=== PATIENT | female | born 1960 | race African-American/Black ===

== ENCOUNTER 2025-03-02 12:18 | Emergency (ER) | payer OTHER, SELFPAY ==
--- NOTE | ~2025-03-02 | US_ITS ---
BILATERAL LOWER EXTREMITY VENOUS ULTRASOUND Ordering provider: Azam Gentile MD History: . leg swelling, hx BR CA . Comparison: None. FINDINGS: RIGHT LOWER EXTREMITY VEINS: --COMMON FEMORAL: Patent and free of thrombus. Normal compressibility, phasic flow and augmentation. --PROXIMAL SUPERFICIAL FEMORAL: Patent and free of thrombus. Normal compressibility, phasic flow and augmentation. --DISTAL SUPERFICIAL FEMORAL: Patent and free of thrombus. Normal compressibility, phasic flow and au gmentation. --POPLITEAL: Patent and free of thrombus. Normal compressibility, phasic flow and augmentation. --POSTERIOR TIBIAL: Patent and free of thrombus. Normal compressibility, phasic flow and augmentation . LEFT LOWER EXTREMITY VEINS: --COMMON FEMORAL: Patent and free of thrombus. Normal compressibility, phasic flow and augmentation. --PROXIMAL SUPERFICIAL FEMORAL: Patent and free of thrombus. Normal compressibility, phasic flow and augmentation. --DISTAL SUPERFICIAL FEMORAL: Patent and free of thrombus. Normal compressibility, phasic flow and au gmentation. --POPLITEAL: Patent and free of thrombus. Normal compressibility, phasic flow and augmentation. --POSTERIOR TIBIAL: Patent and free of thrombus. Normal compressibility, phasic flow and augmentation . IMPRESSION: Negative bilateral lower extremity venous US. No deep vein thrombosis. Reviewed, dictated and finalized at location A.
[2025-03-02 12:25] VITALS: BP 156/68; PULSE 70; RESP 16; TEMP 36.3; O2SAT 99
--- OUTSIDE RECORDS SUMMARY | 2025-03-02 13:25 | XMS_ITS | CONTINUITY OF CARE DOCUMENT ---
Author Name nona castellano Address Unknown Organization [facility] Address [address] [address] [place] [address] Phone [phone] Care Team Providers Care Felt Carbonizer Name Role Phone Hong Olson MD Unavailable Hong Olson MD Unavailable INSURANCE PROVIDERS Payer name Policy type / Coverage type [place] [employer] [place] MEDICAID (2) Medicaid [id number]
--- NOTE | 2025-03-02 14:31 | ED_ITS ---
HPI - Extremity Problem General Chief complaint: Extremity Problem,Nontraumatic Stated complaint: Bilat lower leg pain Time Seen by Provider: 03/02/25 14:11 History of Present Illness HPI Narrative: 64-year-old female with a past medical history including breast cancer with last session of therapy in October. She states she has been having some bilateral lower extremity pain and swelling left worse than right. She went to [facility] and had blood work done that showed an elevated D-dimer but they did not have ultrasound capabilities. No other concerns per patient at that time and she was sent home with a prescription for Eliquis instructions to obtain an ultrasound. She came to this emergency department that she was not sure what to do. Patient denies any symptoms other than left leg swelling slightly worse than right leg swelling. No other symptoms at this time. She does have a prescription with her for Eliquis 5 mg b.i.d. but she did not feel this yet. States she has no history of DVT or PE. Denies any shortness a breath, chest pain, nausea, vomiting, abdominal pain. No paresthesias that are worse than her normal neuropathy. Denies any falls or injuries. Related Data Allergies Allergy/AdvReac Type Severity Reaction Status Date / Time morphine Allergy Dyspnea / Verified 03/02/25 12:37 SOB naproxen Allergy retaining Verified 03/02/25 12:37 water Review of Systems Review of Systems: As reviewed above in HPI Exam Narrative: GENERAL: [Well-appearing, well-nourished, and in no acute distress.] HEAD: [Normocephalic, atraumatic.] EYES: [PERRLA and EOMI.] ENT: Nares clear, no rhinorrhea or epistaxis. Mucous membranes moist. NECK: Supple. CHEST: [Clear to auscultation. No respiratory distress.] HEART: [Regular rate and rhythm]. No murmur heard. [Normal peripheral pulses.] ABDOMEN: [Soft, nondistended], [nontender], [No rigidity or guarding] EXTREMITIES: Normal range of motion. Some mild nonpitting edema left worse than right at the knees down. No overlying skin discoloration or concerns for cellulitis. SKIN: Warm, dry, no rash. NEURO: [No focal deficits]. Alert and oriented [x3.] PSYCH: [Normal mood and affect.] Course Vital Signs Vital signs: Vital Signs Temperature 36.3 C L 03/02/25 12:25 Pulse Rate 70 03/02/25 12:25 Respiratory Rate 16 03/02/25 12:25 Blood Pressure 156/68 H 03/02/25 12:25 Pulse Oximetry 99 03/02/25 12:25 Oxygen Delivery Room Air 03/02/25 12:25 Temperature 36.3 C L 03/02/25 12:25 Pulse Rate 70 03/02/25 12:25 Respiratory Rate 16 03/02/25 12:25 Blood Pressure 156/68 H 03/02/25 12:25 Pulse Oximetry 99 03/02/25 12:25 Oxygen Delivery Room Air 03/02/25 12:25 MDM - Extremity (Nontraumatic) MDM Narrative Medical decision making narrative: 64-year-old female with a past medical history including breast cancer with last treatment and October. Patient presents to the emergency depart with bilateral leg swelling left worse than right and concern for DVT. She had blood work done at [facility] Emergency Department earlier today that showed elevated D- dimer but no other concerns according to the patient. She is given a presc ription for Eliquis 5 mg b.i.d. and instructed to proceed to get an ultrasound outpatient but she was not able to get this done I was not sure what to do so she came to the emergency department here. She has some unilateral left worse than right swelling in the legs but not significant. No overlying skin changes or signs of cellulitis. She has normal vital signs with any fever significant blood pressure concerns. No tachycardia, hypoxia. Denies any chest pain shortness a breath she was otherwise in her normal state of health. Will proceed with bilateral lower extremity Doppler ultrasound to rule out deep venous thrombosis and make a decision on if she needs to continue taking the Eliquis or not. Patient will follow-up with her primary care provider after ultrasound results. DVT ultrasound was negative. Patient was instructed not to fill the Eliquis prescription and follow-up with regular doctor regarding her leg swelling. Patient is safe for discharge home at this time. Discharge Plan Discharge Clinical Impression: Leg swelling Patient Disposition: Home Condition: Stable Instructions: Antibiotic Form Additional Instructions: Your DVT study was negative and there are no blood clots in your legs. Do not fill the Eliquis prescription that you were provided by the previous hospital. Follow-up with your primary care provider regarding your leg swelling. Return with any emergent concerns such as worsening swelling, developing persistent pain, discoloration in the feet or any other concerns. Patient Language: Romansh Follow-up/Referrals: PHYSICIAN NOT ON STAFF,NONSTAFF [Non-Staff] - Time of Disposition: 15:31
[2025-03-02 15:52] VITALS: BP 181/70; PULSE 62; RESP 16; TEMP 36.4; O2SAT 99
--- OUTSIDE RECORDS SUMMARY | 2025-03-02 16:02 | XMS_ITS | Encounter Summary ---
Author Organization [facility] Healthcare Address [address] [place] [address] Care Team Providers Care Senior Business Broker Name Role Phone Pratima Hinds NP Primary Care Provider [phone] Herbie Chow DO Unavailable [phone] Bry Mead MD Unavailable [phone] Bernarda Luong MD Unavailable [phone] Encounter Details Date Type Department Care Team (Late st Contact Info) Description 03/02/2025 Telephone [facility] at [address] [place] [address] Saloni Rivera, FRANCISCA Social History Tobacco Use Types Packs/Day Years Used Date Smoking Tobacco: Every Day Cigarettes Smokeless Tobacco: Current Comments:Heaviest 1 pack per day. Now on average one pack x 3 days. Started age 12. [facility] Utilities Answer Date Recorded In the past 12 months has [employer], gas, oil, or water [employer] threatened to shut off services in your home? No 12/19/2024 Social Connection and Isolat ion Panel [NHANES] Answer Date Recorded In a typical week, how many times do you talk on the phone with family, friends, or neighbors? More than three times a week 12/19/2024 How often do you get togethe r with friends or relatives? Twice a week 12/19/2024 How often do you attend [facility] or mormon services? 1 to 4 times per year 12/19/2024 Do you belong to any clubs o r organizations such as buddhist groups, unions, fraternal or athletic groups, or school groups? No 12/19/2024 How often do you attend meet ings of the clubs or organizations you belong to? Never 12/19/2024 Are you , , di vorced, , never , or living with a partner? 12/19/2024 AUDIT-C Answer Date Recorded Q1: How often do you have a drink containing alc ohol? Monthly or less 12/18/2024 Q2: How many drinks containi ng alcohol do you have on a typical day when you are drinking? 1 or 2 12/18/2024 Q3: How often do you have si x or more drinks on one occasion? Never 12/18/2024 Overall Financial Resource Strain (CARDIA) Answe r Date Recorded How hard is it for you to pa y for the very basics like food, housing, medical care, and heating? Somewhat hard 12/19/2024 Hunger Vital Sign Answer Date Recorded Within the past 12 months, y ou worried that your food would run out before you got the money to buy more. Sometimes true Within the past 12 months, t he food you bought just didn't last and you didn't have money to get more. Never true 08/2025 PRAPARE - Transportation Answer Date Re corded In the past 12 months, has l ack of transportation kept you from medical appointments or from getting medications? No 12/10 In the past 12 months, has l ack of transportation kept you from meetings, work, or from getting things needed for daily living? No 12/19/2024 Housing Stability Vital Sign Answer Reese e Recorded In the last 12 months, was t here a time when you were not able to pay the mortgage or rent on time? No 12/19/2024 In the past 12 months, how m any times have you moved where you were living? 1 12/19/2024 At any time in the past 12 m [facility], were you homeless or living in a long-term (including now)? No 12/19/2024 Personal Safety Answer Date Recorded Have you ever been in or are you currently in a harmful physical or emotional relationship or is someone making you feel afraid or unsafe? 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 Janie RN notified of this, she is going to call patient. documented in this encounter Plan of Treatment Not on file documented as of this encounter Visit Diagnoses Not on filedocumented in this encounter Additional Health Concerns Infection Onset Date Last Indicated Resolved Time COVID: Recovered Comment:Added based on recent COVID infection. 12/31/2024 01/03/2025 documented as of this encounter Care Teams Senior Business Broker Relationship Specialty Start Date End Date Pratima Hinds NP [address] [facility] [address] [place] [address] PCP - General Nurse Practitioner 02/04/24 [place] [address] [place] [address] MEDICAL ONCOLOGY, [facility] [address] [place] [address] Medical Oncologist/Hematologis t Hematology and Oncology 02/04/24 Bry Mead MD [address] [place] [address] [address] [place], [place] [id number] Radiation Oncologist Radiation Oncology 01/04/25 Bernarda Luong MD [address] [facility] [address] [place] [address] Referring Physician Internal Medicine 01/04/25 documented as of this encounter
--- OUTSIDE RECORDS SUMMARY | 2025-03-02 16:02 | XMS_ITS | Clinical Summary ---
Author Organization [facility] Address [address] [place] [id number] Care Team Providers Care Philosophy Lecturer Name Role Phone Guzman Pratima CASTELLANOS Primary Care Provider [phone] Rinku Chow DO Unavailable [phone] Bry Mead MD Unavailable [phone] Bernarda Luong MD Unavailable [phone] Allergies Active Allergy Reactions Criticality Noted Date Comments Adhesive Tape-Silicones Blisters High Bupropion Rash,Unknown,Other (See comments) Medium 07/01/2018 Magnesium Sulfate Agitation Low 08/08/2024 Morphine Shortness of breath High 06/30/2024 Feels like elephant sitting on chest and cannot get air, hard to breathe Naproxen Swelling Medium Fluid retention after taking long term care social worker Medications albuterol HFA (PROVENTIL HFA,VENTOLIN HFA,PROAIR HFA) 90 mcg/actuation inhaler INHALE TWO PUFFS BY MOUTH EVERY FOUR HOURS 4 Active atorvastatin (LIPITOR) 40 mg tablet Take 1 tablet (40 mg total) by mouth nightly 3 Active budesonide-formot Irene (SYMBICORT) 160-4.5 mcg/actuation inhaler Inhale 2 puffs 2 (two) times a day Active busPIRone (BUSPAR) 15 mg tablet Take 1 tablet (15 mg total) by mouth 2 (two) times a day 4 Active cholecalciferol (VITAMIN D-3) 5,000 unit capsule Take 1 capsule (5,000 Units total) by mouth daily Active citalopram (CeleXA) 40 mg tablet Take 1 tablet (40 mg total) by mouth daily Takes 10am daily 7 Active cyanocobalamin (Vitamin B-12) 1,000 mcg/mL injection Inject 1 mL (1,000 mcg total) under the skin every 30 (thirty) days Active Farxiga 10 mg tablet Take 1 tablet (10 mg total) by mouth daily 4 Active lisinopriL (PRINIVIL,ZESTRIL ) 20 mg tablet Take 1 tablet (20 mg total) by mouth daily Active nitroglycerin (NITROSTAT) 0.[address] under the tongue as needed for chest pain Active omeprazole (PriLOSEC) 40 mg capsule Take 1 capsule (40 mg total) by mouth nightly 4 Active [place]aut Thyroid 30 mg tablet Take 1 tablet (30 mg total) by mouth daily 4 Active clatxefalfwi-Br-l magi-minerals tablet Take 1 tablet by mouth daily Active gabapentin (NEURONTIN) 600 mg tabletIndications :Intractable neuropathic pain of lower extremity Take 1 tablet (600 mg total) by mouth 4 (four) times a day 120 tablet 5 11/26/19 26 Active spironolactone (ALDACTONE) 100 mg tablet Take 1 tablet (100 mg total) by mouth daily Active torsemide (DEMADEX) 100 mg tablet Take 0.5 tablets (50 mg total) by mouth daily Active lactulose solution 10 gram/15mL Take 15 mL (10 g total) by mouth daily Active ondansetron (ZOFRAN) 4 mg tablet Take 1 tablet (4 mg total) by mouth every 8 (eight) hours as needed for nausea or vomiting Active sucralfate (CARAFATE) suspension 1 gram/10 mL Take 10 mL (1 g total) by mouth 4 (four) times a day (with meals and nightly) 1200 mL 5 Active clopidogreL (PLAVIX) 75 mg tablet Take 1 tablet (75 mg total) by mouth daily 30 tablet 11 5 12/13/19 26 Active ferrous sulfate 325 mg (65 mg of elemental iron) tabletIndications :Iron Deficiency Anemia Take 1 tablet (325 mg total) by mouth daily with breakfast 30 tablet 11 5 12/14/19 26 Active metoclopramide (REGLAN) 10 mg tabletIndications :Cancer Chemotherapy-Hazel rosa Nausea and Vomiting,Diabetic Gastroparesis Take 1 tablet (10 mg total) by mouth 4 (four) times a day 120 tablet 2 5 Active oxyCODONE-acetami nophen (PERCOCET) 10-325 mg per tabletIndications :Pain Take 1 tablet by mouth every 4 (four) hours as needed Active metoprolol XL (TOPROL-XL) 50 mg extended release tablet Take 0.5 tablets (25 mg total) by mouth daily 5 12/21/19 26 Active guaiFENesin (ROBITUSSIN) syrup 100 mg/5 mL Take 10 mL (200 mg total) by mouth every 4 (four) hours as needed for cough or congestion 120 mL Active Active Problems Problem Noted Date Diagnosed Date COVID-19 virus infection 12/17/2024 Other dysphagia 12/07/2024 Weight loss 12/07/2024 Rectal bleeding 12/07/2024 Acute congestive heart failu re, unspecified heart failure type 12/05/2024 Intractable neuropathic pain of lower extremity 11/24/2024 Rheumatoid arthritis of mult iple sites with negative rheumatoid factor 11/24/2024 Chronic congestive heart denisse lure, unspecified heart failure type 11/24/2024 Diabetes mellitus without complication Neutropenic fever 09/02/2024 Dehydration 09/01/2024 Chemotherapy-induced neutropenia 09/01/2024 Encounter for adjustment and management of unspecified implanted device 08/08/2024 Persons encountering health services in other specified circumstances 08/08/2024 DDD (degenerative disc disease), lumbar 06/28/20 Hyperlipidemia 06/28/2024 Iron deficiency 06/28/2024 Malignant neoplasm of overla pping sites of right breast in female, estrogen receptor positive 01/29/2024 Cancer Staging:Clinical stage from 02/10/2024:Stage IA(cT1b, cN0, cM0, G2, ER+, MI+, HER2-) - Signed by Luz Batista MD on 02/10/2024 Essential hypertension 04/18/2022 Cobalamin deficiency 04/18/2022 Anemia 01/23/2020 Anxiety 01/23/2020 Chronic obstructive pulmonary disease 01/23/2020 Depressive disorder 01/23/2020 Vitamin D deficiency 01/23/2020 History of VT (myocardial infarction) 10/06/2016 Obesity with body mass index 30 or greater 11/17 Atherosclerosis of coronary artery 06/01/2013 Migraine 05/31/2013 Chest pain 04/20/2013 Encounters Date Type Department Care Team Description 03/02/2025 Telephone [facility] Physicians [facility] Oncology [address] [place] [address] [address] [place] [address] Kennedi Power, RN 03/02/2025 Telephone [facility] at [address] [place] [address] Saloni Rivera, FRANCISCA 03/01/2025 Telephone [facility] Medical Office Building 2 Radiation Oncology [address] [place] [phone] Bry Mead MD 02/20/2025 Telephone [facility] Medical Office Building 2 Radiation Oncology [address] [place] [address] Bry Mead MD 02/17/2025 1:15 PM CDT Treatment [facility] Medical Office Building 2 Radiation Oncology [address] [place] [address] 02/17/2025 Completion of Therapy [facility] Office Building 2 Radiation Oncology [address] [place] [address] Bry Mead MD 02/17/2025 OTV [facility] Office Building 2 Radiation Oncology [address] [place] [address] Bry Mead MD 02/17/2025 Orders Only RAD ONC TREATMENTS Miscellaneous, Not In File 02/16/2025 1:15 PM CDT Treatment [facility] Office Building 2 Radiation Oncology [address] [place] [address] 02/16/2025 Social Work [facility] Physicians [facility] Oncology [address] [place] [address] Vanessa Huston LCSW 02/16/2025 Documentation [facility] Cancer [place] [facility] [address] [place] [address] Julia Valdez, A 02/16/2025 Orders Only RAD ONC TREATMENTS Miscellaneous, Not In File 02/07/2025 9:00 AM CDT Treatment [facility] Medical Office Building 2 Radiation Oncology [address] [place] [address] 02/07/2025 Orders Only RAD ONC TREATMENTS Miscellaneous, Not In File 02/03/2025 1:15 PM CDT Treatment [facility] Office Building 2 Radiation Oncology [address] [place] [address] 02/03/2025 OTV [facility] Office Building 2 Radiation Oncology [address] [place] [address] Bry Mead MD 02/03/2025 Orders Only RAD ONC TREATMENTS Miscellaneous, Not In File 02/02/2025 1:15 PM CDT Treatment [facility] Office Building 2 Radiation Oncology [address] [place] [address] 02/02/2025 Orders Only RAD ONC TREATMENTS Miscellaneous, Not In File 02/01/2025 3:22 PM CDT - 02/01/2025 4:24 PM CDT Emergency [facility] Emergency Department [address] [place] [address] Pain in posterior right lower extremity (Primary Dx) Discharge Disposition: Discharge to home or self care 02/01/2025 1:45 PM CDT Treatment [facility] Office Building 2 Radiation Oncology [address] [place] [address] 02/01/2025 Orders Only RAD ONC TREATMENTS Miscellaneous, Not In File 01/30/2025 1:15 PM CDT Treatment [facility] Building 2 Radiation Oncology [address] [place] [address] 01/30/2025 Orders Only RAD ONC TREATMENTS Miscellaneous, Not In File 01/27/2025 1:15 PM CDT Treatment [facility] Office Building 2 Radiation Oncology [address] [place] [address] 01/27/2025 OTV [facility] Office Building 2 Radiation Oncology [address] [place] [address] Luz Batista MD Malignant neoplasm of overlapping sites of right breast in female, estrogen receptor positive (HCC) (Primary Dx) 01/27/2025 Orders Only RAD ONC TREATMENTS Miscellaneous, Not In File 01/25/2025 1:15 PM CDT Treatment [facility] Office Building 2 Radiation Oncology [address] [place] [address] 01/25/2025 Documentation [facility] Center at [address] [address] Julia Valdez, Kaylan 01/25/2025 Orders Only RAD ONC TREATMENTS Miscellaneous, Not In File 01/18/2025 Telephone [facility] Oncology [address] [place] [phone] Latonya Harman RN 01/16/2025 1:30 PM CDT Treatment [facility] Office Building 2 Radiation Oncology [address] [place] [address] Bry Mead MD 01/16/2025 1:15 PM CDT Treatment [facility] Office Building 2 Radiation Oncology [address] [place] [address] Bry Mead MD 01/16/2025 Orders Only RAD ONC TREATMENTS Miscellaneous, Not In File 01/06/2025 9:00 PM [employer] BUSINESS ANALYST Treatment [facility] Medical Office Building 2 Radiation Oncology [address] [place] [address] 01/04/2025 2:00 PM [employer] BUSINESS ANALYST Treatment [facility] Office Building 2 Radiation Oncology [address] [place] [address] Bry Mead MD 01/04/2025 1:30 PM [employer] BUSINESS ANALYST Consult [facility] Office Building 2 Radiation Oncology [address] [place] [address] Bry Mead MD Malignant neoplasm of overlapping sites of right breast in female, estrogen receptor positive (HCC); Malignant neoplasm of upper-outer quadrant of left breast in female, estrogen receptor positive (HCC) 01/04/2025 1:15 PM [employer] BUSINESS ANALYST Clinical Support [facility] at [address] [address] Malignant neoplasm of overlapping sites of right breast in female, estrogen receptor positive (HCC); Malignant neoplasm of upper-outer quadrant of left breast in female, estrogen receptor positive (HCC); Normocytic hypochromic anemia; Fatigue, unspecified type 12/30/2024 Home Care Visit [address] [address] [address] [place] [address] Minerva Gonzales, RN CASE COMMUNICATION 12/30/2024 Home Care Visit [address] [address] [address] [place] [address] Minerva Gonzales, RN SN NON ADMIT 12/29/2024 Home Care Visit [address] [place] [address] Chula Cerna, RN TELEPHONE ENCOUNTER 12/28/2024 Home Care Visit [address] [place] [address] Chula Cerna, RN TELEPHONE ENCOUNTER 12/28/2024 Home Care Visit [address] [place] [address] Julia Mcnally TELEPHONE ENCOUNTER 12/27/2024 Home Care Visit [address] [place] [address] Chula Cerna, RN TELEPHONE ENCOUNTER 12/26/2024 Home Care Visit [address] [place] [address] Chula Cerna, RN TELEPHONE ENCOUNTER 12/24/2024 Home Care Visit [address] [place] [address] Sepideh Butler, FRANCISCA TELEPHONE ENCOUNTER 12/22/2024 Telephone [facility] Care Services [address] [place] [address] [address] [place] [address] Hannah Ventura, FRANCISCA 12/17/2024 4:39 PM [employer] BUSINESS ANALYST - 12/21/2024 11:46 AM [employer] BUSINESS ANALYST Hospital Encounter [facility] 5 Med Surg [address] [place] [address] Sandra Lawrence MD Sada, MD Mumtaz Yao Anjanya Devendra, MD Gaspe Mudiyanselage, Aries Levi MD COVID-19 virus infection (Primary Dx); Fever, unspecified fever cause; Malignant neoplasm of overlapping sites of right breast in female, estrogen receptor positive (HCC); Essential hypertension; Diabetes mellitus without complication (HCC); Neutropenic fever; Chemotherapy-induced neutropenia Discharge Disposition: Discharge to home, home health skilled care 12/15/2024 Telephone [facility] Medical Office Building 2 Radiation Oncology [address] [place] [address] Gill Horvath MA 12/14/2024 2:15 PM [employer] BUSINESS ANALYST Office Visit [facility] Physicians [facility] Oncology [address] [place] [address] [address] [place] [phone] Rinku Chow DO Malignant neoplasm of upper-outer quadrant of left breast in female, estrogen receptor positive (HCC) (Primary Dx); Malignant neoplasm of overlapping sites of right breast in female, estrogen receptor positive (HCC); Normocytic hypochromic anemia; Fatigue, unspecified type 12/14/2024 1:45 PM [employer] BUSINESS ANALYST Clinical Support [address] [id number] Malignant neoplasm of overlapping sites of right breast in female, estrogen receptor positive (HCC) 12/14/2024 Social Work [facility] Oncology [address] [place] [address] [address] [place] [address] Vanessa Huston LCSW 12/14/2024 Telephone [facility] Oncology [address] [place] [address] [address] [place] [address] Marie Gomez, VALE 12/12/2024 3:42 PM [employer] BUSINESS ANALYST Anesthesia Event [facility] GI Endo [address] [place] [address] Luis Eduardo Mead MD 12/12/2024 2:30 PM [employer] BUSINESS ANALYST - 12/12/2024 3:00 PM [employer] BUSINESS ANALYST Surgery [facility] GI Endo [address] [place] [address] Vincent Hamilton MD COLONOSCOPY 12/05/2024 11:29 AM [employer] BUSINESS ANALYST - 12/12/2024 7:45 PM [employer] BUSINESS ANALYST Hospital Encounter [facility] 5 Med Surg [address] [place] [id number] Virgil Vanegas DO Mourad, Ibrahim, MD Mahasneh, Omar Ali Mohammed, MD Acute congestive heart failure, unspecified heart failure type (HCC) (Primary Dx); Other dysphagia [R13.19]; Weight loss [R63.4]; Iron deficiency anemia, unspecified iron deficiency anemia type [D50.9]; Rectal bleeding [K62.5]; Other dysphagia; Weight loss; Anemia, unspecified type Discharge Disposition: Discharge to home or self care 12/02/2024 Telephone [facility] Patient Access [address] [place] [address] Sherman Wang from Last 3 Months Immunizations Immunization Administration Dates Next Due Influenza, Trivalent, Preservative Free, Intramu scular 09/05/2024 Surgical History Surgery Date Site/Laterality Comments HYSTERECTOMY COLONOSCOPY SECTION 11/09/2002 - 11/08/2003 CARDIAC SURGERY 11/09/2012 - 11/08/2013 double bypass (Titanium in sternum) VAGINAL DELIVERY x8 BREAST SURGERY 07/06/2024 Right Needle loc lumpectomy w biopsy right axillary lymph nodes UPPER GASTROINTESTINAL ENDOSCOPY Medical History Medical History Date Comments CHF (congestive heart failure) (HCC) Hypertension Anemia with transfusion s during heart surgery Anxiety Cancer (HCC) Hypercholesteremia Stroke (HCC) age 30s Thyroid disease Breast cancer (HCC) Diabetes mellitus (HCC) Atherosclerosis of coronary artery 06/01/2013 Malignant neoplasm of overla pping sites of right breast in female, estrogen receptor positive (HCC) 01/29/2024 Chronic obstructive pulmonar y disease (HCC) 01/23/2020 DDD (degenerative disc disease), lumbar 06/28/20 Depressive disorder 01/23/2020 History of VT (myocardial infarction) 10/06/2016 Essential hypertension 04/18/2022 Hyperlipidemia 06/28/2024 Iron deficiency 06/28/2024 Migraine 05/31/2013 Cobalamin deficiency 04/18/2022 Vitamin D deficiency 01/23/2020 PONV (postoperative nausea and vomiting) nausea only Sleep apnea no cpap Irritable bowel syndrome IBS-C VT (myocardial infarction) (HCC) Hx CABG- double bypass Family History Medical History Relation Name Comments Brain Aneurysm Brother Heart attack Father Kidney failure Father Stroke Father No Known Problems Maternal Grandfather No Known Problems Maternal Grandmother Leukemia Mother No Known Problems Paternal Grandfather No Known Problems Paternal Grandmother Hodgkin's lymphoma Sister Relation Name Status Comments Brother Father Maternal Grandfather Maternal Grandmother Mother Paternal Grandfather Paternal Grandmother Sister Social History Tobacco Use Types Packs/Day Years Used Date Smoking Tobacco: Every Day Cigarettes Smokeless Tobacco: Current Tobacco Cessation:Ready to Q uit: Not Asked; Counseling Given: Not Answered Comments:Heaviest 1 pack per day. Now on average one pack x 3 days. Started age 12. [facility] Utilities Answer Date Recorded In the past 12 months has e Poached Jobs, gas, oil, or water [employer] threatened to shut off services in your [...] week 12/19/2024 How often do you attend chur ch or gnosticism services? 1 to 4 times per year 12/19/2024 Do you belong to any clubs o r organizations such as gnosticist groups, unions, fraternal or athletic groups, or [...] any time in the past 12 m onths, were you homeless or living in a senior living (including now)? No 12/19/2024 Personal Safety Answer Date Recorded Have you ever been in or are you currently in a harmful physical or emotional relationship or is someone making you feel afraid or unsafe? Denies 02/01/2025 Comments No Sex and Gender Information Value Date Recorded Sex Assigned at Not on file Legal Sex Female 2:57 AM [employer] BUSINESS ANALYST Gender Identity Not on file Sexual Orientation Not on file Occupation Industry Job Start Date Job End Date Disabled Not on file Not on file Not on file Obstetrics History Para Term AB IAB SAB Ectopic Multiple Livin g Live Births 9 Date Outcome GA Total Labor Labor/2nd/3rd Weight Sex Type Anes PTL Nelly A1 A5 Name Clin Last Filed Vital Signs Vital Sign Reading Time Taken Comments Blood Pressure 159/104 02/17/2025 1:57 PM CDT Pulse 72 02/17/2025 1:57 PM CDT Temperature 37.2 C (99 F) 02/01/2025 2:56 PM CDT Respiratory Rate 16 02/01/2025 2:56 PM CDT Oxygen Saturation 100% 02/17/2025 1:57 PM CDT Inhaled Oxygen Concentration - - Weight 91.6 kg (201 lb 15.1 oz) 02/01/2025 2:56 PM CDT Height 170.2 cm (5' 7 ) 02/01/2025 2:56 PM CDT Body Mass Index 31.63 02/01/2025 2:56 PM CDT Plan of Treatment Health Maintenance Due Date Last Done Comments Albumin Creatinine Ratio, Urine 1961 Depression Screening 1961 Dilated Eye Exam 1961 Foot Exam 1961 Hepatitis B Screening 1979 Regular Well Visit/Exam 18-64 1979 Zoster Vaccine (1 of 2) 1980 DTaP/Tdap/Td Vaccine (1 - Tdap) 01/27/2003 3 Breast Cancer Screening-Mammogram 02/24/2015 014 Covid-19 Vaccine (3 - Pfizer risk series) 08/19/2021 07/22/2021, 06/30/2021 Hemoglobin A1C 06/06/2025 12/07/2024 Lipid Panel 12/06/2025 12/06/2024, 07/2019, 04/29/2013 eGFR 02/01/2026 02/01/2025, 12/10, 12/20/2024, Additional history exists Colon Cancer Screening-Colonoscopy 12/12/20342024 Hepatitis C Screening Completed 05/03/2013 Pneumococcal vaccine <65 Completed 023, 11/11/2017, 08/29/2015, Additional history exists Influenza Vaccine Completed 09/05/2024, , 11/11/2017, Additional history exists Medical Devices Implanted Type Area Energy Specialist Device Identifier Shelf Expiration Date Model / Serial / Lot Mining Machinery [employer] [place] 20ga 5cm Reposition J Curve Wire [employer] Claudio Stabilizer [id number] - [id number] Implanted:Qty: 1 on 07/06/2024 by Sudarshan Yap MD at [facility] Right: Breast [employer] [id number] 03/17/2029 [id number] / / [id number] [employer] [place] 20ga 5cm Reposition J Curve Wire [employer] Claudio Stabilizer [id number] - [id number] Implanted:Qty: 1 on 07/06/2024 by Sudarshan Yap MD at [facility] Right: Breast [employer] [id number] 03/17/2029 [id number] / / [id number] [place] Chloe Powerport Mri Airguard 8fr 1 Lumen Attachable Catheter Latex Free [id number] - [id number] Implanted:Qty: 1 on 08/23/2024 by Ismael Bowen MD at [facility] Left: Chest [employer] [place] [id number] 02/06/2026 [id number] / / [id number] Procedures Procedure Name Priority Date/Time Associated Diagnosis Comments RAD ONC ARIA SESSION SUMMARY 09/2025 1:46 PM CDT RAD ONC ARIA SESSION SUMMARY 08/2025 1:40 PM CDT RAD ONC ARIA SESSION SUMMARY 11/2024 9:34 AM CDT RAD ONC ARIA SESSION SUMMARY 1:30 PM CDT RAD ONC ARIA SESSION SUMMARY 1:53 PM CDT US VEIN DUPLEX LOWER EXTREMI TY RIGHT LIMITED ED 02/01/2025 3:42 PM CDT EGFR STAT 02/01/2025 3:10 PM CDT DIFFERENTIAL AUTO STAT 02/01/2025 3:10 PM CDT COMPREHENSIVE METABOLIC PANEL STAT 3:10 PM CDT CBC WITH AUTO DIFFERENTIAL STAT 02/01 3:10 PM CDT D-DIMER, QUANTITATIVE STAT 02/01/2025 3:10 PM CDT RAD ONC ARIA SESSION SUMMARY 2:07 PM CDT RAD ONC ARIA SESSION SUMMARY 2:10 PM CDT RAD ONC ARIA SESSION SUMMARY 1:35 PM CDT RAD ONC ARIA SESSION SUMMARY 1:29 PM CDT RAD ONC ARIA SESSION SUMMARY 08/2025 1:40 PM CDT DIFFERENTIAL AUTO Routine 01/04/2025 1:26 PM [employer] BUSINESS ANALYST Malignant neoplasm of overlapping sites of right breast in female, estrogen receptor positive (HCC) Malignant neoplasm of upper-outer quadrant of left breast in female, estrogen receptor positive (HCC) Normocytic hypochromic anemia FERRITIN Routine 01/04/2025 1:26 PM [employer] BUSINESS ANALYST Malignant neoplasm of overlapping sites of right breast in female, estrogen receptor positive (HCC) Malignant neoplasm of upper-outer quadrant of left breast in female, estrogen receptor positive (HCC) Normocytic hypochromic anemia RETICULOCYTES Routine 01/04/2025 1:26 PM [employer] BUSINESS ANALYST Malignant neoplasm of overlapping sites of right breast in female, estrogen receptor positive (HCC) Malignant neoplasm of upper-outer quadrant of left breast in female, estrogen receptor positive (HCC) Normocytic hypochromic anemia TSH Routine 01/04/2025 1:26 PM [employer] BUSINESS ANALYST Malignant neoplasm of overlapping sites of right breast in female, estrogen receptor positive (HCC) Malignant neoplasm of upper-outer quadrant of left breast in female, estrogen receptor positive (HCC) Normocytic hypochromic anemia Fatigue, unspecified type CBC WITH AUTO DIFFERENTIAL Routine 01/04 1:26 PM [employer] BUSINESS ANALYST Malignant neoplasm of overlapping sites of right breast in female, estrogen receptor positive (HCC) Malignant neoplasm of upper-outer quadrant of left breast in female, estrogen receptor positive (HCC) Normocytic hypochromic anemia EGFR Routine 12/21/2024 5:45 AM [employer] BUSINESS ANALYST DIFFERENTIAL AUTO Routine 12/21/2024 5:45 AM [employer] BUSINESS ANALYST BASIC METABOLIC PANEL Routine 12/21/2024 5:45 AM [employer] BUSINESS ANALYST CBC WITH AUTO DIFFERENTIAL Routine 12/21 5:45 [address] [employer] [address] CHEST PE W CONTRAST ED Urgent/IP Urgent 12/20/2024 8:21 AM [employer] BUSINESS ANALYST EGFR Routine 12/20/2024 6:51 AM [employer] BUSINESS ANALYST DIFFERENTIAL AUTO Routine 12/20/2024 6:51 AM [employer] BUSINESS ANALYST BASIC METABOLIC PANEL Routine 12/20/2024 6:51 AM [employer] BUSINESS ANALYST CBC WITH AUTO DIFFERENTIAL Routine 12/20 6:51 AM [employer] BUSINESS ANALYST ECG 12-LEAD Routine 12/20/2024 12:21 AM [employer] BUSINESS ANALYST MAGNESIUM Routine 12/19/2024 7:49 AM [employer] BUSINESS ANALYST EGFR Routine 12/19/2024 7:49 AM [employer] BUSINESS ANALYST DIFFERENTIAL AUTO Routine 12/19/2024 7:49 AM [employer] BUSINESS ANALYST BASIC METABOLIC PANEL Routine 12/19/2024 7:49 AM [employer] BUSINESS ANALYST CBC WITH AUTO DIFFERENTIAL Routine 12/19 7:49 AM [employer] BUSINESS ANALYST D-DIMER, QUANTITATIVE Routine 12/19/2024 7:49 AM [employer] BUSINESS ANALY[employer] CRP (ACUTE PHASE) Routine 12/19/2024 7:49 AM [employer] BUSINESS ANALYST DIFFERENTIAL AUTO Add On 12/18/2024 6:36 AM [employer] ANALYST CBC WITH AUTO DIFFERENTIAL Add-On 12/18 6:36 AM [employer] ANALYST EGFR Routine 12/18/2024 5:50 AM [employer] ANALYST CBC WITHOUT DIFFERENTIAL Routine 025 5:50 AM [employer] BUSINESS ANALYST COMPREHENSIVE METABOLIC PANEL Routine 5:50 AM [employer] ANALYST URINALYSIS, MICROSCOPIC ONLY STAT 06/2025 5:51 PM [employer] ANALYST URINALYSIS AND REFLEX TO MICROSCOPIC AND CULTURE STAT 12/17/2024 5:51 PM [employer] ANALYST DIFFERENTIAL AUTO STAT 12/17/2024 5:44 PM [employer] ANALYST CBC WITH AUTO DIFFERENTIAL STAT 12/17 5:44 PM [employer] ANALYST INFLUENZA A/B, RSV, AND COVID-19 PCR STAT 12/17/2024 5:44 PM [employer] ANALYST ECG 12-LEAD Routine 12/17/2024 5:27 PM [employer]NALYST EGFR STAT 12/17/2024 5:19 PM [employer] ANALYST SEPSIS LACTATE WITH REFLEX Routine 12/17 5:19 PM [employer] ANALYST COMPREHENSIVE METABOLIC PANEL STAT 5:19 PM [employer] ANALYST XR CHEST 1 VIEW ED 12/17/2024 4:54 PM [employer]NALYST EGFR Routine 12/14/2024 2:18 PM [employer]NALYST Malignant neoplasm of overlapping sites of right breast in female, estrogen receptor positive (HCC) MANUAL DIFFERENTIAL Routine 12/14/2024 2:18 PM [employer]NALYST Malignant neoplasm of overlapping sites of right breast in female, estrogen receptor positive (HCC) DIFFERENTIAL AUTO Routine 12/14/2024 2:18 PM [employer] ANALYST Malignant neoplasm of overlapping sites of right breast in female, estrogen receptor positive (HCC) CBC WITH AUTO DIFFERENTIAL Routine 12/14 2:18 PM [employer]NALYST Malignant neoplasm of overlapping sites of right breast in female, estrogen receptor positive (HCC) COMPREHENSIVE METABOLIC PANEL Routine 2:18 PM [employer] ANALYST Malignant neoplasm of overlapping sites of right breast in female, estrogen receptor positive (HCC) EGD 12/12/2024 2:39 PM [employer] ANALYST COLONOSCOPY 12/12/2024 2:39 PM [employer] ANALYST ESOPHAGOGASTRODUODENOSCOPY 12/12 2:33 PM [employer] ANALYST Anemia, unspecified type COLONOSCOPY 12/12/2024 2:33 PM [employer] ANALYST Anemia, unspecified type DIFFERENTIAL AUTO Routine 12/12/2024 5:32 AM [employer] ANALYST CBC WITH AUTO DIFFERENTIAL Routine 12/12 5:32 AM [employer] ANALYST DIFFERENTIAL AUTO Routine 12/11/2024 7:21 AM [employer] ANALYST CBC WITH AUTO DIFFERENTIAL Routine 12/11 7:21 AM [employer] ANALYST DIFFERENTIAL AUTO Routine 12/10/2024 9:28 AM [employer] ANALYST CBC WITH AUTO DIFFERENTIAL Routine 12/10 9:28 AM [employer] ANALYST MANUAL DIFFERENTIAL Routine 12/09/2024 6:44 AM [employer] ANALYST EGFR Routine 12/09/2024 6:44 AM [employer] ANALYST DIFFERENTIAL AUTO Routine 12/09/2024 6:44 AM [employer] ANALYST CBC WITH AUTO DIFFERENTIAL Routine 12/09 6:44 AM [employer] ANALYST BASIC METABOLIC PANEL Routine 12/09/2024 6:44 AM [employer] ANALYST TRANSFUSE RED BLOOD CELLS Timed 2024 2:06 PM [employer]LYST PREPARE RBC Routine 12/08/2024 1:45 PM [employer] ANALYST CROSSMATCH Timed 12/08/2024 12:31 PM [employer] A[employer]LYST ANTIBODY SCREEN Timed 12/08/2024 12:31 PM [employer] ANALYST ABO/RH Timed 12/08/2024 12:31 PM [employer] ANALYST TYPE AND SCREEN Timed 12/08/2024 12:31 PM [employer]NALYST PREPARE RBC Timed 12/08/2024 7:35 AM [employer] ANALYST EGFR Routine 12/08/2024 5:07 AM [employer] ANALYST DIFFERENTIAL AUTO Routine 12/08/2024 5:07 AM [employer] ANALYST PROTIME-INR Routine 12/08/2024 5:07 AM [employer] ANALYST CBC WITH AUTO DIFFERENTIAL Routine 12/08 5:07 AM [employer] ANALYST BASIC METABOLIC PANEL Routine 12/08/2024 5:[address] [employer] [address] CHEST PE W CONTRAST IP Routine 12:14 PM [employer] ANALYST HEMOGLOBIN A1C Routine 12/07/2024 5:58 AM [employer] ANALYST EGFR Routine 12/07/2024 5:58 AM [employer]NALYST DIFFERENTIAL AUTO Routine 12/07/2024 5:58 AM [employer] ANALYST CBC WITH AUTO DIFFERENTIAL Routine 12/07 5:58 AM [employer] ANALYST BASIC METABOLIC PANEL Routine 12/07/2024 5:58 AM [employer] ANALYST VITAMIN B12 Routine 12/07/2024 5:57 AM [employer] ANALYST US VEIN DUPLEX LOWER EXTREMI TY BILATERAL COMPLETE IP Routine 12/06/2024 4:15 PM [employer] ANALYST LIPID PANEL Routine 12/06/2024 10:43 AM [employer] ANALYST IRON PROFILE W/ IBC Routine 12/06/2024 10:43 AM [employer] ANALYST EGFR Routine 12/06/2024 10:43 AM [employer] ANALYST DIFFERENTIAL AUTO Routine 12/06/2024 10:43 AM [employer] ANALYST CBC WITH AUTO DIFFERENTIAL Routine 12/06 10:43 AM [employer] ANALYST BASIC METABOLIC PANEL Routine 12/06/2024 10:43 AM [employer] ANALYST TRANSTHORACIC ECHO (TTE) COMPLETE W DOPPLER/CF WO CONTRAST Routine 12/06/2024 9:59 AM [employer] ANALYST D-DIMER, QUANTITATIVE STAT 12/05/2024 9:35 PM [employer] ANALYST TROPONIN T HIGH-SENSITIVITY 4-HR Timed 12/05/2024 9:35 PM [employer] ANALYST TROPONIN T HIGH-SENSITIVITY 6-HOUR Timed 12/05/2024 4:33 PM [employer] ANALYST TROPONIN T HIGH-SENSITIVITY 2-HOUR Timed 12/05/2024 12:21 PM [employer] ANALYST URINALYSIS AND REFLEX TO MICROSCOPIC AND CULTURE STAT 12/05/2024 11:43 AM [employer] ANALYST ECG 12-LEAD STAT 12/05/2024 11:40 AM [employer] ANALYST XR CHEST 1 VIEW ED 12/05/2024 10:40 AM [employer] ANALYST EGFR STAT 12/05/2024 10:16 AM [employer] ANALYST DIFFERENTIAL AUTO STAT 12/05/2024 10:16 AM [employer] ANALYST PRO B-TYPE NATRIURETIC PEPTIDE STAT 0 12/05/2024 10:16 AM [employer] ANALYST TROPONIN T HIGH-SENSITIVITY SERIES (BASELINE, 2HR, 4HR, 6HR) STAT 12/05/2024 10:16 AM [employer] ANALYST COMPREHENSIVE METABOLIC PANEL STAT 10:16 AM [employer] ANALYST CBC WITH AUTO DIFFERENTIAL STAT 12/05 10:16 AM [employer] ANALYST SERUM HEPATITIS C AB Routine 05/03/2013 4:35 AM CDT from Last 3 Months or Most Recently Relevant to Health Maintenance Results * RAD ONC ARIA SESSION SUMMARY (02/17/2025 1:46 PM CDT) Course Name C1_R_Breast _2024 ARIA Course Plan Date 01/04/2025 3:54 PM ARIA Elapsed Days 32 ARIA Treatment Start Date 01/16/2025 ARIA Treatment Site PRNE RT BREAST ARIA Dose Given To Date (cGy) 2,670 ARIA Session Dosage Given (cGy) 267 ARIA Plan ID RT BREAST ARIA Fractions Treated 10 ARIA Prescribed Dose Per Fraction (cGy) 267 ARIA Prescribed Total Dose (cGy) 4,005 ARIA 02/17/2025 1:46 PM CDT us Not In File Miscellaneous RADIATION ONCOLOGY ORD ERABLES Final Result DOM * RAD ONC ARIA SESSION SUMMARY (02/16/2025 1:40 PM CDT) Course Name C1_R_Breast _2024 ARIA Course Plan Date 01/04/2025 3:54 PM ARIA Elapsed Days 31 ARIA Treatment Start Date 01/16/2025 ARIA Treatment Site PRNE RT BREAST ARIA Dose Given To Date (cGy) 2,403 ARIA Session Dosage Given (cGy) 267 ARIA Plan ID RT BREAST ARIA Fractions Treated 9 ARIA Prescribed Dose Per Fraction (cGy) 267 ARIA Prescribed Total Dose (cGy) 4,005 ARIA 02/16/2025 1:40 PM CDT us Not In File Miscellaneous RADIATION ONCOLOGY ORD ERABLES Final Result Performing Organization Address City/[facility]/ZIP Co de Phone Number ARIA * RAD ONC ARIA SESSION SUMMARY (02/07/2025 9:34 AM CDT) Course Name C1_R_Breast ARIA Course Plan Date 01/04/2025 3:54 PM ARIA Elapsed Days 22 ARIA Treatment Start Date 01/16/2025 ARIA Treatment Site PRNE RT BREAST ARIA Dose Given To Date (cGy) 2,136 ARIA Session Dosage Given (cGy) 267 ARIA Plan ID RT BREAST ARIA Fractions Treated 8 ARIA Prescribed Dose Per Fraction (cGy) 267 ARIA Prescribed Total Dose (cGy) 4,005 ARIA 02/07/2025 9:34 AM CDT us Not In File Miscellaneous RADIATION ONCOLOGY ORD ERABLES Final Result ARIA * RAD ONC ARIA SESSION SUMMARY (02/03/2025 1:30 PM CDT) Course Name C1_R_Breast _2024 ARIA Course Plan Date 01/04/2025 3:54 PM ARIA Elapsed Days 18 ARIA Treatment Start Date 01/16/2025 ARIA Treatment Site PRNE RT BREAST ARIA Dose Given To Date (cGy) 1,869 ARIA Session Dosage Given (cGy) 267 ARIA Plan ID RT BREAST ARIA Fractions Treated 7 ARIA Prescribed Dose Per Fraction (cGy) 267 ARIA Prescribed Total Dose (cGy) 4,005 ARIA 02/03/2025 1:30 PM CDT us Not In File Miscellaneous RADIATION ONCOLOGY ORD ERABLES Final Result Performing Organization Address City/[facility] Co de Phone Number ARIA * RAD ONC ARIA SESSION SUMMARY (02/02/2025 1:53 PM CDT) Course Name C1_R_Breast _2024 ARIA Course Plan Date 01/04/2025 3:54 PM ARIA Elapsed Days 17 ARIA Treatment Start Date 01/16/2025 ARIA Treatment Site PRNE RT BREAST ARIA Dose Given To Date (cGy) 1,602 ARIA Session Dosage Given (cGy) 267 ARIA Plan ID RT BREAST ARIA Fractions Treated 6 ARIA Prescribed Dose Per Fraction (cGy) 267 ARIA Prescribed Total Dose (cGy) 4,005 ARIA 02/02/2025 1:53 PM CDT us Not In File Miscellaneous RADIATION ONCOLOGY ORD ERABLES Final Result ARIA * US VEIN DUPLEX LOWER EXTREMITY RIGHT LIMITED, UNILATERAL (02/01/2025 3:42 PM CDT) Anatomical Region Laterality Modality Vascular Right Ultrasound 02/01/2025 3:19 PM CDT Narrative 02/02/2025 2:35 PM CDT Lower Extremity Venous Report Patient Name: DRU LANA, G : 1960 (64y 3m) Gender: F Study Date: 02/01/2025 03:19:16 PM Lawn Mower Operator: Amena Sullivan RDMS,RVT Order Provider: VIRGIL VANEGAS Quality: Adequate Ref Provider: VIRGIL VANEGAS PROCEDURES: Vascular Report: A non-invasive vascular imaging study of the right lower extremity veins was performed using B-mode ultrasound, color flow, and spectral Doppler. INDICATIONS: Pain and swelling in right leg. COMPARISONS: The previous exam was completed on 12/06/2024. The previous test was negative for DVT bilaterally. FINDINGS: Right: Negative for deep and superficial vein thrombosis in the right lower extremity. For comparison purposes, the left common femoral vein was interrogated. The common femoral vein Doppler flow was phasic, spontaneous and responded normally to distal augmentation. Provider Notification: ADRIANNE Marie via [employer]. CONCLUSIONS: 1. There is no evidence of deep vein thrombosis in the right lower extremity. ATTESTATION: I have reviewed and interpreted the pertinent images and measurements of this study. I attest to the conclusions in the final report that is provided above. Electronically Signed By: Janes Jimenez MD 02/02/2025 2:34:16 PM CDT Procedure Note Janes Jimenez MD - 02/02/2025 Lower Extremity Venous Report Patient Name: LANA BENJAMIN G : 1960 (64y 3m) Gender: F Study Date: 02/01/2025 03:19:16 PM Lawn Mower Operator: Amena Sullivan RDMS,RVT Order Provider: VIRGIL VANEGAS Quality: Adequate Ref Provider: VIRGIL VANEGAS PROCEDURES: Vascular Report: A non-invasive vascular imaging study of the right lowerextremity veins was performed using B-mode ultrasound, color flow, and spectral Doppler. INDICATIONS: Pain and swelling in right leg. COMPARISONS: The previous exam was completed on 12/06/2024. The previous test wasnegative for DVT bilaterally. FINDINGS: Right: Negative for deep and superficial vein thrombosis in the rightlower extremity. For comparison purposes, the left common femoral vein was interrogated.The common femoral vein Doppler flow was phasic, spontaneous and responded normallyto distal augmentation. Provider Notification: ADRIANNE Marie via [employer]. CONCLUSIONS: 1. There is no evidence of deep vein thrombosis in the right lowerextremity. ATTESTATION: I have reviewed and interpreted the pertinent images and measurements ofthis study. I attest to the conclusions in the final report that is provided above. Electronically Signed By: Janes Jimenez MD 02/02/2025 2:34:16 PM CDT us Virgil Vanegas DO IMG US PROCEDURES Final Res ult * eGFR (02/01/2025 3:10 PM CDT) eGFR >90 >=60 mL/min/1. 73 m2 Comment: Interpretive Data Reference Interval Normal >/= 90 mL/min/1.73m2 Mildly decreased* 60 - 89 mL/min/1.73m2 Mildly to moderately decreased 45 - 59 mL/min/1.73m2 Moderately to severely decreased 30 - 44 mL/min/1.73m2 Severely decreased 15 - 29 mL/min/1.73m2 Kidney Failure < 15 mL/min/1.73m2 *Relative to young adult level Estimated glomerular filtration rate is determined by the 2020 CKD-EPI equation recommended by the National Kid[employer] (A Unifying Approach to GFR Estimation: Recommendations of the NKF-ASK Task Force on Reassessing the Inclusion of Race in Diagnosing Kidney Disease, JASN 202). The CKD-EPI equation should not be used for patients with unstable renal function and has not been validated in children and those over 70. Current interpretive data was last reviewed 2021. Testing performed by: [address] [address] Blood 02/01/2025 3:10 PM CDT 02/01/2025 3:22 PM CDT Virgil Vanegas DO LAB BLOOD ORDERABLES Final Result [facility] [address] [facility] Department [place] [address] * Differential, auto (02/01/2025 3:10 PM CDT) Neutrophil abs 2.2 1.5 - 6.5 K/cumm Comment:Testing performed by : [address] [address] Imm gran abs 0.0 0.0 - 0.1 K/cumm ADAR[facility] Comment:Testing performed by : [address] [address] Lymphocyte abs 1.5 0.8 - 3.3 K/cumm ADARSH Comment:Testing performed by : [address] [address] Monocyte abs 0.3 0.2 - 0.8 K/cumm ADARSH Comment:Testing performed by : [address] [address] Eosinophil abs 0.2 0.0 - 0.5 K/cumm ADAR[facility] Comment:Testing performed by : [address] [address] Basophil abs 0.0 0.0 - 0.1 K/cumm [facility] Comment:Testing performed by : [address] [address] Neutrophil pct 50.7 % [facility] Comment: Interpretive Data Percent cell count reference ranges are not reported, since discordance with absolute values may lead to misinterpretation of CBC data. Current Interpretive Data was last revised on 2018. Testing performed by: [address] [address] Imm gran pct 0.2 % ADARSH Comment: Interpretive Data Percent cell count reference ranges are not reported, since discordance with absolute values may lead to misinterpretation of CBC data. Current Interpretive Data was last revised on 2018. Testing performed by: [address] [address] Lymphocyte pct 35.7 % ADAR[facility] Comment: Interpretive Data Percent cell count reference ranges are not reported, since discordance with absolute values may lead to misinterpretation of CBC data. Current Interpretive Data was last revised on 2018. Testing performed by: [address] [address] Monocyte pct 8.0 % ADAR[facility] Comment: Interpretive Data Percent cell count reference ranges are not reported, since discordance with absolute values may lead to misinterpretation of CBC data. Current Interpretive Data was last revised on 2018. Testing performed by: [address] [address] Eosinophil pct 4.7 % ADARSH Comment: Interpretive Data Percent cell count reference ranges are not reported, since discordance with absolute values may lead to misinterpretation of CBC data. Current Interpretive Data was last revised on 2018. Testing performed by: [address] [address] Basophil pct 0.7 % ADAR[facility] Comment: Interpretive Data Percent cell count reference ranges are not reported, since discordance with absolute values may lead to misinterpretation of CBC data. Current Interpretive Data was last revised on 2018. Testing performed by: [address] [address] Blood 02/01/2025 3:10 PM CDT 02/01/2025 3:22 PM CDT Virgil Vanegas DO LAB BLOOD ORDERABLES Final Result [facility] [address] [facility] Department [place] [address] * (ABNORMAL) CBC with auto differential (02/01/2025 3:10 PM CDT) WBC 4.3 3.8 - 9.9 K/cumm Comment:Testing performed by : [address] [address] Hgb 11.1(L) 11.9 - 15.5 g/dL ADARSH Comment:Testing performed by : [address] [address] Hct 35.0(L) 35.6 - 45.5 % ADARSH Comment:Testing performed by : [address] [address] Plt 169 150 - 400 K/cumm ADARSH Comment:Testing performed by : [address] [address] MPV 10.5 9.1 - 12.3 fL [facility]AR[facility] Comment:Testing performed by : [address] [address] RBC 3.74(L) 3.90 - 5.20 M/cumm ADARSH Comment:Testing performed by : [address] [address] MCV 93.6 81.3 - 96.4 fL ADARSH Comment:Testing performed by : [address] [address] MCH 29.7 27.1 - 33.3 pg ADAR[facility] Comment:Testing performed by : [address] [address] MCHC 31.7(L) 32.3 - 35.7 g/dL ADARSH Comment:Testing performed by : [facility], [address] [place] [address]., [address] RDW CV 18.1(H) 11.1 - 14.9 % ADARSH Comment:Testing performed by : [address] [address] RDW SD 62.0(H) 35.7 - 48.1 fL ADARSH Comment:Testing performed by : [address] [address] NRBC abs 0.00 0.00 - 0.01 K/cumm ADARSH Comment:Testing performed by : [address] [address] Blood 02/01/2025 3:10 PM CDT 02/01/2025 3:22 PM CDT Virgil Vanegas DO LAB BLOOD ORDERABLES Final Result [facility] Department [place] [address] * (ABNORMAL) D-dimer, quantitative (02/01/2025 3:10 PM CDT) D-Dimer 2,520(H) <=499 ng/mL FEU Comment: Interpretive data FDA approved the D-dimer, in conjunction with a low or moderate pretest probability score, to exclude venous thromboembolic events (VTE) (PE and DVT) in outpatients when the D-dimer result is < 500 ng/ml FEU. Evidence supports using an age-adjusted D-dimer cut-off for outpatients older than 50 (age x 10) to improve specificity without sacrificing sensitivity. Example: age 68, VTE cut-off 680 ng/ml FEU. References; Schoutpieter HT et al. Brit Med J. 2013;346:f2492. William et al. Annals Int Med. 2015;163:701-11. Current interpretive data was last revised on 2019. Testing performed by: [address] [address] Blood 02/01/2025 3:10 PM CDT 02/01/2025 3:22 PM CDT us Virgil Vanegas DO LAB BLOOD ORDERABLES Final Result [facility] [address] [facility] Department [place] [address] * (ABNORMAL) Comprehensive metabolic panel (02/01/2025 3:10 PM CDT) Sodium 139 135 - 145 mmol/L Comment:Testing performed by : [address] [address] Potassium, pl 4.1 3.3 - 4.9 mmol/L ADARSH Comment:Testing performed by : [address] [address] Chloride 104 97 - 110 mmol/L ADAR[facility] Comment:Testing performed by : [address] [address] CO2 26 22 - 32 mmol/L ADAR[facility] Comment:Testing performed by : [address] [address] Anion gap 9 2 - 15 mmol/L ADAR[facility] Comment:Testing performed by : [address] [address] BUN 11 6 - 25 mg/dL ADARSH Comment:Testing performed by : [address] [address] Creatinine 0.60 0.60 - 1.10 mg/dL ADARSH Comment:Testing performed by : [address] [address] Glucose 103 70 - 199 mg/dL ADAR[facility] Comment: Interpretive Data Fasting glucose >/= 126 mg/dl is diagnostic for diabetes. Fasting is defined as no caloric intake for at least 8 hours. Fasting glucose between 100 mg/dl to 125 mg/dl is diagnostic of prediabetes. In a patient with classic symptoms of hyperglycemia or hyperglycemic crisis, a random glucose >/= 200 mg/dl is diagnostic for diabetes. In the absence of unequivocal hyperglycemia, results should be confirmed by repeat testing. The classification and Diagnosis of Diabetes Diabetes Care 202; 46: S19-S40. Current interpretive data was last revised 2022. Testing performed by: [facility], [address] [place] [address]., [address] Calcium 9.3 8.5 - 10.3 mg/dL ADAR[facility] Comment:Testing performed by : [address] [address] Bilirubin, total 0.4 0.1 - 1.2 mg/dL ADAR[facility] Comment:Testing performed by : [address] [address] Protein, pl 7.2 6.5 - 8.5 g/dL ADAR[facility] Comment:Testing performed by : [address] [address] Albumin 4.1 3.5 - 5.0 g/dL AD[facility] Comment:Testing performed by : [address] [address] Alk phos 161(H) 40 - 130 Units/L AD[facility] Comment:Testing performed by : [address] [address] ALT 9 7 - 45 Units/L ADAR[facility] Comment:Testing performed by : [address] [address] AST 17 10 - 45 Units/L AD[facility] Comment:Testing performed by : [address] [address] Blood 02/01/2025 3:10 PM CDT 02/01/2025 3:22 PM CDT us Virgil Vanegas DO LAB BLOOD ORDERABLES Final Result [facility] [address] [facility] Department [place] [address] * RAD ONC ARIA SESSION SUMMARY (02/01/2025 2:07 PM CDT) Course Name C1_R_Breast _2024 ARIA Course Plan Date 01/04/2025 3:54 PM ARIA Elapsed Days 16 ARIA Treatment Start Date 01/16/2025 ARIA Treatment Site PRNE RT BREAST ARIA Dose Given To Date (cGy) 1,335 ARIA Session Dosage Given (cGy) 267 ARIA Plan ID RT BREAST ARIA Fractions Treated 5 ARIA Prescribed Dose Per Fraction (cGy) 267 ARIA Prescribed Total Dose (cGy) 4,005 ARIA 02/01/2025 2:07 PM CDT us Not In File Miscellaneous RADIATION ONCOLOGY ORD ERABLES Final Result ARIA * RAD ONC ARIA SESSION SUMMARY (01/30/2025 2:10 PM CDT) Course Name C1_R_Breast _2024 ARIA Course Plan Date 01/04/2025 3:54 PM ARIA Elapsed Days 14 ARIA Treatment Start Date 01/16/2025 ARIA Treatment Site PRNE RT BREAST ARIA Dose Given To Date (cGy) 1,068 ARIA Session Dosage Given (cGy) 267 ARIA Plan ID RT BREAST ARIA Fractions Treated 4 ARIA Prescribed Dose Per Fraction (cGy) 267 ARIA Prescribed Total Dose (cGy) 4,005 ARIA 01/30/2025 2:10 PM CDT us Not In File Miscellaneous RADIATION ONCOLOGY ORD ERABLES Final Result ARIA * RAD ONC ARIA SESSION SUMMARY (01/27/2025 1:35 PM CDT) Course Name C1_R_Breast _2024 ARIA Course Plan Date 01/04/2025 3:54 PM ARIA Elapsed Days 11 ARIA Treatment Start Date 01/16/2025 ARIA Treatment Site PRNE RT BREAST ARIA Dose Given To Date (cGy) 801 ARIA Session Dosage Given (cGy) 267 ARIA Plan ID RT BREAST ARIA Fractions Treated 3 ARIA Prescribed Dose Per Fraction (cGy) 267 ARIA Prescribed Total Dose (cGy) 4,005 ARIA 01/27/2025 1:35 PM CDT us Not In File Miscellaneous RADIATION ONCOLOGY ORD ERABLES Final Result DOM * RAD ONC ARIA SESSION SUMMARY (01/25/2025 1:29 PM CDT) Course Name C1_R_Breast _2024 ARIA Course Plan Date 01/04/2025 3:54 PM ARIA Elapsed Days 9 ARIA Treatment Start Date 01/16/2025 ARIA Treatment Site PRNE RT BREAST ARIA Dose Given To Date (cGy) 534 ARIA Session Dosage Given (cGy) 267 ARIA Plan ID RT BREAST ARIA Fractions Treated 2 ARIA Prescribed Dose Per Fraction (cGy) 267 ARIA Prescribed Total Dose (cGy) 4,005 ARIA 01/25/2025 1:29 PM CDT us Not In File Miscellaneous RADIATION ONCOLOGY ORD ERABLES Final Result Performing Organization Address City/[facility]/ZIP Co de Phone Number DOM * RAD ONC ARIA SESSION SUMMARY (01/16/2025 1:40 PM CDT) Course Name C1_R_Breast ARIA Course Plan Date 01/04/2025 3:54 PM ARIA Elapsed Days 0 ARIA Treatment Start Date 01/16/2025 ARIA Treatment Site PRNE RT BREAST ARIA Dose Given To Date (cGy) 267 ARIA Session Dosage Given (cGy) 267 ARIA Plan ID RT BREAST ARIA Fractions Treated 1 ARIA Prescribed Dose Per Fraction (cGy) 267 ARIA Prescribed Total Dose (cGy) 4,005 ARIA 01/16/2025 1:40 PM CDT us Not In File Miscellaneous RADIATION ONCOLOGY ORD ERABLES Final Result DOM * Differential, auto (01/04/2025 1:26 PM [employer] BUSINESS ANALYST) Neutrophil abs 2.4 1.5 - 6.5 K/cumm Comment:Testing performed by : [address], [place]., [address] Imm gran abs 0.0 0.0 - 0.1 K/cumm [facility] Comment:Testing performed by : [address], [place]., [address] Lymphocyte abs 2.0 0.8 - 3.3 K/cumm [facility] Comment:Testing performed by : [address] [address] Monocyte abs 0.5 0.2 - 0.8 K/cumm [facility] Comment:Testing performed by : [address], [place]., [address] Eosinophil abs 0.1 0.0 - 0.5 K/cumm [facility] Comment:Testing performed by : [address] [address] Basophil abs 0.0 0.0 - 0.1 K/cumm [facility] Comment:Testing performed by : [address] [address] Neutrophil pct 48.6 % [facility] Comment: Interpretive Data Percent cell count reference ranges are not reported, since discordance with absolute values may lead to misinterpretation of CBC data. Current Interpretive Data was last revised on 2018. Testing performed by: [address] [address] Imm gran pct 0.0 % [facility] Comment: Interpretive Data Percent cell count reference ranges are not reported, since discordance with absolute values may lead to misinterpretation of CBC data. Current Interpretive Data was last revised on 2018. Testing performed by: [address] [address] Lymphocyte pct 39.5 % CERNER Comment: Interpretive Data Percent cell count reference ranges are not reported, since discordance with absolute values may lead to misinterpretation of CBC data. Current Interpretive Data was last revised on 2018. Testing performed by: [address] [address] Monocyte pct 9.1 % CERNER Comment: Interpretive Data Percent cell count reference ranges are not reported, since discordance with absolute values may lead to misinterpretation of CBC data. Current Interpretive Data was last revised on 2018. Testing performed by: [address] [address] Eosinophil pct 2.4 % ADARSH Comment: Interpretive Data Percent cell count reference ranges are not reported, since discordance with absolute values may lead to misinterpretation of CBC data. Current Interpretive Data was last revised on 2018. Testing performed by: [address] [address] Basophil pct 0.4 % ADARSH Comment: Interpretive Data Percent cell count reference ranges are not reported, since discordance with absolute values may lead to misinterpretation of CBC data. Current Interpretive Data was last revised on 2018. Testing performed by: [address] [address] Blood 01/04/2025 1:26 PM [employer] BUSINESS ANALYST 01/04/2025 1:41 PM [employer] BUSINESS ANALYST Francisca Stokes TECHNICIAN SUPPORT ENGINEER LAB BLOOD ORDERABLES Final Result [facility] [address] [facility] Department of Laboratories [place], [place] [id number] * (ABNORMAL) CBC with auto differential (01/04/2025 1:26 PM [employer] BUSINESS ANALYST) Pathologist [facility] WBC 4.9 3.8 - 9.9 K/cumm Comment:Testing performed by : [address] [address] Hgb 9.9(L) 11.9 - 15.5 g/dL ADARSH Comment:Testing performed by : [address] [address] Hct 31.0(L) 35.6 - 45.5 % ADARSH Comment:Testing performed by : [address] [address] Plt 152 150 - 400 K/cumm ADARSH Comment:Testing performed by : [address] [address] MPV 10.0 9.1 - 12.3 fL ADARSH GARCIA Comment:Testing performed by : [address] [address] RBC 3.40(L) 3.90 - 5.20 M/cumm ADARSH GARCIA Comment:Testing performed by : [address] [address] MCV 91.2 81.3 - 96.4 fL ADARSH GARCIA Comment:Testing performed by : [address] [address] MCH 29.1 27.1 - 33.3 pg ADARSH GARCIA Comment:Testing performed by : [address] [address] MCHC 31.9(L) 32.3 - 35.7 g/dL ADARSH GARCIA Comment:Testing performed by : [address] [address] RDW CV 20.7(H) 11.1 - 14.9 % ADARSH Comment:Testing performed by : [address] [address] RDW SD 69.3(H) 35.7 - 48.1 fL ADARSH Comment:Testing performed by : [address] [address] NRBC abs 0.00 0.00 - 0.01 K/cumm ADARSH Comment:Testing performed by : [address] [address] Blood 01/04/2025 1:26 PM [employer] BUSINESS ANALYST 01/04/2025 1:41 PM [employer] BUSINESS ANALYST us Francisca Stokes TECHNICIAN SUPPORT ENGINEER LAB BLOOD ORDERABLES Final Result ADARSH [address] [facility] Department [place] [address] * Reticulocyte Count (01/04/2025 1:26 PM [employer] BUSINESS ANALYST) Retics, absolute 0.059 0.020 - 0.087 M/cumm Comment:Testing performed by : [address] [address] Retics 1.7 0.4 - 2.9 % ADARSH Comment:Testing performed by : [address] [address] Reticulocyte Hgb 33.4 30.5 - 38.0 pg ADARSH GARCIA Comment:Testing performed by : [facility], [address] [place] [address]., [address] Blood 01/04/2025 1:26 PM [employer] BUSINESS ANALYST 01/04/2025 1:41 PM [employer] BUSINESS ANALYST Francisca Stokes NP LAB BLOOD ORDERABLES Final Result Performing Organization Address City/[facility] Co de Phone Number [address] [email or web address] [address] * TSH (01/04/2025 1:26 PM [employer] BUSINESS ANALYST) Thyroid Stimulating Hormone 1.10 0.30 - 4.20 mcIUnit/mL Comment:Testing performed by : [address] [address] Blood 01/04/2025 1:26 PM [employer] BUSINESS ANALYST 01/04/2025 4:14 PM [employer] BUSINESS ANALYST Francisca Stokes NP LAB BLOOD ORDERABLES Final Result Performing Organization Address [facility] Co de Phone Number [address] [address] * (ABNORMAL) Ferritin (01/04/2025 1:26 PM [employer] BUSINESS ANALYST) Ferritin 348(H) 15 - 150 ng/mL Comment:Testing performed by : [address] [address] Blood 01/04/2025 1:26 PM [employer] BUSINESS ANALYST 01/04/2025 4:14 PM [employer] BUSINESS ANALYST Francisca Stokes NP LAB BLOOD ORDERABLES Final Result ADARSH [address] Department [place] [address] * eGFR (12/21/2024 5:45 AM [employer] BUSINESS ANALYST) Pathologist [facility] eGFR >90 >=60 mL/min/1. 73 m2 Comment: Interpretive Data Reference Interval Normal >/= 90 mL/min/1.73m2 Mildly decreased* 60 - 89 mL/min/1.73m2 Mildly to moderately decreased 45 - 59 mL/min/1.73m2 Moderately to severely decreased 30 - 44 mL/min/1.73m2 Severely decreased 15 - 29 mL/min/1.73m2 Kidney Failure < 15 mL/min/1.73m2 *Relative to young adult level Estimated glomerular filtration rate is determined by the 2020 CKD-EPI equation recommended by the National Kidney Foundation (A Unifying Approach to GFR Estimation: Recommendations of the NKF-ASK Task Force on Reassessing the Inclusion of Race in Diagnosing Kidney Disease, JASN 2020). The CKD-EPI equation should not be used for patients with unstable renal function and has not been validated in children and those over 70. Current interpretive data was last reviewed 2021. Testing performed by: [address] [address] Blood 12/21/2024 5:45 AM [employer] BUSINESS ANALYST 12/21/2024 5:48 AM [employer] BUSINESS ANALYST us Tom Pandya MD LAB BLOOD ORDERABLES F inal Result Performing Organization Address [facility] Co de Phone Number [address] Department [email or web address] [address] * Differential, auto (12/21/2024 5:45 AM [employer] BUSINESS ANALYST) Pathologist [facility] Neutrophil abs 1.6 1.5 - 6.5 K/cumm Comment:Testing performed by : [address] [address] Imm gran abs 0.0 0.0 - 0.1 K/cumm ADARSH Comment:Testing performed by : [address] [address] Lymphocyte abs 1.9 0.8 - 3.3 K/cumm [facility] Comment:Testing performed by : [address] [address] Monocyte abs 0.3 0.2 - 0.8 K/cumm [facility] Comment:Testing performed by : [address], [place]., [address] Eosinophil abs 0.0 0.0 - 0.5 K/cumm [facility] Comment:Testing performed by : [address], [place]., [address] Basophil abs 0.0 0.0 - 0.1 K/cumm [facility] Comment:Testing performed by : [address] [address] Neutrophil pct 42.7 % [facility] Comment: Interpretive Data Percent cell count reference ranges are not reported, since discordance with absolute values may lead to misinterpretation of CBC data. Current Interpretive Data was last revised on 2018. Testing performed by: [address] [address] Imm gran pct 0.0 % [facility] Comment: Interpretive Data Percent cell count reference ranges are not reported, since discordance with absolute values may lead to misinterpretation of CBC data. Current Interpretive Data was last revised on 2018. Testing performed by: [address] [address] Lymphocyte pct 49.7 % [facility] Comment: Interpretive Data Percent cell count reference ranges are not reported, since discordance with absolute values may lead to misinterpretation of CBC data. Current Interpretive Data was last revised on 2018. Testing performed by: [address] [address] Monocyte pct 7.3 % [facility] Comment: Interpretive Data Percent cell count reference ranges are not reported, since discordance with absolute values may lead to misinterpretation of CBC data. Current Interpretive Data was last revised on 2018. Testing performed by: [address] [address] Eosinophil pct 0.0 % [facility] Comment: Interpretive Data Percent cell count reference ranges are not reported, since discordance with absolute values may lead to misinterpretation of CBC data. Current Interpretive Data was last revised on 2018. Testing performed by: [address] [address] Basophil pct 0.3 % ADARSH GARCIA Comment: Interpretive Data Percent cell count reference ranges are not reported, since discordance with absolute values may lead to misinterpretation of CBC data. Current Interpretive Data was last revised on 2018. Testing performed by: [address] [address] Blood 12/21/2024 5:45 AM [employer] BUSINESS ANALYST 12/21/2024 5:48 AM [employer] BUSINESS ANALYST us Tom Pandya MD LAB BLOOD ORDERABLES F inal Result ADARSH [address] [facility] Department [place] [address] * (ABNORMAL) CBC with auto differential (12/21/2024 5:45 AM [employer] BUSINESS ANALYST) WBC 3.7(L) 3.8 - 9.9 K/cumm Comment:Testing performed by : [address] [address] Hgb 9.0(L) 11.9 - 15.5 g/dL ADARSH GARCIA Comment:Testing performed by : [address] [address] Hct 29.0(L) 35.6 - 45.5 % ADARSH GARCIA Comment:Testing performed by : [address] [address] Plt 159 150 - 400 K/cumm ADARSH GARCIA Comment:Testing performed by : [address] [address] MPV 11.8 9.1 - 12.3 fL ADARSH GARCIA Comment:Testing performed by : [address] [address] RBC 3.17(L) 3.90 - 5.20 M/cumm ADARSH GARCIA Comment:Testing performed by : [address] [address] MCV 91.5 81.3 - 96.4 fL ADARSH GARCIA Comment:Testing performed by : [address] [address] MCH 28.4 27.1 - 33.3 pg ADARSH GARCIA Comment:Testing performed by : [address] [address] MCHC 31.0(L) 32.3 - 35.7 g/dL ADARSH GARCIA Comment:Testing performed by : [address] [address] RDW CV 23.3(H) 11.1 - 14.9 % ADARSH GARCIA Comment:Testing performed by : [address] [address] RDW SD 77.9(H) 35.7 - 48.1 fL ADARSH GARCIA Comment:Testing performed by : [address] [address] NRBC abs 0.00 0.00 - 0.01 K/cumm ADARSH GARCIA Comment:Testing performed by : [address] [address] Blood 12/21/2024 5:45 AM [employer] BUSINESS ANALYST 12/21/2024 5:48 AM [employer] BUSINESS ANALYST us Tom Pandya MD LAB BLOOD ORDERABLES F inal Result ADARSH [address] [facility] Department of Laboratories [place], [place] [id number] * Basic metabolic panel (12/21/2024 5:45 AM [employer] BUSINESS ANALYST) Sodium 141 135 - 145 mmol/L Comment:Testing performed by : [address] [address] Potassium, pl 4.2 3.3 - 4.9 mmol/L ADARSH GARCIA Comment:Testing performed by : [address] [address] Chloride 105 97 - 110 mmol/L ADARSH GARCIA Comment:Testing performed by : [address] [address] CO2 29 22 - 32 mmol/L ADARSH Comment:Testing performed by : [address] [address] Anion gap 7 2 - 15 mmol/L ADARSH Comment:Testing performed by : [address] [address] BUN 14 6 - 25 mg/dL ADARSH Comment:Testing performed by : [address] [address] Creatinine 0.60 0.60 - 1.10 mg/dL ADARSH Comment:Testing performed by : [address] [address] Glucose 92 70 - 199 mg/dL ADARSH Comment: Interpretive Data Fasting glucose >/= 126 mg/dl is diagnostic for diabetes. Fasting is defined as no caloric intake for at least 8 hours. Fasting glucose between 100 mg/dl to 125 mg/dl is diagnostic of prediabetes. In a patient with classic symptoms of hyperglycemia or hyperglycemic crisis, a random glucose >/= 200 mg/dl is diagnostic for diabetes. In the absence of unequivocal hyperglycemia, results should be confirmed by repeat testing. The classification and Diagnosis of Diabetes Diabetes Care 202; 46: S19-S40. Current interpretive data was last revised 2022. Testing performed by: [address] [address] Calcium 8.9 8.5 - 10.3 mg/dL ADARSH Comment:Testing performed by : [address] [address] Blood 12/21/2024 5:45 AM [employer] BUSINESS ANALYST 12/21/2024 5:48 AM [employer] BUSINESS ANALYST us Tom Pandya MD LAB BLOOD ORDERABLES F inal Result ADARSH [address] [facility] Department of Laboratories [place], [place] [id number] * CT Chest PE (CTA) W Contrast (12/20/2024 8:21 AM [employer] BUSINESS ANALYST) Anatomical Region Laterality Modality Body N/A Computed Tomogra phy 12/20/2024 8:37 AM [employer] BUSINESS ANALYST Narrative 12/20/2024 8:55 AM [employer] BUSINESS ANALYST EXAM DESCRIPTION: CT CHEST PE (CTA) W CONTRAST REASON FOR STUDY: Pulmonary embolism (PE) suspected, low to intermediate prob, positive D-dimer Pulmonary embolism (PE) suspected, low to intermediate prob, positive D-dimer Covid + TECHNIQUE: CT angiogram of the chest performed with intravenous contrast using helical scanning technique with dynamic intravenous contrast injection. Reconstructed coronal and sagittal MPR images reviewed. All images stored on PACS. 3D MIP images rendered on scanning unit and reviewed at time of interpretation. Automated exposure control was used as a dose optimization technique for this examination. CONTRAST TYPE/DOSE: 100mL of IOVERSOL 350 MG IODINE/ML INTRAVENOUS SYRINGE injected via intravenous COMPARISON: CT chest 12/07/2024 FINDINGS: VASCULATURE: No identified pulmonary emboli. Thoracic aorta is normal in course and caliber without dissection. LUNGS: There are mild emphysematous changes to the lungs with an apical predominance. There are scattered areas of subsegmental atelectasis. The central airways patent. There is no definite finding of pneumonia. PLEURA: No effusion. No pneumothorax. MEDIASTINUM/ANAI: Small hiatal hernia. There is mild circumferential thickening of the distal esophagus. Calcified mediastinal granulomas are present. No enlarged mediastinal lymph nodes. HEART: Heart size is at the upper limits of normal but is unchanged. There are coronary artery calcifications. AXILLA: No adenopathy. CHEST WALL: No masses. No subcutaneous air. HARDWARE/LINES/TUBES: Left-sided Port-A-Cath tip terminates in the superior vena cava at the cavoatrial junction. Sternotomy plates are present. UPPER ABDOMEN: No significant abnormality. MUSCULOSKELETAL: No suspicious osseous lesions. There are old posterior left-sided rib fractures. OTHER: No significant abnormality. IMPRESSION: 1. No evidence of pulmonary embolism. 2. Mild emphysematous changes to the lungs. 3. Mild circumferential thickening of the distal esophagus. Recommend correlation for signs of esophagitis or changes of chronic reflux. THIS IS AN ELECTRONICALLY VERIFIED FINAL REPORT 12/20/2024 8:55 AM - Electronically signed by Lawrence Gandara M.D., AM: AM Report ID: [id number] Reading Location: [id number] Procedure Note Lawrence Gandara MD - 12/20/2024 EXAM DESCRIPTION: CT CHEST PE (CTA) W CONTRAST REASON FOR STUDY: Pulmonary embolism (PE) suspected, low to intermediate prob, positive D-dimer Pulmonary embolism (PE) suspected, low to intermediate prob, positiveD-dimer Covid + TECHNIQUE: CT angiogram of the chest performed with intravenous contrastusing helical scanning technique with dynamic intravenous contrast injection. Reconstructed coronal and sagittal MPR images reviewed. All images storedon PACS. 3D MIP images rendered on scanning unit and reviewed at time of interpretation. Automated exposure control was used as a doseoptimization technique for this examination. CONTRAST TYPE/DOSE: 100mL of IOVERSOL 350 MG IODINE/ML INTRAVENOUSSYRINGE injected via intravenous COMPARISON: CT chest 12/07/2024 FINDINGS: VASCULATURE: No identified pulmonary emboli. Thoracic aortais normal in course and caliber without dissection. LUNGS: There are mild emphysematous changes to the lungs with an apical predominance. There are scattered areas of subsegmental atelectasis. The central airways patent. There is no definite finding of pneumonia. PLEURA: No effusion. No pneumothorax. MEDIASTINUM/ANAI: Small hiatal hernia. There is mild circumferential thickening of the distal esophagus. Calcified mediastinal granulomas are present. No enlarged mediastinal lymph nodes. HEART: Heart size is at the upper limits of normal but is unchanged.There are coronary artery calcifications. AXILLA: No adenopathy. CHEST WALL: No masses. No subcutaneous air. HARDWARE/LINES/TUBES: Left-sided Port-A-Cath tip terminates in thesuperior vena cava at the cavoatrial junction. Sternotomy plates are present. UPPER ABDOMEN: No significant abnormality. MUSCULOSKELETAL: No suspicious osseous lesions. There are old posterior left-sided rib fractures. OTHER: No significant abnormality. IMPRESSION: 1. No evidence of pulmonary embolism. 2. Mild emphysematous changes to the lungs. 3. Mild circumferential thickening of the distal esophagus. Recommend correlation for signs of esophagitis or changes of chronic reflux. THIS IS AN ELECTRONICALLY VERIFIED FINAL REPORT 12/20/2024 8:55 AM - Electronically signed by Lawrence Gandara M.D. AM: AM Report ID: [id number] Reading Location: [id number] us Aries Ahmadi MD IMG CT MI OCEDURES Final Result * eGFR (12/20/2024 6:51 AM [employer] BUSINESS ANALYST) eGFR >90 >=60 mL/min/1. 73 m2 Comment: Interpretive Data Reference Interval Normal >/= 90 mL/min/1.73m2 Mildly decreased* 60 - 89 mL/min/1.73m2 Mildly to moderately decreased 45 - 59 mL/min/1.73m2 Moderately to severely decreased 30 - 44 mL/min/1.73m2 Severely decreased 15 - 29 mL/min/1.73m2 Kidney Failure < 15 mL/min/1.73m2 *Relative to young adult level Estimated glomerular filtration rate is determined by the 2020 CKD-EPI equation recommended by the National Kidney Foundation (A Unifying Approach to GFR Estimation: Recommendations of the NKF-ASK Task Force on Reassessing the Inclusion of Race in Diagnosing Kidney Disease, JASN 2020). The CKD-EPI equation should not be used for patients with unstable renal function and has not been validated in children and those over 70. Current interpretive data was last reviewed 2021. Testing performed by: [facility], [address] [place] [address]., [address] Blood 12/20/2024 6:51 AM [employer] BUSINESS ANALYST 12/20/2024 6:55 AM [employer] BUSINESS ANALYST us Tom Pandya MD LAB BLOOD ORDERABLES F inal Result [facility] [address] [facility] Department [place] [address] * (ABNORMAL) Differential, auto (12/20/2024 6:51 AM [employer] BUSINESS ANALYST) Neutrophil abs 1.0(L) 1.5 - 6.5 K/cumm Comment:Testing performed by : [facility], [address] [place] [address], [place]., [address] Imm gran abs 0.0 0.0 - 0.1 K/cumm [facility] Comment:Testing performed by : [facility], [address] [place] [address], [place]., [address] Lymphocyte abs 1.9 0.8 - 3.3 K/cumm [facility] Comment:Testing performed by : [address], [place]., [address] Monocyte abs 0.2 0.2 - 0.8 K/cumm [facility] Comment:Testing performed by : [address], [place]., [address] Eosinophil abs 0.0 0.0 - 0.5 K/cumm [facility] Comment:Testing performed by : [address], [place]., [address] Basophil abs 0.0 0.0 - 0.1 K/cumm [facility] Comment:Testing performed by : [address] [address] Neutrophil pct 31.4 % [facility] Comment: Interpretive Data Percent cell count reference ranges are not reported, since discordance with absolute values may lead to misinterpretation of CBC data. Current Interpretive Data was last revised on 2018. Testing performed by: [address] [address] Imm gran pct 0.3 % [facility] Comment: Interpretive Data Percent cell count reference ranges are not reported, since discordance with absolute values may lead to misinterpretation of CBC data. Current Interpretive Data was last revised on 2018. Testing performed by: [address] [address] Lymphocyte pct 60.3 % CERNER Comment: Interpretive Data Percent cell count reference ranges are not reported, since discordance with absolute values may lead to misinterpretation of CBC data. Current Interpretive Data was last revised on 2018. Testing performed by: [address] [address] Monocyte pct 7.4 % CERNER Comment: Interpretive Data Percent cell count reference ranges are not reported, since discordance with absolute values may lead to misinterpretation of CBC data. Current Interpretive Data was last revised on 2018. Testing performed by: [address] [address] Eosinophil pct 0.3 % ADARSH Comment: Interpretive Data Percent cell count reference ranges are not reported, since discordance with absolute values may lead to misinterpretation of CBC data. Current Interpretive Data was last revised on 2018. Testing performed by: [address] [address] Basophil pct 0.3 % ADARSH Comment: Interpretive Data Percent cell count reference ranges are not reported, since discordance with absolute values may lead to misinterpretation of CBC data. Current Interpretive Data was last revised on 2018. Testing performed by: [address] [address] Blood 12/20/2024 6:51 AM [employer] BUSINESS ANALYST 12/20/2024 6:55 AM [employer] BUSINESS ANALYST us Tom Pandya MD LAB BLOOD ORDERABLES F inal Result [facility] [address] [facility] Department [place] [address] * (ABNORMAL) CBC with auto differential (12/20/2024 6:51 AM [employer] F[employer] BUSINESS ANALYST) Pathologist [facility] WBC 3.1(L) 3.8 - 9.9 K/cumm Comment:Testing performed by : [address] [address] Hgb 8.8(L) 11.9 - 15.5 g/dL ADARSH Comment:Testing performed by : [address] [address] Hct 28.8(L) 35.6 - 45.5 % ADARSH Comment:Testing performed by : [address] [address] Plt 135(L) 150 - 400 K/cumm ADARSH Comment:Testing performed by : [address] [address] MPV 10.4 9.1 - 12.3 fL ADARSH Comment:Testing performed by : [address] [address] RBC 3.11(L) 3.90 - 5.20 M/cumm ADARSH GARCIA Comment:Testing performed by : [address] [address] MCV 92.6 81.3 - 96.4 fL [facility]ARSH Comment:Testing performed by : [address] [address] MCH 28.3 27.1 - 33.3 pg ADARSH Comment:Testing performed by : [address] [address] MCHC 30.6(L) 32.3 - 35.7 g/dL ADARSH Comment:Testing performed by : [address] [address] RDW CV 23.8(H) 11.1 - 14.9 % ADARSH Comment:Testing performed by : [address], [address] RDW SD 78.8(H) 35.7 - 48.1 fL ADARSH Comment:Testing performed by : [address] [address] NRBC abs 0.00 0.00 - 0.01 K/cumm [facility] Comment:Testing performed by : [address], [address] Blood 12/20/2024 6:51 AM [employer] BUSINESS ANALYST 12/20/2024 6:55 AM [employer] BUSINESS ANALYST us Tom Pandya MD LAB BLOOD ORDERABLES F inal Result [facility] [address] [facility] Department of Laboratories [place], [place] [id number] * (ABNORMAL) Basic metabolic panel (12/20/2024 6:51 AM [employer] BUSINESS ANALYST) [facility] Sodium 139 135 - 145 mmol/L Comment:Testing performed by : [address] [address] Potassium, pl 3.7 3.3 - 4.9 mmol/L ADARSH Comment:Testing performed by : [address] [address] Chloride 103 97 - 110 mmol/L ADARSH Comment:Testing performed by : [address], [place]., [address] CO2 28 22 - 32 mmol/L [facility] Comment:Testing performed by : [address], [place]., [address] Anion gap 8 2 - 15 mmol/L ADARSH Comment:Testing performed by : [address] [address] BUN 13 6 - 25 mg/dL [facility]SH Comment:Testing performed by : [address], [place]., [address] Creatinine 0.50(L) 0.60 - 1.10 mg/dL ADARSH Comment:Testing performed by : [address], [place]., [address] Glucose 129 70 - 199 mg/dL [facility] Comment: Interpretive Data Fasting glucose >/= 126 mg/dl is diagnostic for diabetes. Fasting is defined as no caloric intake for at least 8 hours. Fasting glucose between 100 mg/dl to 125 mg/dl is diagnostic of prediabetes. In a patient with classic symptoms of hyperglycemia or hyperglycemic crisis, a random glucose >/= 200 mg/dl is diagnostic for diabetes. In the absence of unequivocal hyperglycemia, results should be confirmed by repeat testing. The classification and Diagnosis of Diabetes Diabetes Care 202; 46: S19-S40. Current interpretive data was last revised 2022. Testing performed by: [address] [address] Calcium 8.6 8.5 - 10.3 mg/dL ADARSH Comment:Testing performed by : [address] [address] Blood 12/20/2024 6:51 AM [employer] BUSINESS ANALYST 12/20/2024 6:55 AM [employer] BUSINESS ANALYST us Tom Pandya MD LAB BLOOD ORDERABLES F inal Result AD[facility] Department [place] [address] * ECG 12 lead (12/20/2024 12:21 AM [employer] BUSINESS ANALYST) Ventricular Rate EKG/Min 50 BPM [facility] Atrial Rate 50 BPM [facility] MI-Interval (MSEC) 188 ms [facility] QRS-Interval (MSEC) 76 ms [facility] QT-Interval (MSEC) 478 ms [facility] QTc 435 ms [facility] P [place] 50 degrees [facility] R [place] 49 degrees [facility] T [place] 45 degrees [facility] Diagnosis Sinus bradycardia Septal infarct , age undetermined Abnormal ECG Compared to previous tracing of 17-DEC-2024 17:27 No significant change was found Confirmed by RINKU ROMERO M.D. ([id number]) on 12/20/2024 8:35:38 PM [facility] 12/20/2024 12:2 1 AM [employer] BUSINESS ANALYST 12/20/2024 8:35 PM [employer] BUSINESS ANALYST us Tom Pandya MD ECG ORDERABLES Final Result Performing Organization Address [facility] Co de Phone Number [facility] * eGFR (12/19/2024 7:49 AM [employer] BUSINESS ANALYST) eGFR >90 >=60 mL/min/1. 73 m2 Comment: Interpretive Data Reference Interval Normal >/= 90 mL/min/1.73m2 Mildly decreased* 60 - 89 mL/min/1.73m2 Mildly to moderately decreased 45 - 59 mL/min/1.73m2 Moderately to severely decreased 30 - 44 mL/min/1.73m2 Severely decreased 15 - 29 mL/min/1.73m2 Kidney Failure < 15 mL/min/1.73m2 *Relative to young adult level Estimated glomerular filtration rate is determined by the 2020 CKD-EPI equation recommended by the National Kidney Foundation (A Unifying Approach to GFR Estimation: Recommendations of the NKF-ASK Task Force on Reassessing the Inclusion of Race in Diagnosing Kidney Disease, [place] 2020). The CKD-EPI equation should not be used for patients with unstable renal function and has not been validated in children and those over 70. Current interpretive data was last reviewed 2021. Testing performed by: [facility], [address] [place] [address]., [address] Blood 12/19/2024 7:49 AM [employer] BUSINESS ANALYST 12/19/2024 8:09 AM [employer] BUSINESS ANALYST us Tom Pandya MD LAB BLOOD ORDERABLES F inal Result [facility] [address] [facility] Department [place] [address] * (ABNORMAL) Differential, auto (12/19/2024 7:49 AM [employer] BUSINESS ANALYST) Neutrophil abs 1.0(L) 1.5 - 6.5 K/cumm Comment:Testing performed by : [address] [address] Imm gran abs 0.0 0.0 - 0.1 K/cumm ADARSH Comment:Testing performed by : [address] [address] Lymphocyte abs 1.2 0.8 - 3.3 K/cumm ADARSH Comment:Testing performed by : [address] [address] Monocyte abs 0.4 0.2 - 0.8 K/cumm ADARSH Comment:Testing performed by : [address] [address] Eosinophil abs 0.0 0.0 - 0.5 K/cumm ADARSH Comment:Testing performed by : [address] [address] Basophil abs 0.0 0.0 - 0.1 K/cumm ADARSH Comment:Testing performed by : [address] [address] Neutrophil pct 37.5 % ADARSH Comment: Interpretive Data Percent cell count reference ranges are not reported, since discordance with absolute values may lead to misinterpretation of CBC data. Current Interpretive Data was last revised on 2018. Testing performed by: [address] [address] Imm gran pct 0.0 % [facility] Comment: Interpretive Data Percent cell count reference ranges are not reported, since discordance with absolute values may lead to misinterpretation of CBC data. Current Interpretive Data was last revised on 2018. Testing performed by: [address] [address] Lymphocyte pct 46.6 % [facility] Comment: Interpretive Data Percent cell count reference ranges are not reported, since discordance with absolute values may lead to misinterpretation of CBC data. Current Interpretive Data was last revised on 2018. Testing performed by: [address] [address] Monocyte pct 15.5 % [facility] Comment: Interpretive Data Percent cell count reference ranges are not reported, since discordance with absolute values may lead to misinterpretation of CBC data. Current Interpretive Data was last revised on 2018. Testing performed by: [address] [address] Eosinophil pct 0.0 % [facility] Comment: Interpretive Data Percent cell count reference ranges are not reported, since discordance with absolute values may lead to misinterpretation of CBC data. Current Interpretive Data was last revised on 2018. Testing performed by: [address] [address] Basophil pct 0.4 % [facility] Comment: Interpretive Data Percent cell count reference ranges are not reported, since discordance with absolute values may lead to misinterpretation of CBC data. Current Interpretive Data was last revised on 2018. Testing performed by: [address] [address] Blood 12/19/2024 7:49 AM [employer] BUSINESS ANALYST 12/19/2024 8:08 AM [employer] BUSINESS ANALYST us Tom Pandya MD LAB BLOOD ORDERABLES F inal Result ADARSH [address] Department [place] [address] * (ABNORMAL) CBC with auto differential (12/19/2024 7:49 AM [employer] BUSINESS ANALYST) [facility] WBC 2.6(L) 3.8 - 9.9 K/cumm Comment:Testing performed by : [address] [address] Hgb 9.0(L) 11.9 - 15.5 g/dL ADARSH Comment:Testing performed by : [address] [address] Hct 29.0(L) 35.6 - 45.5 % ADARSH Comment:Testing performed by : [address] [address] Plt 152 150 - 400 K/cumm ADARSH Comment:Testing performed by : [address] [address] MPV 10.9 9.1 - 12.3 fL ADARHS Comment:Testing performed by : [address] [address] RBC 3.18(L) 3.90 - 5.20 M/cumm ADARSH Comment:Testing performed by : [address] [address] MCV 91.2 81.3 - 96.4 fL ADARSH Comment:Testing performed by : [address] [address] MCH 28.3 27.1 - 33.3 pg ADARSH Comment:Testing performed by : [address] [address] MCHC 31.0(L) 32.3 - 35.7 g/dL ADARSH Comment:Testing performed by : [address], [address] RDW CV 23.4(H) 11.1 - 14.9 % ADARSH Comment:Testing performed by : [address], [address] RDW SD 77.7(H) 35.7 - 48.1 fL ADARSH Comment:Testing performed by : [facility], [address] [place] [address]., [address] NRBC abs 0.00 0.00 - 0.01 K/cumm ADARSH GARCIA Comment:Testing performed by : [facility], [address] [place] [address]., [address] Blood 12/19/2024 7:49 AM [employer] BUSINESS ANALYST 12/19/2024 8:08 AM [employer] BUSINESS ANALYST Tom Pandya MD LAB BLOOD ORDERABLES F inal Result Performing Organization Address [facility] Co de Phone Number ADARSH [address] [facility] [place] [address] * (ABNORMAL) D-dimer, quantitative (12/19/2024 7:49 AM [employer] BUSINESS ANALYST) D-Dimer 1,990(H) <=499 ng/mL FEU Comment: Interpretive data FDA approved the D-dimer, in conjunction with a low or moderate pretest probability score, to exclude venous thromboembolic events (VTE) (PE and DVT) in outpatients when the D-dimer result is < 500 ng/ml FEU. Evidence supports using an age-adjusted D-dimer cut-off for outpatients older than 50 (age x 10) to improve specificity without sacrificing sensitivity. Example: age 68, VTE cut-off 680 ng/ml FEU. References; Schouten HT et al. Brit Med J. 2013;346:f2492. William et al. Annals Int Med. 2015;163:701-11. Current interpretive data was last revised on 2019. Testing performed by: [address] [address] Blood 12/19/2024 7:49 AM [employer] BUSINESS ANALYST 12/19/2024 8:09 AM [employer] BUSINESS ANALYST Tom Pandya MD LAB BLOOD ORDERABLES F inal Result Performing Organization Address City/[facility]/ZIP Co de Phone Number ADARSH [address] [facility] [place] [address] * CRP (acute phase) (12/19/2024 7:49 AM [employer] BUSINESS ANALYST) [facility] CRP 4.9 <=10.0 mg/L Comment:Testing performed by : [address] [address] Blood 12/19/2024 7:49 AM [employer] BUSINESS ANALYST 12/19/2024 8:09 AM [employer] ANALYST us Tom Pandya MD LAB BLOOD ORDERABLES F inal Result Performing Organization Address [facility] de Phone Number [address] [place] [address] * Magnesium (12/19/2024 7:49 AM [employer] BUSINESS ANALYST) [facility] Magnesium 2.1 1.4 - 2.5 mg/dL Comment:Testing performed by : [address] [address] Blood 12/19/2024 7:49 AM [employer] BUSINESS ANALYST 12/19/2024 8:09 AM [employer] BUSINESS ANALYST us Tom Pandya MD LAB BLOOD ORDERABLES F inal Result Performing Organization Address [facility] de Phone Number [address] [place] [address] * Basic metabolic panel (12/19/2024 7:49 AM [employer] BUSINESS ANALYST) [facility] Sodium 141 135 - 145 mmol/L Comment:Testing performed by : [address] [address] Potassium, pl 3.9 3.3 - 4.9 mmol/L ADARSH GARCIA Comment:Testing performed by : [address] [address] Chloride 105 97 - 110 mmol/L ADARSH Comment:Testing performed by : [address] [address] CO2 29 22 - 32 mmol/L ADARSH GARCIA Comment:Testing performed by : [address] [place]., [address] Anion gap 7 2 - 15 mmol/L ADARSH Comment:Testing performed by : [address] [address] BUN 13 6 - 25 mg/dL ADARSH Comment:Testing performed by : [address] [address] Creatinine 0.60 0.60 - 1.10 mg/dL ADARSH Comment:Testing performed by : [address] [address] Glucose 104 70 - 199 mg/dL ADARSH Comment: Interpretive Data Fasting glucose >/= 126 mg/dl is diagnostic for diabetes. Fasting is defined as no caloric intake for at least 8 hours. Fasting glucose between 100 mg/dl to 125 mg/dl is diagnostic of prediabetes. In a patient with classic symptoms of hyperglycemia or hyperglycemic crisis, a random glucose >/= 200 mg/dl is diagnostic for diabetes. In the absence of unequivocal hyperglycemia, results should be confirmed by repeat testing. The classification and Diagnosis of Diabetes Diabetes Care 202; 46: S19-S40. Current interpretive data was last revised 2022. Testing performed by: [address] [address] Calcium 8.8 8.5 - 10.3 mg/dL ADARSH Comment:Testing performed by : [address] [address] Blood 12/19/2024 7:49 AM [employer] BUSINESS ANALYST 12/19/2024 8:09 AM [employer] BUSINESS ANALYST us Tom Pandya MD LAB BLOOD ORDERABLES F inal Result [facility] [address] [facility] Department [place] [address] * (ABNORMAL) Differential, auto (12/18/2024 6:36 AM [employer] BUSINESS ANALYST) Neutrophil abs 1.4(L) 1.5 - 6.5 K/cumm Comment:Testing performed by : [address] [address] Imm gran abs 0.0 0.0 - 0.1 K/cumm [facility] Comment:Testing performed by : [address] [address] Lymphocyte abs 0.6(L) 0.8 - 3.3 K/cumm CERNER Comment:Testing performed by : [address] [address] Monocyte abs 0.4 0.2 - 0.8 K/cumm [facility] Comment:Testing performed by : [address] [address] Eosinophil abs 0.0 0.0 - 0.5 K/cumm [facility] Comment:Testing performed by : [address] [address] Basophil abs 0.0 0.0 - 0.1 K/cumm [facility] Comment:Testing performed by : [address] [address] Neutrophil pct 56.4 % [facility] Comment: Interpretive Data Percent cell count reference ranges are not reported, since discordance with absolute values may lead to misinterpretation of CBC data. Current Interpretive Data was last revised on 2018. Testing performed by: [address] [address] Imm gran pct 0.0 % [facility] Comment: Interpretive Data Percent cell count reference ranges are not reported, since discordance with absolute values may lead to misinterpretation of CBC data. Current Interpretive Data was last revised on 2018. Testing performed by: [address] [address] Lymphocyte pct 24.1 % [facility] Comment: Interpretive Data Percent cell count reference ranges are not reported, since discordance with absolute values may lead to misinterpretation of CBC data. Current Interpretive Data was last revised on 2018. Testing performed by: [address] [address] Monocyte pct 18.3 % [facility] Comment: Interpretive Data Percent cell count reference ranges are not reported, since discordance with absolute values may lead to misinterpretation of CBC data. Current Interpretive Data was last revised on 2018. Testing performed by: [address] [address] Eosinophil pct 0.8 % ADARSH Comment: Interpretive Data Percent cell count reference ranges are not reported, since discordance with absolute values may lead to misinterpretation of CBC data. Current Interpretive Data was last revised on 2018. Testing performed by: [address] [address] Basophil pct 0.4 % ADARSH Comment: Interpretive Data Percent cell count reference ranges are not reported, since discordance with absolute values may lead to misinterpretation of CBC data. Current Interpretive Data was last revised on 2018. Testing performed by: [address] [address] Blood 12/18/2024 6:36 AM [employer] BUSINESS ANALYST 12/18/2024 6:36 AM [employer] BUSINESS ANALYST us Sandra Lawrence MD LAB BLOOD ORDERABLES F inal Result [facility] Department of Laboratories [place], [place] [id number] * (ABNORMAL) CBC with auto differential (12/18/2024 6:36 AM [employer] BUSINESS ANALYST) WBC 2.4(L) 3.8 - 9.9 K/cumm Comment:Testing performed by : [address] [address] Hgb 9.0(L) 11.9 - 15.5 g/dL ADARSH GARCIA Comment:Testing performed by : [address] [address] Hct 28.5(L) 35.6 - 45.5 % ADARSH GARCIA Comment:Testing performed by : [address] [address] Plt 161 150 - 400 K/cumm ADARSH GARCIA Comment:Testing performed by : [address] [address] MPV 10.9 9.1 - 12.3 fL ADARSH GARCIA Comment:Testing performed by : [address] [address] RBC 3.14(L) 3.90 - 5.20 M/cumm ADARSH Comment:Testing performed by : [address] [address] MCV 90.8 81.3 - 96.4 fL ADARSH Comment:Testing performed by : [address] [address] MCH 28.7 27.1 - 33.3 pg ADARSH Comment:Testing performed by : [address] [address] MCHC 31.6(L) 32.3 - 35.7 g/dL ADARSH Comment:Testing performed by : [address] [address] RDW CV 24.0(H) 11.1 - 14.9 % ADARSH Comment:Testing performed by : [address] [address] RDW SD 80.5(H) 35.7 - 48.1 fL ADARSH Comment:Testing performed by : [address] [address] NRBC abs 0.00 0.00 - 0.01 K/cumm ADARSH Comment:Testing performed by : [address] [address] Blood 12/18/2024 6:36 AM [employer] BUSINESS ANALYST 12/18/2024 6:36 AM [employer] BUSINESS ANALYST Narrative ADARSH - 12/18/2024 7:25 AM [employer] BUSINESS ANALYST Just need differential. us Sandra Lawrence MD LAB BLOOD ORDERABLES F inal Result ADARSH [address] [facility] Department [place] [address] * eGFR (12/18/2024 5:50 AM [employer] BUSINESS ANALYST) eGFR 83 >=60 mL/min/1. 73 m2 Comment: Interpretive Data Reference Interval Normal >/= 90 mL/min/1.73m2 Mildly decreased* 60 - 89 mL/min/1.73m2 Mildly to moderately decreased 45 - 59 mL/min/1.73m2 Moderately to severely decreased 30 - 44 mL/min/1.73m2 Severely decreased 15 - 29 mL/min/1.73m2 Kidney Failure < 15 mL/min/1.73m2 *Relative to young adult level Estimated glomerular filtration rate is determined by the 2020 CKD-EPI equation recommended by the National Kidney Foundation (A Unifying Approach to GFR Estimation: Recommendations of the NKF-ASK Task Force on Reassessing the Inclusion of Race in Diagnosing Kidney Disease, JASN 2020). The CKD-EPI equation should not be used for patients with unstable renal function and has not been validated in children and those over 70. Current interpretive data was last reviewed 2021. Testing performed by: [address] [address] Blood 12/18/2024 5:50 AM [employer] BUSINESS ANALYST 12/18/2024 5:52 AM [employer] BUSINESS ANALYST Sanjiv Cruz MD LAB BLOOD ORDER UMBERTO Final Result ADARSH [address] [facility] Department [place] [address] * (ABNORMAL) CBC without differential (12/18/2024 5:50 AM [employer] BUSINESS ANALYST) WBC 2.5(L) 3.8 - 9.9 K/cumm Comment:Testing performed by : [address] [address] Hgb 9.0(L) 11.9 - 15.5 g/dL ADARSH GARCIA Comment:Testing performed by : [address] [address] Hct 28.3(L) 35.6 - 45.5 % ADARSH GARCIA Comment:Testing performed by : [address] [address] Plt 155 150 - 400 K/cumm ADARSH GARCIA Comment:Testing performed by : [address] [address] MPV 10.3 9.1 - 12.3 fL ADARSH Comment:Testing performed by : [address] [address] RBC 3.14(L) 3.90 - 5.20 M/cumm ADARSH GARCIA Comment:Testing performed by : [address] [address] MCV 90.1 81.3 - 96.4 fL ADARSH Comment:Testing performed by : [address] [address] MCH 28.7 27.1 - 33.3 pg ADARSH Comment:Testing performed by : [address] [address] MCHC 31.8(L) 32.3 - 35.7 g/dL ADARSH Comment:Testing performed by : [address] [address] RDW CV 23.9(H) 11.1 - 14.9 % ADARSH Comment:Testing performed by : [address], [address] RDW SD 78.6(H) 35.7 - 48.1 fL ADARSH Comment:Testing performed by : [address] [address] NRBC abs 0.00 0.00 - 0.01 K/cumm ADARSH Comment:Testing performed by : [address], [address] Blood 12/18/2024 5:50 AM [employer] BUSINESS ANALYST 12/18/2024 5:52 AM [employer] BUSINESS ANALYST us Sanjiv Cruz MD LAB BLOOD ORDER UMBERTO Final Result ADARSH [address] [facility] Department of Laboratories [place], [place] [id number] * (ABNORMAL) Comprehensive metabolic panel (12/18/2024 5:50 AM [employer] BUSINESS ANALYST) Sodium 140 135 - 145 mmol/L Comment:Testing performed by : [address], [place]., [address] Potassium, pl 3.5 3.3 - 4.9 mmol/L ADARSH Comment:Testing performed by : [address], [place]., [address] Chloride 100 97 - 110 mmol/L ADARSH Comment:Testing performed by : [address], [place]., [address] CO2 30 22 - 32 mmol/L ADARSH Comment:Testing performed by : [address], [place]., [address] Anion gap 10 2 - 15 mmol/L ADARSH Comment:Testing performed by : [address], [place]., [address] BUN 12 6 - 25 mg/dL ADARSH Comment:Testing performed by : [address], [place]., [address] Creatinine 0.80 0.60 - 1.10 mg/dL ADARSH Comment:Testing performed by : [address] [address] Glucose 142 70 - 199 mg/dL [facility] Comment: Interpretive Data Fasting glucose >/= 126 mg/dl is diagnostic for diabetes. Fasting is defined as no caloric intake for at least 8 hours. Fasting glucose between 100 mg/dl to 125 mg/dl is diagnostic of prediabetes. In a patient with classic symptoms of hyperglycemia or hyperglycemic crisis, a random glucose >/= 200 mg/dl is diagnostic for diabetes. In the absence of unequivocal hyperglycemia, results should be confirmed by repeat testing. The classification and Diagnosis of Diabetes Diabetes Care 202; 46: S19-S40. Current interpretive data was last revised 2022. Testing performed by: [address] [address] Calcium 8.4(L) 8.5 - 10.3 mg/dL ADARSH Comment:Testing performed by : [address], [place]., [address] Bilirubin, total 0.2 0.1 - 1.2 mg/dL ADARSH Comment:Testing performed by : [address] [address] Protein, pl 6.4(L) 6.5 - 8.5 g/dL ADARSH Comment:Testing performed by : [address] [address] Albumin 3.4(L) 3.5 - 5.0 g/dL ADARSH Comment:Testing performed by : [address] [address] Alk phos 116 40 - 130 Units/L ADARSH Comment:Testing performed by : [address] [address] ALT 12 7 - 45 Units/L ADARSH Comment:Testing performed by : [address] [address] AST 18 10 - 45 Units/L ADARSH Comment:Testing performed by : [address] [address] Blood 12/18/2024 5:50 AM [employer] BUSINESS ANALYST 12/18/2024 5:52 AM [employer] BUSINESS ANALYST Sanjiv Cruz MD LAB BLOOD ORDER UMBERTO Final Result [facility] [address] [facility] Department [place] [address] * (ABNORMAL) Urinalysis reflex to microscopic and culture Urine (12/17/2024 5:51 PM [employer] BUSINESS ANALYST) Color, ur Yellow Yellow Comment:Testing performed by : [address] [address] Clarity, ur Clear Clear ADARSH Comment:Testing performed by : [address] [address] Specific gravity, ur 1.016 1.003 - 1.030 ADARSH Comment:Testing performed by : [address] [address] pH, urine 7.5 ADARSH Comment: Interpretive Data U rine pH is affected by diet, medications, systemic acid-base disturbances, and renal tubular function. pH may affect urinary stone formation. For example, urine pH below 6.0 may help reduce the tendency for calcium phosphate stones and pH greater than 6.0 may reduce the tendency for uric acid stone formation. Source: [facility] Current Interpretive Data was last revised on 2017 Testing performed by: [facility], [address] [place] [address]., [address] Protein, ur ql Trace(A) Negative ADARSH Comment:Testing performed by : [address] [address] Glucose, ur ql Negative Negative ADARSH Comment:Testing performed by : [address], [place]., [address] Ketones, ur Negative Negative ADARSH Comment:Testing performed by : [address] [address] Bilirubin, ur Negative Negative ADARSH Comment:Testing performed by : [address], [place]., [address] Blood, ur Trace(A) Negative ADARSH Comment:Testing performed by : [address], [place]., [address] Urobilinogen, ur 4.0(A) <2.0 mg/dL ADARSH Comment:Testing performed by : [address] [address] Nitrite, ur Negative Negative ADARSH Comment:Testing performed by : [address] [address] Leukocyte esterase, ur Negative Negative ADARSH Comment:Testing performed by : [address] [address] UA reflex comment Reflex to microscopic UA will be performed. ADARSH Comment:Testing performed by : [address] [address] Urine 12/17/2024 5:51 PM [employer] ANALYST 12/17/2024 6:03 PM [employer] BUSINESS ANALYST Narrative ADARSH - 12/17/2024 6:07 PM [employer] ANALYST If patient unable to urinate, straight cath us Sandra Lawrence MD LAB MICROBIOLOGY - GEN ERAL ORDERABLES Final Result ADARSH [address] Department [place] [address] * (ABNORMAL) Urinalysis, microscopic only (12/17/2024 5:51 PM [employer] BUSINESS ANALYST) Pathologist [facility] WBC, ur 6-10(A) 0 - 5 /HPF Comment:Testing performed by : [facility], [address] [place] [address], [place]., [address] RBC, ur 6-10(A) 0 - 2 /HPF ADARSH Comment:Testing performed by : [address], [place]., [address] Epithelial cells, squamous, ur >50(A) 0 - 5 /HPF ADARSH Comment:Testing performed by : [address] [address] Bacteria, ur Trace(A) ADARSH Comment:Testing performed by : [address], [place]., [address] Yeast, ur 1+(A) ADARSH Comment:Testing performed by : [address], [place]., [address] Culture Reflex Comment Reflex conditions for urine culture (WBC >10) not met. ADARSH Comment:Testing performed by : [address] [address] Urine 12/17/2024 5:51 PM [employer] ANALYST 12/17/2024 6:03 PM [employer] ANALYST Virgil Vanegas DO LAB URINE ORDERABLES Final Result ADARSH [address] [facility] Department [place] [address] * (ABNORMAL) Influenza A/B, RSV, and COVID-19 PCR Nasopharyngeal (12/17/2024 5:44 PM [employer] ANALYST) Pathologist [facility] COVID-19 RNA Positive(A) Negative Comment:Testing performed by : [address], [place]., [address] Influenza A RNA Negative Negative ADARSH Comment:Testing performed by : [address] [address] Influenza B RNA Negative Negative ADARSH Comment:Testing performed by : [address] [address] RSV RNA Negative Negative ADARSH Comment: Interpretive data: Testing performed by [facility]. This test is performed using the netomat Xpert Xpress CoV-2/Flu/RSV plus assay. This is a multiplex, real-time reverse transcriptase PCR assay intended for the qualitative detection of nucleic acid from SARS-CoV-2, influenza A, influenza B, and respiratory syncytial virus. This assay has been cleared by the [place] Food and Drug administration. The performance characteristics have been verified by the [facility]. Results must be considered in the clinical context, and a negative result does not rule out infection. Interpretive Data last revised 2023 Testing performed by: [address] [address] Nasopharyngeal 12/17/2024 5: 44 PM [employer] BUSINESS ANALYST 12/17/2024 6:03 PM [employer] BUSINESS ANALYST Narrative ADARSH - 12/17/2024 6:47 PM [employer] BUSINESS ANALYST Is the Patient experiencing symptoms consistent with COVID?->Yes us Sandra Lawrence MD LAB MICROBIOLOGY - GEN ERAL ORDERABLES Final Result [facility] [address] [facility] Department [place] [address] * (ABNORMAL) Differential, auto (12/17/2024 5:44 PM [employer] BUSINESS ANALYST) Pathologist [facility] Neutrophil abs 4.0 1.5 - 6.5 K/cumm Comment:Testing performed by : [address] [address] Imm gran abs 0.0 0.0 - 0.1 K/cumm ADARSH Comment:Testing performed by : [address] [address] Lymphocyte abs 0.4(L) 0.8 - 3.3 K/cumm ADARSH Comment:Testing performed by : [address] [address] Monocyte abs 0.5 0.2 - 0.8 K/cumm [facility] Comment:Testing performed by : [address] [address] Eosinophil abs 0.1 0.0 - 0.5 K/cumm ADARSH Comment:Testing performed by : [address], [place]., [address] Basophil abs 0.0 0.0 - 0.1 K/cumm [facility] Comment:Testing performed by : [address] [address] Neutrophil pct 78.4 % [facility] Comment: Interpretive Data Percent cell count reference ranges are not reported, since discordance with absolute values may lead to misinterpretation of CBC data. Current Interpretive Data was last revised on 2018. Testing performed by: [address] [address] Imm gran pct 0.2 % [facility] Comment: Interpretive Data Percent cell count reference ranges are not reported, since discordance with absolute values may lead to misinterpretation of CBC data. Current Interpretive Data was last revised on 2018. Testing performed by: [address] [address] Lymphocyte pct 8.1 % [facility] Comment: Interpretive Data Percent cell count reference ranges are not reported, since discordance with absolute values may lead to misinterpretation of CBC data. Current Interpretive Data was last revised on 2018. Testing performed by: [address] [address] Monocyte pct 10.7 % [facility] Comment: Interpretive Data Percent cell count reference ranges are not reported, since discordance with absolute values may lead to misinterpretation of CBC data. Current Interpretive Data was last revised on 2018. Testing performed by: [address] [address] Eosinophil pct 2.2 % [facility] Comment: Interpretive Data Percent cell count reference ranges are not reported, since discordance with absolute values may lead to misinterpretation of CBC data. Current Interpretive Data was last revised on 2018. Testing performed by: [address] [address] Basophil pct 0.4 % ADARSH Comment: Interpretive Data Percent cell count reference ranges are not reported, since discordance with absolute values may lead to misinterpretation of CBC data. Current Interpretive Data was last revised on 2018. Testing performed by: [address] [address] Blood 12/17/2024 5:44 PM [employer] BUSINESS ANALYST 12/17/2024 5:56 PM [employer] BUSINESS ANALYST us Sandra Lawrence MD LAB BLOOD ORDERABLES F inal Result [facility] [address] [facility] Department [place] [address] * (ABNORMAL) CBC with auto differential (12/17/2024 5:44 PM [employer] BUSINESS ANALYST) WBC 5.1 3.8 - 9.9 K/cumm Comment:Testing performed by : [address] [address] Hgb 9.4(L) 11.9 - 15.5 g/dL ADARSH Comment:Testing performed by : [address] [address] Hct 29.2(L) 35.6 - 45.5 % ADARSH Comment:Testing performed by : [address] [address] Plt 156 150 - 400 K/cumm ADARSH Comment:Testing performed by : [address] [address] MPV 10.3 9.1 - 12.3 fL ADARSH Comment:Testing performed by : [address] [address] RBC 3.33(L) 3.90 - 5.20 M/cumm ADARSH Comment:Testing performed by : [address] [address] MCV 87.7 81.3 - 96.4 fL ADARSH Comment:Testing performed by : [address] [address] MCH 28.2 27.1 - 33.3 pg ADARSH GARCIA Comment:Testing performed by : [address] [address] MCHC 32.2(L) 32.3 - 35.7 g/dL ADARSH GARCIA Comment:Testing performed by : [address] [address] RDW CV 23.6(H) 11.1 - 14.9 % ADARSH GARCIA Comment:Testing performed by : [address] [address] RDW SD 74.7(H) 35.7 - 48.1 fL ADARSH GARCIA Comment:Testing performed by : [address] [address] NRBC abs 0.00 0.00 - 0.01 K/cumm ADARSH GARCIA Comment:Testing performed by : [address] [address] Blood 12/17/2024 5:44 PM [employer] BUSINESS ANALYST 12/17/2024 5:56 PM [employer] BUSINESS ANALYST us Sandra Lawrence MD LAB BLOOD ORDERABLES F inal Result ADARSH [address] [facility] Department [place] [address] * ECG 12 lead (12/17/2024 5:27 PM [employer] BUSINESS ANALYST) Ventricular Rate EKG/Min 96 BPM [facility] Atrial Rate 96 BPM [facility] MI-Interval (MSEC) 166 ms [facility] QRS-Interval (MSEC) 70 ms [facility] QT-Interval (MSEC) 374 ms [facility] QTc 472 ms [facility] P [place] 64 degrees [facility] R [place] 62 degrees [facility] T [place] 31 degrees [facility] Diagnosis Normal sinus rhythm Possible Left atrial enlargement Septal infarct (cited on or before 21-NOV-2024) When compared with ECG of 05-DEC-2024 11:40, No significant change was found Confirmed by SULTAN DING M.D. ([id number]) on 12/18/2024 3:26:37 PM [facility] 12/17/2024 5:27 PM [employer] BUSINESS ANALYST 12/18/2024 3:26 PM [employer] BUSINESS ANALYST us Tom Pandya MD ECG ORDERABLES Final Result [facility] * Sepsis Lactate w/ Reflex (12/17/2024 5:19 PM [employer] BUSINESS ANALYST) Sepsis Lactate 0.9 0.7 - 2.0 mmol/L Comment:Testing performed by : [facility], [address] [place] [address]., [address] Blood 12/17/2024 5:19 PM [employer] BUSINESS ANALYST 12/17/2024 5:23 PM [employer] BUSINESS ANALYST us Sandra Lawrence MD LAB BLOOD ORDERABLES F inal Result Performing Organization Address City/[facility]/ZIP Co de Phone Number [place] [id number] [facility] Department [place] [address] * eGFR (12/17/2024 5:19 PM [employer] BUSINESS ANALYST) eGFR 82 >=60 mL/min/1. 73 m2 Comment: Interpretive Data Reference Interval Normal >/= 90 mL/min/1.73m2 Mildly decreased* 60 - 89 mL/min/1.73m2 Mildly to moderately decreased 45 - 59 mL/min/1.73m2 Moderately to severely decreased 30 - 44 mL/min/1.73m2 Severely decreased 15 - 29 mL/min/1.73m2 Kidney Failure < 15 mL/min/1.73m2 *Relative to young adult level Estimated glomerular filtration rate is determined by the 2020 CKD-EPI equation recommended by the National Kidney Foundation (A Unifying Approach to GFR Estimation: Recommendations of the NKF-ASK Task Force on Reassessing the Inclusion of Race in Diagnosing Kidney Disease, JASN 2020). The CKD-EPI equation should not be used for patients with unstable renal function and has not been validated in children and those over 70. Current interpretive data was last reviewed 2021. Testing performed by: [address] [address] Blood 12/17/2024 5:19 PM [employer] BUSINESS ANALYST 12/17/2024 5:23 PM [employer] BUSINESS ANALYST us Sandra Lawrence MD LAB BLOOD ORDERABLES F inal Result [facility] [address] [facility] Department [place] [address] * (ABNORMAL) Comprehensive metabolic panel (12/17/2024 5:19 PM [employer] BUSINESS ANALYST) Sodium 139 135 - 145 mmol/L Comment:Testing performed by : [address] [address] Potassium, pl 3.6 3.3 - 4.9 mmol/L ADARSH Comment:Testing performed by : [address] [address] Chloride 98 97 - 110 mmol/L ADARSH Comment:Testing performed by : [address] [address] CO2 31 22 - 32 mmol/L ADARSH Comment:Testing performed by : [address] [address] Anion gap 10 2 - 15 mmol/L ADARSH Comment:Testing performed by : [address] [address] BUN 9 6 - 25 mg/dL ADARSH Comment:Testing performed by : [address] [address] Creatinine 0.81 0.60 - 1.10 mg/dL ADARSH Comment:Testing performed by : [address] [address] Glucose 91 70 - 199 mg/dL ADARSH Comment: Interpretive Data Fasting glucose >/= 126 mg/dl is diagnostic for diabetes. Fasting is defined as no caloric intake for at least 8 hours. Fasting glucose between 100 mg/dl to 125 mg/dl is diagnostic of prediabetes. In a patient with classic symptoms of hyperglycemia or hyperglycemic crisis, a random glucose >/= 200 mg/dl is diagnostic for diabetes. In the absence of unequivocal hyperglycemia, results should be confirmed by repeat testing. The classification and Diagnosis of Diabetes Diabetes Care 2021; 46: S19-S40. Current interpretive data was last revised 2022. Testing performed by: [address] [address] Calcium 8.6 8.5 - 10.3 mg/dL ADARSH Comment:Testing performed by : [address] [address] Bilirubin, total 0.5 0.1 - 1.2 mg/dL ADARSH Comment:Testing performed by : [address] [address] Protein, pl 6.8 6.5 - 8.5 g/dL ADARSH Comment:Testing performed by : [address] [address] Albumin 3.8 3.5 - 5.0 g/dL ADARSH Comment:Testing performed by : [address] [address] Alk phos 133(H) 40 - 130 Units/L ADARSH Comment:Testing performed by : [address] [address] ALT 14 7 - 45 Units/L ADARSH Comment:Testing performed by : [address] [address] AST 22 10 - 45 Units/L ADARSH Comment:Testing performed by : [address] [address] Blood 12/17/2024 5:19 PM [employer] BUSINESS ANALYST 12/17/2024 5:23 PM [employer] BUSINESS ANALYST us Sandra Lawrence MD LAB BLOOD ORDERABLES F inal Result ADARSH [address] [facility] Department [place] [address] * XR Chest 1 Vw Portable (if patient condition/safety warrant portable) (12/17/2024 4:54 PM [employer] BUSINESS ANALYST) Anatomical Region Laterality Modality Body, Chest N/A Computed Radiogr aphy 12/17/2024 5:28 PM [employer] BUSINESS ANALYST Narrative 12/17/2024 5:29 PM [employer] BUSINESS ANALYST EXAM DESCRIPTION: XR CHEST 1 VIEW REASON FOR STUDY: fever cancer patient Pt states fever, body aches, chills since 12/16/24 TECHNIQUE: 1 radiographic view(s) of the chest. COMPARISON: 12/05/2024 FINDINGS: Stable mild cardiomegaly status post median sternotomy. Left internal jugular central line tip is in the superior vena cava. The lungs are hyperinflated with emphysematous and fibrotic changes characteristic of COPD. No airspace consolidation is seen. There are no pleural effusions. No pneumothorax. Old, healed left rib fractures. Surgical clips overlie the inferior right hemithorax. IMPRESSION: COPD. No active pulmonary disease. THIS IS AN ELECTRONICALLY VERIFIED FINAL REPORT 12/17/2024 5:29 PM - Electronically signed by Todd Crooks M.D. KT: KT Report ID: [id number] Reading Location: [id number] Procedure Note Todd Crooks MD - 12/17/2024 EXAM DESCRIPTION: XR CHEST 1 VIEW REASON FOR STUDY: fever cancer patient Pt states fever, body aches, chills since 12/16/24 TECHNIQUE: 1 radiographic view(s) of the chest. COMPARISON: 12/05/2024 FINDINGS: Stable mild cardiomegaly status post median sternotomy. Left internal jugular central line tip is in the superior vena cava. The lungsare hyperinflated with emphysematous and fibrotic changes characteristic ofCOPD. No airspace consolidation is seen. There are no pleural effusions. No pneumothorax. Old, healed left rib fractures. Surgical clips overlie the inferior right hemithorax. IMPRESSION: COPD. No active pulmonary disease. THIS IS AN ELECTRONICALLY VERIFIED FINAL REPORT 12/17/2024 5:29 PM - Electronically signed by Todd Crooks M.D. KT: KT Report ID: [id number] Reading Location: [id number] us Sandra Lawrence MD IMG XR PROCEDURES Shanice l Result * eGFR (12/14/2024 2:18 PM [employer] BUSINESS ANALYST) Pathologist [facility] eGFR >90 >=60 mL/min/1. 73 m2 Comment: Interpretive Data Reference Interval Normal >/= 90 mL/min/1.73m2 Mildly decreased* 60 - 89 mL/min/1.73m2 Mildly to moderately decreased 45 - 59 mL/min/1.73m2 Moderately to severely decreased 30 - 44 mL/min/1.73m2 Severely decreased 15 - 29 mL/min/1.73m2 Kidney Failure < 15 mL/min/1.73m2 *Relative to young adult level Estimated glomerular filtration rate is determined by the 2020 CKD-EPI equation recommended by the National Kidney Foundation (A Unifying Approach to GFR Estimation: Recommendations of the NKF-ASK Task Force on Reassessing the Inclusion of Race in Diagnosing Kidney Disease, JASN 2020). The CKD-EPI equation should not be used for patients with unstable renal function and has not been validated in children and those over 70. Current interpretive data was last reviewed 2021. Testing performed by: [address] [address] Blood 12/14/2024 2:18 PM [employer] BUSINESS ANALYST 12/14/2024 2:19 PM [employer] BUSINESS ANALYST us Rinku Chow DO LAB BLOOD ORDERABLES Final R esult ADARSH [address] [facility] Department [place] [address] * Differential, auto (12/14/2024 2:18 PM [employer] BUSINESS ANALYST) [facility] Neutrophil abs 3.4 1.5 - 6.5 K/cumm Comment:Testing performed by : [address] [address] Imm gran abs 0.0 0.0 - 0.1 K/cumm ADARSH GARCIA Comment:Testing performed by : [address] [address] Lymphocyte abs 1.9 0.8 - 3.3 K/cumm [facility] Comment:Testing performed by : [address], [place]., [address] Monocyte abs 0.6 0.2 - 0.8 K/cumm [facility] Comment:Testing performed by : [address], [place]., [address] Eosinophil abs 0.2 0.0 - 0.5 K/cumm [facility] Comment:Testing performed by : [address], [place]., [address] Basophil abs 0.0 0.0 - 0.1 K/cumm [facility] Comment:Testing performed by : [address] [address] Neutrophil pct 55.6 % [facility] Comment: Interpretive Data Percent cell count reference ranges are not reported, since discordance with absolute values may lead to misinterpretation of CBC data. Current Interpretive Data was last revised on 2018. Testing performed by: [address] [address] Imm gran pct 0.5 % [facility] Comment: Interpretive Data Percent cell count reference ranges are not reported, since discordance with absolute values may lead to misinterpretation of CBC data. Current Interpretive Data was last revised on 2018. Testing performed by: [address] [address] Lymphocyte pct 31.1 % [facility] Comment: Interpretive Data Percent cell count reference ranges are not reported, since discordance with absolute values may lead to misinterpretation of CBC data. Current Interpretive Data was last revised on 2018. Testing performed by: [address] [address] Monocyte pct 9.9 % [facility] Comment: Interpretive Data Percent cell count reference ranges are not reported, since discordance with absolute values may lead to misinterpretation of CBC data. Current Interpretive Data was last revised on 2018. Testing performed by: [address] [address] Eosinophil pct 2.4 % [facility] Comment: Interpretive Data Percent cell count reference ranges are not reported, since discordance with absolute values may lead to misinterpretation of CBC data. Current Interpretive Data was last revised on 2018. Testing performed by: [address] [address] Basophil pct 0.5 % ADARSH Comment: Interpretive Data Percent cell count reference ranges are not reported, since discordance with absolute values may lead to misinterpretation of CBC data. Current Interpretive Data was last revised on 2018. Testing performed by: [address] [address] Blood 12/14/2024 2:18 PM [employer] BUSINESS ANALYST 12/14/2024 2:19 PM [employer] BUSINESS ANALYST Rinku Chow DO LAB BLOOD ORDERABLES Final R esult [facility]SH [facility] Department [place] [address] * (ABNORMAL) CBC with auto differential (12/14/2024 2:18 PM [employer] BUSINESS ANALYST) WBC 6.2 3.8 - 9.9 K/cumm Comment:Testing performed by : [address] [address] Hgb 8.5(L) 11.9 - 15.5 g/dL ADARSH Comment:Testing performed by : [address] [address] Hct 27.8(L) 35.6 - 45.5 % ADARSH Comment:Testing performed by : [address] [address] Plt 174 150 - 400 K/cumm ADARSH Comment:Testing performed by : [address] [address] MPV 10.0 9.1 - 12.3 fL ADARSH GARCIA Comment:Testing performed by : [address] [address] RBC 3.12(L) 3.90 - 5.20 M/cumm ADARSH GARCIA Comment:Testing performed by : [address] [address] MCV 89.1 81.3 - 96.4 fL ADARSH GARCIA Comment:Testing performed by : [address] [address] MCH 27.2 27.1 - 33.3 pg ADARSH GARCIA Comment:Testing performed by : [address] [address] MCHC 30.6(L) 32.3 - 35.7 g/dL ADARSH GARCIA Comment:Testing performed by : [address] [address] RDW CV 22.8(H) 11.1 - 14.9 % ADARSH Comment:Testing performed by : [address] [address] RDW SD 72.8(H) 35.7 - 48.1 fL ADARSH Comment:Testing performed by : [address] [address] NRBC abs 0.00 0.00 - 0.01 K/cumm ADARSH Comment:Testing performed by : [address], [address] Blood 12/14/2024 2:18 PM [employer] BUSINESS ANALYST 12/14/2024 2:19 PM [employer] BUSINESS ANALYST Rinku Chow DO LAB BLOOD ORDERABLES Final R esult Performing Organization Address City/State/[facility] Co de Phone Number ADARSH [address] [facility] Department [place] [address] * Manual Differential (12/14/2024 2:18 PM [employer] BUSINESS ANALYST) Differential Auto Comment:Testing performed by : [address], [address] RBC morphology Consistent with RBC Indicies ADARSH GARCIA Comment:Testing performed by : [address] [address] Blood 12/14/2024 2:18 PM [employer] BUSINESS ANALYST 12/14/2024 2:19 PM [employer] BUSINESS ANALYST us Rinku Chow DO LAB BLOOD ORDERABLES Final R esult ADARSH [address] [facility] Department [place] [address] * (ABNORMAL) Comprehensive metabolic panel (12/14/2024 2:18 PM [employer] BUSINESS ANALYST) Sodium 140 135 - 145 mmol/L Comment:Testing performed by : [address] [address] Potassium, pl 4.3 3.3 - 4.9 mmol/L ADARSH Comment:Testing performed by : [address] [address] Chloride 105 97 - 110 mmol/L ADARSH Comment:Testing performed by : [address] [address] CO2 25 22 - 32 mmol/L ADARSH Comment:Testing performed by : [address] [address] Anion gap 10 2 - 15 mmol/L ADARSH Comment:Testing performed by : [address] [address] BUN 6 6 - 25 mg/dL ADARSH Comment:Testing performed by : [address] [address] Creatinine 0.60 0.60 - 1.10 mg/dL ADARSH Comment:Testing performed by : [address] [address] Glucose 86 70 - 199 mg/dL ADARSH Comment: Interpretive Data Fasting glucose >/= 126 mg/dl is diagnostic for diabetes. Fasting is defined as no caloric intake for at least 8 hours. Fasting glucose between 100 mg/dl to 125 mg/dl is diagnostic of prediabetes. In a patient with classic symptoms of hyperglycemia or hyperglycemic crisis, a random glucose >/= 200 mg/dl is diagnostic for diabetes. In the absence of unequivocal hyperglycemia, results should be confirmed by repeat testing. The classification and Diagnosis of Diabetes Diabetes Care 202; 46: S19-S40. Current interpretive data was last revised 2022. Testing performed by: [address] [address] Calcium 8.5 8.5 - 10.3 mg/dL ADARSH Comment:Testing performed by : [address] [address] Bilirubin, total 0.4 0.1 - 1.2 mg/dL ADARSH Comment:Testing performed by : [address] [address] Protein, pl 6.1(L) 6.5 - 8.5 g/dL [facility] Comment:Testing performed by : [address] [address] Albumin 3.7 3.5 - 5.0 g/dL ADARSH Comment:Testing performed by : [address], [address] Alk phos 160(H) 40 - 130 Units/L [facility] Comment:Testing performed by : [address] [address] ALT 14 7 - 45 Units/L [facility] Comment:Testing performed by : [address] [address] AST 20 10 - 45 Units/L [facility] Comment:Testing performed by : [address] [address] Blood 12/14/2024 2:18 PM [employer] BUSINESS ANALYST 12/14/2024 2:19 PM [employer] BUSINESS ANALYST Rinku Chow DO LAB BLOOD ORDERABLES Final R esult ADARSH [address] [facility] Department of Laboratories [place], [place] [id number] * EGD (12/12/2024 2:39 PM [employer] BUSINESS ANALYST) Anatomical Region Laterality Modality Other Narrative Procedure Note Vincent Hamilton MD - 12/12/2024 2:39 PM CST [facility] GI ENDOSCOPY Patient Name: Lana Benjamin Procedure Date: 12/12/2024 2:39 PM Date of : 1960 Admit Type: Inpatient Age: 64 Gender: Female Attending MD: Vincent Lugo M.D. Room: [facility] ENDOSCOPY ROOM 01 Note Status: Finalized Procedure: Upper GI endoscopy Indications: Suspected upper gastrointestinal bleeding inpatient with unexplained iron deficiency anemia Referring MD: Providers: Vincent Hamilton M.D. Medicines: Monitored Anesthesia Care Complications: No immediate complications. Estimated Blood Loss: Estimated blood loss: none. Procedure: Pre-Anesthesia Assessment: - Prior to the procedure, a History and Physicalwas performed, and patient medications and allergieswere reviewed. The patient is competent. The risks and benefits of the procedure and the sedation optionsand risks were discussed with the patient. Allquestions were answered and informed consent was obtained. Patient identification and proposed procedure were verified by the physician and the nurse in the procedure room. ASA Grade Assessment: III - Apatient with severe systemic disease. After reviewing the risks and benefits, the patient was deemed in satisfactory condition to undergo the procedure.The anesthesia plan was to use monitored anesthesiacare (MAC). Immediately prior to administration of medications, the patient was re-assessed foradequacy to receive sedatives. The heart rate, respiratory rate, oxygen saturations, blood pressure, adequacyof pulmonary ventilation, and response to care were monitored throughout the procedure. The physical status of the patient was re-assessed after the procedure. The benefits, risks, and alternatives to theprocedure and sedation were discussed and informed consentwas obtained. The scope was passed under direct vision. The [id number]-[id number] upper endoscope was introducedthrough the mouth, and advanced to the second part of duodenum. The upper GI endoscopy was accomplished without difficulty. The patient tolerated the procedure well. Findings: The examined esophagus was normal. Patchy moderate inflammation characterized by congestion (edema), erosions and erythema was found in the gastric body and in thegastric antrum. The first portion of the duodenum and second portion of the duodenum were normal. Impression: - Normal esophagus. - Gastritis. - Normal first portion of the duodenum and second portion of the duodenum. - No specimens collected. Recommendation: - Perform a colonoscopy today. - Use Protonix (pantoprazole) 40 mg PO BID for 8weeks. - Perform an H. pylori stool antigen (HpSA) test in the outpatient setting. Vincent Hamilton M.D. Vincent Hamilton M.D. 12/12/2024 4:28:24 PM . Number of Addenda: 0 Note Initiated On: 12/12/2024 2:39 PM Recognized by the [place] [employer] for promoting quality in endoscopy us Vincent Hamilton MD ENDOSCOPY P ROCEDURES Final Result * Colonoscopy (12/12/2024 2:39 PM SAP FICO BUSINESS ANALYST) Anatomical Region Laterality Modality Other Narrative Procedure Note Vincent Hamilton MD - 12/12/2024 2:[address] [facility] ENDOSCOPY Patient Name: Lana Benjamin Procedure Date: 12/12/2024 2:39 PM Date of : 1960 Admit Type: Inpatient Age: 64 Gender: Female Attending MD: Vincent Lugo M.D. Room: [facility] ENDOSCOPY ROOM 01 Note Status: Finalized Procedure: Colonoscopy Indications: Hematochezia, Iron deficiency anemia Referring MD: Providers: Vincent Hamilton M.D. Medicines: Monitored Anesthesia Care Complications: No immediate complications. Estimated Blood Loss: Estimated blood loss: none. Procedure: Pre-Anesthesia Assessment: - Prior to the procedure, a History and Physicalwas performed, and patient medications and allergieswere reviewed. The patient is competent. The risks and benefits of the procedure and the sedation optionsand risks were discussed with the patient. Allquestions were answered and informed consent was obtained. Patient identification and proposed procedure were verified by the physician and the nurse in the procedure room. Prophylactic Antibiotics: Thepatient does not require prophylactic antibiotics. Prior Anticoagulants: The patient has taken Plavix (clopidogrel), last dose was 4 days prior to procedure. ASA Grade Assessment: III - A patientwith severe systemic disease. After reviewing the risksand benefits, the patient was deemed in satisfactory condition to undergo the procedure. The anesthesia plan was to use monitored anesthesia care (MAC). Immediately prior to administration of medications, the patient was re-assessed for adequacy to receive sedatives. The heart rate, respiratory rate, oxygen saturations, blood pressure, adequacy of pulmonary ventilation, and response to care were monitored throughout the procedure. The physical status ofthe patient was re-assessed after the procedure. The benefits, risks and alternatives of theprocedure and sedation were discussed and informed consentwas obtained. All questions were answered. Please referto the signed informed consent document in the medical record. The scope was passed under direct vision.The PCF-H180AL colonoscope was introduced through theanus and advanced to the cecum, identified byappendiceal orifice and ileocecal valve. The colonoscopy was performed without difficulty. The patient tolerated the procedure well. The quality of the bowel preparation was fair. Findings: A moderate amount of semi-solid solid stool was found in the rectum,in the descending colon, in the ascending colon and in the cecum,without interference to visualization. Non-bleeding external and internal hemorrhoids were found. The hemorrhoids were small. There is no endoscopic evidence of bleeding, inflammation or mass inthe entire colon. Impression: - Preparation of the colon was fair. - Stool in the rectum, in the descending colon, inthe ascending colon and in the cecum. - Non-bleeding external and internal hemorrhoids. Possibloe cause of internittent hematochezia in the setting of use of Plavix. - No specimens collected. Recommendation: - [facility]. - Advance diet as tolerated. - Avoid constipation. Use Preparation H is rectal bleeding recurs. - Resume Plavix in 24 hours. Vincent Hamilton M.D. Vincent Hamilton M.D. 12/12/2024 4:33:15 PM . Number of Addenda: 0 Note Initiated On: 12/12/2024 2:39 PM Recognized by the [place] [employer] for promoting quality in endoscopy Vincent Hamilton MD ENDOSCOPY P ROCEDURES Final Result * Differential, auto (12/12/2024 5:32 AM SAP FICO BUSINESS ANALYST) Neutrophil abs 3.3 1.5 - 6.5 K/cumm Comment:Testing performed by : [address] [address] Imm gran abs 0.0 0.0 - 0.1 K/cumm [facility] Comment:Testing performed by : [address] [address] Lymphocyte abs 1.6 0.8 - 3.3 K/cumm [facility] Comment:Testing performed by : [address] [address] Monocyte abs 0.6 0.2 - 0.8 K/cumm [facility] Comment:Testing performed by : [address] [address] Eosinophil abs 0.3 0.0 - 0.5 K/cumm [facility] Comment:Testing performed by : [address] [address] Basophil abs 0.0 0.0 - 0.1 K/cumm [facility] Comment:Testing performed by : [address] [address] Neutrophil pct 57.1 % [facility] Comment: Interpretive Data Percent cell count reference ranges are not reported, since discordance with absolute values may lead to misinterpretation of CBC data. Current Interpretive Data was last revised on 2018. Testing performed by: [address] [address] Imm gran pct 0.2 % [facility] Comment: Interpretive Data Percent cell count reference ranges are not reported, since discordance with absolute values may lead to misinterpretation of CBC data. Current Interpretive Data was last revised on 2018. Testing performed by: [address] [address] Lymphocyte pct 27.3 % [facility] Comment: Interpretive Data Percent cell count reference ranges are not reported, since discordance with absolute values may lead to misinterpretation of CBC data. Current Interpretive Data was last revised on 2018. Testing performed by: [address] [address] Monocyte pct 10.5 % [facility] Comment: Interpretive Data Percent cell count reference ranges are not reported, since discordance with absolute values may lead to misinterpretation of CBC data. Current Interpretive Data was last revised on 2018. Testing performed by: [address] [address] Eosinophil pct 4.4 % [facility] Comment: Interpretive Data Percent cell count reference ranges are not reported, since discordance with absolute values may lead to misinterpretation of CBC data. Current Interpretive Data was last revised on 2018. Testing performed by: [address] [address] Basophil pct 0.5 % [facility] Comment: Interpretive Data Percent cell count reference ranges are not reported, since discordance with absolute values may lead to misinterpretation of CBC data. Current Interpretive Data was last revised on 2018. Testing performed by: [address] [address] Blood 12/12/2024 5:32 AM SAP FICO BUSINESS ANALYST 12/12/2024 6:31 AM SAP FICO BUSINESS ANALYST Carolann Frey NP LAB BLOOD ORDERABLES Final Re sult [facility] [address] [facility] Department of Laboratories [place], [place] [id number] * (ABNORMAL) CBC with auto differential (12/12/2024 5:32 AM SAP FICO BUSINESS ANALYST) WBC 5.7 3.8 - 9.9 K/cumm Comment:Testing performed by : [address] [address] Hgb 8.3(L) 11.9 - 15.5 g/dL [facility] Comment:Testing performed by : [address] [address] Hct 27.4(L) 35.6 - 45.5 % [facility] Comment:Testing performed by : [address] [address] Plt 201 150 - 400 K/cumm [facility] Comment:Testing performed by : [address] [address] MPV 10.5 9.1 - 12.3 fL [facility] Comment:Testing performed by : [address] [address] RBC 3.03(L) 3.90 - 5.20 M/cumm [facility] Comment:Testing performed by : [address] [address] MCV 90.4 81.3 - 96.4 fL [facility] Comment:Testing performed by : [address] [address] MCH 27.4 27.1 - 33.3 pg [facility] Comment:Testing performed by : [address] [address] MCHC 30.3(L) 32.3 - 35.7 g/dL [facility] Comment:Testing performed by : [address] [address] RDW CV 21.8(H) 11.1 - 14.9 % [facility] Comment:Testing performed by : [address], [address] RDW SD 68.0(H) 35.7 - 48.1 fL [facility] Comment:Testing performed by : [address] [address] NRBC abs 0.00 0.00 - 0.01 K/cumm [facility] Comment:Testing performed by : [address] [address] Blood 12/12/2024 5:32 AM SAP FICO BUSINESS ANALYST 12/12/2024 6:31 AM SAP FICO BUSINESS ANALYST Carolann Frey TECHNICIAN SUPPORT ENGINEER LAB BLOOD ORDERABLES Final Re sult [facility] [address] [facility] Department [place] [address] * (ABNORMAL) Differential, auto (12/11/2024 7:21 AM SAP FICO BUSINESS ANALYST) Neutrophil abs 3.1 1.5 - 6.5 K/cumm Comment:Testing performed by : [address] [address] Imm gran abs 0.0 0.0 - 0.1 K/cumm [facility] Comment:Testing performed by : [address] [address] Lymphocyte abs 1.7 0.8 - 3.3 K/cumm [facility] Comment:Testing performed by : [address] [address] Monocyte abs 0.9(H) 0.2 - 0.8 K/cumm [facility] Comment:Testing performed by : [address] [address] Eosinophil abs 0.4 0.0 - 0.5 K/cumm [facility] Comment:Testing performed by : [address] [address] Basophil abs 0.0 0.0 - 0.1 K/cumm [facility] Comment:Testing performed by : [address] [address] Neutrophil pct 50.8 % [facility] Comment: Interpretive Data Percent cell count reference ranges are not reported, since discordance with absolute values may lead to misinterpretation of CBC data. Current Interpretive Data was last revised on 2018. Testing performed by: [address] [address] Imm gran pct 0.3 % [facility] Comment: Interpretive Data Percent cell count reference ranges are not reported, since discordance with absolute values may lead to misinterpretation of CBC data. Current Interpretive Data was last revised on 2018. Testing performed by: [address] [address] Lymphocyte pct 27.8 % [facility] Comment: Interpretive Data Percent cell count reference ranges are not reported, since discordance with absolute values may lead to misinterpretation of CBC data. Current Interpretive Data was last revised on 2018. Testing performed by: [address] [address] Monocyte pct 14.1 % [facility] Comment: Interpretive Data Percent cell count reference ranges are not reported, since discordance with absolute values may lead to misinterpretation of CBC data. Current Interpretive Data was last revised on 2018. Testing performed by: [address] [address] Eosinophil pct 6.3 % [facility] Comment: Interpretive Data Percent cell count reference ranges are not reported, since discordance with absolute values may lead to misinterpretation of CBC data. Current Interpretive Data was last revised on 2018. Testing performed by: [address] [address] Basophil pct 0.7 % [facility] Comment: Interpretive Data Percent cell count reference ranges are not reported, since discordance with absolute values may lead to misinterpretation of CBC data. Current Interpretive Data was last revised on 2018. Testing performed by: [address] [address] Blood 12/11/2024 7:21 AM SAP FICO BUSINESS ANALYST 12/11/2024 7:34 AM SAP FICO BUSINESS ANALYST Carolann Frey NP LAB BLOOD ORDERABLES Final Re sult [facility] [address] [facility] Department [place] [address] * (ABNORMAL) CBC with auto differential (12/11/2024 7:21 AM SAP FICO BUSINESS ANALYST) WBC 6.2 3.8 - 9.9 K/cumm Comment:Testing performed by : [address] [address] Hgb 8.1(L) 11.9 - 15.5 g/dL [facility] Comment:Testing performed by : [address] [place]., [address] Hct 26.4(L) 35.6 - 45.5 % [facility] Comment:Testing performed by : [address], [address] Plt 206 150 - 400 K/cumm [facility] Comment:Testing performed by : [address], [address] MPV 11.1 9.1 - 12.3 fL [facility] Comment:Testing performed by : [address], [address] RBC 2.93(L) 3.90 - 5.20 M/cumm [facility] Comment:Testing performed by : [address], [address] MCV 90.1 81.3 - 96.4 fL [facility] Comment:Testing performed by : [address], [address] MCH 27.6 27.1 - 33.3 pg [facility] Comment:Testing performed by : [address], [address] MCHC 30.7(L) 32.3 - 35.7 g/dL [facility] Comment:Testing performed by : [address], [address] RDW CV 21.2(H) 11.1 - 14.9 % [facility] Comment:Testing performed by : [address], [address] RDW SD 67.7(H) 35.7 - 48.1 fL [facility] Comment:Testing performed by : [address], [address] NRBC abs 0.00 0.00 - 0.01 K/cumm [facility] Comment:Testing performed by : [address], [address] Blood 12/11/2024 7:21 AM SAP FICO BUSINESS ANALYST 12/11/2024 7:34 AM [employer] FICO BUSINESS ANALYST Carolann Frey NP LAB BLOOD ORDERABLES Final Re sult [facility] [address] [facility] Department [place] [address] * (ABNORMAL) Differential, auto (12/10/2024 9:28 AM SAP FICO BUSINESS ANALYST) Neutrophil abs 3.8 1.5 - 6.5 K/cumm Comment:Testing performed by : [address] [address] Imm gran abs 0.0 0.0 - 0.1 K/cumm [facility] Comment:Testing performed by : [address] [address] Lymphocyte abs 1.8 0.8 - 3.3 K/cumm [facility] Comment:Testing performed by : [address] [address] Monocyte abs 0.9(H) 0.2 - 0.8 K/cumm [facility] Comment:Testing performed by : [address] [address] Eosinophil abs 0.3 0.0 - 0.5 K/cumm [facility] Comment:Testing performed by : [address] [address] Basophil abs 0.0 0.0 - 0.1 K/cumm [facility] Comment:Testing performed by : [address] [address] Neutrophil pct 55.5 % [facility] Comment: Interpretive Data Percent cell count reference ranges are not reported, since discordance with absolute values may lead to misinterpretation of CBC data. Current Interpretive Data was last revised on 2018. Testing performed by: [address] [address] Imm gran pct 0.4 % [facility] Comment: Interpretive Data Percent cell count reference ranges are not reported, since discordance with absolute values may lead to misinterpretation of CBC data. Current Interpretive Data was last revised on 2018. Testing performed by: [address] [address] Lymphocyte pct 26.6 % [facility] Comment: Interpretive Data Percent cell count reference ranges are not reported, since discordance with absolute values may lead to misinterpretation of CBC data. Current Interpretive Data was last revised on 2018. Testing performed by: [address] [address] Monocyte pct 13.0 % [facility] Comment: Interpretive Data Percent cell count reference ranges are not reported, since discordance with absolute values may lead to misinterpretation of CBC data. Current Interpretive Data was last revised on 2018. Testing performed by: [address] [address] Eosinophil pct 4.2 % [facility] Comment: Interpretive Data Percent cell count reference ranges are not reported, since discordance with absolute values may lead to misinterpretation of CBC data. Current Interpretive Data was last revised on 2018. Testing performed by: [address] [address] Basophil pct 0.3 % [facility] Comment: Interpretive Data Percent cell count reference ranges are not reported, since discordance with absolute values may lead to misinterpretation of CBC data. Current Interpretive Data was last revised on 2018. Testing performed by: [address] [address] Blood 12/10/2024 9:28 AM SAP FICO BUSINESS ANALYST 12/10/2024 9:37 AM SAP FICO BUSINESS ANALYST Teo Cole MD LAB BLOOD ORDERABL ES Final Result [facility] [address] [facility] Department [place] [address] * (ABNORMAL) CBC with auto differential (12/10/2024 9:28 AM SAP FICO BUSINESS ANALYST) WBC 6.9 3.8 - 9.9 K/cumm Comment:Testing performed by : [address] [address] Hgb 8.4(L) 11.9 - 15.5 g/dL [facility] GARCIA Comment:Testing performed by : [address] [address] Hct 26.9(L) 35.6 - 45.5 % [facility] Comment:Testing performed by : [address] [address] Plt 192 150 - 400 K/cumm [facility] Comment:Testing performed by : [address] [address] MPV 9.6 9.1 - 12.3 fL [facility] Comment:Testing performed by : [address], [address] RBC 3.03(L) 3.90 - 5.20 M/cumm [facility] Comment:Testing performed by : [address], [address] MCV 88.8 81.3 - 96.4 fL [facility] Comment:Testing performed by : [address], [address] MCH 27.7 27.1 - 33.3 pg [facility] Comment:Testing performed by : [address], [address] MCHC 31.2(L) 32.3 - 35.7 g/dL [facility] Comment:Testing performed by : [address], [address] RDW CV 21.2(H) 11.1 - 14.9 % [facility] Comment:Testing performed by : [address], [address] RDW SD 67.2(H) 35.7 - 48.1 fL [facility] Comment:Testing performed by : [address], [address] NRBC abs 0.00 0.00 - 0.01 K/cumm [facility] Comment:Testing performed by : [address], [address] Blood 12/10/2024 9:28 AM SAP FICO BUSINESS ANALYST 12/10/2024 9:37 AM SAP FICO BUSINESS ANALYST Teo Cole MD LAB BLOOD ORDERABL ES Final Result Performing Organization Address [facility] de Phone Number [facility] Department [place] [address] * eGFR (12/09/2024 6:44 AM SAP FICO BUSINESS ANALYST) eGFR >90 >=60 mL/min/1. 73 m2 Comment: Interpretive Data Reference Interval Normal >/= 90 mL/min/1.73m2 Mildly decreased* 60 - 89 mL/min/1.73m2 Mildly to moderately decreased 45 - 59 mL/min/1.73m2 Moderately to severely decreased 30 - 44 mL/min/1.73m2 Severely decreased 15 - 29 mL/min/1.73m2 Kidney Failure < 15 mL/min/1.73m2 *Relative to young adult level Estimated glomerular filtration rate is determined by the 2020 CKD-EPI equation recommended by the National Kid[employer] (A Unifying Approach to GFR Estimation: Recommendations of the NKF-ASK Task Force on Reassessing the Inclusion of Race in Diagnosing Kidney Disease, JASN 2020). The CKD-EPI equation should not be used for patients with unstable renal function and has not been validated in children and those over 70. Current interpretive data was last reviewed 2021. Testing performed by: [address] [address] Blood 12/09/2024 6:44 AM SAP FICO BUSINESS ANALYST 12/09/2024 6:50 AM SAP FICO BUSINESS ANALYST us Carolann Frey NP LAB BLOOD ORDERABLES Final Re sult Performing Organization Address [facility] Co de Phone Number [place] [id number] [facility] Department [place] [address] * Differential, auto (12/09/2024 6:44 AM SAP FICO BUSINESS ANALYST) Pathologist [facility] Neutrophil abs 3.5 1.5 - 6.5 K/cumm Comment:Testing performed by : [address] [address] Imm gran abs 0.1 0.0 - 0.1 K/cumm [facility] Comment:Testing performed by : [address] [address] Lymphocyte abs 2.0 0.8 - 3.3 K/cumm C[facility] Comment:Testing performed by : [address] [address] Monocyte abs 0.8 0.2 - 0.8 K/cumm [facility] Comment:Testing performed by : [address], [place]., [address] Eosinophil abs 0.3 0.0 - 0.5 K/cumm [facility] Comment:Testing performed by : [address], [place]., [address] Basophil abs 0.0 0.0 - 0.1 K/cumm [facility] Comment:Testing performed by : [address] [address] Neutrophil pct 52.9 % [facility] Comment: Interpretive Data Percent cell count reference ranges are not reported, since discordance with absolute values may lead to misinterpretation of CBC data. Current Interpretive Data was last revised on 2018. Testing performed by: [address] [address] Imm gran pct 0.9 % [facility] Comment: Interpretive Data Percent cell count reference ranges are not reported, since discordance with absolute values may lead to misinterpretation of CBC data. Current Interpretive Data was last revised on 2018. Testing performed by: [address] [address] Lymphocyte pct 29.2 % [facility] Comment: Interpretive Data Percent cell count reference ranges are not reported, since discordance with absolute values may lead to misinterpretation of CBC data. Current Interpretive Data was last revised on 2018. Testing performed by: [address] [address] Monocyte pct 11.8 % [facility] Comment: Interpretive Data Percent cell count reference ranges are not reported, since discordance with absolute values may lead to misinterpretation of CBC data. Current Interpretive Data was last revised on 2018. Testing performed by: [address] [address] Eosinophil pct 4.8 % [facility] Comment: Interpretive Data Percent cell count reference ranges are not reported, since discordance with absolute values may lead to misinterpretation of CBC data. Current Interpretive Data was last revised on 2018. Testing performed by: [address] [address] Basophil pct 0.4 % [facility] GARCIA Comment: Interpretive Data Percent cell count reference ranges are not reported, since discordance with absolute values may lead to misinterpretation of CBC data. Current Interpretive Data was last revised on 2018. Testing performed by: [address] [address] Blood 12/09/2024 6:44 AM SAP FICO BUSINESS ANALYST 12/09/2024 6:50 AM SAP FICO BUSINESS ANALYST us Carolann Frey NP LAB BLOOD ORDERABLES Final Re sult [facility] [address] [facility] Department [place] [address] * (ABNORMAL) CBC with auto differential (12/09/2024 6:44 AM SAP FICO BUSINESS ANALYST) WBC 6.7 3.8 - 9.9 K/cumm Comment:Testing performed by : [address] [address] Hgb 8.4(L) 11.9 - 15.5 g/dL [facility] GARCIA Comment:Testing performed by : [address] [address] Hct 27.4(L) 35.6 - 45.5 % [facility] GARCIA Comment:Testing performed by : [address] [address] Plt 146(L) 150 - 400 K/cumm [facility] GARCIA Comment:Testing performed by : [address] [address] MPV 10.1 9.1 - 12.3 fL [facility] GARCIA Comment:Testing performed by : [address] [address] RBC 3.11(L) 3.90 - 5.20 M/cumm [facility] GARCIA Comment:Testing performed by : [address] [address] MCV 88.1 81.3 - 96.4 fL [facility] Comment:Testing performed by : [address] [address] MCH 27.0(L) 27.1 - 33.3 pg [facility] Comment:Testing performed by : [address] [address] MCHC 30.7(L) 32.3 - 35.7 g/dL [facility] Comment:Testing performed by : [address] [address] RDW CV 21.3(H) 11.1 - 14.9 % [facility] Comment:Testing performed by : [address] [address] RDW SD 67.0(H) 35.7 - 48.1 fL [facility] Comment:Testing performed by : [address] [address] NRBC abs 0.00 0.00 - 0.01 K/cumm [facility] Comment:Testing performed by : [address] [address] Blood 12/09/2024 6:44 AM SAP FICO BUSINESS ANALYST 12/09/2024 6:50 AM [employer] FICO BUSINESS ANALYST us Carolann Frey NP LAB BLOOD ORDERABLES Neel R michelle - Final [facility] [address] [facility] Department of Laboratories [place], [place] [id number] * (ABNORMAL) Manual Differential (12/09/2024 6:44 AM SAP FICO BUSINESS ANALYST) Differential Auto Comment:Testing performed by : [address] [address] Neutrophil abs 3.5 1.5 - 6.5 K/cumm [facility] Comment:Testing performed by : [address], [address] Imm gran abs 0.1 0.0 - 0.1 K/cumm [facility] Comment:Testing performed by : [facility], [address] [place] [address]., [address] Lymphocyte abs 2.0 0.8 - 3.3 K/cumm [facility] Comment:Testing performed by : [address] [address] Monocyte abs 0.8 0.2 - 0.8 K/cumm [facility] Comment:Testing performed by : [address] [address] Eosinophil abs 0.3 0.0 - 0.5 K/cumm [facility] Comment:Testing performed by : [address] [address] Basophil abs 0.0 0.0 - 0.1 K/cumm [facility] Comment:Testing performed by : [address] [address] Neutrophil pct 52.9 % [facility] Comment: Interpretive Data Percent cell count reference ranges are not reported, since discordance with absolute values may lead to misinterpretation of CBC data. Current Interpretive Data was last revised on 2018. Testing performed by: [address] [address] Imm gran pct 0.9 % [facility] Comment: Interpretive Data Percent cell count reference ranges are not reported, since discordance with absolute values may lead to misinterpretation of CBC data. Current Interpretive Data was last revised on 2018. Testing performed by: [address] [address] Lymphocyte pct 29.2 % [facility] Comment: Interpretive Data Percent cell count reference ranges are not reported, since discordance with absolute values may lead to misinterpretation of CBC data. Current Interpretive Data was last revised on 2018. Testing performed by: [address] [address] Monocyte pct 11.8 % [facility] Comment: Interpretive Data Percent cell count reference ranges are not reported, since discordance with absolute values may lead to misinterpretation of CBC data. Current Interpretive Data was last revised on 2018. Testing performed by: [address] [place] [address] Eosinophil pct 4.8 % [facility] Comment: Interpretive Data Percent cell count reference ranges are not reported, since discordance with absolute values may lead to misinterpretation of CBC data. Current Interpretive Data was last revised on 2018. Testing performed by: [facility], [address] [place] [address], [place]., [address] Basophil pct 0.4 % ADARSH Comment: Interpretive Data Percent cell count reference ranges are not reported, since discordance with absolute values may lead to misinterpretation of CBC data. Current Interpretive Data was last revised on 2018. Testing performed by: [address], [place]., [address] RBC morphology Consistent with RBC Indicies ADARSH Comment:Testing performed by : [facility], [address] [place] [address], [place]., [address] Platelet estimate Adequate ADARHS Comment:Testing performed by : [address] [address] Giant platelets Present(A) ADARSH Comment:Testing performed by : [address], [place]., [address] Platelet clumping RARE ADARSH Comment:Testing performed by : [address], [place]., [address] Blood 12/09/2024 6:44 AM [employer] BUSINESS ANALYST 12/09/2024 6:50 AM [employer] BUSINESS ANALYST Carolann Frey NP LAB BLOOD ORDERABLES Edited R bretult - Final ADARSH [address] [facility] Department [place] [address] * Basic metabolic panel (12/09/2024 6:44 AM [employer] BUSINESS ANALYST) Sodium 141 135 - 145 mmol/L Comment:Testing performed by : [address], [place]., [address] Potassium, pl 4.6 3.3 - 4.9 mmol/L ADARSH Comment:Testing performed by : [address] [address] Chloride 102 97 - 110 mmol/L ADARSH Comment:Testing performed by : [address] [address] CO2 25 22 - 32 mmol/L ADARSH Comment:Testing performed by : [address] [address] Anion gap 14 2 - 15 mmol/L ADARSH Comment:Testing performed by : [address] [address] BUN 11 6 - 25 mg/dL ADARSH Comment:Testing performed by : [address] [address] Creatinine 0.70 0.60 - 1.10 mg/dL ADARSH Comment:Testing performed by : [address], [address] Glucose 92 70 - 199 mg/dL ADARSH Comment: Interpretive Data Fasting glucose >/= 126 mg/dl is diagnostic for diabetes. Fasting is defined as no caloric intake for at least 8 hours. Fasting glucose between 100 mg/dl to 125 mg/dl is diagnostic of prediabetes. In a patient with classic symptoms of hyperglycemia or hyperglycemic crisis, a random glucose >/= 200 mg/dl is diagnostic for diabetes. In the absence of unequivocal hyperglycemia, results should be confirmed by repeat testing. The classification and Diagnosis of Diabetes Diabetes Care 202; 46: S19-S40. Current interpretive data was last revised 2022. Testing performed by: [address] [address] Calcium 9.2 8.5 - 10.3 mg/dL ADARSH Comment:Testing performed by : [address] [address] Blood 12/09/2024 6:44 AM [employer] BUSINESS ANALYST 12/09/2024 6:50 AM [employer] BUSINESS ANALYST us Carolann Frey NP LAB BLOOD ORDERABLES Final Re sult [facility] [address] [facility] Department of Laboratories [place], [place] [id number] * Transfuse RBC (12/08/2024 4:51 PM [employer] BUSINESS ANALYST) Blood Teo Cole MD BLOOD TRANSFUSION ORDERABLES Final Result Performing Organization Address [facility]/ZIP Co de Phone Number [address] [email or web address] [address] * Prepare RBC (12/08/2024 1:45 PM [employer] BUSINESS ANALYST) Unit Number [id number] [facility] Product code [id number] [facility] Blood Expiration Date [id number] [facility] Product Blood Type (for scanning) 6200 [facility] Product Blood Type APOS [facility] Dispense Status DISPENSED [facility] Tony Rendon MD BLOOD BANK PRODUCT ORDERABLES Final Result Performing Organization Address [facility] Co de Phone Number [address] [address] * ABO/Rh (12/08/2024 12:31 PM [employer] BUSINESS ANALYST) Pathologist [facility] ABO/Rh A Positive Comment:Testing performed by : [facility], [address] [place] [address]., [address] Blood 12/08/2024 12:3 1 PM [employer] BUSINESS ANALYST 12/08/2024 12:46 PM [employer] BUSINESS ANALYST Narrative [facility] - 12/08/2024 1:23 PM [employer] BUSINESS ANALYST Has the patient had Daratumumab or Isatuximab in the past 6 months?->Unknown Teo Cole MD LAB BLOOD BANK RODERICK T ORDERABLES Final Result Performing Organization Address [facility] Co de Phone Number [address] [address] * Crossmatch (12/08/2024 12:31 PM [employer] BUSINESS ANALYST) Crossmatch Compatible [facility] Unit number for crossmatch [id number] [facility] Blood 12/08/2024 12:3 1 PM [employer] BUSINESS ANALYST 12/08/2024 12:46 PM [employer] BUSINESS ANALYST Teo Cole MD LAB BLOOD BANK RODERICK T ORDERABLES Final Result Performing Organization Address [facility] Co de Phone Number [address] [email or web address] [address] * Antibody screen (12/08/2024 12:31 PM [employer] BUSINESS ANALYST) Wm, indirect, Gel Interpretation Negative ABSC Comment:Testing performed by : [address], [address] Blood 12/08/2024 12:3 1 PM [employer] BUSINESS ANALYST 12/08/2024 12:46 PM [employer] BUSINESS ANALYST Narrative ADARSH - 12/08/2024 1:27 PM [employer] BUSINESS ANALYST Has the patient had Daratumumab or Isatuximab in the past 6 months?->Unknown Result [facility] Teo Cole MD LAB BLOOD BANK RODERICK T ORDERABLES Final Result Performing Organization Address [facility] de Phone Number [address] [address] * Prepare RBC: 1 Units (12/08/2024 7:35 AM [employer] BUSINESS ANALYST) Units requested 1 Comment:Testing performed by : [address] [address] Units requested Ready ADARSH Comment:Testing performed by : [address] [address] Blood 12/08/2024 7:35 AM [employer] BUSINESS ANALYST 12/08/2024 7:35 AM [employer] BUSINESS ANALYST Narrative ADARSH - 12/08/2024 1:46 PM [employer] BUSINESS ANALYST Are special requirements needed? (All products are leukoreduced and CMV- safe)- >No Specimen not yet received 12/08/2024 12:20:36 [employer] BUSINESS ANALYST Teo Cole MD BLOOD BANK PRODUCT ORDERABLES Final Result Performing Organization Address [facility] Co de Phone Number ADARSH [address] Department [place] [address] * eGFR (12/08/2024 5:07 AM [employer] BUSINESS ANALYST) eGFR 83 >=60 mL/min/1. 73 m2 Comment: Interpretive Data Reference Interval Normal >/= 90 mL/min/1.73m2 Mildly decreased* 60 - 89 mL/min/1.73m2 Mildly to moderately decreased 45 - 59 mL/min/1.73m2 Moderately to severely decreased 30 - 44 mL/min/1.73m2 Severely decreased 15 - 29 mL/min/1.73m2 Kidney Failure < 15 mL/min/1.73m2 *Relative to young adult level Estimated glomerular filtration rate is determined by the 2020 CKD-EPI equation recommended by the National Kidney Foundation (A Unifying Approach to GFR Estimation: Recommendations of the NKF-ASK Task Force on Reassessing the Inclusion of Race in Diagnosing Kidney Disease, JASN 2020). The CKD-EPI equation should not be used for patients with unstable renal function and has not been validated in children and those over 70. Current interpretive data was last reviewed 2021. Testing performed by: [address] [address] Blood 12/08/2024 5:07 AM [employer] BUSINESS ANALYST 12/08/2024 5:29 AM [employer] BUSINESS ANALYST us Carolann Frey NP LAB BLOOD ORDERABLES Final Re sult Performing Organization Address City/[facility]/ZIP Co de Phone Number ADARSH [address] Department [place] [address] * Differential, auto (12/08/2024 5:07 AM [employer] BUSINESS ANALYST) Neutrophil abs 1.6 1.5 - 6.5 K/cumm Comment:Testing performed by : [address] [address] Imm gran abs 0.0 0.0 - 0.1 K/cumm ADARSH Comment:Testing performed by : [address] [address] Lymphocyte abs 2.0 0.8 - 3.3 K/cumm [facility] Comment:Testing performed by : [address] [address] Monocyte abs 0.6 0.2 - 0.8 K/cumm [facility] Comment:Testing performed by : [address], [place]., [address] Eosinophil abs 0.4 0.0 - 0.5 K/cumm [facility] Comment:Testing performed by : [address], [place]., [address] Basophil abs 0.0 0.0 - 0.1 K/cumm [facility] Comment:Testing performed by : [address] [address] Neutrophil pct 34.1 % [facility] Comment: Interpretive Data Percent cell count reference ranges are not reported, since discordance with absolute values may lead to misinterpretation of CBC data. Current Interpretive Data was last revised on 2018. Testing performed by: [address] [address] Imm gran pct 0.2 % [facility] Comment: Interpretive Data Percent cell count reference ranges are not reported, since discordance with absolute values may lead to misinterpretation of CBC data. Current Interpretive Data was last revised on 2018. Testing performed by: [address] [address] Lymphocyte pct 43.2 % [facility] Comment: Interpretive Data Percent cell count reference ranges are not reported, since discordance with absolute values may lead to misinterpretation of CBC data. Current Interpretive Data was last revised on 2018. Testing performed by: [address] [address] Monocyte pct 13.1 % [facility] Comment: Interpretive Data Percent cell count reference ranges are not reported, since discordance with absolute values may lead to misinterpretation of CBC data. Current Interpretive Data was last revised on 2018. Testing performed by: [address] [address] Eosinophil pct 9.0 % [facility] Comment: Interpretive Data Percent cell count reference ranges are not reported, since discordance with absolute values may lead to misinterpretation of CBC data. Current Interpretive Data was last revised on 2018. Testing performed by: [address] [address] Basophil pct 0.4 % ADARSH GARCIA Comment: Interpretive Data Percent cell count reference ranges are not reported, since discordance with absolute values may lead to misinterpretation of CBC data. Current Interpretive Data was last revised on 2018. Testing performed by: [address] [address] Blood 12/08/2024 5:07 AM [employer] BUSINESS ANALYST 12/08/2024 5:29 AM [employer] BUSINESS ANALYST us Carolann Frey NP LAB BLOOD ORDERABLES Final Re sult ADARSH [address] [facility] Department [place] [address] * (ABNORMAL) CBC with auto differential (12/08/2024 5:07 AM [employer] BUSINESS ANALYST) WBC 4.7 3.8 - 9.9 K/cumm Comment:Testing performed by : [address] [address] Hgb 6.7(L) 11.9 - 15.5 g/dL ADARSH GARCIA Comment:Testing performed by : [address] [address] Hct 21.9(L) 35.6 - 45.5 % ADARSH GARCIA Comment:Testing performed by : [address] [address] Plt 200 150 - 400 K/cumm ADARSH Comment:Testing performed by : [address] [address] MPV 10.3 9.1 - 12.3 fL ADARSH GARCIA Comment:Testing performed by : [address] [address] RBC 2.46(L) 3.90 - 5.20 M/cumm ADARSH Comment:Testing performed by : [address] [address] MCV 89.0 81.3 - 96.4 fL ADARSH Comment:Testing performed by : [address] [address] MCH 27.2 27.1 - 33.3 pg ADARSH Comment:Testing performed by : [address] [address] MCHC 30.6(L) 32.3 - 35.7 g/dL ADARSH Comment:Testing performed by : [address] [address] RDW CV 21.9(H) 11.1 - 14.9 % ADARSH Comment:Testing performed by : [address] [address] RDW SD 71.2(H) 35.7 - 48.1 fL ADARSH Comment:Testing performed by : [address] [address] NRBC abs 0.00 0.00 - 0.01 K/cumm ADARSH Comment:Testing performed by : [address] [address] Blood 12/08/2024 5:07 AM [employer] BUSINESS ANALYST 12/08/2024 5:29 AM [employer] BUSINESS ANALYST Carolann Frey NP LAB BLOOD ORDERABLES Final Re sult ADARSH [address] [facility] Department [place] [address] * (ABNORMAL) Protime-INR (12/08/2024 5:07 AM [employer] BUSINESS ANALYST) PT 14.8(H) 12.0 - 14.6 sec Comment: Ref Range High Testing performed by: [address] [address] INR 1.2 0.9 - 1.2 ADARSH Comment: Ref Range High Interpretive data Oral anticoagulant therapeutic ranges: Venous thromboembolism prophylaxis or treatment: 2.0-3.0 CARDIOLOGY Standard range: 2.0-3.0 High-intensity range: 2.5-3.5 Refer to indication-specific guidelines for appropriate target ranges for prosthetic heart valve replacement. Current interpretive data was last revised on 2019. Testing performed by: [address] [address] Blood 12/08/2024 5:07 AM [employer] BUSINESS ANALYST 12/08/2024 5:29 AM [employer] BUSINESS ANALYST us Emy Amezquita NP LAB BLOOD ORDERABLES Final Resu lt ADARSH [address] [facility] Department [place] [address] * Basic metabolic panel (12/08/2024 5:07 AM [employer] BUSINESS ANALYST) Sodium 139 135 - 145 mmol/L Comment:Testing performed by : [address] [address] Potassium, pl 4.3 3.3 - 4.9 mmol/L ADARSH Comment:Testing performed by : [address] [address] Chloride 104 97 - 110 mmol/L ADARSH Comment:Testing performed by : [address] [address] CO2 29 22 - 32 mmol/L ADARSH Comment:Testing performed by : [address] [address] Anion gap 6 2 - 15 mmol/L ADARSH Comment:Testing performed by : [address] [address] BUN 13 6 - 25 mg/dL ADARSH Comment:Testing performed by : [address] [address] Creatinine 0.80 0.60 - 1.10 mg/dL ADARSH Comment:Testing performed by : [address] [address] Glucose 97 70 - 199 mg/dL ADARSH Comment: Interpretive Data Fasting glucose >/= 126 mg/dl is diagnostic for diabetes. Fasting is defined as no caloric intake for at least 8 hours. Fasting glucose between 100 mg/dl to 125 mg/dl is diagnostic of prediabetes. In a patient with classic symptoms of hyperglycemia or hyperglycemic crisis, a random glucose >/= 200 mg/dl is diagnostic for diabetes. In the absence of unequivocal hyperglycemia, results should be confirmed by repeat testing. The classification and Diagnosis of Diabetes Diabetes Care 2021; 46: S19-S40. Current interpretive data was last revised 2022. Testing performed by: [facility], [address] [place] [address]., [address] Calcium 8.6 8.5 - 10.3 mg/dL ADARSH GARCIA Comment:Testing performed by : [facility], [address] [place] [address]., [address] Blood 12/08/2024 5:07 AM [employer] BUSINESS ANALYST 12/08/2024 5:29 AM [employer] BUSINESS ANALYST Carolann Frey NP LAB BLOOD ORDERABLES Final Re sult Performing Organization Address City/State/[facility] Co de Phone Number ADARSH GARCIA [address] [facility] Department [place] [address] * CT Chest PE (CTA) W Contrast (12/07/2024 12:14 PM [employer] BUSINESS ANALYST) Anatomical Region Laterality Modality Body N/A Computed Tomogra phy 12/07/2024 2:31 PM [employer] BUSINESS ANALYST Narrative 12/07/2024 2:43 PM [employer] BUSINESS ANALYST EXAM DESCRIPTION: CT CHEST PE (CTA) W CONTRAST REASON FOR STUDY: Chest pain, PE suspected, high prob Pulmonary embolism (PE) suspected, high prob, Leg Swelling; Shortness of Breath; Weakness - Generalized TECHNIQUE: CT angiogram of the chest performed with intravenous contrast using helical scanning technique with dynamic intravenous contrast injection. Reconstructed coronal and sagittal MPR images reviewed. All images stored on PACS. 3D MIP images rendered on scanning unit and reviewed at time of interpretation. Automated exposure control was used as a dose optimization technique for this examination. CONTRAST TYPE/DOSE: 100mL of IOVERSOL 350 MG IODINE/ML INTRAVENOUS SYRINGE injected via intravenous COMPARISON: 09/03/2024. FINDINGS: VASCULATURE: Mild athero sclerotic plaque overall. No gross evidence of acute aortic process with motion degradation at the aortic root. No aneurysm. 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 Evaluation for subsegmental pulmonary emboli is limited by respiratory motion artifact. Within this limitation, no pulmonary embolism is seen. LUNGS: Overall mild pulmonary emphysema is present. No pneumonia or pulmonary edema. No suspicious pulmonary nodule is seen. PLEURA: No effusion. No pneumothorax. MEDIASTINUM/ANAI: Evidence of old granulomatous disease. No mass or adenopathy by size criteria HEART: Mild cardiomegaly. No pericardial effusion. No suspicious filling defects within the heart are seen. AXILLA: No adenopathy. CHEST WALL: There are postoperative changes in the medial right breast. There is mild body wall edema HARDWARE/LINES/TUBES: None. UPPER ABDOMEN: Cyst in the left kidney MUSCULOSKELETAL: Chronic left rib fractures are redemonstrated. OTHER: No significant abnormality. IMPRESSION: No pulmonary embolism identified. Evaluation for subsegmental pulmonary emboli is limited by respiratory motion artifact. No acute findings in the chest. Mild pulmonary emphysema. Recommend evaluation for annual lung cancer screening enrollment if the patient qualifies based on clinical factors and smoking history. THIS IS AN ELECTRONICALLY VERIFIED FINAL REPORT 12/07/2024 2:43 PM - Electronically signed by Leopoldo Wells M.D. MZ: ADONIS Report ID: [id number] Reading Location: [place] [address] Procedure Note Leopoldo Wells MD - 12/07/2024 EXAM DESCRIPTION: CT CHEST PE (CTA) W CONTRAST REASON FOR STUDY: Chest pain, PE suspected, high prob Pulmonary embolism (PE) suspected, high prob, Leg Swelling; Shortness of Breath; Weakness - Generalized TECHNIQUE: CT angiogram of the chest performed with intravenous contrastusing helical scanning technique with dynamic intravenous contrast injection. Reconstructed coronal and sagittal MPR images reviewed. All images storedon PACS. 3D MIP images rendered on scanning unit and reviewed at time of interpretation. Automated exposure control was used as a doseoptimization technique for this examination. CONTRAST TYPE/DOSE: 100mL of IOVERSOL 350 MG IODINE/ML INTRAVENOUSSYRINGE injected via intravenous COMPARISON: 09/03/2024. FINDINGS: VASCULATURE: Mild athero sclerotic plaque overall. No gross evidence of acute aortic process with motion degradation at the aorticroot. No aneurysm. Coronary artery bypass grafting changes are noted.Evaluation for subsegmental pulmonary emboli is limited by respiratory motionartifact. Within this limitation, no pulmonary embolism is seen. LUNGS: Overall mild pulmonary emphysema is present. No pneumonia orpulmonary edema. No suspicious pulmonary nodule is seen. PLEURA: No effusion. No pneumothorax. MEDIASTINUM/ANAI: Evidence of old granulomatous disease. No mass or adenopathy by size criteria HEART: Mild cardiomegaly. No pericardial effusion. No suspiciousfilling defects within the heart are seen. AXILLA: No adenopathy. CHEST WALL: There are postoperative changes in the medial right breast. There is mild body wall edema HARDWARE/LINES/TUBES: None. UPPER ABDOMEN: Cyst in the left kidney MUSCULOSKELETAL: Chronic left rib fractures are redemonstrated. OTHER: No significant abnormality. IMPRESSION: No pulmonary embolism identified. Evaluation for subsegmental pulmonary emboli is limited by respiratory motion artifact. No acute findings in the chest. Mild pulmonary emphysema. Recommend evaluation for annual lung cancer screening enrollment if the patient qualifies based on clinical factorsand smoking history. THIS IS AN ELECTRONICALLY VERIFIED FINAL REPORT 12/07/2024 2:43 PM - Electronically signed by Leopoldo Wells M.D. MZ: ADONIS Report ID: [id number] Reading Location: [place] [address] Teo Cole MD IMG CT PROCEDURES Final Result * eGFR (12/07/2024 5:58 AM [employer] BUSINESS ANALYST) eGFR >90 >=60 mL/min/1. 73 m2 Comment: Interpretive Data Reference Interval Normal >/= 90 mL/min/1.73m2 Mildly decreased* 60 - 89 mL/min/1.73m2 Mildly to moderately decreased 45 - 59 mL/min/1.73m2 Moderately to severely decreased 30 - 44 mL/min/1.73m2 Severely decreased 15 - 29 mL/min/1.73m2 Kidney Failure < 15 mL/min/1.73m2 *Relative to young adult level Estimated glomerular filtration rate is determined by the 2020 CKD-EPI equation recommended by the National Kidney Foundation (A Unifying Approach to GFR Estimation: Recommendations of the NKF-ASK Task Force on Reassessing the Inclusion of Race in Diagnosing Kidney Disease, JASN 2020). The CKD-EPI equation should not be used for patients with unstable renal function and has not been validated in children and those over 70. Current interpretive data was last reviewed 2021. Testing performed by: [address] [address] Blood 12/07/2024 5:58 AM [employer] BUSINESS ANALYST 12/07/2024 6:16 AM [employer] BUSINESS ANALYST us Carolann Frey NP LAB BLOOD ORDERABLES Final Re sult ADARSH [facility] Department [place] [address] * Differential, auto (12/07/2024 5:58 AM [employer] BUSINESS ANALYST) Neutrophil abs 2.1 1.5 - 6.5 K/cumm Comment:Testing performed by : [address] [address] Imm gran abs 0.0 0.0 - 0.1 K/cumm ADARSH Comment:Testing performed by : [address] [address] Lymphocyte abs 2.3 0.8 - 3.3 K/cumm ADARSH Comment:Testing performed by : [address] [address] Monocyte abs 0.8 0.2 - 0.8 K/cumm ADARSH Comment:Testing performed by : [address] [address] Eosinophil abs 0.4 0.0 - 0.5 K/cumm ADARSH Comment:Testing performed by : [address] [address] Basophil abs 0.0 0.0 - 0.1 K/cumm ADARSH Comment:Testing performed by : [address] [place] [address] Neutrophil pct 37.0 % [facility] Comment: Interpretive Data Percent cell count reference ranges are not reported, since discordance with absolute values may lead to misinterpretation of CBC data. Current Interpretive Data was last revised on 2018. Testing performed by: [address] [address] Imm gran pct 0.2 % [facility] Comment: Interpretive Data Percent cell count reference ranges are not reported, since discordance with absolute values may lead to misinterpretation of CBC data. Current Interpretive Data was last revised on 2018. Testing performed by: [address] [address] Lymphocyte pct 40.8 % [facility] Comment: Interpretive Data Percent cell count reference ranges are not reported, since discordance with absolute values may lead to misinterpretation of CBC data. Current Interpretive Data was last revised on 2018. Testing performed by: [address] [address] Monocyte pct 14.6 % [facility] Comment: Interpretive Data Percent cell count reference ranges are not reported, since discordance with absolute values may lead to misinterpretation of CBC data. Current Interpretive Data was last revised on 2018. Testing performed by: [address] [address] Eosinophil pct 7.0 % [facility] Comment: Interpretive Data Percent cell count reference ranges are not reported, since discordance with absolute values may lead to misinterpretation of CBC data. Current Interpretive Data was last revised on 2018. Testing performed by: [address] [address] Basophil pct 0.4 % [facility] Comment: Interpretive Data Percent cell count reference ranges are not reported, since discordance with absolute values may lead to misinterpretation of CBC data. Current Interpretive Data was last revised on 2018. Testing performed by: [address] [address] Blood 12/07/2024 5:58 AM [employer] BUSINESS ANALYST 12/07/2024 6:16 AM [employer] BUSINESS ANALYST us Carolann Frey NP LAB BLOOD ORDERABLES Final Re sult ADARSH [address] [facility] Department of Laboratories [place], [place] [id number] * (ABNORMAL) CBC with auto differential (12/07/2024 5:58 AM [employer] BUSINESS ANALYST) WBC 5.7 3.8 - 9.9 K/cumm Comment:Testing performed by : [address] [address] Hgb 7.3(L) 11.9 - 15.5 g/dL ADARSH Comment:Testing performed by : [address], [address] Hct 23.2(L) 35.6 - 45.5 % ADARSH Comment:Testing performed by : [address] [address] Plt 227 150 - 400 K/cumm ADARSH Comment:Testing performed by : [address] [address] MPV 10.2 9.1 - 12.3 fL ADARSH Comment:Testing performed by : [address] [address] RBC 2.68(L) 3.90 - 5.20 M/cumm ADARSH Comment:Testing performed by : [address] [address] MCV 86.6 81.3 - 96.4 fL ADARSH Comment:Testing performed by : [address] [address] MCH 27.2 27.1 - 33.3 pg ADARSH Comment:Testing performed by : [address] [address] MCHC 31.5(L) 32.3 - 35.7 g/dL ADARSH Comment:Testing performed by : [address] [address] RDW CV 21.9(H) 11.1 - 14.9 % ADARSH Comment:Testing performed by : [address] [address] RDW SD 68.3(H) 35.7 - 48.1 fL ADARSH GARCIA Comment:Testing performed by : [address] [address] NRBC abs 0.00 0.00 - 0.01 K/cumm ADARSH GARCIA Comment:Testing performed by : [address] [address] Blood 12/07/2024 5:58 AM [employer] BUSINESS ANALYST 12/07/2024 6:16 AM [employer] BUSINESS ANALYST us Carolann Frey NP LAB BLOOD ORDERABLES Final Re sult Performing Organization Address [facility] Co de Phone Number [address] [place] [address] * Hemoglobin A1c (12/07/2024 5:58 AM SAP FICO BUSINESS ANALYST) [facility] Hgb A1C 5.5 4.0 - 5.6 % Comment:Testing performed by : [address] [address] Estimated Average Glucose 111 mg/dL ADARSH GARCIA Comment: The ADA recommends reporting an estimated Average Glucose (eAG) with all Hemoglobin A1c results using the equation derived from a study of 507 normal and diabetic adults. Minority populations were underrepresented and children were not included. (Diabetes Care 31:1304-3566, 2008). The eAG is not equivalent to a fasting glucose. Testing performed by: [address] [address] Blood 12/07/2024 5:58 AM [employer] BUSINESS ANALYST 12/07/2024 6:16 AM [employer] BUSINESS ANALYST us Porfirio Barnett MD LAB BLOOD ORDERABLES Fi nal Result Performing Organization Address [facility] Co de Phone Number [address] [place] [place] [address] * Basic metabolic panel (12/07/2024 5:58 AM [employer] BUSINESS ANALYST) Sodium 139 135 - 145 mmol/L Comment:Testing performed by : [facility], [address] [place] [address]., [address] Potassium, pl 4.3 3.3 - 4.9 mmol/L ADARSH Comment:Testing performed by : [address], [place]., [address] Chloride 103 97 - 110 mmol/L ADARSH Comment:Testing performed by : [address], [place]., [address] CO2 28 22 - 32 mmol/L ADARSH Comment:Testing performed by : [address], [place]., [address] Anion gap 8 2 - 15 mmol/L ADARSH Comment:Testing performed by : [address], [place]., [address] BUN 11 6 - 25 mg/dL ADARSH Comment:Testing performed by : [address], [place]., [address] Creatinine 0.70 0.60 - 1.10 mg/dL ADARSH Comment:Testing performed by : [address], [place]., [address] Glucose 106 70 - 199 mg/dL [facility] Comment: Interpretive Data Fasting glucose >/= 126 mg/dl is diagnostic for diabetes. Fasting is defined as no caloric intake for at least 8 hours. Fasting glucose between 100 mg/dl to 125 mg/dl is diagnostic of prediabetes. In a patient with classic symptoms of hyperglycemia or hyperglycemic crisis, a random glucose >/= 200 mg/dl is diagnostic for diabetes. In the absence of unequivocal hyperglycemia, results should be confirmed by repeat testing. The classification and Diagnosis of Diabetes Diabetes Care 202; 46: S19-S40. Current interpretive data was last revised 2022. Testing performed by: [address] [address] Calcium 8.6 8.5 - 10.3 mg/dL ADARSH Comment:Testing performed by : [address], [place]., [address] Blood 12/07/2024 5:58 AM [employer] BUSINESS ANALYST 12/07/2024 6:16 AM [employer] BUSINESS ANALYST us Carolann Frey NP LAB BLOOD ORDERABLES Final Re sult Performing Organization Address City/[facility]/ZIP Co de Phone Number ADARSH [address] [place] [address] * Vitamin B12 (12/07/2024 5:57 AM [employer] BUSINESS ANALYST) Vitamin B12 614 230 - 1,250 pg/mL Comment:Testing performed by : [facility], [address] [place] [address]., [address] Blood 12/07/2024 5:57 AM [employer] BUSINESS ANALYST 12/07/2024 6:16 AM [employer] BUSINESS ANALYST Porfirio Barnett MD LAB BLOOD ORDERABLES Fi nal Result Performing Organization Address City/[facility] Co de Phone Number ADARSH [address] [place] [address] * US Vein Duplex Lower Extremity Bilateral Complete (12/06/2024 4:15 PM [employer] BUSINESS ANALYST) Anatomical Region Laterality Modality Vascular Bilateral Ultrasound 12/06/2024 Narrative 12/08/2024 11:20 AM [employer] BUSINESS ANALYST [employer] Job ID: [id number] [employer] Document ID: [id number] Dictated date/time: [id number] LOWER EXTREMITY VENOUS DUPLEX REASON FOR EXAM Leg pains and edema. COMMENTS ON THE RIGHT Veins throughout the right lower extremity show spontaneous and phasic flow with normal augmentation. All veins are competent and compressible. COMMENTS ON THE LEFT Veins throughout the left lower extremity show spontaneous and phasic flow with normal augmentation. All veins are competent and compressible. OVERALL IMPRESSION Negative for DVT bilateral lower extremities. Job ID/Internal Job ID: [id number] Teo Cole MD IM US PROCEDURES Final Result * eGFR (12/06/2024 10:43 AM [employer] BUSINESS ANALYST) eGFR 84 >=60 mL/min/1. 73 m2 Comment: Interpretive Data Reference Interval Normal >/= 90 mL/min/1.73m2 Mildly decreased* 60 - 89 mL/min/1.73m2 Mildly to moderately decreased 45 - 59 mL/min/1.73m2 Moderately to severely decreased 30 - 44 mL/min/1.73m2 Severely decreased 15 - 29 mL/min/1.73m2 Kidney Failure < 15 mL/min/1.73m2 *Relative to young adult level Estimated glomerular filtration rate is determined by the 2020 CKD-EPI equation recommended by the National Kidney Foundation (A Unifying Approach to GFR Estimation: Recommendations of the NKF-ASK Task Force on Reassessing the Inclusion of Race in Diagnosing Kidney Disease, JASN 2020). The CKD-EPI equation should not be used for patients with unstable renal function and has not been validated in children and those over 70. Current interpretive data was last reviewed 2021. Testing performed by: [address] [address] Blood 12/06/2024 10:4 3 AM [employer] BUSINESS ANALYST 12/06/2024 10:56 AM [employer] BUSINESS ANALYST us Carolann Frey NP LAB BLOOD ORDERABLES Final Re sult ADARSH [address] [facility] Department [place] [address] * Differential, auto (12/06/2024 10:43 AM [employer] BUSINESS ANALYST) Neutrophil abs 2.1 1.5 - 6.5 K/cumm Comment:Testing performed by : [address] [address] Imm gran abs 0.0 0.0 - 0.1 K/cumm ADARSH Comment:Testing performed by : [address] [address] Lymphocyte abs 1.5 0.8 - 3.3 K/cumm ADARSH Comment:Testing performed by : [address] [address] Monocyte abs 0.8 0.2 - 0.8 K/cumm ADARSH Comment:Testing performed by : [address] [address] Eosinophil abs 0.4 0.0 - 0.5 K/cumm [facility] Comment:Testing performed by : [address] [address] Basophil abs 0.0 0.0 - 0.1 K/cumm [facility] Comment:Testing performed by : [address] [address] Neutrophil pct 42.9 % [facility] Comment: Interpretive Data Percent cell count reference ranges are not reported, since discordance with absolute values may lead to misinterpretation of CBC data. Current Interpretive Data was last revised on 2018. Testing performed by: [address] [address] Imm gran pct 0.2 % [facility] Comment: Interpretive Data Percent cell count reference ranges are not reported, since discordance with absolute values may lead to misinterpretation of CBC data. Current Interpretive Data was last revised on 2018. Testing performed by: [address] [address] Lymphocyte pct 32.0 % [facility] Comment: Interpretive Data Percent cell count reference ranges are not reported, since discordance with absolute values may lead to misinterpretation of CBC data. Current Interpretive Data was last revised on 2018. Testing performed by: [address] [address] Monocyte pct 16.2 % [facility] Comment: Interpretive Data Percent cell count reference ranges are not reported, since discordance with absolute values may lead to misinterpretation of CBC data. Current Interpretive Data was last revised on 2018. Testing performed by: [address] [address] Eosinophil pct 8.1 % [facility] Comment: Interpretive Data Percent cell count reference ranges are not reported, since discordance with absolute values may lead to misinterpretation of CBC data. Current Interpretive Data was last revised on 2018. Testing performed by: [address] [address] Basophil pct 0.6 % [facility] Comment: Interpretive Data Percent cell count reference ranges are not reported, since discordance with absolute values may lead to misinterpretation of CBC data. Current Interpretive Data was last revised on 2018. Testing performed by: [address] [address] Blood 12/06/2024 10:4 3 AM [employer] BUSINESS ANALYST 12/06/2024 10:55 AM [employer] BUSINESS ANALYST Carolann Frey NP LAB BLOOD ORDERABLES Final Re sult Performing Organization Address [facility] de Phone Number [facility] [address] [facility] [place] [address] * (ABNORMAL) Iron profile w/ IBC (12/06/2024 10:43 AM [employer] BUSINESS ANALYST) [facility] Iron 17(L) 35 - 145 mcg/dL Comment:Testing performed by : [address] [address] TIBC 290 250 - 400 mcg/dL ADARSH Comment:Testing performed by : [address] [address] Transferrin saturation 6(L) 20 - 50 % ADARSH Comment:Testing performed by : [address] [address] Blood 12/06/2024 10:4 3 AM [employer] BUSINESS ANALYST 12/06/2024 10:56 AM [employer] BUSINESS ANALYST Teo Cole MD LAB BLOOD ORDERABL ES Final Result Performing Organization Address [facility] de Phone Number [address] [place] [address] * (ABNORMAL) CBC with auto differential (12/06/2024 10:43 AM [employer] BUSINESS ANALYST) [facility] WBC 4.8 3.8 - 9.9 K/cumm Comment:Testing performed by : [address] [address] Hgb 7.2(L) 11.9 - 15.5 g/dL ADARSH Comment:Testing performed by : [address] [address] Hct 22.9(L) 35.6 - 45.5 % ADARSH Comment:Testing performed by : [address] [address] Plt 229 150 - 400 K/cumm ADARSH Comment:Testing performed by : [address] [address] MPV 10.0 9.1 - 12.3 fL ADARSH Comment:Testing performed by : [address], [address] RBC 2.65(L) 3.90 - 5.20 M/cumm ADARSH Comment:Testing performed by : [address], [address] MCV 86.4 81.3 - 96.4 fL ADARSH Comment:Testing performed by : [address], [address] MCH 27.2 27.1 - 33.3 pg ADARSH Comment:Testing performed by : [address] [address] MCHC 31.4(L) 32.3 - 35.7 g/dL ADARSH Comment:Testing performed by : [address], [address] RDW CV 22.2(H) 11.1 - 14.9 % ADARSH Comment:Testing performed by : [address], [address] RDW SD 69.0(H) 35.7 - 48.1 fL ADARSH Comment:Testing performed by : [address] [address] NRBC abs 0.00 0.00 - 0.01 K/cumm ADARSH Comment:Testing performed by : [address], [address] Blood 12/06/2024 10:4 3 AM [employer] BUSINESS ANALYST 12/06/2024 10:55 AM [employer] BUSINESS ANALYST Sherrywin Saner TECHNICIAN SUPPORT ENGINEER LAB BLOOD ORDERABLES Final Re sult ADARSH [address] [facility] Department of Laboratories [place], [place] [id number] * (ABNORMAL) Lipid panel (12/06/2024 10:43 AM [employer] BUSINESS ANALYST) Cholesterol 146 30 - 199 mg/dL Comment: Interpretive Data Ages < or = 19 years Acceptable: <170 mg/dL Borderline high: 170-199 mg/dL High: >or= 200 mg/dL Ages > or = 20 years Desirable: <200 mg/dL Borderline high: 200-239 mg/dL High: >or= 240 mg/dL Literature References: 1. Expert Panel on Integrated Guidelines for Cardiovascular Health and Risk Reduction in Children and Adolescents. Pediatrics 2011;128:S213 2. NCEP Expert Panel. Circulation 2004;110:227 Current Interpretive Data was last revised on 2018. Testing performed by: [address] [address] Triglycerides 91 <=149 mg/dL ADARSH Comment: Interpretive Data Ages < or = 9 years Acceptable: <75 mg/dL Borderline high: 75-99 mg/dL High: >or= 100 mg/dL Ages 10 to 20 years Acceptable: <90 mg/dL Borderline high: 90-129 mg/dL High: >or= 130 mg/dL Ages > or = 20 years Desirable: <150 mg/dL Borderline high: 150-199 mg/dL High: 200-499 mg/dL Very high: >or= 499 mg/dL Literature References: 1. Expert Panel on Integrated Guidelines for Cardiovascular Health and Risk Reduction in Children and Adolescents. Pediatrics 2011;128:S213 2. NCEP Expert Panel. Circulation 2004;110:227 Current Interpretive Data was last revised on 2018. Testing performed by: [address] [address] HDL 34(L) >=40 mg/dL ADARSH Comment: Interpretive Data Ages < or = 19 years Acceptable: >45 mg/dL Borderline low: 40-45 mg/dL Low: <40 mg/dL Ages > or = 20 years Desirable: >or= 60 mg/dL Low: <40 mg/dL Literature References: 1. Expert Panel on Integrated Guidelines for Cardiovascular Health and Risk Reduction in Children and Adolescents. Pediatrics 2011;128:S213 2. NCEP Expert Panel. Circulation 2004;110:227 Current Interpretive Data was last revised on 2018. Testing performed by: [address] [address] LDL, calculated 95 <=129 mg/dL ADARSH Comment: Interpretive Data Ages < or = 19 years Acceptable: <110 mg/dL Borderline high: 110-129 mg/dL High: >or= 130 mg/dL Ages > or = 20 years Optimal: <100 mg/dL Near optimal: 100-129 mg/dL Borderline high: 130-159 mg/dL High: >160 mg/dL Calculated using the Pablo LDL-C estimating equation. This equation was implemented on 2024. Prior to this date LDL-C was estimated using the Friedewald equation. Literature References: 1. Expert Panel on Integrated Guidelines for Cardiovascular Health and Risk Reduction in Children and Adolescents. Pediatrics 2011;128:S213 2. NCEP Expert Panel. Circulation 2004;110:227 3. Pablo Gonzalez et al. BRYON Cardiol. 2020 March 09;5(5):540-548. doi: 10.1001/jamacardio.2020.0013 Current Interpretive Data was last revised on 2024. Testing performed by: [address] [address] Non-HDL Cholesterol 112 mg/dL ADARSH Comment: Interpretive Data Ages < or = 19 years Acceptable: <120 mg/dL Borderline high: 120-144 mg/dL High: >145 mg/dL Ages > or = 20 years When triglycerides are >200 mg/dL, Non-HDL cholesterol is a secondary target of therapy with treatment goals that are 30 mg/dL greater than the LDL cholesterol target. Literature References: 1. Expert Panel on Integrated Guidelines for Cardiovascular Health and Risk Reduction in Children and Adolescents. Pediatrics 2011;128:S213 2. NCEP Expert Panel. Circulation 2004;110:227 Current Interpretive Data was last revised on 2018. Testing performed by: [address] [address] Chol/HDL ratio 4 ADARSH Comment:Testing performed by : [address] [address] Blood 12/06/2024 10:4 3 AM [employer] BUSINESS ANALYST 12/06/2024 10:56 AM [employer] BUSINESS ANALYST Teo Cole MD LAB BLOOD ORDERABL ES Final Result [facility] [address] [facility] Department [place] [address] * Basic metabolic panel (12/06/2024 10:43 AM [employer] BUSINESS ANALYST) Sodium 142 135 - 145 mmol/L Comment:Testing performed by : [address] [address] Potassium, pl 4.6 3.3 - 4.9 mmol/L ADARSH Comment:Testing performed by : [address] [address] Chloride 108 97 - 110 mmol/L ADARSH Comment:Testing performed by : [address] [address] CO2 27 22 - 32 mmol/L ADARSH Comment:Testing performed by : [address] [address] Anion gap 7 2 - 15 mmol/L ADARSH Comment:Testing performed by : [address] [address] BUN 15 6 - 25 mg/dL ADARSH Comment:Testing performed by : [address] [address] Creatinine 0.79 0.60 - 1.10 mg/dL ADARSH Comment:Testing performed by : [address] [address] Glucose 110 70 - 199 mg/dL ADARSH Comment: Interpretive Data Fasting glucose >/= 126 mg/dl is diagnostic for diabetes. Fasting is defined as no caloric intake for at least 8 hours. Fasting glucose between 100 mg/dl to 125 mg/dl is diagnostic of prediabetes. In a patient with classic symptoms of hyperglycemia or hyperglycemic crisis, a random glucose >/= 200 mg/dl is diagnostic for diabetes. In the absence of unequivocal hyperglycemia, results should be confirmed by repeat testing. The classification and Diagnosis of Diabetes Diabetes Care 202; 46: S19-S40. Current interpretive data was last revised 2022. Testing performed by: [facility], [address] [place] [address]., [address] Calcium 8.6 8.5 - 10.3 mg/dL ADARSH JOSE Comment:Testing performed by : [facility], [address] [place] [address]., [address] Blood 12/06/2024 10:4 3 AM [employer] BUSINESS ANALYST 12/06/2024 10:56 AM [employer] BUSINESS ANALYST us Carolann Frey NP LAB BLOOD ORDERABLES Final Re sult ADARSH GARCIA [address] [facility] Department [place] [address] * TRANSTHORACIC ECHO (TTE) COMPLETE W DOPPLER/CF WO CONTRAST (12/06/2024 9:59 AM [employer] BUSINESS ANALYST) Anatomical Region Laterality Modality Ultrasound 12/06/2024 9:13 AM [employer] BUSINESS ANALYST Narrative 12/06/2024 11:32 AM SAP FICO BUSINESS ANALYST Adult Echocardiogram + ----- + :Name: LANA BENJAMIN Study Date: 12/06/2024 Status: E : : Patient Location: [address]^[id number]^MHeight: 65 in : : Weight: 210 lbBP: 105/63 mmHg: :: 1960 Gender: Female BSA: 2.0 m2 : :Reason For Study: leg swelling and chest pain : :Ordering Physician: : :TATO : : : :Performed By: Rosy : :CECELAI Dumont : + ----- + Procedure A two-dimensional transthoracic echocardiogram with color flow and Doppler was performed. The study was technically difficult due to patient's 'underlying lung condition'. Pt request no contrast through her port. No I.V. for contrast. Left Ventricle The left ventricle is normal in size. There is normal left ventricular wall thickness. The left ventricle is hyperdynamic. Ejection Fraction = 70-75%. No regional wall motion abnormalities noted. Right Ventricle The right ventricle is mildly dilated. The right ventricular systolic function is normal. Atria The left atrial size is normal. Right atrial size is normal. Mitral Valve There is no mitral valve stenosis. There is trace mitral regurgitation. Tricuspid Valve There is trace tricuspid regurgitation. 'Mild' pulmonary hypertension. Aortic Valve The aortic valve is trileaflet. The aortic valve opens well. No aortic stenosis . No aortic regurgitation is present. Pulmonic Valve Mild pulmonic valvular regurgitation. Great Vessels The aortic root is normal size. IVC appears normal in size. IVC collapses normally with inspiration. Normal right heart pressures. Pericardium There is no pericardial effusion. Diastology Diastolic dysfunction, Grade II, consistent with elevated left atrial pressure. Interpretation Summary The left ventricle is normal in size. There is normal left ventricular wall thickness. The left ventricle is hyperdynamic. Ejection Fraction = 70-75%. No regional wall motion abnormalities noted. Diastolic dysfunction, Grade II, consistent with elevated left atrial pressure. The right ventricle is mildly dilated. The right ventricular systolic function is normal. 'Mild' pulmonary hypertension. IVC appears normal in size. IVC collapses normally with inspiration. Normal right heart pressures. + + :Measurements with Normals : :IVSd: (0.6-1.2 LVIDd: (3.5-5.7 Ao root diam: (2.0-3.7 : :0.98 cm cm) 4.5 cm cm) 2.7 cm cm) : :LVPWd: (0.6-1.1 LVIDs: (3.1-4.6 LA dimension: (1.9-4.0 : :0.91 cm cm) 2.6 cm cm) 4.1 cm cm) : + + MMode/2D Measurements & Calculations FS: 42.1 % Ao root area: LVOT diam: 2.0 cm LVLd ap4: 7.7 cm EDV(Teich): 91.0 ml 5.7 cm2 LVOT area: EDV(MOD-sp4): ESV(Teich): 24.4 ml 3.1 cm2 79.7 ml LVLs ap4: 6.4 cm ESV(MOD-sp4): 20.2 ml EF(MOD-sp4): 74.7 % SV(MOD-sp4): 59.5 ml Doppler Measurements & Calculations MV E max hasmukh: MV V2 max: MV P1/2t max hasmukh: Ao V2 max: 122.0 cm/sec 115.0 cm/sec 122.0 cm/sec 204.0 cm/sec MV A max hasmukh: MV max PG: MV P1/2t: 79.4 msec Ao max P.7 cm/sec 5.3 mmHg MVA(P1/2t): 2.8 cm2 16.6 mmHg MV E/A: 1.7 MV V2 mean: MV dec slope: Ao V2 mean: 60.6 cm/sec 450.0 cm/sec2 133.0 cm/sec MV mean PG: MV dec time: 0.28 sec Ao mean P.0 mmHg 8.0 mmHg MV V2 VTI: Ao V2 VTI: 46.2 cm 38.1 cm MAXIMILIAN(I,D): 2.6 cm2 MVA(VTI): 3.1 cm2 MAXIMILIAN(V,D): 2.7 cm2 LV V1 max PG: SV(LVOT): PA V2 max: TR max hasmukh: 12.5 mmHg 118.1 ml 175.0 cm/sec 271.0 cm/sec LV V1 mean PG: PA max P.3 mmHg TR max P.0 mmHg 29.4 mmHg LV V1 max: 177.0 cm/sec LV V1 mean: 122.0 cm/sec LV V1 VTI: 37.6 cm Electronically signed by: Porfirio Barnett MD 12/06/2024 11:32 AM Procedure Note Porfirio Barnett MD - 12/06/2024 Adult Echocardiogram + ----- + :Name: LANA BENJAMIN Study Date: 12/06/2024Status: ILIA : : Patient Location: [address]^[id number]^eight: 65 in : : : 210 lbBP: 105/63 mmHg: :: 1960 Gender: FemaleBSA: 2.0 m2 : :Reason For Study: leg swelling and chest pain: :Ordering Physician:: :JOIE^CAROLANN: :: :Performed By: Rosy: :CECELIA Dumont: + ----- + Procedure A two-dimensional transthoracic echocardiogram with color flow and Dopplerwas performed. The study was technically difficult due to patient's'underlying lung condition'. Pt request no contrast through her port. No I.V. for contrast. Left Ventricle The left ventricle is normal in size. There is normal left ventricularwall thickness. The left ventricle is hyperdynamic. Ejection Fraction = 70-75%.No regional wall motion abnormalities noted. Right Ventricle The right ventricle is mildly dilated. The right ventricular systolicfunction is normal. Atria The left atrial size is normal. Right atrial size is normal. Mitral Valve There is no mitral valve stenosis. There is trace mitral regurgitation. Tricuspid Valve There is trace tricuspid regurgitation. 'Mild' pulmonary hypertension. Aortic Valve The aortic valve is trileaflet. The aortic valve opens well. No aortic stenosis . No aortic regurgitation is present. Pulmonic Valve Mild pulmonic valvular regurgitation. Great Vessels The aortic root is normal size. IVC appears normal in size. IVCcollapses normally with inspiration. Normal right heart pressures. Pericardium There is no pericardial effusion. Diastology Diastolic dysfunction, Grade II, consistent with elevated left atrial pressure. Interpretation Summary The left ventricle is normal in size. There is normal left ventricularwall thickness. The left ventricle is hyperdynamic. Ejection Fraction = 70-75%.No regional wall motion abnormalities noted. Diastolic dysfunction, GradeII, consistent with elevated left atrial pressure. The right ventricle is mildly dilated. The right ventricular systolicfunction is normal. 'Mild' pulmonary hypertension. IVC appears normal in size. IVC collapses normally with inspiration.Normal right heart pressures. + + :Measurements with Normals: :IVSd: (0.6-1.2 LVIDd: (3.5-5.7 Ao root diam:(2.0-3.7 : :0.98 cm cm) 4.5 cm cm) 2.7 cm cm): :LVPWd: (0.6-1.1 LVIDs: (3.1-4.6 LA dimension:(1.9-4.0 : :0.91 cm cm) 2.6 cm cm) 4.1 cm cm): + + MMode/2D Measurements & Calculations FS: 42.1 % Ao root area: LVOT diam: 2.0 cm LVLd ap4: 7.7cm EDV(Teich): 91.0 ml 5.7 cm2 LVOT area: EDV(MOD-sp4): ESV(Teich): 24.4 ml 3.1 cm2 79.7 ml LVLs ap4: 6.4cm ESV(MOD-sp4): 20.2 ml EF(MOD-sp4):74.7 % SV(MOD-sp4): 59.5 ml Doppler Measurements & Calculations MV E max hasmukh: MV V2 max: MV P1/2t max hasmukh: Ao V2 max: 122.0 cm/sec 115.0 cm/sec 122.0 cm/sec 204.0 cm/sec MV A max hasmukh: MV max PG: MV P1/2t: 79.4 msec Ao max P.7 cm/sec 5.3 mmHg MVA(P1/2t): 2.8 cm2 16.6 mmHg MV E/A: 1.7 MV V2 mean: MV dec slope: Ao V2 mean: 60.6 cm/sec 450.0 cm/sec2 133.0 cm/sec MV mean PG: MV dec time: 0.28 sec Ao mean P.0 mmHg 8.0 mmHg MV V2 VTI: Ao V2 VTI:46.2 cm 38.1 cm MAXIMILIAN(I,D): 2.6cm2 MVA(VTI): 3.1 cm2 MAXIMILIAN(V,D): 2.7cm2 LV V1 max PG: SV(LVOT): PA V2 max: TR max hasmukh: 12.5 mmHg 118.1 ml 175.0 cm/sec 271.0 cm/sec LV V1 mean PG: PA max P.3 mmHg TR max P.0 mmHg 29.4 mmHg LV V1 max: 177.0 cm/sec LV V1 mean: 122.0 cm/sec LV V1 VTI: 37.6 cm Electronically signed by: Porfirio Barnett MD 12/06/2024 11:32 AM us Carolann Frey TECHNICIAN SUPPORT ENGINEER CV ECHO PROCEDURES Final Resu lt * Troponin T high-sensitivity 4-hour (12/05/2024 9:35 PM SAP FICO BUSINESS ANALYST) Pathologist [facility] Trop T hs 10 <=14 ng/L Comment: Interpretive Data For further hscTnT resources including the diagnostic algorithm and an aid in interpretation, copy and paste this link: https://nrl.testcatalog.org/show/hsTrop Current Interpretive Data last revised 2020. Testing performed by: [facility], [address] [place] [address]., [address] Trop T hs delta See Comment ng/L ADARSH GARCIA Comment: Inappropriate collection time to report a delta. Testing performed by: [facility], [address] [place] [address]., [address] Trop T hs pct delta See Comment % ADARSH Comment: Inappropriate collection time to report a delta. Testing performed by: [address] [address] Trop T hs interp See Comment ADARSH Comment: Inappropriate collection time to report a delta. Testing performed by: [address] [address] Blood 12/05/2024 9:35 PM [employer] BUSINESS ANALYST 12/05/2024 9:41 PM SAP FICO BUSINESS ANALYST Kaur SILVER LAB BLOOD ORDERABLES Final Resu lt ADARSH GARCIA [address] [facility] Department [place] [address] * (ABNORMAL) D-dimer, quantitative (12/05/2024 9:35 PM SAP FICO BUSINESS ANALYST) Pathologist [facility] D-Dimer 1,780(H) <=499 ng/mL FEU Comment: Interpretive data FDA approved the D-dimer, in conjunction with a low or moderate pretest probability score, to exclude venous thromboembolic events (VTE) (PE and DVT) in outpatients when the D-dimer result is < 500 ng/ml FEU. Evidence supports using an age-adjusted D-dimer cut-off for outpatients older than 50 (age x 10) to improve specificity without sacrificing sensitivity. Example: age 68, VTE cut-off 680 ng/ml FEU. References; Schouten HT et al. Brit Med J. 2013;346:f2492. William ANDRES et al. Annals Int Med. 2015;163:701-11. Current interpretive data was last revised on 2019. Testing performed by: [address] [address] Blood 12/05/2024 9:35 PM SAP FICO BUSINESS ANALYST 12/05/2024 9:41 PM SAP F[employer] BUSINESS ANALYST Porfirio Barnett MD LAB BLOOD ORDERABLES nal Result ADARSH [address] [facility] Department of Laboratories [place], [place] [id number] * (ABNORMAL) Troponin T high-sensitivity 6-hour (12/05/2024 4:33 PM SAP FICO BUSINESS ANALYST) Trop T hs 16(H) <=14 ng/L Comment: Interpretive Data For further hscTnT resources including the diagnostic algorithm and an aid in interpretation, copy and paste this link: https://nrl.testcatalog.org/show/hsTrop Current Interpretive Data last revised 2020. Testing performed by: [address] [address] Trop T hs delta 8 ng/L ADARSH GARCIA Comment:Testing performed by : [address] [address] Trop T hs interp Equivocal ADARSH GARCIA Comment:Testing performed by : [address] [address] Blood 12/05/2024 4:33 PM SAP FICO BUSINESS ANALYST 12/05/2024 4:41 PM [employer] F[employer] BUSINESS ANALYST Kaur SILVER LAB BLOOD ORDERABLES Final Resu lt Performing Organization Address [facility] Co de Phone Number ADARSH [address] [facility] [email or web address] [address] * Troponin T high-sensitivity 2-hour (12/05/2024 12:21 PM SAP FICO BUSINESS ANALYST) Trop T hs <6 <=14 ng/L Comment: Interpretive Data For further hscTnT resources including the diagnostic algorithm and an aid in interpretation, copy and paste this link: https://nrl.testcatalog.org/show/hsTrop Current Interpretive Data last revised 2020. Testing performed by: [address] [address] Trop T hs delta -2 ng/L ADARSH GARCIA Comment:Testing performed by : [address] [address] Trop T hs interp Insignificant ADARSH GARCIA Comment:Testing performed by : [address] [address] Blood 12/05/2024 12:2 1 PM [employer]ICO BUSINESS ANALYST 12/05/2024 12:28 PM [employer] FICO BUSINESS ANALYST Kaur SILVER LAB BLOOD ORDERABLES Final Resu lt Performing Organization Address [facility] de Phone Number ADARSH [address] [facility] [email or web address] [address] * (ABNORMAL) Urinalysis reflex to microscopic and culture Urine (12/05/2024 11:43 AM SAP FICO BUSINESS ANALYST) Color, ur Yellow Yellow Comment:Testing performed by : [address] [address] Clarity, ur Clear Clear ADARSH GARCIA Comment:Testing performed by : [address] [address] Specific gravity, ur 1.015 1.003 - 1.030 ADARSH GARCIA Comment:Testing performed by : [address] [address] pH, urine 7.0 ADARSH Comment: Interpretive Data U rine pH is affected by diet, medications, systemic acid-base disturbances, and renal tubular function. pH may affect urinary stone formation. For example, urine pH below 6.0 may help reduce the tendency for calcium phosphate stones and pH greater than 6.0 may reduce the tendency for uric acid stone formation. Source: [facility] Current Interpretive Data was last revised on 2017 Testing performed by: [facility], [address] [place] [address], [place]., [address] Protein, ur ql Negative Negative ADARSH Comment:Testing performed by : [address], [place]., [address] Glucose, ur ql Negative Negative ADARSH Comment:Testing performed by : [address], [place]., [address] Ketones, ur Negative Negative ADARSH Comment:Testing performed by : [address], [place]., [address] Bilirubin, ur Negative Negative ADARSH Comment:Testing performed by : [address], [place]., [address] Blood, ur Negative Negative ADARSH Comment:Testing performed by : [address], [place]., [address] Urobilinogen, ur 4.0(A) <2.0 mg/dL ADARSH Comment:Testing performed by : [address], [place]., [address] Nitrite, ur Negative Negative ADARSH Comment:Testing performed by : [address] [address] Leukocyte esterase, ur Negative Negative ADARSH Comment:Testing performed by : [address], [place]., [address] UA reflex comment Reflex conditions for microscopic UA and culture not met. ADARSH Comment:Testing performed by : [address], [place]., [address] Urine 12/05/2024 11:4 3 AM SAP FICO BUSINESS ANALYST 12/05/2024 11:53 AM SAP FICO BUSINESS ANALYST us Kaur SILVER LAB MICROBIOLOGY - GENERAL [facility] Final Result ADARSH [address] [facility] Department [place] [address] * ECG 12 lead (12/05/2024 11:40 AM SAP FICO BUSINESS ANALYST) Ventricular Rate EKG/Min 73 BPM [facility] Atrial Rate 73 BPM [facility] MI-Interval (MSEC) 170 ms [facility] QRS-Interval (MSEC) 70 ms [facility] QT-Interval (MSEC) 402 ms [facility] QTc 442 ms [facility] P [place] 46 degrees [facility] R [place] 40 degrees [facility] T [place] 44 degrees [facility] Diagnosis Normal sinus rhythm Septal infarct (cited on or before 21-NOV-2024) Abnormal ECG When compared with ECG of 21-NOV-2024 15:21, No significant change was found Confirmed by JUAN RAY M.D. ([id number]) on 12/05/2024 9:24:35 PM [facility] 12/05/2024 11:4 0 AM [employer] BUSINESS ANALYST 12/05/2024 9:24 PM SAP FICO BUSINESS ANALYST Kaur SILVER ECG ORDERABLES Final Result Performing Organization Address [facility] Co de Phone Number [facility] * XR Chest 1 Vw Portable (12/05/2024 10:40 AM SAP FICO BUSINESS ANALYST) Anatomical Region Laterality Modality Body, Chest N/A Computed Radiogr aphy 12/05/2024 10:5 2 AM SAP FICO BUSINESS ANALYST Narrative 12/05/2024 10:54 AM SAP FICO BUSINESS ANALYST EXAM DESCRIPTION: XR CHEST 1 VIEW REASON FOR STUDY: Shortness of breath Pt states hurts to breathe today TECHNIQUE: Single frontal radiographic view(s) of the chest. COMPARISON: 11/21/2024 FINDINGS: There is cardiomegaly. Left-sided infusion port is noted. There is mild prominence of the pulmonary vasculature. There is suggestion of a small left pleural effusion. There are mild patchy bilateral perihilar and bibasilar interstitial airspace opacities. There is no definite evidence of a pneumothorax. There are degenerative changes of the spine. Old healed left-sided rib fracture is noted. IMPRESSION: Cardiomegaly with mild prominence of pulmonary vasculature and suggestion of a small left pleural effusion. Mild patchy bilateral interstitial airspace opacities, which may be related to subsegmental atelectasis/scarring and or mild pulmonary edema, however superimposed airspace disease cannot be entirely excluded. THIS IS AN ELECTRONICALLY VERIFIED FINAL REPORT 12/05/2024 10:54 AM - Electronically signed by Aleena Hansen D.O. PS: PS Report ID: [id number] Reading Location: [place] [address] Procedure Note Aleena Hansen, DO - 12/05/2024 EXAM DESCRIPTION: XR CHEST 1 VIEW REASON FOR STUDY: Shortness of breath Pt states hurts to breathe today TECHNIQUE: Single frontal radiographic view(s) of the chest. COMPARISON: 11/21/2024 FINDINGS: There is cardiomegaly. Left-sided infusion port is noted.There is mild prominence of the pulmonary vasculature. There is suggestion of asmall left pleural effusion. There are mild patchy bilateral perihilar and bibasilar interstitial airspace opacities. There is no definite evidenceof a pneumothorax. There are degenerative changes of the spine. Old healed left-sided rib fracture is noted. IMPRESSION: Cardiomegaly with mild prominence of pulmonary vasculature and suggestionof a small left pleural effusion. Mild patchy bilateral interstitial airspace opacities, which may berelated to subsegmental atelectasis/scarring and or mild pulmonary edema, however superimposed airspace disease cannot be entirely excluded. THIS IS AN ELECTRONICALLY VERIFIED FINAL REPORT 12/05/2024 10:54 AM - Electronically signed by Aleena Hansen D.O. PS: PS Report ID: [id number] Reading Location: [place] [address] Kaur SILVER IMKyle XR PROCEDURES Final Result * Troponin T high-sensitivity series (baseline, 2hr, 4hr, 6hr) (12/05/2024 10:16 AM SAP FICO BUSINESS ANALYST) Trop T hs 8 <=14 ng/L Comment: Interpretive Data For further hscTnT resources including the diagnostic algorithm and an aid in interpretation, copy and paste this link: https://nrl.testcatalog.org/show/hsTrop Current Interpretive Data last revised 2020. Testing performed by: [facility], [address] [place] [address]., [address] Blood 12/05/2024 10:1 6 AM SAP FICO BUSINESS ANALYST 12/05/2024 10:26 AM SAP FICO BUSINESS ANALYST us Kaur SILVER LAB BLOOD ORDERABLES Final Resu lt ADARSH [address] [facility] Department [place] [address] * eGFR (12/05/2024 10:16 AM SAP F[employer] BUSINESS ANALYST) eGFR >90 >=60 mL/min/1. 73 m2 Comment: Interpretive Data Reference Interval Normal >/= 90 mL/min/1.73m2 Mildly decreased* 60 - 89 mL/min/1.73m2 Mildly to moderately decreased 45 - 59 mL/min/1.73m2 Moderately to severely decreased 30 - 44 mL/min/1.73m2 Severely decreased 15 - 29 mL/min/1.73m2 Kidney Failure < 15 mL/min/1.73m2 *Relative to young adult level Estimated glomerular filtration rate is determined by the 2020 CKD-EPI equation recommended by the National Kidney Foundation (A Unifying Approach to GFR Estimation: Recommendations of the NKF-ASK Task Force on Reassessing the Inclusion of Race in Diagnosing Kidney Disease, JASN 2020). The CKD-EPI equation should not be used for patients with unstable renal function and has not been validated in children and those over 70. Current interpretive data was last reviewed 2021. Testing performed by: [facility], [address] [place] [address]., [address] Blood 12/05/2024 10:1 6 AM SAP FICO BUSINESS ANALYST 12/05/2024 10:26 AM SAP FICO BUSINESS ANALYST us Kaur SILVER LAB BLOOD ORDERABLES Final [facility]u lt [facility] [address] [facility] Department [place] [address] * Differential, auto (12/05/2024 10:16 AM SAP FICO BUSINESS ANALYST) Neutrophil abs 1.9 1.5 - 6.5 K/cumm Comment:Testing performed by : [address] [address] Imm gran abs 0.0 0.0 - 0.1 K/cumm ADARSH Comment:Testing performed by : [address] [address] Lymphocyte abs 1.3 0.8 - 3.3 K/cumm ADARSH Comment:Testing performed by : [address] [address] Monocyte abs 0.5 0.2 - 0.8 K/cumm ADARSH Comment:Testing performed by : [address] [address] Eosinophil abs 0.2 0.0 - 0.5 K/cumm ADARSH Comment:Testing performed by : [address] [address] Basophil abs 0.0 0.0 - 0.1 K/cumm ADARSH Comment:Testing performed by : [address] [address] Neutrophil pct 48.9 % ADARSH Comment: Interpretive Data Percent cell count reference ranges are not reported, since discordance with absolute values may lead to misinterpretation of CBC data. Current Interpretive Data was last revised on 2018. Testing performed by: [address] [address] Imm gran pct 0.3 % ADARSH Comment: Interpretive Data Percent cell count reference ranges are not reported, since discordance with absolute values may lead to misinterpretation of CBC data. Current Interpretive Data was last revised on 2018. Testing performed by: [address] [place]., [address] Lymphocyte pct 31.5 % [facility] Comment: Interpretive Data Percent cell count reference ranges are not reported, since discordance with absolute values may lead to misinterpretation of CBC data. Current Interpretive Data was last revised on 2018. Testing performed by: [address] [address] Monocyte pct 12.8 % [facility] Comment: Interpretive Data Percent cell count reference ranges are not reported, since discordance with absolute values may lead to misinterpretation of CBC data. Current Interpretive Data was last revised on 2018. Testing performed by: [address] [address] Eosinophil pct 6.0 % [facility] Comment: Interpretive Data Percent cell count reference ranges are not reported, since discordance with absolute values may lead to misinterpretation of CBC data. Current Interpretive Data was last revised on 2018. Testing performed by: [address] [address] Basophil pct 0.5 % [facility] Comment: Interpretive Data Percent cell count reference ranges are not reported, since discordance with absolute values may lead to misinterpretation of CBC data. Current Interpretive Data was last revised on 2018. Testing performed by: [address] [address] Blood 12/05/2024 10:1 6 AM SAP FICO BUSINESS ANALYST 12/05/2024 10:26 AM SAP FICO BUSINESS ANALYST Kaur SILVER LAB BLOOD ORDERABLES Final Resu lt ADARSH [address] [facility] Department [place] [address] * (ABNORMAL) Pro B-type natriuretic peptide (12/05/2024 10:16 AM SAP FICO BUSINESS ANALYST) NT-proBNP 904(H) <=300 pg/mL Comment: Interpretive Comments: A. Dyspnea in Acute Care Setting All Ages: < 300 pg/ml, acute heart failure unlikely. < 50 yrs: 300 - 450 pg/ml, further investigation warranted. > 450 pg/ml, acute heart failure likely. 50 - 74 yrs: 300 - 900 pg/ml, further investigation warranted. > 900 pg/ml, acute heart failure likely . > or = 75 yrs: 450 - 1800 pg/ml, further investigation warranted. > 1800 pg/ml, acute heart failure likely. B. Non-acute Setting < 75 yrs < 125 pg/ml, rules out heart failure. > or = 125 pg/ml, further investigation warranted. > or = 75 yrs < 450 pg/ml, rules out heart failure. > or = 450 pg/ml, further investigation warranted. - Knowledge of each individual patient's NT-proBNP range may be more useful than using similar cut-points for every patient. Please note that marked elevations in NT-proBNP levels may be observed in state other than Left Ventricular Congestive Failure, including: acute coronary syndromes, right heart strain/failure (including pulmonary embolism and cor pulmonale), critical illness, renal failure, as well as advanced age. - References: 1. Jagjit LARRY et.al. Eur Heart J. 2006:27:330-337. 2. Alex RW, Teri GARCÍA. J. AM Shreya Cardiol: Cardiovasc Imag. 2009;2: 216- 225. Interpretive Data Last Revised Date: 2018. Testing performed by: [address] [address] Blood 12/05/2024 10:1 6 AM SAP FICO BUSINESS ANALYST 12/05/2024 10:26 AM SAP FICO BUSINESS ANALYST Kaur SILVER LAB BLOOD ORDERABLES Final Resu lt ADARSH GARCIA [address] [facility] Department [place] [address] * (ABNORMAL) CBC with auto differential (12/05/2024 10:16 AM SAP FICO BUSINESS ANALYST) [facility] WBC 4.0 3.8 - 9.9 K/cumm Comment:Testing performed by : [address] [address] Hgb 7.7(L) 11.9 - 15.5 g/dL ADARSH GARCIA Comment:Testing performed by : [address] [address] Hct 24.1(L) 35.6 - 45.5 % ADARSH Comment:Testing performed by : [address] [address] Plt 244 150 - 400 K/cumm ADARSH Comment:Testing performed by : [address] [address] MPV 10.1 9.1 - 12.3 fL ADARSH Comment:Testing performed by : [address], [address] RBC 2.82(L) 3.90 - 5.20 M/cumm ADARSH Comment:Testing performed by : [address], [address] MCV 85.5 81.3 - 96.4 fL ADARSH Comment:Testing performed by : [address], [address] MCH 27.3 27.1 - 33.3 pg ADARSH Comment:Testing performed by : [address] [address] MCHC 32.0(L) 32.3 - 35.7 g/dL ADARSH Comment:Testing performed by : [address] [address] RDW CV 22.0(H) 11.1 - 14.9 % ADARSH Comment:Testing performed by : [address], [address] RDW SD 69.0(H) 35.7 - 48.1 fL ADARSH Comment:Testing performed by : [address] [address] NRBC abs 0.00 0.00 - 0.01 K/cumm ADARSH Comment:Testing performed by : [address], [address] Blood 12/05/2024 10:1 6 AM SAP FICO BUSINESS ANALYST 12/05/2024 10:26 AM SAP FICO BUSINESS ANALYST Kaur SILVER LAB BLOOD ORDERABLES Final Resu lt ADARSH [address] [facility] Department [place] [address] * (ABNORMAL) Comprehensive metabolic panel (12/05/2024 10:16 AM SAP FICO BUSINESS ANALYST) Sodium 140 135 - 145 mmol/L Comment:Testing performed by : [address] [address] Potassium, pl 4.1 3.3 - 4.9 mmol/L ADARSH Comment:Testing performed by : [address], [place]., [address] Chloride 107 97 - 110 mmol/L ADARSH Comment:Testing performed by : [address] [address] CO2 26 22 - 32 mmol/L ADARSH Comment:Testing performed by : [address] [address] Anion gap 7 2 - 15 mmol/L ADARSH Comment:Testing performed by : [address] [address] BUN 10 6 - 25 mg/dL ADARSH Comment:Testing performed by : [address] [address] Creatinine 0.61 0.60 - 1.10 mg/dL ADARSH Comment:Testing performed by : [address] [address] Glucose 99 70 - 199 mg/dL ADARSH Comment: Interpretive Data Fasting glucose >/= 126 mg/dl is diagnostic for diabetes. Fasting is defined as no caloric intake for at least 8 hours. Fasting glucose between 100 mg/dl to 125 mg/dl is diagnostic of prediabetes. In a patient with classic symptoms of hyperglycemia or hyperglycemic crisis, a random glucose >/= 200 mg/dl is diagnostic for diabetes. In the absence of unequivocal hyperglycemia, results should be confirmed by repeat testing. The classification and Diagnosis of Diabetes Diabetes Care 202; 46: S19-S40. Current interpretive data was last revised 2022. Testing performed by: [address] [address] Calcium 8.7 8.5 - 10.3 mg/dL ADARSH Comment:Testing performed by : [address] [address] Bilirubin, total 0.3 0.1 - 1.2 mg/dL ADARSH Comment:Testing performed by : [address] [address] Protein, pl 6.2(L) 6.5 - 8.5 g/dL ADARSH Comment:Testing performed by : [address], [place]., [address] Albumin 3.6 3.5 - 5.0 g/dL ADARSH Comment:Testing performed by : [address] [address] Alk phos 108 40 - 130 Units/L ADARSH Comment:Testing performed by : [address] [address] ALT 9 7 - 45 Units/L ADARSH Comment:Testing performed by : [address] [address] AST 15 10 - 45 Units/L ADARSH Comment:Testing performed by : [address] [address] Blood 12/05/2024 10:1 6 AM SAP FICO BUSINESS ANALYST 12/05/2024 10:26 AM [employer] F[employer] BUSINESS ANALYST us Kaur SILVER LAB BLOOD ORDERABLES Final Resu lt ADARSH [address] [facility] Department [place] [address] * Serum Hepatitis C ab (05/03/2013 4:35 AM CDT) HCV ab Negative NEG HISTORICAL RESULTS Serum 05/03/2013 4:35 AM CDT Narrative HISTORICAL RESULTS - 05/04/2013 3:32 AM CDT Interpretive Data If confirmation is required, call Laboratory Customer Service to request sample to be sent to [facility] for Hepatitis C Virus (HCV) RNA Detection and Quantitation by Real-Time Reverse Special Agent Secret Service-PCR (RT-PCR). Current interpretive data was last revised on 2012 us Historical Provider LAB BLOOD ORDERABLES Shanice dowd Result HISTORICAL RESULTS from Last 3 Months or Most Recently Relevant to Health Maintenance Additional Health Concerns Infection Onset Date Last Indicated COVID: Recovered Comment:Added based on recent COVID infection. 12/31/2024 025 Insurance Advance Directives For more information, please contact: [phone] * Full Code (Latest Code Status on File) Date Activated Date Inactivated Comments 12/18/2024 3:17 PM 12/21/2024 3:47 PM * Full Code Date Activated Date Inactivated Comments 12/18/2024 3:17 PM 12/18/2024 3:17 PM * Full Code Date Activated Date Inactivated Comments 12/17/2024 10:15 PM 12/18/2024 3:17 PM * Full Code Date Activated Date Inactivated Comments 12/12/2024 2:26 PM 12/12/2024 11:46 PM * Full Code Date Activated Date Inactivated Comments 12/05/2024 3:19 PM 12/12/2024 2:26 PM Healthcare Agents on File Name Relationship Healthcare Agent Relationshi p Communication Monica Benjamin Daughter Health Care Agent Jodee Catalan Daughter First Alternate Health Ca re Agent Care Teams Philosophy Lecturer Relationship Specialty Start Date End Date Pratima Hinds NP [address] [facility] [address] [place] [address] PCP - General Nurse Practitioner 02/04/24 Rinku Chow DO [address] [facility] [address] [place] [address] Medical Oncologist/Hematologis t Hematology and Oncology 02/04/24 Bry Mead MD [address] [facility] [address] [place], [place] [address] Radiation Oncologist Radiation Oncology 01/04/25 Bernarda Luong MD [address] [facility] [address] [place] [address] Referring Physician Internal Medicine 01/04/25
--- OUTSIDE RECORDS SUMMARY | 2025-03-02 16:02 | XMS_ITS | Encounter Summary ---
Author Organization [facility] Address [address] [place] [address] Care Team Providers Care Swatch Paster Name Role Phone Lucy Castro APRN-RN PEDIATRIC ICU Primary Care Provider Un available Birgit Melo MECHANIC SENIOR-RN PEDIATRIC ICU Primary Care Provider Vanessa Kilpatrick Primary Care Provider Bridget Cordova MECHANIC SENIOR-RN PEDIATRIC ICU Primary Care Provid er Encounter Details Date Type Department Care Team (Late st Contact Info) Description 10/03/2013 Telephone [facility] [address] [place] [address] Randi Will, RN Social History Tobacco Use Types Packs/Day Years Used Date Smoking Tobacco: Every Day Cigarettes Smokeless Tobacco: Never Alcohol Use Standard Drinks/Week Comments No 0 (1 standard drink = 0.6 oz pur e alcohol) 2 times a year Comments Unknown Sex and Gender Information Value Date Recorded Sex Assigned at Not on file 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 Gender Identity Not on file Sexual Orientation Not on file documented as of this encounter Plan of Treatment Not on file documented as of this encounter Visit Diagnoses Not on filedocumented in this encounter Care Teams Swatch Paster Relationship Specialty Start Date End Date Lucy Castro APRN-CNP 1 [place] [address] PCP - General Nurse Practitioner 05/31/13 4 Birgit Melo APRN-RN PEDIATRIC ICU [address] [place] [address] PCP - General Nurse Practitioner 02/22/14 10/07/17 Vanessa Kilpatrick PA [facility] [facility] [address] [place] [address] PCP - General Physician Sheet Mill Supervisor 07/29/18 11/22/19 Bridget Cordova, MECHANIC SENIOR-RN PEDIATRIC ICU [facility] [address] [place] [address] PCP - General Nurse Practitioner Family 11/23/19 documented as of this encounter
--- OUTSIDE RECORDS SUMMARY | 2025-03-02 16:02 | XMS_ITS | Clinical Summary ---
Author Organization [facility] Address [address] [place] [address] Care Team Providers Care Superintendent Geophysical Laboratory Name Role Phone Bridget Cordova PROJECT/PRODUCTION MANAGER IMAGING-QC MANAGER Primary Care Provid er Source Comments [facility],non-owned Affiliates and Associated Physician Practices is amultiple site organization consisting of ambulatory clinics and hospital sitesin [place], [place], [place] and [place]. This disclosure is being madepursuant to the Care Everywhere program and may not contain all information available regarding this patient. Last updated 18.[facility] Allergies Active Allergy Reactions Criticality Noted Date Comments Adhesive Sensitivity Skin Reactions 08/24/2018 Blisters, sanchez, rash Pregabalin Other 10/08/2017 Magnesium Salicylate Other 07/01/2018 Eye and mouth dryness Naproxen Swelling 05/31/2013 Retain water Ketorolac 10/08/2017 Bupropion Psychiatric Medium 07/01/2018 Medications * Be aware that medications may not be up to date on this document. Alwaysverify current medications with the patient. aspirin 81 MG tablet Take 81 mg by mouth at bedtime Active atorvastatin (LIPITOR) 40 MG tablet Take 20 mg by mouth at bedtime. Active citalopram (CELEXA) 40 MG tablet Take 20 mg by mouth once daily. Active Multiple Vitamin (MULTIVITAMINS PO) Take 1 Tab by mouth once daily. Active ranitidine (ZANTAC) 300 MG capsule Take 300 mg by mouth once daily. Active thyroid (ARMOUR THYROID) 60 MG tablet Take 1 Tab by mouth once daily. 30 Tab 0 5 Active clonazePAM (KLONOPIN) 1 MG tablet Take 1 mg by mouth 2 times daily Active isosorbide mononitrate CR 24hr (IMDUR) 30 MG tablet Take 15 mg by mouth once daily Active amLODIPine (NORVASC) 5 MG tablet Take 5 mg by mouth at bedtime Active lisinopril-hydro CHLOROthiazide (PRINZIDE; ZESTORETIC) 20-25 MG tablet Take 1 tablet by mouth once daily Active albuterol HFA (PROAIR HFA) 108 (90 BASE) MCG/ACT inhaler Inhale 2 puffs by mouth every 4 hours Active vitamin D3 (CHOLECACIFEROL) 5000 UNITS Take 5,000 Units by mouth once daily Active busPIRone (BUSPAR) 15 MG tablet Take 15 mg by mouth 2 times daily Active oxybutynin (DITROPAN) 5 MG tablet Take 5 mg by mouth once daily Active metoprolol tartrate (LOPRESSOR) 25 MG tablet Take 25 mg by mouth 2 times daily Active nitroGLYCERIN (NITRODUR) 0.1 MG/HR patch Apply 1 patch to skin every morning On 12 12 Active clopidogrel (PLAVIX) 75 MG tablet Take 75 mg by mouth at bedtime Active gabapentin (NEURONTIN) 800 MG tablet Take 800 mg by mouth 3 times daily Active oxyCODONE-acetam inophen (PERCOCET) 5-325 MG tablet Take 1-2 tablets by mouth every 4 hours as needed for Pain (max 8 per day) 80 tablet 8 Active fluticasone-salm eterol (WIXELA INHUB) 100-50 MCG/DOSE inhaler Inhale 1 puff by mouth 2 times daily Active promethazine (PHENERGAN) 25 MG tablet Take 25 mg by mouth every 4 hours as needed for Nausea/Vomiti ng Active SUMAtriptan (IMITREX) 100 MG tablet Take 100 mg by mouth as needed for Migraine No more than 2 doses in 24 hours. Active DULoxetine (CYMBALTA) 30 MG capsule Take 60 mg by mouth 2 times daily Active baclofen (LIORESAL) 10 MG tablet Take 10 mg by mouth 3 times daily May cause drowsiness. Active Active Problems Problem Noted Date Diagnosed Date Right shoulder pain 08/24/2018 Chest pain 06/25/2013 Migraine 05/31/2013 Family History Medical History Relation Name Comments Diabetes Father Stroke Father Diabetes Maternal Aunt 1 Gert AL Maternal Aunt 1 Gert Pacemaker Maternal Aunt 1 Gert Stroke Maternal Aunt 1 Gert Stroke Maternal Aunt 4 May Diabetes Maternal Aunt 5 AL Maternal Grandfather Leukemia Maternal Uncle Ryan Heart Disease Mother Leukemia Mother Stroke Mother Diabetes half-brother AL half-brother Seizures half-brother Drug use Diabetes half-sister Heart Disease half-sister AL half-sister Relation Name Status Comments Father Maternal Aunt 1 Gert Alive Maternal Aunt 2 (Age 30's) Maternal Aunt 3 (Age 30's) Maternal Aunt 4 March (Age 70's) Maternal Aunt 5 Maternal Grandfather Maternal Grandmother (Age 42) Maternal Uncle Ryan Alive Mother (Age 52) half-brother half-sister Social History Tobacco Use Types Packs/Day Years Used Date Smoking Tobacco: Every Day Cigarettes Smokeless Tobacco: Never Alcohol Use Standard Drinks/Week Comments No 0 (1 standard drink = 0.6 oz pur e alcohol) 2 times a year Comments No Sex and Gender Information Value Date Recorded Sex Assigned at Not on file Legal Sex Female 4:58 PM [employer] Gender Identity Not on file Sexual Orientation Not on file Last Filed Vital Signs Vital Sign Reading Time Taken Comments Blood Pressure 137/90 10/01/2020 11:22 AM [employer] Pulse 73 10/01/2020 11:22 AM [employer] Temperature 37.2 C (98.9 F) 10/26/2018 4:46 AM [employer] Respiratory Rate 20 10/26/2018 4:46 AM [employer] Oxygen Saturation 98% 10/26/2018 4:46 AM [employer] Inhaled Oxygen Concentration - - Weight 92.5 kg (204 lb) 10/01/2020 11:22 AM [employer] Height 170.2 cm (5' 7 ) 10/01/2020 11:22 AM [employer] Body Mass Index 31.95 10/01/2020 11:22 AM [employer] Plan of Treatment Health Maintenance Due Date Last Done Comments DORA (AGES 45-75) - COLON CA SCREENING [address] COLONOGRAPHY - COLON CA SCREENING 1961 FIT - COLON CA SCREENING 1961 FLEX SIG - COLON CA SCREENING 1961 PAP SMEAR 1961 HIV SCREENING 1976 HEPATITIS C SCREENING 10/21/1979 DTAP/TDAP/TD VACCINES (1 - Tdap) 1980 PNEUMOCOCCAL VACCINE 50+ (1 of 2 - PCV) 1980 ZOSTER VACCINE (1 of 2) 2011 MAMMOGRAM 02/25/2016 02/24/2014 SCREENING FOR DIABETES 10/18/2021 8, 10/08/2017, 03/02/2014, Additional history exists Respiratory Syncytial Virus (RSV) Vaccine Pt: or over 60 yrs (1 - Risk 60-74 years 1-dose series) 2021 COLONOSCOPY - COLON CA SCREENING 01/10/2024 01/09/2014 Colorectal Cancer Screening 01/10/2024 COVID-19 VACCINE ( season) 2024 DEPRESSION SCREENING 11/09/2024 INFLUENZA VACCINE (Season Ended) 2025 09/15/2018, 11/11/2017, 10/05/2016, Additional history exists HEPATITIS B VACCINE Aged Out No longe r eligible based on patient's age to complete this topic HIB VACCINE Aged Out No longer eligi ble based on patient's age to complete this topic HPV VACCINE Aged Out No longer eligi ble based on patient's age to complete this topic MENINGOCOCCAL (Group B) VACCINE SHARED DECISION-MAKING Aged Out No longer eligible based on patient's age to complete this topic MENINGOCOCCAL GROUPS A/C/Y/W VACCINE Aged Out No longer eligible based on patient's age to complete this topic Procedures Procedure Name Priority Date/Time Associated Diagnosis Comments COMPREHENSIVE METABOLIC PANEL STAT 10/18/2018 4:49 PM [employer] MAMMO BILAT SCREENING Routine 02/24/2014 3:31 PM CDT Other screening mammogram from Last 3 Months or Most Recently Relevant to Health Maintenance Results * COMPREHENSIVE METABOLIC PANEL (10/18/2018 4:49 PM [employer]) Glucose 95 70 - 125 mg/dL 10/18/2018 5:17 PM [employer] [facility] Sodium 140 136 - 145 mmol/L 10/18/2018 5:17 PM [employer] [facility] Potassium 3.7 3.4 - 4.5 mmol/L 10/18/2018 5:17 PM [facility] Chloride 103 98 - 107 mmol/L 10/18/2018 5:17 PM [facility] CO2 29 22 - 29 mmol/L 10/18/2018 5:17 PM [facility] Calcium 9.44 8.4 - 10.2 mg/dL 10/18/2018 5:17 PM [facility] Anion Gap 12 10 - 20 mmol/L 10/18/2018 5:17 PM [facility] BUN 10.2 9.8 - 20.1 mg/dL 10/18/2018 5:17 PM [facility] Creatinine 0.91 0.57 - 1.11 mg/dL 10/18/2018 5:17 PM [facility] eGFR by MDRD >60 >60 mL/min/1.7 3m2 10/18/2018 5:17 PM [facility] eGFR by MDRD >60 >60 mL/min/1.7 3m2 10/18/2018 5:17 PM [facility] Alkaline Phosphatase 104 40 - 150 U/L 10/18/2018 5:17 PM [facility] ALT 13 5 - 55 U/L 10/18/2018 5:17 PM [facility] AST 16 5 - 34 U/L 10/18/2018 5:17 PM [facility] Protein Total 7.6 6.4 - 8.3 gm/dL 10/18/2018 5:17 PM [facility] Albumin 3.8 3.5 - 5.0 gm/dL 10/18/2018 5:17 PM [facility] Globulin Total 3.8 2.6 - 4.0 gm/dL 10/18/2018 5:17 PM [facility] Albumin/Globulin Ratio 1.0 0.9 - 1.6 10/18/2018 5:17 PM [facility] Bilirubin Total 0.2 0.2 - 1.2 mg/dL 10/18/2018 5:17 PM [facility] Blood BLOOD SPECIMEN / Unknown Venipuncture / Unknown 10/18/2018 4:49 PM [employer] 10/18/2018 4:57 PM [employer] Debbi Reyna PROJECT/PRODUCTION MANAGER IMAGING-QC MANAGER LAB - CHEMISTRY ORDERAB LES Final Result [facility] [address] [place] [address], [facility] * BRITNEY SCREENING DIGITAL BILATERAL (02/24/2014 3:31 PM CDT) Anatomical Region Laterality Modality Breast Bilateral Mammography 02/27/2014 8:59 AM CDT Impressions 02/27/2014 4:18 PM CDT 1. BI-RADS CATEGORY 2. 2. Annual screening mammography recommended. A) A negative report should not delay a biopsy if a dominant or clinically suspicious mass is present. B) Adenosis and dense breasts may obscure an underlying neoplasm. C) Study interpreted with computer aided detection. MQSA BI-RADS Categories: Category 0 - needs additional imaging evaluation. Category 1 - negative. Category 2 - benign findings. Category 3 - probably benign findings, but short interval follow-up is recommended. Category 4 - suspicious abnormality and biopsy should be considered though the lesion may well be benign. Category 5 - highly suggestive of malignancy and appropriate action should be taken. Category 6 - known biopsy proven cancer. Narrative 02/27/2014 4:18 PM CDT DIGITAL BILATERAL SCREENING MAMMOGRAM WITH COMPUTER AIDED DIAGNOSIS 02/24/2014: HISTORY: Screening examination. No complaints listed referable to either breast. COMPARISON: 02/10/2013, 10/24/2009 and 03/20/2009. FINDINGS: Heterogeneously dense and nodular parenchymal pattern bilaterally. Minor benign appearing calcification. Parenchymal pattern has similar appearance to the prior studies. Nothing specific for malignancy in either breast. Procedure Note Waldemar Cota MD - 02/27/2014 DIGITAL BILATERAL SCREENING MAMMOGRAM WITH COMPUTER AIDED DIAGNOSIS 02/24/2014: HISTORY: Screening examination. No complaints listed referable to either breast. COMPARISON: 02/10/2013, 10/24/2009 and 03/20/2009. FINDINGS: Heterogeneously dense and nodular parenchymal pattern bilaterally. Minor benign appearing calcification. Parenchymal pattern has similar appearance to the prior studies. Nothing specific for malignancy in either breast. IMPRESSION 1. BI-RADS CATEGORY 2. 2. Annual screening mammography recommended. A) A negative report should not delay a biopsy if a dominant or clinically suspicious mass is present. B) Adenosis and dense breasts may obscure an underlying neoplasm. C) Study interpreted with computer aided detection. MQSA BI-RADS Categories: Category 0 - needs additional imaging evaluation. Category 1 - negative. Category 2 - benign findings. Category 3 - probably benign findings, but short interval follow-up is recommended. Category 4 - suspicious abnormality and biopsy should be considered though the lesion may well be benign. Category 5 - highly suggestive of malignancy and appropriate action should be taken. Category 6 - known biopsy proven cancer. Birgit Melo PROJECT/PRODUCTION MANAGER IMAGING-QC MANAGER MAMMO ORDERABLES Final Result from Last 3 Months or Most Recently Relevant to Health Maintenance Insurance MEDICAID - [facility] Member Subscriber Plan / Payer (Ef fective for All Dates) Name:Lana Benjamin Relation to Subscriber:Self Name:Lana Benjamin Payer ID:Not on file Group ID:Not on file Type:Medicaid Address: [place] MED[place]ID - [facility] [place]ICAID - [facility] * Guarantor: E-SCREEN,SOIL Account Type Relation to Patient Date of Phone Billing Address Company Employer [employer] [address] Advance Directives * FULL RESUSCITATION (Latest Code Status on File) Date Activated Date Inactivated Comments 10/05/2013 12:25 PM 10/05/2013 5:10 PM Care Teams Superintendent Geophysical Laboratory Relationship Specialty Start Date End Date Bridget Cordova, PROJECT/PRODUCTION MANAGER IMAGING-QC MANAGER PCP - General Nurse Practitioner Family 11/23/19
--- OUTSIDE RECORDS SUMMARY | 2025-03-02 16:02 | XMS_ITS | Encounter Summary ---
Author Organization [facility] Address [address] [place] [address] Phone Care Team Providers Care Boots And Shoes Supervisor Name Role Phone Pratima Hinds NP Primary Care Provider Herbie Chow DO Unavailable [phone] Luz Batista MD Unavailable [phone] Vanessa Kilpatrick Unavailable [phone] Bry Mead MD Unavailable [phone] Bernarda Luong MD Unavailable [phone] Encounter Details Date Type Department Care Team (Late st Contact Info) Description 01/26/2024 Telephone [facility] [address] [facility] 7th [place] [address] [place] [id number] Mariela Mcmillan Social History Tobacco Use Types Packs/Day Years Used Date Smoking Tobacco: Every Day Personal Safety Answer Date Recorded Getting School Help Needed Not on file 01/24 Comments Unknown Sex and Gender Information Value Date Recorded Sex Assigned at Not on file Legal Sex Female 2:57 AM EMD SPECIAL EDUCATION TEACHER Gender Identity Not on file Sexual Orientation Not on file documented as of this encounter Plan of Treatment Not on file documented as of this encounter Visit Diagnoses Not on filedocumented in this encounter Additional Health Concerns Infection Onset Date Last Indicated Resolved Time COVID: Suspected 10/02/2024 10/02/2024 10/02/2024 2:58 PM EMD SPECIAL EDUCATION TEACHER COVID: Suspected 11/21/2024 11/21/2024 11/21/2024 3:43 PM EMD SPECIAL EDUCATION TEACHER COVID: Suspected 12/17/2024 12/17/2024 12/17/2024 6:47 PM EMD SPECIAL EDUCATION TEACHER COVID19 Comment:Airborne + Contact precautions. Gown, Gloves, N95, eye protection or goggles. Precautions 12/31/24. Contact Pmo Business Analyst if patient worsens. - Gamaliel YARBROUGH, RN 12/23/24 12/17/2024 12/17/2024 12/31/2024 3:[address] COVID: Recovered Comment:Added based on recent COVID infection. 12/31/2024 01/03/2025 documented as of this encounter Care Teams Boots And Shoes Supervisor Relationship Specialty Start Date End Date Pratima Hinds NP [address] [facility] [address] [place], [place] [id number] PCP - General Nurse Practitioner 02/04/24 Herbie Chow DO [address] [facility] MEDICAL ONCOLOGY, [facility] [address] [place] [address] Medical Oncologist/Hematologis t Hematology and Oncology 02/04/24 Luz Batista MD [address] [facility] [address] [place] [address] Radiation Oncologist Radiation Oncology 02/09/24 Vanessa Kilpatrick PA [address] [place] [address] Physician Tower Equipment Repairer Family Practice 07/05/24 01/03/25 Bry Mead MD [address] [facility] [address] [place] [address] Radiation Oncologist Radiation Oncology 01/04/25 Bernarda Luong MD [address] [address] Referring Physician Internal Medicine 01/04/25 documented as of this encounter
--- OUTSIDE RECORDS SUMMARY | 2025-03-02 16:02 | XMS_ITS | Encounter Summary ---
Author Organization [facility] Address [address] [place] [address] Care Team Providers Care Screw Machine Adjuster Automatic Name Role Phone Lucy Castro Primary Care Provider Un available Birgit Melo APRN-DEAN OF STUDENTS Primary Care Provider Vanessa Kilpatrick Primary Care Provider Bridget Cordova PROPERTY INSURANCE INSPECTOR-DEAN OF [employer]UDENTS Primary Care Provid er Encounter Details Date Type Department Care Team (Late st Contact Info) Description 01/09/2014 Telephone [facility] [address] [place] [address] Lesley Pink, RN Social History Tobacco Use Types Packs/Day Years Used Date Smoking Tobacco: Every Day Cigarettes Smokeless Tobacco: Never Alcohol Use Standard Drinks/Week Comments No 0 (1 standard drink = 0.6 oz pur e alcohol) 2 times a year Comments No Sex and Gender Information Value Date Recorded Sex Assigned at Not on file Legal Sex Female 4:58 PM PRIVATE CHEF Gender Identity Not on file Sexual Orientation Not on file documented as of this encounter Plan of Treatment Not on file documented as of this encounter Visit Diagnoses Not on filedocumented in this encounter Care Teams Screw Machine Adjuster Automatic Relationship Specialty Start Date End Date Lucy Castro APRN-CNP 1 [place] [address] PCP - General Nurse Practitioner 05/31/13 4 Birgit Melo APRN-CNP [address] [place] [address] PCP - General Nurse Practitioner 02/22/14 10/07/17 Vanessa Kilpatrick PA [address] [facility] [address] [place] [address] PCP - General Physician Fur Remodeler 07/29/18 11/22/19 Bridget Cordova APRN-DEAN [employer]UDENTS [address] [facility] [address] [place] [address] PCP - General Nurse Practitioner Family 11/23/19 documented as of this encounter
--- OUTSIDE RECORDS SUMMARY | 2025-03-02 16:02 | XMS_ITS | Encounter Summary ---
Author Organization [facility] Healthcare Address [address] [place] [address] Care Team Providers Care Consulting Engineer Name Role Phone Guzman Pratima CASTELLANOS Primary Care Provider [phone] Herbie Chow DO Unavailable [phone] Bry Mead MD Unavailable [phone] Bernarda Luong MD Unavailable [phone] Encounter Details Date Type Department Care Team (Late st Contact Info) Description 02/17/2025 Completion of Therapy [facility] 2 Radiation Oncology [address] [place] [address] Bry Mead MD [address] [place] [address] [id number] Social History Tobacco Use Types Packs/Day Years Used Date Smoking Tobacco: Every Day Cigarettes Smokeless Tobacco: Current Comments:Heaviest 1 pack per day. Now on average one pack x 3 days. Started age 12. [facility] Utilities Answer Date Recorded In the past 12 months has [employer] electric, gas, oil, or water company threatened to shut off services in your [...] often do you attend chur ch or pentecostal services? 1 to 4 times per year 12/19/2024 Do you belong to any clubs o r organizations such as amish groups, unions, fraternal or athletic groups, or [...] any time in the past 12 m [facility], were you homeless or living in a intermediate (including now)? No 12/19/2024 Personal Safety Answer Date Recorded Have you ever been in or are you currently in a harmful physical or emotional relationship or is someone making you feel afraid or unsafe? Denies 02/01/2025 Comments No Sex and Gender Information Value Date Recorded Sex Assigned at Not on file Legal Sex Female 2:57 AM SALES ASSOCIATE FISHING Gender Identity Not on file Sexual Orientation Not on file Occupation Industry Job Start Date Job End Date Disabled Not on file Not on file Not on file documented as of this encounter Progress Notes * Paola Byrd PA - 02/17/2025 11:59 PM CDT Radiation Oncologist: Bry Mead MD Primary Care Physician: Pratima Hinds NP Medical Oncologist: Herbie Chow DO Surgeon: No care retail team member to display Referring Provider: No ref. provider found Date of Service: 02/17/2025 RADIATION ONCOLOGY COMPLETION OF THERAPY (COT) Identifying Data: Cancer Staging Malignant neoplasm of overlapping sites of right breast in female, estrogen receptor positive (HCC) Staging form: Breast, AJCC 8th Edition - Clinical stage from 02/10/2024: Stage IA (cT1b, cN0, cM0, G2, ER+, SD+, HER2-) - Signed by Luz Batista MD on 02/10/2024 Treatment Delivered: Start Date: 01/16/2025 End Date: 02/17/2025 Radiation Treatments Active Plans RT BREAST Most recent treatment: Dose planned: 267 cGy (fraction 10 on 02/17/2025) Total: Dose planned: 4,005 cGy Elapsed Days: 32 Reference Points PRNE RT BREAST Most recent treatment: Dose given: 267 cGy (on 02/17/2025) Total: Dose given: 2,670 cGy Elapsed Days: 32 Concurrent Therapy: None Pain Plan: RAD ONC PAIN PLAN: The patient is not currently having any pain that requires changes in pain management. Tolerance to Treatment: Ms. Benjamin tolerating radiation treatments well. She received 10/20 fractions. Unfortunately, patient had a number of social stressors making it very difficult for her to make her treatments. Severalphone calls were attempted to assist with her home situation along with ride assistance. can intake worker tried working with patient also. Patient has not been reachable, and patient has not shown for her appointments. Certified letter sent. Disposition: No follow-up, unable to contact. Bry Mead MD supervised the patient???s radiation treatment as summarized. documented in this encounter Plan of Treatment Not on file documented as of this encounter Visit Diagnoses Not on filedocumented in this encounter Additional Health Concerns Infection Onset Date Last Indicated Resolved Time COVID: Recovered Comment:Added based on recent COVID infection. 12/31/2024 01/03/2025 documented as of this encounter Care Teams Consulting Engineer Relationship Specialty Start Date End Date Pratima Hinds NP [address] [facility] [address] [place] [address] PCP - General Nurse Practitioner 02/04/24 Herbie Chow DO [address] [facility] MEDICAL ONCOLOGY, [address] [place] [address] Medical Oncologist/Hematologis t Hematology and Oncology 02/04/24 Bry Mead MD [address] [facility] [address] [place], [place] [address] Radiation Oncologist Radiation Oncology 01/04/25 Bernarda uLong MD [address] [facility] [address] [place] [address] Referring Physician Internal Medicine 01/04/25 documented as of this encounter
--- OUTSIDE RECORDS SUMMARY | 2025-03-02 16:02 | XMS_ITS | Encounter Summary ---
Author Organization [facility] Address [address] [place] [address] Care Team Providers Care Flight Engineer Helicopter Name Role Phone Lucy Castro Primary Care Provider Un available Birgit Melo APRN-SUPERINTENDENT MAINTENANCE AIRPORTS Primary Care Provider Vanessa Kilpatrick Primary Care Provider Bridget Cordova LOAD TEST MECHANIC-SUPERINTENDENT MAINTENANCE AIRPORTS Primary Care Provid er Encounter Details Date Type Department Care Team (Late st Contact Info) Description 10/03/2013 Telephone [facility] C[facility] 1 [place] [address] Lesley Pink, RN Social History Tobacco Use Types Packs/Day Years Used Date Smoking Tobacco: Every Day Cigarettes Smokeless Tobacco: Never Alcohol Use Standard Drinks/Week Comments No 0 (1 standard drink = 0.6 oz pur e alcohol) 2 times a year Comments Unknown Sex and Gender Information Value Date Recorded Sex Assigned at Not on file Legal Sex Female 4:58 PM CHANNEL ROUGHER Gender Identity Not on file Sexual Orientation Not on file documented as of this encounter Plan of Treatment Not on file documented as of this encounter Visit Diagnoses Not on filedocumented in this encounter Care Teams Flight Engineer Helicopter Relationship Specialty Start Date End Date Lucy Castro APRN-CNP 1 [place] [address] PCP - General Nurse Practitioner 05/31/13 4 Birgit Melo APRN-CNP [address] [place] [address] PCP - General Nurse Practitioner 02/22/14 10/07/17 Vanessa Kilpatrick PA [address] [facility] [address] [place] [address] PCP - General Physician Tool Adjuster 07/29/18 11/22/19 Bridget Cordova APRN-SUPERINTENDENT MAINTENANCE AIRPORTS [address] [facility] [address] [place] [address] PCP - General Nurse Practitioner Family 11/23/19 documented as of this encounter
--- OUTSIDE RECORDS SUMMARY | 2025-03-02 16:02 | XMS_ITS | Encounter Summary ---
Author Organization [facility] Address [address] [place] [address] Care Team Providers Care Wellness Manager Name Role Phone Lucy Castro APRN-FLATWORK FEEDER Primary Care Provider Un available Birgit Melo BAND TIER-FLATWORK FEEDER Primary Care Provider Vanessa Kilpatrick Primary Care Provider Bridget Cordova BAND TIER-FLATWORK FEEDER Primary Care Provid er Encounter Details Date Type Department Care Team (Late st Contact Info) Description 01/04/2014 Telephone [facility] PROC[facility] CENTER 1 [place] [address] Randi Will, RN Social History Tobacco Use Types Packs/Day Years Used Date Smoking Tobacco: Every Day Cigarettes Smokeless Tobacco: Never Alcohol Use Standard Drinks/Week Comments No 0 (1 standard drink = 0.6 oz pur e alcohol) 2 times a year Comments No Sex and Gender Information Value Date Recorded Sex Assigned at Not on file Legal Sex Female 4:58 PM BOILER CLEANER Gender Identity Not on file Sexual Orientation Not on file documented as of this encounter Plan of Treatment Not on file documented as of this encounter Visit Diagnoses Not on filedocumented in this encounter Care Teams Wellness Manager Relationship Specialty Start Date End Date Lucy Castro APRN-CNP 1 [place] [address] PCP - General Nurse Practitioner 05/31/13 4 Birgit Melo APRN-FLATWORK FEEDER [address] [place] [address] PCP - General Nurse Practitioner 02/22/14 10/07/17 Vanessa Kilpatrick PA [facility] [address] [place] [address] PCP - General Physician Erector Operator 07/29/18 11/22/19 Bridget Cordova, BAND TIER-FLATWORK FEEDER [facility] [address] [place] [address] PCP - General Nurse Practitioner Family 11/23/19 documented as of this encounter
--- OUTSIDE RECORDS SUMMARY | 2025-03-02 16:02 | XMS_ITS | Encounter Summary ---
Author Organization [facility] Address [address] [place] [address] Phone Care Team Providers Care Director Community Center Name Role Phone Pratima Hinds NP Primary Care Provider [phone] Herbie Chow DO Unavailable [phone] Bry Mead MD Unavailable [phone] Bernarda Luong MD Unavailable [phone] Encounter Details Date Type Department Care Team (Late st Contact Info) Description 03/02/2025 Telephone [facility] Oncology [address] [facility] [address] [place] [address] Kennedi Power RN Social History Tobacco Use Types Packs/Day Years Used Date Smoking Tobacco: Every Day Cigarettes Smokeless Tobacco: Current Comments:Heaviest 1 pack per day. Now on average one pack x 3 days. Started age 12. [facility] Utilities Answer Date Recorded In the past 12 months has [employer] electric, gas, oil, or water company threatened [...] week 12/19/2024 How often do you attend [facility] or anabaptist services? 1 to 4 times per year 12/19/2024 Do you belong to any clubs o r organizations such as quaker groups, unions, fraternal or athletic groups, or [...] any time in the past 12 m [facility], were you homeless or living in a alf (including now)? No 12/19/2024 Personal Safety Answer Date Recorded Have you ever been in or are you currently in a harmful physical or emotional relationship or is someone making you feel afraid or unsafe? Denies 02/01/2025 Comments No Sex and Gender Information Value Date Recorded Sex Assigned at Not on file Legal Sex Female 2:57 AM MOTHER'S HELPER Gender Identity Not on file Sexual Orientation Not on file Occupation Industry Job Start Date Job End Date Disabled Not on file Not on file Not on file documented as of this encounter Miscellaneous Notes * Telephone Encounter - Kennedi Power RN - 03/02/2025 9:36 AM CDT Called and spoke with patient about message I received regarding her being at [place] with a possible blood clot. I advised her to contact her PCP's office. She states understanding. documented in this encounter Plan of Treatment Not on file documented as of this encounter Visit Diagnoses Not on filedocumented in this encounter Additional Health Concerns Infection Onset Date Last Indicated Resolved Time COVID: Recovered Comment:Added based on recent COVID infection. 12/31/2024 01/03/2025 documented as of this encounter Care Teams Director Community Center Relationship Specialty Start Date End Date Pratima Hinds NP [address] [facility] 120 [place] [address] PCP - General Nurse Practitioner 02/04/24 [place] [address] [place] [address] MEDICAL ONCOLOGY, [facility] 180 [place], [place] [id number] Medical Oncologist/Hematologis t Hematology and Oncology 02/04/24 [place] [address] [place] [address] 160 [place] [address] Radiation Oncologist Radiation Oncology 01/04/25 Bernarda Luong MD 1 [facility] [address] [place] [address] Referring Physician Internal Medicine 01/04/25 documented as of this encounter
--- OUTSIDE RECORDS SUMMARY | 2025-03-02 16:02 | XMS_ITS | Encounter Summary ---
Author Organization [facility] Address [address] [place] [address] Care Team Providers Care Solicitor Patent Name Role Phone Lucy Castro Primary Care Provider Un available Birgit Melo APRN-SALES REPRESENTATIVE LIVESTOCK Primary Care Provider Vanessa iKlpatrick Primary Care Provider Bridget Cordova ENGINEER SYSTEM ADMINISTRATOR-SALES REPRESENTATIVE LIVESTOCK Primary Care Provid er Encounter Details Date Type Department Care Team (Late st Contact Info) Description 10/04/2013 Telephone [facility] PROCEDURE CENTER 1 [place] [address] Lesley Pink, RN Social History Tobacco Use Types Packs/Day Years Used Date Smoking Tobacco: Every Day Cigarettes Smokeless Tobacco: Never Alcohol Use Standard Drinks/Week Comments No 0 (1 standard drink = 0.6 oz pur e alcohol) 2 times a year Comments Unknown Sex and Gender Information Value Date Recorded Sex Assigned at Not on file Legal Sex Female 4:58 PM MANUAL EQUIPMENT MECHANIC Gender Identity Not on file Sexual Orientation Not on file documented as of this encounter Plan of Treatment Not on file documented as of this encounter Visit Diagnoses Not on filedocumented in this encounter Care Teams Solicitor Patent Relationship Specialty Start Date End Date Lucy Castro APRN-CNP 1 [place] [address] PCP - General Nurse Practitioner 05/31/13 4 Birgit Melo APRN-CNP [address] [place] [address] PCP - General Nurse Practitioner 02/22/14 10/07/17 Vanessa Kilpatrick PA [address] [facility] 140 [place] [address] PCP - General Physician Paper Cutter Operator 07/29/18 11/22/19 Bridget Cordova APRN-SALES REPRESENTATIVE LIVESTOCK [address] [facility] 140 [place] [address] PCP - General Nurse Practitioner Family 11/23/19 documented as of this encounter
--- OUTSIDE RECORDS SUMMARY | 2025-03-02 16:02 | XMS_ITS | Encounter Summary ---
Author Organization [facility] Healthcare Address [address] [place] [address] Care Team Providers Care Production Specialist Name Role Phone Guzman Pratima CASTELLANOS Primary Care Provider [phone] Herbie Chow DO Unavailable [phone] Bry Mead MD Unavailable [phone] Bernarda Luong MD Unavailable [phone] Encounter Details Date Type Department Care Team (Late st Contact Info) Description 03/01/2025 Telephone [facility] Medical Office Building 2 Radiation Oncology [address] [place] [address] Bry Mead MD [address] [place] [address] Social History Tobacco Use Types Packs/Day Years Used Date Smoking Tobacco: Every Day Cigarettes Smokeless Tobacco: Current Comments:Heaviest 1 pack per day. Now on average one pack x 3 days. Started age 12. [facility] Utilities Answer Date Recorded In the past 12 months has [employer] electric, gas, oil, or water company threatened [...] often do you attend chur ch or hoahaoism services? 1 to 4 times per year 12/19/2024 Do you belong to any clubs o r organizations such as oriental orthodox groups, unions, fraternal or athletic groups, or [...] any time in the past 12 m [facility], were you homeless or living in a mcc (including now)? No 12/19/2024 Personal Safety Answer Date Recorded Have you ever been in or are you currently in a harmful physical or emotional relationship or is someone making you feel afraid or unsafe? Denies 02/01/2025 Comments No Sex and Gender Information Value Date Recorded Sex Assigned at Not on file Legal Sex Female 2:57 AM BRIDGE DESIGN ENGINEER Gender Identity Not on file Sexual Orientation Not on file Occupation Industry Job Start Date Job End Date Disabled Not on file Not on file Not on file documented as of this encounter Miscellaneous Notes * Telephone Encounter - Sandra Ojeda - 03/01/2025 3:04 PM CDT Received certified letter request from Dr. Bry Mead. Certified mail receipt prepared article number [id number]. documented in this encounter Plan of Treatment Not on file documented as of this encounter Visit Diagnoses Not on filedocumented in this encounter Additional Health Concerns Infection Onset Date Last Indicated Resolved Time COVID: Recovered Comment:Added based on recent COVID infection. 12/31/2024 01/03/2025 documented as of this encounter Care Teams Production Specialist Relationship Specialty Start Date End Date Pratima Hinds NP [address] [facility] 120 [place] [address] PCP - General Nurse Practitioner 02/04/24 [place] [address] [place] [address] MEDICAL ONCOLOGY, [facility] 180 [place], [place] [address] Medical Oncologist/Hematologis t Hematology and Oncology 02/04/24 Bry Mead MD [address] [place] [address] 160 [place], [place] [id number] Radiation Oncologist Radiation Oncology 01/04/25 Bernarda Luong MD 1 [facility] 1A [place] [address] Referring Physician Internal Medicine 01/04/25 documented as of this encounter
--- OUTSIDE RECORDS SUMMARY | 2025-03-02 16:03 | XMS_ITS ---
Author Organization [facility] Address [address] [place] [address] Care Team Providers Care Manufacturing Engineer Automotive Name Role Phone Pratima Hinds NP Primary Care Provider [phone] Herbie Chow DO Unavailable [phone] Bry Mead MD Unavailable [phone] Bernarda Luong MD Unavailable [phone] Active Problems Problem Noted Date Diagnosed Date [...] from 02/10/2024:Stage IA(cT1b, cN0, cM0, G2, ER+, NV+, HER2-) - Signed by Luz Batista MD on 02/10/2024 Essential hypertension 04/18/2022 Cobalamin deficiency 04/18/2022 Anemia 01/23/2020 Anxiety 01/23/2020 Chronic obstructive pulmonary disease 01/23/2020 Depressive disorder 01/23/2020 Vitamin D deficiency 01/23/2020 History of OR (myocardial infarction) 10/06/2016 Obesity with body mass index 30 or greater 11/17 Atherosclerosis of coronary artery 06/01/2013 Migraine 05/31/2013 Chest pain 04/20/2013 Current Treatment and Therapy Plans No current plan information found. Other Current Plans IV Maintenance Therapy Plan* Plan Start Date:11/03/2024 Plan Provider:Herbie Chow DO Linked Problems Encounter for adjustment and management of unspecified implanted device Treatment Medications No medications scheduled. Past Treatment and Therapy Plans Oncology Chemotherapy Treatment Plan Name Start Date Discontinue Date Treatment Medications Discontinue Reason Plan Provider Cycles TC: (DOCEtaxe l / Cyclophos phamide) 21 Day Cycles - Breast 08/25/20 24 11/24/2024 cycloPHOSphamide (CYTOXAN)cycloPHOSp hamide IVPB in 250 mL (vial 200 mg/mL)([id number])dexAME THasone (DECADRON)DOCEtaxel (TAXOTERE)DOCEtaxel (TAXOTERE) IVPB in 250 mL (vial 20mg/mL) Therapy Complete Herbie Chow DO 4 of 4 cycles started Oncology Supportive Care Plan Name Start Date Discontinue Date Treatment Medications Discontinue Reason Plan Provider Hydration Therapy Plan 09/01/2024 12/06/2024 No medications scheduled. Orders Celio Fernandes MD Radiation Treatments (No Episode) * Course [id number]/[id number] - 02/17/2025 Treatment Period Energy Fraction Dose Fractions Total Dose Plans Planned RT BREAST 01/16/2025 - 02/17/2025 267 , Reference Points Delivered PRNE RT BREAST 01/16/2025 - 02/17/2025 2,670 Lifetime Dose Tracking * Chemical Lifetime Dose Automatic Entry Manual Entr y Fluoro Time 0.395 minutes 0.395 minutes 0 minutes cyclophosphamide 2,026.49 mg/m2 (4,200 mg) 2,026.49 mg/m2 (4,200 mg) 0 mg/m2 (0 mg) Air kerma at the reference point (Ka,r) 0.101 mGy 0.101 mGy 0 mGy
--- OUTSIDE RECORDS SUMMARY | 2025-03-02 16:03 | XMS_ITS | CONTINUITY OF CARE DOCUMENT ---
Author Name nona castellano Address Unknown Organization [facility] Address [address] [place] [address] Phone [phone] Care Team Providers Care Pipe Turner Name Role Phone Hong Olson MD Unavailable Hong Olson MD Unavailable INSURANCE PROVIDERS Payer name Policy type / Coverage type [place] MED[place]ID (2) Medicaid [id number]
--- OUTSIDE RECORDS SUMMARY | 2025-03-02 16:03 | XMS_ITS | Referral Summary ---
Author Organization [facility] Address [facility] [place] [address] Care Team Providers Care Byproducts Supervisor Name Role Phone Guzman Pratima CASTELLANOS Primary Care Provider [phone] Rinku Chow DO Unavailable [phone] Bry Mead MD Unavailable [phone] Bernarda Luong MD Unavailable [phone] Encounters Date Type Department Care Team Description 03/02/[address] [facility] Oncology [address] [place] [address] [place] [phone] Kennedi Power, FRANCISCA 03/02/2025 Telephone [facility] at [address] [place] [address] Saloin Rivera, FRANCISCA 03/01/2025 Telephone [facility] Medical Office Building 2 Radiation Oncology [address] [place] [address] Bry Mead MD 02/20/2025 Telephone [facility] Medical Office Building 2 Radiation Oncology [address] [place] [address] Bry Mead MD 02/17/2025 Completion of Therapy [facility] Medical Office Building 2 Radiation Oncology [address] [place] [address] Bry Mead MD 02/17/2025 [facility] Medical Office Building 2 Radiation Oncology [address] [place] [address] Bry Mead MD 02/17/2025 Orders Only RAD ONC TREATMENTS Miscellaneous, Not In File 02/17/2025 1:15 PM CDT Treatment [facility] Medical Office Building 2 Radiation Oncology [address] [place] [address] 02/16/2025 Social Work [facility] Physicians [facility] Oncology [address] [place] [address] [address] [place] [address] Vanessa Huston LCSW 02/16/2025 Documentation [facility] at [address] [phone] Julia Valdez, [facility] 02/16/2025 Orders Only RAD ONC TREATMENTS Miscellaneous, Not In File 02/16/2025 1:15 PM CDT Treatment [facility] Medical Office Building 2 Radiation Oncology [address] [place] [address] 02/07/2025 Orders Only RAD ONC TREATMENTS Miscellaneous, Not In File 02/07/2025 9:00 AM CDT Treatment [facility] Medical Office Building 2 Radiation Oncology [address] [place] [address] 02/03/2025 [facility] Medical Office Building 2 Radiation Oncology [address] [place] [address] Bry Mead MD 02/03/2025 Orders Only RAD ONC TREATMENTS Miscellaneous, Not In File 02/03/2025 1:15 PM CDT Treatment [facility] Medical Office Building 2 Radiation Oncology [address] [place] [address] 02/02/2025 Orders Only RAD ONC TREATMENTS Miscellaneous, Not In File 02/02/2025 1:15 PM CDT Treatment [facility] Medical Office Building 2 Radiation Oncology [address] [place] [address] 02/01/2025 3:22 PM CDT - 02/01/2025 4:24 PM CDT Emergency [facility] Emergency Department [address] [place] [address] Pain in posterior right lower extremity (Primary Dx) Discharge Disposition: Discharge to home or self care 02/01/2025 Orders Only RAD ONC TREATMENTS Miscellaneous, Not In File 02/01/2025 1:45 PM CDT Treatment [facility] Medical Office Building 2 Radiation Oncology [address] [place] [address] 01/30/2025 Orders Only RAD ONC TREATMENTS Miscellaneous, Not In File 01/30/2025 1:15 PM CDT Treatment [facility] Medical Office Building 2 Radiation Oncology [address] [place] [address] 01/27/2025 OTV [facility] Medical Office Building 2 Radiation Oncology [address] [place] [address] Luz Batista MD Malignant neoplasm of overlapping sites of right breast in female, estrogen receptor positive (HCC) (Primary Dx) 01/27/2025 Orders Only RAD ONC TREATMENTS Miscellaneous, Not In File 01/27/2025 1:15 PM CDT Treatment [facility] Medical Office Building 2 Radiation Oncology [address] [place] [address] 01/25/2025 Documentation [facility] Center at [facility] [address] [facility] [address] [place] [phone] Julia Valdez, [facility] 01/25/2025 Orders Only RAD ONC TREATMENTS Miscellaneous, Not In File 01/25/2025 1:15 PM CDT Treatment [facility] Medical Office Building 2 Radiation Oncology [address] [place] [address] 01/18/[address] [facility] Oncology [address] [facility] [address] [place] [phone] Latonya Harman, RN 01/16/2025 Orders Only RAD ONC TREATMENTS Miscellaneous, Not In File 01/16/2025 1:15 PM CDT Treatment [facility] Medical Office Building 2 Radiation Oncology [address] [place] [address] Bry Mead MD 01/16/2025 1:30 PM CDT Treatment [facility] Medical Office Building 2 Radiation Oncology [address] [place] [address] Bry Mead MD 01/06/2025 9:00 PM DURABLE MEDICAL EQUIPMENT REPAIRER Treatment [facility] Medical Office Building 2 Radiation Oncology [address] [place] [address] 01/04/2025 2:00 PM DURABLE MEDICAL EQUIPMENT REPAIRER Treatment [facility] Medical Office Building 2 Radiation Oncology [address] [place] [address] Bry Mead MD 01/04/2025 1:30 PM DURABLE MEDICAL EQUIPMENT REPAIRER Consult [facility] Office Building 2 Radiation Oncology [address] [place] [address] Bry Mead MD Malignant neoplasm of overlapping sites of right breast in female, estrogen receptor positive (HCC); Malignant neoplasm of upper-outer quadrant of left breast in female, estrogen receptor positive (HCC) 01/04/2025 1:15 PM DURABLE MEDICAL EQUIPMENT REPAIRER Clinical Support [facility] Cancer Center at [address] [address] Malignant neoplasm of overlapping sites of right breast in female, estrogen receptor positive (HCC); Malignant neoplasm of upper-outer quadrant of left breast in female, estrogen receptor positive (HCC); Normocytic hypochromic anemia; Fatigue, unspecified type 12/30/2024 Home Care Visit [address] [place] [address] Minerva Gonzales, FRANCISCA CASE COMMUNICATION 12/30/2024 Home Care Visit [address] [place] [address] Minerva Gonzales, RN SN NON ADMIT 12/29/2024 Home Care Visit [address] [place] [address] Chula Cerna, RN TELEPHONE ENCOUNTER 12/28/2024 Home Care Visit [address] [place] [address] Chula Cerna, RN TELEPHONE ENCOUNTER 12/28/2024 Home Care Visit [address] [address] [address] [place] [address] Julia Mcnally TELEPHONE ENCOUNTER 12/27/2024 Home Care Visit [address] [address] [address] [place] [address] Chula Cerna, RN TELEPHONE ENCOUNTER 12/26/2024 Home Care Visit [address] [address] [address] [place] [address] Chula Cerna, RN TELEPHONE ENCOUNTER 12/24/2024 Home Care Visit [address] [place] [address] [address] [place] [address] Sepideh Butler, RN TELEPHONE ENCOUNTER 12/22/[address] [facility] Home Care Services [address] [place] [address] [address] [place] [address] Hannah Ventura RN 12/17/2024 4:39 PM DURABLE MEDICAL EQUIPMENT REPAIRER - 12/21/2024 11:46 AM DURABLE MEDICAL EQUIPMENT REPAIRER Hospital Encounter [facility] 5 Med S[address] [place] [address] PrograisSandra MD Sada, MD Mumtaz Yao, MD Apolonia Redd, Aries Levi MD COVID-19 virus infection (Primary Dx); Fever, unspecified fever cause; Malignant neoplasm of overlapping sites of right breast in female, estrogen receptor positive (HCC); Essential hypertension; Diabetes mellitus without complication (HCC); Neutropenic fever; Chemotherapy-induced neutropenia Discharge Disposition: Discharge to home, home health skilled care 12/15/2024 Telephone [facility] Medical Office Building 2 Radiation Oncology [address] [place] [address] Gill Horvath MA 12/14/2024 Social Work [facility] Physicians [facility] Oncology [address] [place] [address] [address] [place] [phone] Vanessa Huston LCSW 12/14/[address] [facility] Oncology [address] [place] [address] [address] [place] [address] Marie Gomez CMA 12/14/2024 2:15 PM DURABLE MEDICAL EQUIPMENT REPAIRER Office Visit [facility] Oncology [address] [place] [address] [address] [place] [address] Rinku Chow DO Malignant neoplasm of upper-outer quadrant of left breast in female, estrogen receptor positive (HCC) (Primary Dx); Malignant neoplasm of overlapping sites of right breast in female, estrogen receptor positive (HCC); Normocytic hypochromic anemia; Fatigue, unspecified type 12/14/2024 1:45 PM DURABLE MEDICAL EQUIPMENT REPAIRER Clinical Support [facility] Cancer Center at [address] [address] Malignant neoplasm of overlapping sites of right breast in female, estrogen receptor positive (HCC) 12/12/2024 3:42 PM DURABLE MEDICAL EQUIPMENT REPAIRER Anesthesia Event [facility] GI Endo [address] [place] [address] Luis Eduardo Mead MD 12/12/2024 2:30 PM DURABLE MEDICAL EQUIPMENT REPAIRER - 12/12/2024 3:00 PM DURABLE MEDICAL EQUIPMENT REPAIRER Surgery [facility] GI Endo [address] [place] [address] Vincent Hamilton MD COLONOSCOPY 12/05/2024 11:29 AM DURABLE MEDICAL EQUIPMENT REPAIRER - 12/12/2024 7:45 PM DURABLE MEDICAL EQUIPMENT REPAIRER Hospital Encounter [facility] [address] [place] [address] Virgil Vanegas DO Mourad, Ibrahim, MD Mahasneh, Omar Ali Mohammed, MD Acute congestive heart failure, unspecified heart failure type (HCC) (Primary Dx); Other dysphagia [R13.19]; Weight loss [R63.4]; Iron deficiency anemia, unspecified iron deficiency anemia type [D50.9]; Rectal bleeding [K62.5]; Other dysphagia; Weight loss; Anemia, unspecified type Discharge Disposition: Discharge to home or self care 12/02/2024 Telephone [facility] Patient Access [address] [place] [address] Sherman Wang from Last 3 Months Allergies Active Allergy Reactions Criticality Noted Date Comments Adhesive Tape-Silicones Blisters High Bupropion Rash,Unknown,Other (See comments) Medium 07/01/2018 Magnesium Sulfate Agitation Low 08/08/2024 Morphine Shortness of breath High 06/30/2024 Feels like elephant sitting on chest and cannot get air, hard to breathe Naproxen Swelling Medium Fluid retention after taking watcher [employer] Medications albuterol HFA (PROVENTIL HFA,VENTOLIN HFA,PROAIR HFA) [...] mg total) by mouth nightly 4 Active [place] Thyroid 30 mg tablet Take 1 tablet (30 mg total) by mouth daily 4 Active qhiyjaxikcak-Ua-h magi-minerals tablet Take 1 tablet by mouth daily Active gabapentin (NEURONTIN) 600 mg tabletIndications :Intractable neuropathic pain of lower extremity Take 1 tablet (600 mg total) by mouth 4 (four) times a day 120 tablet 11 5 11/26/19 26 Active spironolactone (ALDACTONE) 100 [...] from 02/10/2024:Stage IA(cT1b, cN0, cM0, G2, ER+, FL+, HER2-) - Signed by Luz Batista MD on 02/10/2024 Essential hypertension 04/18/2022 Cobalamin deficiency 04/18/2022 Anemia 01/23/2020 Anxiety 01/23/2020 Chronic obstructive pulmonary disease 01/23/2020 Depressive disorder 01/23/2020 Vitamin D deficiency 01/23/2020 History of ME (myocardial infarction) 10/06/2016 Obesity with body mass index 30 or greater 11/17 Atherosclerosis of coronary artery 06/01/2013 Migraine 05/31/2013 Chest pain 04/20/2013 Immunizations Immunization Administration Dates Next Due Influenza, Trivalent, Preservative Free, Intramu scular 09/05/2024 Social History Tobacco Use Types Packs/Day Years Used Date Smoking Tobacco: Every Day Cigarettes Smokeless Tobacco: Current Tobacco Cessation:Ready to Q uit: Not Asked; Counseling Given: Not Answered Comments:Heaviest 1 pack per day. Now on average one pack x 3 days. Started age 12. [facility] Utilities Answer Date Recorded In the past 12 months has th e electric, gas, oil, or water company threatened [...] often do you attend chur ch or restoration services? 1 to 4 times per year 12/19/2024 Do you belong to any clubs o r organizations such as christianity groups, unions, fraternal or athletic groups, or [...] were you homeless or living in a fci (including now)? No 12/19/2024 Personal Safety Answer Date Recorded Have you ever been in or are you currently in a harmful physical or emotional relationship or is someone making you feel afraid or unsafe? Denies 02/01/2025 Comments No Sex and Gender Information Value Date Recorded Sex Assigned at Not on file Legal Sex Female 2:57 AM DURABLE MEDICAL EQUIPMENT REPAIRER Gender Identity Not on file Sexual Orientation Not on file Occupation Industry Job Start Date Job End Date Disabled Not on file Not on file Not on file Last Filed Vital Signs [...] 02/01/2025 2:56 PM CDT Plan of Treatment Not on file Medical Devices Implanted Type Area Pbx Supervisor Device Identifier Shelf Expiration Date Model / Serial / Lot [employer] [place] Run 20ga 5cm Reposition J Curve Wire Centimeter Claudio Stabilizer [id number] - [id number] Implanted:Qty: 1 on 07/06/2024 by Sudarshan Yap MD at [facility] Right: Breast [employer] [id number] 03/17/2029 [id number] / / [id number] [employer] [place] Run 20ga 5cm Reposition J Curve Wire Centimeter Claudio Stabilizer [id number] - [id number] Implanted:Qty: 1 on 07/06/2024 by Sudarshan Yap MD at [facility] Right: Breast [employer] [id number] 03/17/2029 [id number] / / [id number] Rica Chloe Powerport Mri Airguard 8fr 1 Lumen Attachable Catheter Latex Free [id number] - [id number] Implanted:Qty: 1 on 08/23/2024 by Ismael Bowen MD at [facility] Left: Chest Rica Valdez [id number] 02/06/2026 [id number] / / [id number] Procedures Procedure Name Priority Date/Time Associated Diagnosis [...] CDT DIFFERENTIAL AUTO Routine 01/04/2025 1:26 PM DURABLE MEDICAL EQUIPMENT REPAIRER Malignant neoplasm of overlapping sites of right breast in female, estrogen receptor positive (HCC) Malignant neoplasm of upper-outer quadrant of left breast in female, estrogen receptor positive (HCC) Normocytic hypochromic anemia FERRITIN Routine 01/04/2025 1:26 PM DURABLE MEDICAL EQUIPMENT REPAIRER Malignant neoplasm of overlapping sites of right breast in female, estrogen receptor positive (HCC) Malignant neoplasm of upper-outer quadrant of left breast in female, estrogen receptor positive (HCC) Normocytic hypochromic anemia RETICULOCYTES Routine 01/04/2025 1:26 PM DURABLE MEDICAL EQUIPMENT REPAIRER Malignant neoplasm of overlapping sites of right breast in female, estrogen receptor positive (HCC) Malignant neoplasm of upper-outer quadrant of left breast in female, estrogen receptor positive (HCC) Normocytic hypochromic anemia TSH Routine 01/04/2025 1:26 PM DURABLE MEDICAL EQUIPMENT REPAIRER Malignant neoplasm of overlapping sites of right breast in female, estrogen receptor positive (HCC) Malignant neoplasm of upper-outer quadrant of left breast in female, estrogen receptor positive (HCC) Normocytic hypochromic anemia Fatigue, unspecified type CBC WITH AUTO DIFFERENTIAL Routine 01/04 1:26 PM DURABLE MEDICAL EQUIPMENT REPAIRER Malignant neoplasm of overlapping sites of right breast in female, estrogen receptor positive (HCC) Malignant neoplasm of upper-outer quadrant of left breast in female, estrogen receptor positive (HCC) Normocytic hypochromic anemia EGFR Routine 12/21/2024 5:45 AM DURABLE MEDICAL EQUIPMENT REPAIRER DIFFERENTIAL AUTO Routine 12/21/2024 5:45 AM DURABLE MEDICAL EQUIPMENT REPAIRER BASIC METABOLIC PANEL Routine 12/21/2024 5:45 AM DURABLE MEDICAL EQUIPMENT REPAIRER CBC WITH AUTO DIFFERENTIAL Routine 12/21 5:45 AM DURABLE MEDICAL EQUIPMENT REPAIRER CT CHEST PE W CONTRAST ED Urgent/IP Urgent 12/20/2024 8:21 AM DURABLE MEDICAL EQUIPMENT REPAIRER EGFR Routine 12/20/2024 6:51 AM DURABLE MEDICAL EQUIPMENT REPAIRER DIFFERENTIAL AUTO Routine 12/20/2024 6:51 AM DURABLE MEDICAL EQUIPMENT REPAIRER BASIC METABOLIC PANEL Routine 12/20/2024 6:51 AM DURABLE MEDICAL EQUIPMENT REPAIRER CBC WITH AUTO DIFFERENTIAL Routine 12/20 6:51 AM DURABLE MEDICAL EQUIPMENT REPAIRER ECG 12-LEAD Routine 12/20/2024 12:21 AM DURABLE MEDICAL EQUIPMENT REPAIRER MAGNESIUM Routine 12/19/2024 7:49 AM DURABLE MEDICAL EQUIPMENT REPAIRER EGFR Routine 12/19/2024 7:49 AM DURABLE MEDICAL EQUIPMENT REPAIRER DIFFERENTIAL AUTO Routine 12/19/2024 7:49 AM DURABLE MEDICAL EQUIPMENT REPAIRER BASIC METABOLIC PANEL Routine 12/19/2024 7:49 AM DURABLE MEDICAL EQUIPMENT REPAIRER CBC WITH AUTO DIFFERENTIAL Routine 12/19 7:49 AM DURABLE MEDICAL EQUIPMENT REPAIRER D-DIMER, QUANTITATIVE Routine 12/19/2024 7:49 AM DURABLE MEDICAL EQUIPMENT REPAIRER CRP (ACUTE PHASE) Routine 12/19/2024 7:49 AM DURABLE MEDICAL EQUIPMENT REPAIRER DIFFERENTIAL AUTO Add On 12/18/2024 6:36 AM DURABLE MEDICAL EQUIPMENT REPAIRER CBC WITH AUTO DIFFERENTIAL Add-On 12/18 6:36 AM DURABLE MEDICAL EQUIPMENT REPAIRER EGFR Routine 12/18/2024 5:50 AM DURABLE MEDICAL EQUIPMENT REPAIRER CBC WITHOUT DIFFERENTIAL Routine 025 5:50 AM DURABLE MEDICAL EQUIPMENT REPAIRER COMPREHENSIVE METABOLIC PANEL Routine 5:50 AM DURABLE MEDICAL EQUIPMENT REPAIRER URINALYSIS, MICROSCOPIC ONLY STAT 06/2025 5:51 PM DURABLE MEDICAL EQUIPMENT REPAIRER URINALYSIS AND REFLEX TO MICROSCOPIC AND CULTURE STAT 12/17/2024 5:51 PM DURABLE MEDICAL EQUIPMENT REPAIRER DIFFERENTIAL AUTO STAT 12/17/2024 5:44 PM DURABLE MEDICAL EQUIPMENT REPAIRER CBC WITH AUTO DIFFERENTIAL STAT 12/17 5:44 PM DURABLE MEDICAL EQUIPMENT REPAIRER INFLUENZA A/B, RSV, AND COVID-19 PCR STAT 12/17/2024 5:44 PM DURABLE MEDICAL EQUIPMENT REPAIRER ECG 12-LEAD Routine 12/17/2024 5:27 PM DURABLE MEDICAL EQUIPMENT REPAIRER EGFR STAT 12/17/2024 5:19 PM DURABLE MEDICAL EQUIPMENT REPAIRER SEPSIS LACTATE WITH REFLEX Routine 12/17 5:19 PM DURABLE MEDICAL EQUIPMENT REPAIRER COMPREHENSIVE METABOLIC PANEL STAT 5:19 PM DURABLE MEDICAL EQUIPMENT REPAIRER XR CHEST 1 VIEW ED 12/17/2024 4:54 PM DURABLE MEDICAL EQUIPMENT REPAIRER EGFR Routine 12/14/2024 2:18 PM DURABLE MEDICAL EQUIPMENT REPAIRER Malignant neoplasm of overlapping sites of right breast in female, estrogen receptor positive (HCC) MANUAL DIFFERENTIAL Routine 12/14/2024 2:18 PM DURABLE MEDICAL EQUIPMENT REPAIRER Malignant neoplasm of overlapping sites of right breast in female, estrogen receptor positive (HCC) DIFFERENTIAL AUTO Routine 12/14/2024 2:18 PM DURABLE MEDICAL EQUIPMENT REPAIRER Malignant neoplasm of overlapping sites of right breast in female, estrogen receptor positive (HCC) CBC WITH AUTO DIFFERENTIAL Routine 12/14 2:18 PM DURABLE MEDICAL EQUIPMENT REPAIRER Malignant neoplasm of overlapping sites of right breast in female, estrogen receptor positive (HCC) COMPREHENSIVE METABOLIC PANEL Routine 2:18 PM DURABLE MEDICAL EQUIPMENT REPAIRER Malignant neoplasm of overlapping sites of right breast in female, estrogen receptor positive (HCC) EGD 12/12/2024 2:39 PM DURABLE MEDICAL EQUIPMENT REPAIRER COLONOSCOPY 12/12/2024 2:39 PM DURABLE MEDICAL EQUIPMENT REPAIRER ESOPHAGOGASTRODUODENOSCOPY 12/12 2:33 PM DURABLE MEDICAL EQUIPMENT REPAIRER Anemia, unspecified type COLONOSCOPY 12/12/2024 2:33 PM DURABLE MEDICAL EQUIPMENT REPAIRER Anemia, unspecified type DIFFERENTIAL AUTO Routine 12/12/2024 5:32 AM DURABLE MEDICAL EQUIPMENT REPAIRER CBC WITH AUTO DIFFERENTIAL Routine 12/12 5:32 AM DURABLE MEDICAL EQUIPMENT REPAIRER DIFFERENTIAL AUTO Routine 12/11/2024 7:21 AM DURABLE MEDICAL EQUIPMENT REPAIRER CBC WITH AUTO DIFFERENTIAL Routine 12/11 7:21 AM DURABLE MEDICAL EQUIPMENT REPAIRER DIFFERENTIAL AUTO Routine 12/10/2024 9:28 AM DURABLE MEDICAL EQUIPMENT REPAIRER CBC WITH AUTO DIFFERENTIAL Routine 12/10 9:28 AM DURABLE MEDICAL EQUIPMENT REPAIRER MANUAL DIFFERENTIAL Routine 12/09/2024 6:44 AM DURABLE MEDICAL EQUIPMENT REPAIRER EGFR Routine 12/09/2024 6:44 AM DURABLE MEDICAL EQUIPMENT REPAIRER DIFFERENTIAL AUTO Routine 12/09/2024 6:44 AM DURABLE MEDICAL EQUIPMENT REPAIRER CBC WITH AUTO DIFFERENTIAL Routine 12/09 6:44 AM DURABLE MEDICAL EQUIPMENT REPAIRER BASIC METABOLIC PANEL Routine 12/09/2024 6:44 AM DURABLE MEDICAL EQUIPMENT REPAIRER TRANSFUSE RED BLOOD CELLS Timed 2024 2:06 PM DURABLE MEDICAL EQUIPMENT REPAIRER PREPARE RBC Routine 12/08/2024 1:45 PM DURABLE MEDICAL EQUIPMENT REPAIRER CROSSMATCH Timed 12/08/2024 12:31 PM DURABLE MEDICAL EQUIPMENT REPAIRER ANTIBODY SCREEN Timed 12/08/2024 12:31 PM DURABLE MEDICAL EQUIPMENT REPAIRER ABO/RH Timed 12/08/2024 12:31 PM DURABLE MEDICAL EQUIPMENT REPAIRER TYPE AND SCREEN Timed 12/08/2024 12:31 PM DURABLE MEDICAL EQUIPMENT REPAIRER PREPARE RBC Timed 12/08/2024 7:35 AM DURABLE MEDICAL EQUIPMENT REPAIRER EGFR Routine 12/08/2024 5:07 AM DURABLE MEDICAL EQUIPMENT REPAIRER DIFFERENTIAL AUTO Routine 12/08/2024 5:07 AM DURABLE MEDICAL EQUIPMENT REPAIRER PROTIME-INR Routine 12/08/2024 5:07 AM DURABLE MEDICAL EQUIPMENT REPAIRER CBC WITH AUTO DIFFERENTIAL Routine 12/08 5:07 AM DURABLE MEDICAL EQUIPMENT REPAIRER BASIC METABOLIC PANEL Routine 12/08/2024 5:07 AM DURABLE MEDICAL EQUIPMENT REPAIRER CT CHEST PE W CONTRAST IP Routine 12:14 PM DURABLE MEDICAL EQUIPMENT REPAIRER HEMOGLOBIN A1C Routine 12/07/2024 5:58 AM DURABLE MEDICAL EQUIPMENT REPAIRER EGFR Routine 12/07/2024 5:58 AM DURABLE MEDICAL EQUIPMENT REPAIRER DIFFERENTIAL AUTO Routine 12/07/2024 5:58 AM DURABLE MEDICAL EQUIPMENT REPAIRER CBC WITH AUTO DIFFERENTIAL Routine 12/07 5:58 AM DURABLE MEDICAL EQUIPMENT REPAIRER BASIC METABOLIC PANEL Routine 12/07/2024 5:58 AM DURABLE MEDICAL EQUIPMENT REPAIRER VITAMIN B12 Routine 12/07/2024 5:57 AM DURABLE MEDICAL EQUIPMENT REPAIRER US VEIN DUPLEX LOWER EXTREMI TY BILATERAL COMPLETE IP Routine 12/06/2024 4:15 PM DURABLE MEDICAL EQUIPMENT REPAIRER LIPID PANEL Routine 12/06/2024 10:43 AM DURABLE MEDICAL EQUIPMENT REPAIRER IRON PROFILE W/ IBC Routine 12/06/2024 10:43 AM DURABLE MEDICAL EQUIPMENT REPAIRER EGFR Routine 12/06/2024 10:43 AM DURABLE MEDICAL EQUIPMENT REPAIRER DIFFERENTIAL AUTO Routine 12/06/2024 10:43 AM DURABLE MEDICAL EQUIPMENT REPAIRER CBC WITH AUTO DIFFERENTIAL Routine 12/06 10:43 AM DURABLE MEDICAL EQUIPMENT REPAIRER BASIC METABOLIC PANEL Routine 12/06/2024 10:43 AM DURABLE MEDICAL EQUIPMENT REPAIRER TRANSTHORACIC ECHO (TTE) COMPLETE W DOPPLER/CF WO CONTRAST Routine 12/06/2024 9:59 AM DURABLE MEDICAL EQUIPMENT REPAIRER D-DIMER, QUANTITATIVE STAT 12/05/2024 9:35 PM DURABLE MEDICAL EQUIPMENT REPAIRER TROPONIN T HIGH-SENSITIVITY 4-HR Timed 12/05/2024 9:35 PM DURABLE MEDICAL EQUIPMENT REPAIRER TROPONIN T HIGH-SENSITIVITY 6-HOUR Timed 12/05/2024 4:33 PM DURABLE MEDICAL EQUIPMENT REPAIRER TROPONIN T HIGH-SENSITIVITY 2-HOUR Timed 12/05/2024 12:21 PM DURABLE MEDICAL EQUIPMENT REPAIRER URINALYSIS AND REFLEX TO MICROSCOPIC AND CULTURE STAT 12/05/2024 11:43 AM DURABLE MEDICAL EQUIPMENT REPAIRER ECG 12-LEAD STAT 12/05/2024 11:40 AM DURABLE MEDICAL EQUIPMENT REPAIRER XR CHEST 1 VIEW ED 12/05/2024 10:40 AM DURABLE MEDICAL EQUIPMENT REPAIRER EGFR STAT 12/05/2024 10:16 AM DURABLE MEDICAL EQUIPMENT REPAIRER DIFFERENTIAL AUTO STAT 12/05/2024 10:16 AM DURABLE MEDICAL EQUIPMENT REPAIRER PRO B-TYPE NATRIURETIC PEPTIDE STAT 0 12/05/2024 10:16 AM DURABLE MEDICAL EQUIPMENT REPAIRER TROPONIN T HIGH-SENSITIVITY SERIES (BASELINE, 2HR, 4HR, 6HR) STAT 12/05/2024 10:16 AM DURABLE MEDICAL EQUIPMENT REPAIRER COMPREHENSIVE METABOLIC PANEL STAT 10:16 AM DURABLE MEDICAL EQUIPMENT REPAIRER CBC WITH AUTO DIFFERENTIAL STAT 12/05 10:16 AM DURABLE MEDICAL EQUIPMENT REPAIRER SERUM HEPATITIS C AB Routine 05/03/2013 4:35 [...] ARIA * RAD ONC ARIA SESSION SUMMARY (02/16/2025 [...] DOM * RAD ONC ARIA SESSION SUMMARY (02/07/2025 9:34 AM CDT) Course Name C1_R_Breast _2024 ARIA Course [...] ORD ERABLES Final Result Performing Organization Address [facility] Co de Phone Number ARIKaylan * RAD ONC ARIA SESSION SUMMARY (02/03/2025 1:30 PM CDT) Course Name C1_R_Breast ARIA Course [...] CDT Lower Extremity Venous Report Patient Name: LANA BENJAMIN G : 1960 (64y 3m) Gender: F Study Date: 02/01/2025 03:19:16 PM Designer/Writer: Amena [place] RDMS,RVT Order Provider: VIRGIL VANEGAS [...] distal augmentation. Provider Notification: ADRIANNE Marie via [employer]. CONCLUSIONS: 1. There is no evidence of [...] Gender: F Study Date: 02/01/2025 03:19:16 PM Designer/Writer: Amena [place] RDMS,RVT Order Provider: VIRGIL VANEGAS [...] distal augmentation. Provider Notification: ADRIANNE Marie via [employer]. CONCLUSIONS: 1. There is no evidence of [...] was last reviewed 2021. Testing performed by: [facility], [address] [place] [address]., [address] Blood 02/01/2025 3:10 PM CDT 02/01/2025 3:22 PM CDT us Virgil Vanegas DO LAB BLOOD ORDERABLES Final Result ADARSH [address] [facility] Department [place] [address] * Differential, auto (02/01/2025 3:10 PM CDT) Neutrophil abs 2.2 1.5 - 6.5 K/cumm Comment:Testing performed by : [address] [address] Imm gran abs 0.0 0.0 - 0.1 K/cumm ADARSH Comment:Testing performed by : [address] [address] Lymphocyte abs 1.5 0.8 - 3.3 K/cumm ADARSH Comment:Testing performed by : [address] [address] Monocyte abs 0.3 0.2 - 0.8 K/cumm [facility] Comment:Testing performed by : [address] [address] Eosinophil abs 0.2 0.0 - 0.5 K/cumm [facility] Comment:Testing performed by : [address] [address] Basophil abs 0.0 0.0 - 0.1 K/cumm [facility] Comment:Testing performed by : [address] [address] Neutrophil pct 50.7 % [facility] Comment: Interpretive Data Percent cell count reference ranges are not reported, since discordance with absolute values may lead to misinterpretation of CBC data. Current Interpretive Data was last revised on 2018. Testing performed by: [address] [address] Imm gran pct 0.2 % ADARSH Comment: Interpretive Data Percent cell count reference ranges are not reported, since discordance with absolute values may lead to misinterpretation of CBC data. Current Interpretive Data was last revised on 2018. Testing performed by: [address] [address] Lymphocyte pct 35.7 % [facility] Comment: Interpretive Data Percent cell count reference ranges are not reported, since discordance with absolute values may lead to misinterpretation of CBC data. Current Interpretive Data was last revised on 2018. Testing performed by: [address] [address] Monocyte pct 8.0 % ADARSH Comment: Interpretive Data Percent cell count reference ranges are not reported, since discordance with absolute values may lead to misinterpretation of CBC data. Current Interpretive Data was last revised on 2018. Testing performed by: [address] [address] Eosinophil pct 4.7 % ADARSH Comment: Interpretive Data Percent cell count reference ranges are not reported, since discordance with absolute values may lead to misinterpretation of CBC data. Current Interpretive Data was last revised on 2018. Testing performed by: [address] [address] Basophil pct 0.7 % ADARSH Comment: Interpretive Data Percent cell count reference ranges are not reported, since discordance with absolute values may lead to misinterpretation of CBC data. Current Interpretive Data was last revised on 2018. Testing performed by: [address] [address] Blood 02/01/2025 3:10 PM CDT 02/01/2025 3:22 PM CDT us Virgil Vanegas DO LAB BLOOD ORDERABLES Final Result ADARSH [address] [facility] Department [place] [address] * (ABNORMAL) CBC with auto differential (02/01/2025 3:10 PM CDT) WBC 4.3 3.8 - 9.9 K/cumm Comment:Testing performed by : [address] [address] Hgb 11.1(L) 11.9 - 15.5 g/dL ADARSH Comment:Testing performed by : [address] [address] Hct 35.0(L) 35.6 - 45.5 % ADARSH Comment:Testing performed by : [address] [address] Plt 169 150 - 400 K/cumm ADARSH Comment:Testing performed by : [address] [address] MPV 10.5 9.1 - 12.3 fL ADARSH Comment:Testing performed by : [address] [address] RBC 3.74(L) 3.90 - 5.20 M/cumm ADARSH Comment:Testing performed by : [address], [address] MCV 93.6 81.3 - 96.4 fL ADARSH Comment:Testing performed by : [address] [address] MCH 29.7 27.1 - 33.3 pg ADARSH Comment:Testing performed by : [address] [address] MCHC 31.7(L) 32.3 - 35.7 g/dL ADARSH Comment:Testing performed by : [address] [address] RDW CV 18.1(H) 11.1 - 14.9 % ADARSH Comment:Testing performed by : [address], [address] RDW SD 62.0(H) 35.7 - 48.1 fL ADARSH Comment:Testing performed by : [address] [address] NRBC abs 0.00 0.00 - 0.01 K/cumm ADARSH Comment:Testing performed by : [address], [address] Blood 02/01/2025 3:10 PM CDT 02/01/2025 3:22 PM CDT Virgil Vaneags DO LAB BLOOD ORDERABLES Final Result Performing Organization Address City/State/[facility] de Phone Number ADARSH [facility]0 [facility] [place] [address] * (ABNORMAL) D-dimer, quantitative (02/01/2025 3:10 PM [...] 68, VTE cut-off 680 ng/ml FEU. References; Larry STACY et al. Brit Med J. 2013;346:f2492. William et al. Annals Int Med. 2015;163:701-11. Current interpretive data was last revised on 2019. Testing performed by: [address] [address] Blood 02/01/2025 3:10 PM CDT 02/01/2025 3:22 PM CDT Virgil Vanegas DO LAB BLOOD ORDERABLES Final Result Performing Organization Address [facility] Co de Phone Number ADARSH [facility]0 [facility] [place] [address] * (ABNORMAL) Comprehensive metabolic panel (02/01/2025 3:10 PM CDT) Sodium 139 135 - 145 mmol/L Comment:Testing performed by : [address] [address] Potassium, pl 4.1 3.3 - 4.9 mmol/L ADARSH Comment:Testing performed by : [address] [address] Chloride 104 97 - 110 mmol/L ADARSH Comment:Testing performed by : [address] [address] CO2 26 22 - 32 mmol/L [facility] Comment:Testing performed by : [address] [address] Anion gap 9 2 - 15 mmol/L [facility] Comment:Testing performed by : [address] [address] BUN 11 6 - 25 mg/dL [facility] Comment:Testing performed by : [address], [place]., [address] Creatinine 0.60 0.60 - 1.10 mg/dL [facility] Comment:Testing performed by : [address] [address] Glucose 103 70 - 199 mg/dL [facility] Comment: Interpretive Data Fasting glucose >/= 126 [...] was last revised 2022. Testing performed by: [address] [address] Calcium 9.3 8.5 - 10.3 mg/dL [facility] Comment:Testing performed by : [address] [address] Bilirubin, total 0.4 0.1 - 1.2 mg/dL [facility] Comment:Testing performed by : [address] [address] Protein, pl 7.2 6.5 - 8.5 g/dL [facility] Comment:Testing performed by : [address] [address] Albumin 4.1 3.5 - 5.0 g/dL [facility] Comment:Testing performed by : [address] [address] Alk phos 161(H) 40 - 130 Units/L ADARSH GARCIA Comment:Testing performed by : [facility], [address] [place] [address]., [address] ALT 9 7 - 45 Units/L ADARSH GARCIA Comment:Testing performed by : [facility], [address] [place] [address]., [address] AST 17 10 - 45 Units/L ADARSH GARCIA Comment:Testing performed by : [address] [address] Blood 02/01/2025 3:10 PM CDT 02/01/2025 3:22 PM CDT us Virgil Vanegas DO LAB BLOOD ORDERABLES Final Result ADARSH [facility]6 [facility] Department [place] [address] * RAD ONC ARIA SESSION SUMMARY (02/01/2025 2:07 PM CDT) Course Name C1_R_Breast ARIA Course [...] ORD ERABLES Final Result Performing Organization Address City/[facility]/ZIP Co de Phone Number DOM * RAD ONC ARIA SESSION SUMMARY (01/27/2025 [...] ORD ERABLES Final Result Performing Organization Address [facility] Co de Phone Number DOM * RAD [...] (01/16/2025 1:40 PM CDT) Course Name C1_R_Breast _2024 [...] ORD ERABLES Final Result Performing Organization Address City/[facility]/ZIP Co de Phone Number DOM * Differential, auto (01/04/2025 1:26 PM DURABLE MEDICAL EQUIPMENT REPAIRER) Neutrophil abs 2.4 1.5 - 6.5 K/cumm Comment:Testing performed by : [address] [address] Imm gran abs 0.0 0.0 - 0.1 K/cumm ADARSH Comment:Testing performed by : [address] [address] Lymphocyte abs 2.0 0.8 - 3.3 K/cumm ADARSH Comment:Testing performed by : [address] [address] Monocyte abs 0.5 0.2 - 0.8 K/cumm ADARSH Comment:Testing performed by : [address] [address] Eosinophil abs 0.1 0.0 - 0.5 K/cumm ADARSH Comment:Testing performed by : [address] [address] Basophil abs 0.0 0.0 - 0.1 K/cumm ADARSH Comment:Testing performed by : [address] [address] Neutrophil pct 48.6 % [facility] Comment: Interpretive Data Percent cell count reference ranges are not reported, since discordance with absolute values may lead to misinterpretation of CBC data. Current Interpretive Data was last revised on 2018. Testing performed by: [address] [address] Imm gran pct 0.0 % [facility] Comment: Interpretive Data Percent cell count reference ranges are not reported, since discordance with absolute values may lead to misinterpretation of CBC data. Current Interpretive Data was last revised on 2018. Testing performed by: [address] [address] Lymphocyte pct 39.5 % [facility] Comment: Interpretive Data Percent cell count reference ranges are not reported, since discordance with absolute values may lead to misinterpretation of CBC data. Current Interpretive Data was last revised on 2018. Testing performed by: [address] [address] Monocyte pct 9.1 % [facility] Comment: Interpretive Data Percent cell count reference ranges are not reported, since discordance with absolute values may lead to misinterpretation of CBC data. Current Interpretive Data was last revised on 2018. Testing performed by: [address] [address] Eosinophil pct 2.4 % [facility] Comment: Interpretive Data Percent cell count reference ranges are not reported, since discordance with absolute values may lead to misinterpretation of CBC data. Current Interpretive Data was last revised on 2018. Testing performed by: [address] [address] Basophil pct 0.4 % [facility] Comment: Interpretive Data Percent cell count reference ranges are not reported, since discordance with absolute values may lead to misinterpretation of CBC data. Current Interpretive Data was last revised on 2018. Testing performed by: [address] [address] Blood 01/04/2025 1:26 PM DURABLE MEDICAL EQUIPMENT REPAIRER 01/04/2025 1:41 PM DURABLE MEDICAL EQUIPMENT REPAIRER Francisca Stokes PRODUCT MARKETING ENGINEER LAB BLOOD ORDERABLES Final Result ADARSH [address] [facility] Department [place] [address] * (ABNORMAL) CBC with auto differential (01/04/2025 1:26 PM DURABLE MEDICAL EQUIPMENT REPAIRER) WBC 4.9 3.8 - 9.9 K/cumm Comment:Testing performed by : [address] [address] Hgb 9.9(L) 11.9 - 15.5 g/dL ADARSH Comment:Testing performed by : [address] [address] Hct 31.0(L) 35.6 - 45.5 % ADARSH Comment:Testing performed by : [address] [address]000 Plt 152 150 - 400 K/cumm ADARSH Comment:Testing performed by : [address] [address] MPV 10.0 9.1 - 12.3 fL ADARSH Comment:Testing performed by : [address] [address] RBC 3.40(L) 3.90 - 5.20 M/cumm ADARSH Comment:Testing performed by : [address] [address] MCV 91.2 81.3 - 96.4 fL ADARSH Comment:Testing performed by : [address] [address] MCH 29.1 27.1 - 33.3 pg ADARSH Comment:Testing performed by : [address] [address] MCHC 31.9(L) 32.3 - 35.7 g/dL ADARSH Comment:Testing performed by : [address], [address] RDW CV 20.7(H) 11.1 - 14.9 % ADARSH GARCIA Comment:Testing performed by : [address] [address] RDW SD 69.3(H) 35.7 - 48.1 fL ADARSH GARCIA Comment:Testing performed by : [address] [address] NRBC abs 0.00 0.00 - 0.01 K/cumm ADARSH GARCIA Comment:Testing performed by : [address] [address] Blood 01/04/2025 1:26 PM DURABLE MEDICAL EQUIPMENT REPAIRER 01/04/2025 1:41 PM DURABLE MEDICAL EQUIPMENT REPAIRER Francisca Stokes NP LAB BLOOD ORDERABLES Final Result ADARSH [facility]0 [facility] [place] [address] * Reticulocyte Count (01/04/2025 1:26 PM DURABLE MEDICAL EQUIPMENT REPAIRER) [facility] Retics, absolute 0.059 0.020 - 0.087 M/cumm Comment:Testing performed by : [address] [address] Retics 1.7 0.4 - 2.9 % ADARSH GARCIA Comment:Testing performed by : [address] [address] Reticulocyte Hgb 33.4 30.5 - 38.0 pg ADARSH GARCIA Comment:Testing performed by : [address] [address] Blood 01/04/2025 1:26 PM DURABLE MEDICAL EQUIPMENT REPAIRER 01/04/2025 1:41 PM DURABLE MEDICAL EQUIPMENT REPAIRER Francisca Stokes NP LAB BLOOD ORDERABLES Final Result ADARSH [facility]5 [facility] [place] [address] * TSH (01/04/2025 1:26 PM DURABLE MEDICAL EQUIPMENT REPAIRER) Thyroid Stimulating Hormone 1.10 0.30 - 4.20 mcIUnit/mL Comment:Testing performed by : [facility], [address] [place] [address]., [address] Blood 01/04/2025 1:26 PM DURABLE MEDICAL EQUIPMENT REPAIRER 01/04/2025 4:14 PM DURABLE MEDICAL EQUIPMENT REPAIRER Francisca Stokes PRODUCT MARKETING ENGINEER LAB BLOOD ORDERABLES Final Result Performing Organization Address [facility] Co de Phone Number ADARSH [address] [address] * (ABNORMAL) Ferritin (01/04/2025 1:26 PM DURABLE MEDICAL EQUIPMENT REPAIRER) Pathologist [facility] Ferritin 348(H) 15 - 150 ng/mL Comment:Testing performed by : [facility], [address] [place] [address]., [address] Blood 01/04/2025 1:26 PM DURABLE MEDICAL EQUIPMENT REPAIRER 01/04/2025 4:14 PM DURABLE MEDICAL EQUIPMENT REPAIRER Francisca Stokes PRODUCT MARKETING ENGINEER LAB BLOOD ORDERABLES Final Result Performing Organization Address [facility] de Phone Number MARK[address] [address] * eGFR (12/21/2024 5:45 AM DURABLE MEDICAL EQUIPMENT REPAIRER) eGFR >90 >=60 mL/min/1. 73 m2 Comment: [...] of Race in Diagnosing Kidney Disease, JASN 2021). The CKD-EPI equation should not be used for patients with unstable renal function and has not been validated in children and those over 70. Current interpretive data was last reviewed 2021. Testing performed by: [address] [address] Blood 12/21/2024 5:45 AM DURABLE MEDICAL EQUIPMENT REPAIRER 12/21/2024 5:48 AM DURABLE MEDICAL EQUIPMENT REPAIRER us Tom Pandya MD LAB BLOOD ORDERABLES F inal Result [facility] [address] [facility] Department [place] [address] * Differential, auto (12/21/2024 5:45 AM DURABLE MEDICAL EQUIPMENT REPAIRER) Neutrophil abs 1.6 1.5 - 6.5 K/cumm Comment:Testing performed by : [address] [address] Imm gran abs 0.0 0.0 - 0.1 K/cumm ADARSH Comment:Testing performed by : [address] [address] Lymphocyte abs 1.9 0.8 - 3.3 K/cumm ADARSH Comment:Testing performed by : [address] [address] Monocyte abs 0.3 0.2 - 0.8 K/cumm ADARSH Comment:Testing performed by : [address] [address] Eosinophil abs 0.0 0.0 - 0.5 K/cumm ADARSH Comment:Testing performed by : [address] [address] Basophil abs 0.0 0.0 - 0.1 K/cumm ADARSH Comment:Testing performed by : [address] [address] Neutrophil pct 42.7 % ADARSH Comment: Interpretive Data Percent cell count reference ranges are not reported, since discordance with absolute values may lead to misinterpretation of CBC data. Current Interpretive Data was last revised on 2018. Testing performed by: [address] [address] Imm gran pct 0.0 % [facility] Comment: Interpretive Data Percent cell count reference ranges are not reported, since discordance with absolute values may lead to misinterpretation of CBC data. Current Interpretive Data was last revised on 2018. Testing performed by: [address] [address] Lymphocyte pct 49.7 % [facility] Comment: Interpretive Data Percent cell count reference ranges are not reported, since discordance with absolute values may lead to misinterpretation of CBC data. Current Interpretive Data was last revised on 2018. Testing performed by: [address] [address] Monocyte pct 7.3 % [facility] Comment: Interpretive Data Percent cell count reference ranges are not reported, since discordance with absolute values may lead to misinterpretation of CBC data. Current Interpretive Data was last revised on 2018. Testing performed by: [address] [address] Eosinophil pct 0.0 % [facility] Comment: Interpretive Data Percent cell count reference ranges are not reported, since discordance with absolute values may lead to misinterpretation of CBC data. Current Interpretive Data was last revised on 2018. Testing performed by: [address] [address] Basophil pct 0.3 % [facility] Comment: Interpretive Data Percent cell count reference ranges are not reported, since discordance with absolute values may lead to misinterpretation of CBC data. Current Interpretive Data was last revised on 2018. Testing performed by: [address] [address] Blood 12/21/2024 5:45 AM DURABLE MEDICAL EQUIPMENT REPAIRER 12/21/2024 5:48 AM DURABLE MEDICAL EQUIPMENT REPAIRER us Tom Pandya MD LAB BLOOD ORDERABLES F inal Result ADARSH [address] [facility] Department [place] [address] * (ABNORMAL) CBC with auto differential (12/21/2024 5:45 AM DURABLE MEDICAL EQUIPMENT REPAIRER) [facility] WBC 3.7(L) 3.8 - 9.9 K/cumm Comment:Testing performed by : [address] [address] Hgb 9.0(L) 11.9 - 15.5 g/dL ADARSH Comment:Testing performed by : [address] [address] Hct 29.0(L) 35.6 - 45.5 % ADARSH Comment:Testing performed by : [address], [address] Plt 159 150 - 400 K/cumm ADARSH Comment:Testing performed by : [address], [address] MPV 11.8 9.1 - 12.3 fL ADARSH Comment:Testing performed by : [address], [address] RBC 3.17(L) 3.90 - 5.20 M/cumm ADARSH Comment:Testing performed by : [address], [address] MCV 91.5 81.3 - 96.4 fL ADARSH Comment:Testing performed by : [address], [address] MCH 28.4 27.1 - 33.3 pg ADARSH Comment:Testing performed by : [address], [address] MCHC 31.0(L) 32.3 - 35.7 g/dL ADARSH Comment:Testing performed by : [address], [address] RDW CV 23.3(H) 11.1 - 14.9 % ADARSH Comment:Testing performed by : [address], [address] RDW SD 77.9(H) 35.7 - 48.1 fL ADARSH Comment:Testing performed by : [address] [address] NRBC abs 0.00 0.00 - 0.01 K/cumm ADARSH Comment:Testing performed by : [address] [address] Blood 12/21/2024 5:45 AM DURABLE MEDICAL EQUIPMENT REPAIRER 12/21/2024 5:48 AM DURABLE MEDICAL EQUIPMENT REPAIRER us Tom Pandya MD LAB BLOOD ORDERABLES F inal Result ADARSH [address] [facility] Department [place] [address] * Basic metabolic panel (12/21/2024 5:45 AM DURABLE MEDICAL EQUIPMENT REPAIRER) Sodium 141 135 - 145 mmol/L Comment:Testing performed by : [address] [address] Potassium, pl 4.2 3.3 - 4.9 mmol/L ADARSH Comment:Testing performed by : [address] [address] Chloride 105 97 - 110 mmol/L ADARSH Comment:Testing performed by : [address] [address] CO2 29 22 - 32 mmol/L ADARSH Comment:Testing performed by : [address] [address] Anion gap 7 2 - 15 mmol/L ADARSH Comment:Testing performed by : [address] [address] BUN 14 6 - 25 mg/dL ADARSH Comment:Testing performed by : [address] [address] Creatinine 0.60 0.60 - 1.10 mg/dL ADARSH Comment:Testing performed by : [address] [address] Glucose 92 70 - 199 mg/dL ADARSH [...] was last revised 2022. Testing performed by: [facility], [address] [place] [address]., [address] Calcium 8.9 8.5 - 10.3 mg/dL ADARSH GARCIA Comment:Testing performed by : [facility], [address] [place] [address]., [address] Blood 12/21/2024 5:45 AM DURABLE MEDICAL EQUIPMENT REPAIRER 12/21/2024 5:48 AM DURABLE MEDICAL EQUIPMENT REPAIRER us Tom Pandya MD LAB BLOOD ORDERABLES F inal Result Performing Organization Address City/State/[facility] Co de Phone Number ADARSH [address] [facility] [place] [address] * CT Chest PE (CTA) W Contrast (12/20/2024 8:21 AM DURABLE MEDICAL EQUIPMENT REPAIRER) Anatomical Region Laterality Modality Body N/A Computed Tomogra phy 12/20/2024 8:37 AM DURABLE MEDICAL EQUIPMENT REPAIRER Narrative 12/20/2024 8:55 AM DURABLE MEDICAL EQUIPMENT REPAIRER EXAM DESCRIPTION: CT CHEST PE (CTA) W [...] Lawrence Gandara M.D. AM: AM Report ID: [id number] Reading Location: [id number] Procedure Note Lawrence Gandara MD - 12/20/2024 [...] Lawrence Gandara M.D. AM: AM Report ID: [id number] Reading Location: [place] [address] Saulupkaylan Ahmadi MD IMG CT FL OCEDURES Final Result * eGFR (12/20/2024 6:51 AM DURABLE MEDICAL EQUIPMENT REPAIRER) eGFR >90 >=60 mL/min/1. 73 m2 Comment: [...] was last reviewed 2021. Testing performed by: [address] [address] Blood 12/20/2024 6:51 AM DURABLE MEDICAL EQUIPMENT REPAIRER 12/20/2024 6:55 AM DURABLE MEDICAL EQUIPMENT REPAIRER us Tom Pandya MD LAB BLOOD ORDERABLES F inal Result [facility] [address] [facility] Department [place] [address] * (ABNORMAL) Differential, auto (12/20/2024 6:51 AM DURABLE MEDICAL EQUIPMENT REPAIRER) Neutrophil abs 1.0(L) 1.5 - 6.5 K/cumm Comment:Testing performed by : [address] [address] Imm gran abs 0.0 0.0 - 0.1 K/cumm ADARSH Comment:Testing performed by : [address] [address] Lymphocyte abs 1.9 0.8 - 3.3 K/cumm ADARSH Comment:Testing performed by : [address] [address] Monocyte abs 0.2 0.2 - 0.8 K/cumm ADARSH Comment:Testing performed by : [address] [address] Eosinophil abs 0.0 0.0 - 0.5 K/cumm ADARSH Comment:Testing performed by : [address] [address] Basophil abs 0.0 0.0 - 0.1 K/cumm ADARSH Comment:Testing performed by : [address] [address] Neutrophil pct 31.4 % ADARSH Comment: Interpretive Data Percent cell count reference ranges are not reported, since discordance with absolute values may lead to misinterpretation of CBC data. Current Interpretive Data was last revised on 2018. Testing performed by: [address] [address] Imm gran pct 0.3 % ADARSH Comment: Interpretive Data Percent cell count reference ranges are not reported, since discordance with absolute values may lead to misinterpretation of CBC data. Current Interpretive Data was last revised on 2018. Testing performed by: [address] [address] Lymphocyte pct 60.3 % ADAR[facility] Comment: Interpretive Data Percent cell count reference ranges are not reported, since discordance with absolute values may lead to misinterpretation of CBC data. Current Interpretive Data was last revised on 2018. Testing performed by: [address] [address] Monocyte pct 7.4 % [facility] Comment: Interpretive Data Percent cell count reference ranges are not reported, since discordance with absolute values may lead to misinterpretation of CBC data. Current Interpretive Data was last revised on 2018. Testing performed by: [address] [address] Eosinophil pct 0.3 % [facility] Comment: Interpretive Data Percent cell count reference ranges are not reported, since discordance with absolute values may lead to misinterpretation of CBC data. Current Interpretive Data was last revised on 2018. Testing performed by: [address] [address] Basophil pct 0.3 % [facility] Comment: Interpretive Data Percent cell count reference ranges are not reported, since discordance with absolute values may lead to misinterpretation of CBC data. Current Interpretive Data was last revised on 2018. Testing performed by: [address] [address] Blood 12/20/2024 6:51 AM DURABLE MEDICAL EQUIPMENT REPAIRER 12/20/2024 6:55 AM DURABLE MEDICAL EQUIPMENT REPAIRER us Tom Pandya MD LAB BLOOD ORDERABLES F inal Result [facility] [address] [facility] Department [place] [address] * (ABNORMAL) CBC with auto differential (12/20/2024 6:51 AM DURABLE MEDICAL EQUIPMENT REPAIRER) WBC 3.1(L) 3.8 - 9.9 K/cumm Comment:Testing performed by : [address] [address] Hgb 8.8(L) 11.9 - 15.5 g/dL [facility] Comment:Testing performed by : [address] [address] Hct 28.8(L) 35.6 - 45.5 % [facility] Comment:Testing performed by : [address] [address] Plt 135(L) 150 - 400 K/cumm [facility] Comment:Testing performed by : [address] [address] MPV 10.4 9.1 - 12.3 fL [facility] Comment:Testing performed by : [address] [address] RBC 3.11(L) 3.90 - 5.20 M/cumm [facility] Comment:Testing performed by : [address] [address] MCV 92.6 81.3 - 96.4 fL [facility] Comment:Testing performed by : [address] [address] MCH 28.3 27.1 - 33.3 pg [facility] GARCIA Comment:Testing performed by : [address] [address] MCHC 30.6(L) 32.3 - 35.7 g/dL [facility] Comment:Testing performed by : [address] [address] RDW CV 23.8(H) 11.1 - 14.9 % [facility] GARCIA Comment:Testing performed by : [address] [address] RDW SD 78.8(H) 35.7 - 48.1 fL [facility] GARCIA Comment:Testing performed by : [address] [address] NRBC abs 0.00 0.00 - 0.01 K/cumm [facility] GARCIA Comment:Testing performed by : [address] [address] Blood 12/20/2024 6:51 AM DURABLE MEDICAL EQUIPMENT REPAIRER 12/20/2024 6:55 AM DURABLE MEDICAL EQUIPMENT REPAIRER us Tom Pandya MD LAB BLOOD ORDERABLES F inal Result [facility] Department [place] [address] * (ABNORMAL) Basic metabolic panel (12/20/2024 6:51 AM DURABLE MEDICAL EQUIPMENT REPAIRER) Sodium 139 135 - 145 mmol/L Comment:Testing performed by : [address], [address] Potassium, pl 3.7 3.3 - 4.9 mmol/L [facility] Comment:Testing performed by : [address] [address] Chloride 103 97 - 110 mmol/L [facility] Comment:Testing performed by : [address] [address] CO2 28 22 - 32 mmol/L [facility] GARCIA Comment:Testing performed by : [address] [address] Anion gap 8 2 - 15 mmol/L [facility] Comment:Testing performed by : [address] [address] BUN 13 6 - 25 mg/dL [facility] Comment:Testing performed by : [address] [address] Creatinine 0.50(L) 0.60 - 1.10 mg/dL [facility] GARCIA Comment:Testing performed by : [address] [address] Glucose 129 70 - 199 mg/dL [facility] Comment: Interpretive [...] was last revised 2022. Testing performed by: [address] [address] Calcium 8.6 8.5 - 10.3 mg/dL [facility] Comment:Testing performed by : [address] [address] Blood 12/20/2024 6:51 AM DURABLE MEDICAL EQUIPMENT REPAIRER 12/20/2024 6:55 AM DURABLE MEDICAL EQUIPMENT REPAIRER us Tom Pandya MD LAB BLOOD ORDERABLES F inal Result [facility] [address] [facility] [place] [address] * ECG 12 lead (12/20/2024 12:21 AM DURABLE MEDICAL EQUIPMENT REPAIRER) Ventricular Rate EKG/Min [address] [facility] Atrial Rate [address] [facility] FL-Interval (MSEC) [address] [facility] QRS-Interval (MSEC) [address] [facility] QT-Interval (MSEC) [address] [facility] QTc [address] [facility] P [place] [address] [facility] R [place] 49 degrees [facility] T [place] [address] [facility] Diagnosis Sinus bradycardia Septal infarct , age undetermined Abnormal ECG Compared to previous tracing of 17-DEC-2024 17:27 No significant change was found Confirmed by RIKNU ROMERO M.D. ([id number]) on 12/20/2024 8:35:38 PM [facility] 12/20/2024 12:2 1 AM DURABLE MEDICAL EQUIPMENT REPAIRER 12/20/2024 8:35 PM DURABLE MEDICAL EQUIPMENT REPAIRER us Tom Pandya MD ECG ORDERABLES Final Result Performing Organization Address [facility]/ZIP Co de Phone Number [facility] * eGFR (12/19/2024 7:49 AM DURABLE MEDICAL EQUIPMENT REPAIRER) eGFR >90 >=60 mL/min/1. 73 m2 Comment: [...] was last reviewed 2021. Testing performed by: [facility], [address] [place] [address]., [address] Blood 12/19/2024 7:49 AM DURABLE MEDICAL EQUIPMENT REPAIRER 12/19/2024 8:09 AM DURABLE MEDICAL EQUIPMENT REPAIRER us Tmo Pandya MD LAB BLOOD ORDERABLES F inal Result [facility] [address] [facility] Department [place] [address] * (ABNORMAL) Differential, auto (12/19/2024 7:49 AM DURABLE MEDICAL EQUIPMENT REPAIRER) Neutrophil abs 1.0(L) 1.5 - 6.5 K/cumm Comment:Testing performed by : [address] [address] Imm gran abs 0.0 0.0 - 0.1 K/cumm [facility] Comment:Testing performed by : [address] [address] Lymphocyte abs 1.2 0.8 - 3.3 K/cumm [facility] Comment:Testing performed by : [address] [address] Monocyte abs 0.4 0.2 - 0.8 K/cumm [facility] Comment:Testing performed by : [address], [place]., [address] Eosinophil abs 0.0 0.0 - 0.5 K/cumm [facility] Comment:Testing performed by : [address] [address] Basophil abs 0.0 0.0 - 0.1 K/cumm [facility] Comment:Testing performed by : [address] [address] Neutrophil pct 37.5 % [facility] Comment: Interpretive Data Percent cell count reference ranges are not reported, since discordance with absolute values may lead to misinterpretation of CBC data. Current Interpretive Data was last revised on 2018. Testing performed by: [address] [address] Imm gran pct 0.0 % [facility] Comment: Interpretive Data Percent cell count reference ranges are not reported, since discordance with absolute values may lead to misinterpretation of CBC data. Current Interpretive Data was last revised on 2018. Testing performed by: [address] [address] Lymphocyte pct 46.6 % [facility] Comment: Interpretive Data Percent cell count reference ranges are not reported, since discordance with absolute values may lead to misinterpretation of CBC data. Current Interpretive Data was last revised on 2018. Testing performed by: [address] [address] Monocyte pct 15.5 % [facility] Comment: Interpretive Data Percent cell count reference ranges are not reported, since discordance with absolute values may lead to misinterpretation of CBC data. Current Interpretive Data was last revised on 2018. Testing performed by: [address] [address] Eosinophil pct 0.0 % [facility] Comment: Interpretive Data Percent cell count reference ranges are not reported, since discordance with absolute values may lead to misinterpretation of CBC data. Current Interpretive Data was last revised on 2018. Testing performed by: [address] [address] Basophil pct 0.4 % [facility] Comment: Interpretive Data Percent cell count reference ranges are not reported, since discordance with absolute values may lead to misinterpretation of CBC data. Current Interpretive Data was last revised on 2018. Testing performed by: [address] [address] Blood 12/19/2024 7:49 AM DURABLE MEDICAL EQUIPMENT REPAIRER 12/19/2024 8:08 AM DURABLE MEDICAL EQUIPMENT REPAIRER us Tom Pandya MD LAB BLOOD ORDERABLES F inal Result [facility] [address] [facility] Department of Laboratories [place], [place] [id number] * (ABNORMAL) CBC with auto differential (12/19/2024 7:49 AM DURABLE MEDICAL EQUIPMENT REPAIRER) Pathologist [facility] WBC 2.6(L) 3.8 - 9.9 K/cumm Comment:Testing performed by : [address] [address] Hgb 9.0(L) 11.9 - 15.5 g/dL [facility] Comment:Testing performed by : [address] [address] Hct 29.0(L) 35.6 - 45.5 % [facility] Comment:Testing performed by : [address] [address] Plt 152 150 - 400 K/cumm [facility] Comment:Testing performed by : [address] [address] MPV 10.9 9.1 - 12.3 fL [facility] GARCIA Comment:Testing performed by : [address] [address] RBC 3.18(L) 3.90 - 5.20 M/cumm [facility] GARCIA Comment:Testing performed by : [address] [address] MCV 91.2 81.3 - 96.4 fL [facility] GARCIA Comment:Testing performed by : [address] [address] MCH 28.3 27.1 - 33.3 pg [facility] GARCIA Comment:Testing performed by : [address] [address] MCHC 31.0(L) 32.3 - 35.7 g/dL [facility] Comment:Testing performed by : [address] [address] RDW CV 23.4(H) 11.1 - 14.9 % [facility] Comment:Testing performed by : [address] [address] RDW SD 77.7(H) 35.7 - 48.1 fL [facility] Comment:Testing performed by : [address] [address] NRBC abs 0.00 0.00 - 0.01 K/cumm [facility] Comment:Testing performed by : [address], [address] Blood 12/19/2024 7:49 AM DURABLE MEDICAL EQUIPMENT REPAIRER 12/19/2024 8:08 AM DURABLE MEDICAL EQUIPMENT REPAIRER us Tom Pandya MD LAB BLOOD ORDERABLES F inal Result [facility] [address] [facility] Department [place] [address] * (ABNORMAL) D-dimer, quantitative (12/19/2024 7:49 AM DURABLE MEDICAL EQUIPMENT REPAIRER) D-Dimer 1,990(H) <=499 ng/mL FEU Comment: Interpretive [...] last revised on 2019. Testing performed by: [address] [address] Blood 12/19/2024 7:49 AM DURABLE MEDICAL EQUIPMENT REPAIRER 12/19/2024 8:09 AM DURABLE MEDICAL EQUIPMENT REPAIRER us Tom Pandya MD LAB BLOOD ORDERABLES F inal Result Performing Organization Address [facility] Co de Phone Number [address] [place] [address] * CRP (acute phase) (12/19/2024 7:49 AM DURABLE MEDICAL EQUIPMENT REPAIRER) CRP 4.9 <=10.0 mg/L Comment:Testing performed by : [address] [address] Blood 12/19/2024 7:49 AM DURABLE MEDICAL EQUIPMENT REPAIRER 12/19/2024 8:09 AM DURABLE MEDICAL EQUIPMENT REPAIRER us Tom Pandya MD LAB BLOOD ORDERABLES F inal Result Performing Organization Address City/[facility] Co de Phone Number [address] [place] [address] * Magnesium (12/19/2024 7:49 AM DURABLE MEDICAL EQUIPMENT REPAIRER) Magnesium 2.1 1.4 - 2.5 mg/dL Comment:Testing performed by : [address] [address] Blood 12/19/2024 7:49 AM DURABLE MEDICAL EQUIPMENT REPAIRER 12/19/2024 8:09 AM DURABLE MEDICAL EQUIPMENT REPAIRER us Tom Pandya MD LAB BLOOD ORDERABLES F inal Result [facility] [address] [facility] [place] [address] * Basic metabolic panel (12/19/2024 7:49 AM DURABLE MEDICAL EQUIPMENT REPAIRER) Sodium 141 135 - 145 mmol/L Comment:Testing performed by : [address] [address] Potassium, pl 3.9 3.3 - 4.9 mmol/L [facility] Comment:Testing performed by : [address] [address] Chloride 105 97 - 110 mmol/L [facility] Comment:Testing performed by : [address] [address] CO2 29 22 - 32 mmol/L [facility] Comment:Testing performed by : [address] [address] Anion gap 7 2 - 15 mmol/L [facility] Comment:Testing performed by : [address] [address] BUN 13 6 - 25 mg/dL [facility] Comment:Testing performed by : [address] [address] Creatinine 0.60 0.60 - 1.10 mg/dL [facility] Comment:Testing performed by : [address] [address] Glucose 104 70 - 199 mg/dL [facility] [...] was last revised 2022. Testing performed by: [address] [address] Calcium 8.8 8.5 - 10.3 mg/dL [facility] Comment:Testing performed by : [address] [address] Blood 12/19/2024 7:49 AM DURABLE MEDICAL EQUIPMENT REPAIRER 12/19/2024 8:09 AM DURABLE MEDICAL EQUIPMENT REPAIRER us Tom Pandya MD LAB BLOOD ORDERABLES F inal Result [facility]0 [facility] Department [place] [address] * (ABNORMAL) Differential, auto (12/18/2024 6:36 AM DURABLE MEDICAL EQUIPMENT REPAIRER) Neutrophil abs 1.4(L) 1.5 - 6.5 K/cumm Comment:Testing performed by : [address] [address] Imm gran abs 0.0 0.0 - 0.1 K/cumm [facility] Comment:Testing performed by : [address] [address] Lymphocyte abs 0.6(L) 0.8 - 3.3 K/cumm [facility] Comment:Testing performed by : [address] [address] Monocyte abs 0.4 0.2 - 0.8 K/cumm [facility] Comment:Testing performed by : [address] [address] Eosinophil abs 0.0 0.0 - 0.5 K/cumm [facility] Comment:Testing performed by : [address] [address] Basophil abs 0.0 0.0 - 0.1 K/cumm [facility] Comment:Testing performed by : [address] [address] Neutrophil pct 56.4 % [facility] Comment: Interpretive Data Percent cell count reference ranges are not reported, since discordance with absolute values may lead to misinterpretation of CBC data. Current Interpretive Data was last revised on 2018. Testing performed by: [address] [address] Imm gran pct 0.0 % [facility] Comment: Interpretive Data Percent cell count reference ranges are not reported, since discordance with absolute values may lead to misinterpretation of CBC data. Current Interpretive Data was last revised on 2018. Testing performed by: [address] [address] Lymphocyte pct 24.1 % [facility] Comment: Interpretive Data Percent cell count reference ranges are not reported, since discordance with absolute values may lead to misinterpretation of CBC data. Current Interpretive Data was last revised on 2018. Testing performed by: [address] [address] Monocyte pct 18.3 % [facility] Comment: Interpretive Data Percent cell count reference ranges are not reported, since discordance with absolute values may lead to misinterpretation of CBC data. Current Interpretive Data was last revised on 2018. Testing performed by: [address] [address] Eosinophil pct 0.8 % [facility] Comment: Interpretive Data Percent cell count reference ranges are not reported, since discordance with absolute values may lead to misinterpretation of CBC data. Current Interpretive Data was last revised on 2018. Testing performed by: [address] [address] Basophil pct 0.4 % [facility] Comment: Interpretive Data Percent cell count reference ranges are not reported, since discordance with absolute values may lead to misinterpretation of CBC data. Current Interpretive Data was last revised on 2018. Testing performed by: [address] [address] Blood 12/18/2024 6:36 AM DURABLE MEDICAL EQUIPMENT REPAIRER 12/18/2024 6:36 AM DURABLE MEDICAL EQUIPMENT REPAIRER Sandra Lawrence MD LAB BLOOD ORDERABLES F inal Result [facility] [address] [facility] Department [place] [address] * (ABNORMAL) CBC with auto differential (12/18/2024 6:36 AM DURABLE MEDICAL EQUIPMENT REPAIRER) [facility] Signature WBC 2.4(L) 3.8 - 9.9 K/cumm Comment:Testing performed by : [address] [address] Hgb 9.0(L) 11.9 - 15.5 g/dL [facility] Comment:Testing performed by : [address] [address] Hct 28.5(L) 35.6 - 45.5 % [facility] Comment:Testing performed by : [address] [address] Plt 161 150 - 400 K/cumm [facility] Comment:Testing performed by : [address] [address] MPV 10.9 9.1 - 12.3 fL [facility] Comment:Testing performed by : [address] [address] RBC 3.14(L) 3.90 - 5.20 M/cumm [facility] Comment:Testing performed by : [address] [address] MCV 90.8 81.3 - 96.4 fL [facility] Comment:Testing performed by : [address] [address] MCH 28.7 27.1 - 33.3 pg [facility] Comment:Testing performed by : [address] [address] MCHC 31.6(L) 32.3 - 35.7 g/dL [facility] Comment:Testing performed by : [address] [address] RDW CV 24.0(H) 11.1 - 14.9 % [facility] Comment:Testing performed by : [address] [place] [address] RDW SD 80.5(H) 35.7 - 48.1 fL [facility] GARCIA Comment:Testing performed by : [address] [address] NRBC abs 0.00 0.00 - 0.01 K/cumm [facility] GARCIA Comment:Testing performed by : [address] [address] Blood 12/18/2024 6:36 AM DURABLE MEDICAL EQUIPMENT REPAIRER 12/18/2024 6:36 AM DURABLE MEDICAL EQUIPMENT REPAIRER Narrative [facility] - 12/18/2024 7:25 AM DURABLE MEDICAL EQUIPMENT REPAIRER Just need differential. us Sandra Lawrence MD LAB BLOOD ORDERABLES F inal Result [facility] [address] [facility] Department [place] [address] * eGFR (12/18/2024 5:50 AM DURABLE MEDICAL EQUIPMENT REPAIRER) eGFR 83 >=60 mL/min/1. 73 m2 Comment: [...] was last reviewed 2021. Testing performed by: [address] [address] Blood 12/18/2024 5:50 AM DURABLE MEDICAL EQUIPMENT REPAIRER 12/18/2024 5:52 AM DURABLE MEDICAL EQUIPMENT REPAIRER Sanjiv Cruz MD LAB BLOOD ORDER UMBERTO Final Result [facility] [address] [facility] Department [place] [address] * (ABNORMAL) CBC without differential (12/18/2024 5:50 AM DURABLE MEDICAL EQUIPMENT REPAIRER) WBC 2.5(L) 3.8 - 9.9 K/cumm Comment:Testing performed by : [address] [address] Hgb 9.0(L) 11.9 - 15.5 g/dL [facility] Comment:Testing performed by : [address] [address] Hct 28.3(L) 35.6 - 45.5 % [facility] Comment:Testing performed by : [address] [address] Plt 155 150 - 400 K/cumm [facility] Comment:Testing performed by : [address], [address] MPV 10.3 9.1 - 12.3 fL [facility] Comment:Testing performed by : [address] [address] RBC 3.14(L) 3.90 - 5.20 M/cumm [facility] Comment:Testing performed by : [address] [address] MCV 90.1 81.3 - 96.4 fL [facility] Comment:Testing performed by : [address] [address] MCH 28.7 27.1 - 33.3 pg [facility] Comment:Testing performed by : [address] [address] MCHC 31.8(L) 32.3 - 35.7 g/dL [facility] Comment:Testing performed by : [address], [address] RDW CV 23.9(H) 11.1 - 14.9 % [facility] GARCIA Comment:Testing performed by : [address] [address] RDW SD 78.6(H) 35.7 - 48.1 fL [facility] GARCIA Comment:Testing performed by : [address] [address] NRBC abs 0.00 0.00 - 0.01 K/cumm [facility] GARCIA Comment:Testing performed by : [address] [address] Blood 12/18/2024 5:50 AM DURABLE MEDICAL EQUIPMENT REPAIRER 12/18/2024 5:52 AM DURABLE MEDICAL EQUIPMENT REPAIRER Sanjiv Cruz MD LAB BLOOD ORDER UMBERTO Final Result [facility]0 [facility] Department [place] [address] * (ABNORMAL) Comprehensive metabolic panel (12/18/2024 5:50 AM DURABLE MEDICAL EQUIPMENT REPAIRER) Sodium 140 135 - 145 mmol/L Comment:Testing performed by : [address] [address] Potassium, pl 3.5 3.3 - 4.9 mmol/L [facility] Comment:Testing performed by : [address] [address] Chloride 100 97 - 110 mmol/L [facility] Comment:Testing performed by : [address] [address] CO2 30 22 - 32 mmol/L [facility] Comment:Testing performed by : [address] [address] Anion gap 10 2 - 15 mmol/L [facility] Comment:Testing performed by : [address] [address] BUN 12 6 - 25 mg/dL [facility] Comment:Testing performed by : [address] [address] Creatinine 0.80 0.60 - 1.10 mg/dL [facility] GARCIA Comment:Testing performed by : [address] [address] Glucose 142 70 - 199 mg/dL [facility] Comment: Interpretive [...] was last revised 2022. Testing performed by: [address] [address] Calcium 8.4(L) 8.5 - 10.3 mg/dL [facility] Comment:Testing performed by : [address] [address] Bilirubin, total 0.2 0.1 - 1.2 mg/dL [facility] Comment:Testing performed by : [address] [address] Protein, pl 6.4(L) 6.5 - 8.5 g/dL [facility] Comment:Testing performed by : [address] [address] Albumin 3.4(L) 3.5 - 5.0 g/dL [facility] Comment:Testing performed by : [address] [address] Alk phos 116 40 - 130 Units/L [facility] Comment:Testing performed by : [address] [address] ALT 12 7 - 45 Units/L [facility] Comment:Testing performed by : [address] [address] AST 18 10 - 45 Units/L [facility] Comment:Testing performed by : [address] [address] Blood 12/18/2024 5:50 AM DURABLE MEDICAL EQUIPMENT REPAIRER 12/18/2024 5:52 AM DURABLE MEDICAL EQUIPMENT REPAIRER Sanjiv Cruz MD LAB BLOOD ORDER UMBERTO Final Result [facility] GARCIA [address] [facility] [place] [address] * (ABNORMAL) Urinalysis reflex to microscopic and culture Urine (12/17/2024 5:51 PM DURABLE MEDICAL EQUIPMENT REPAIRER) Color, ur Yellow Yellow Comment:Testing performed by : [address] [address] Clarity, ur Clear Clear [facility] Comment:Testing performed by : [address] [address] Specific gravity, ur 1.016 1.003 - 1.030 [facility] Comment:Testing performed by : [address] [address] pH, urine 7.5 [facility] Comment: Interpretive Data U rine pH is affected by diet, medications, systemic acid-base disturbances, and renal tubular function. pH may affect urinary stone formation. For example, urine pH below 6.0 may help reduce the tendency for calcium phosphate stones and pH greater than 6.0 may reduce the tendency for uric acid stone formation. Source: [facility] Current Interpretive Data was last revised on 2017 Testing performed by: [address] [address] Protein, ur ql Trace(A) Negative [facility] Comment:Testing performed by : [address] [address] Glucose, ur ql Negative Negative [facility] Comment:Testing performed by : [address] [address] Ketones, ur Negative Negative [facility] Comment:Testing performed by : [address] [address] Bilirubin, ur Negative Negative ADARSH GARCIA Comment:Testing performed by : [address] [address] Blood, ur Trace(A) Negative [facility] Comment:Testing performed by : [address], [place]., [address] Urobilinogen, ur 4.0(A) <2.0 mg/dL [facility] Comment:Testing performed by : [address], [place]., [address] Nitrite, ur Negative Negative [facility] Comment:Testing performed by : [facility] [address] [place] [address], [place]., [address] Leukocyte esterase, ur Negative Negative [facility] Comment:Testing performed by : [address], [place]., [address] UA reflex comment Reflex to microscopic UA will be performed. [facility] Comment:Testing performed by : [address], [place]., [address] Urine 12/17/2024 5:51 PM DURABLE MEDICAL EQUIPMENT REPAIRER 12/17/2024 6:03 PM DURABLE MEDICAL EQUIPMENT REPAIRER Narrative ADAR[facility] - 12/17/2024 6:07 PM DURABLE MEDICAL EQUIPMENT REPAIRER If patient unable to urinate, straight cath Sandra Lawrence MD LAB MICROBIOLOGY - GEN ERAL ORDERABLES Final Result [facility] [address] [facility] [place] [address] * (ABNORMAL) Urinalysis, microscopic only (12/17/2024 5:51 PM DURABLE MEDICAL EQUIPMENT REPAIRER) WBC, ur 6-10(A) 0 - 5 /HPF Comment:Testing performed by : [facility] [address] [place] [address]., [address] RBC, ur 6-10(A) 0 - 2 /HPF [facility] Comment:Testing performed by : [address] [address] Epithelial cells, squamous, ur >50(A) 0 - 5 /HPF [facility] Comment:Testing performed by : [facility] [address] [place] [address], [place]., [address] Bacteria, ur Trace(A) [facility] Comment:Testing performed by : [address], [place]., [address] Yeast, ur 1+(A) [facility] Comment:Testing performed by : [address] [address] Culture Reflex Comment Reflex conditions for urine culture (WBC >10) not met. [facility] Comment:Testing performed by : [address] [address] Urine 12/17/2024 5:51 PM DURABLE MEDICAL EQUIPMENT REPAIRER 12/17/2024 6:03 PM DURABLE MEDICAL EQUIPMENT REPAIRER Virgil Vanegas DO LAB URINE ORDERABLES Final Result [facility] [address] [facility] [place] [address] * (ABNORMAL) Influenza A/B, RSV, and COVID-19 PCR Nasopharyngeal (12/17/2024 5:44 PM DURABLE MEDICAL EQUIPMENT REPAIRER) COVID-19 RNA Positive(A) Negative Comment:Testing performed by : [address] [address] Influenza A RNA Negative Negative ADARSH Comment:Testing performed by : [address] [address] Influenza B RNA Negative Negative ADARSH Comment:Testing performed by : [address] [address] RSV RNA Negative Negative [facility] Comment: Interpretive data: Testing performed by [facility]. This test is performed using the FIRE1 Xpert Xpress CoV-2/Flu/RSV plus assay. This is a multiplex, real-time reverse transcriptase PCR assay intended for the qualitative detection of nucleic acid from SARS-CoV-2, influenza A, influenza B, and respiratory syncytial virus. This assay has been cleared by the [place] Food and Drug administration. The performance characteristics have been verified by the [facility]. Results must be considered in the clinical context, and a negative result does not rule out infection. Interpretive Data last revised 2023 Testing performed by: [address] [address] Nasopharyngeal 12/17/2024 5: 44 PM DURABLE MEDICAL EQUIPMENT REPAIRER 12/17/2024 6:03 PM DURABLE MEDICAL EQUIPMENT REPAIRER Narrative [facility] - 12/17/2024 6:47 PM DURABLE MEDICAL EQUIPMENT REPAIRER Is the Patient experiencing symptoms consistent with COVID?->Yes us Sandra Lawrence MD LAB MICROBIOLOGY - GEN ERAL ORDERABLES Final Result ADARSH GARCIA [address] [facility] Department of Laboratories [place], [place] [id number] * (ABNORMAL) Differential, auto (12/17/2024 5:44 PM DURABLE MEDICAL EQUIPMENT REPAIRER) Neutrophil abs 4.0 1.5 - 6.5 K/cumm Comment:Testing performed by : [address] [address] Imm gran abs 0.0 0.0 - 0.1 K/cumm ADARSH Comment:Testing performed by : [address] [address] Lymphocyte abs 0.4(L) 0.8 - 3.3 K/cumm ADARSH Comment:Testing performed by : [address] [address] Monocyte abs 0.5 0.2 - 0.8 K/cumm ADARSH Comment:Testing performed by : [address] [address] Eosinophil abs 0.1 0.0 - 0.5 K/cumm ADARSH Comment:Testing performed by : [address] [address] Basophil abs 0.0 0.0 - 0.1 K/cumm ADARSH Comment:Testing performed by : [address] [address] Neutrophil pct 78.4 % [facility] Comment: Interpretive Data Percent cell count reference ranges are not reported, since discordance with absolute values may lead to misinterpretation of CBC data. Current Interpretive Data was last revised on 2018. Testing performed by: [address] [address] Imm gran pct 0.2 % [facility] Comment: Interpretive Data Percent cell count reference ranges are not reported, since discordance with absolute values may lead to misinterpretation of CBC data. Current Interpretive Data was last revised on 2018. Testing performed by: [address] [address] Lymphocyte pct 8.1 % [facility] Comment: Interpretive Data Percent cell count reference ranges are not reported, since discordance with absolute values may lead to misinterpretation of CBC data. Current Interpretive Data was last revised on 2018. Testing performed by: [address] [address] Monocyte pct 10.7 % [facility] Comment: Interpretive Data Percent cell count reference ranges are not reported, since discordance with absolute values may lead to misinterpretation of CBC data. Current Interpretive Data was last revised on 2018. Testing performed by: [address] [address] Eosinophil pct 2.2 % [facility] Comment: Interpretive Data Percent cell count reference ranges are not reported, since discordance with absolute values may lead to misinterpretation of CBC data. Current Interpretive Data was last revised on 2018. Testing performed by: [address] [address] Basophil pct 0.4 % [facility] Comment: Interpretive Data Percent cell count reference ranges are not reported, since discordance with absolute values may lead to misinterpretation of CBC data. Current Interpretive Data was last revised on 2018. Testing performed by: [address] [address] Blood 12/17/2024 5:44 PM DURABLE MEDICAL EQUIPMENT REPAIRER 12/17/2024 5:56 PM DURABLE MEDICAL EQUIPMENT REPAIRER us Sandra Lawrence MD LAB BLOOD ORDERABLES F inal Result ADARSH [address] [facility] Department [place] [address] * (ABNORMAL) CBC with auto differential (12/17/2024 5:44 PM DURABLE MEDICAL EQUIPMENT REPAIRER) WBC 5.1 3.8 - 9.9 K/cumm Comment:Testing performed by : [address] [address] Hgb 9.4(L) 11.9 - 15.5 g/dL ADARSH Comment:Testing performed by : [address] [address] Hct 29.2(L) 35.6 - 45.5 % ADARSH Comment:Testing performed by : [address] [address] Plt 156 150 - 400 K/cumm ADARSH Comment:Testing performed by : [address], [address] MPV 10.3 9.1 - 12.3 fL ADARSH Comment:Testing performed by : [address], [address] RBC 3.33(L) 3.90 - 5.20 M/cumm ADARSH Comment:Testing performed by : [address], [address] MCV 87.7 81.3 - 96.4 fL ADARSH Comment:Testing performed by : [address], [address] MCH 28.2 27.1 - 33.3 pg ADARSH Comment:Testing performed by : [address], [address] MCHC 32.2(L) 32.3 - 35.7 g/dL ADARSH Comment:Testing performed by : [address], [address] RDW CV 23.6(H) 11.1 - 14.9 % ADARSH Comment:Testing performed by : [address], [address] RDW SD 74.7(H) 35.7 - 48.1 fL ADARSH Comment:Testing performed by : [address], [address] NRBC abs 0.00 0.00 - 0.01 K/cumm ADARSH Comment:Testing performed by : [address], [address] Blood 12/17/2024 5:44 PM DURABLE MEDICAL EQUIPMENT REPAIRER 12/17/2024 5:56 PM DURABLE MEDICAL EQUIPMENT REPAIRER us Sandra Lawrence MD LAB BLOOD ORDERABLES F inal Result ADARSH [address] [facility] Department [place] [address] * ECG 12 lead (12/17/2024 5:27 PM DURABLE MEDICAL EQUIPMENT REPAIRER) Ventricular Rate EKG/Min [address] [facility] Atrial Rate 96 BPM [facility] FL-Interval (MSEC) [address] [facility] QRS-Interval (MSEC) [address] [facility] QT-Interval (MSEC) 374 ms [facility] QTc 472 ms [facility] P [place] 64 degrees [facility] R [place] 62 degrees [facility] T [place] [address] [facility] Diagnosis Normal sinus rhythm Possible Left atrial enlargement Septal infarct (cited on or before 21-NOV-2024) When compared with ECG of 05-DEC-2024 11:40, No significant change was found Confirmed by SULTAN DING M.D. ([id number]) on 12/18/2024 3:26:37 PM [facility] 12/17/2024 5:27 PM DURABLE MEDICAL EQUIPMENT REPAIRER 12/18/2024 3:26 PM DURABLE MEDICAL EQUIPMENT REPAIRER us Tom Pandya MD ECG ORDERABLES Final Result Performing Organization Address [facility] Co de Phone Number [facility] * Sepsis Lactate w/ Reflex (12/17/2024 5:19 PM DURABLE MEDICAL EQUIPMENT REPAIRER) Pathologist [facility] Sepsis Lactate 0.9 0.7 - 2.0 mmol/L Comment:Testing performed by : [facility], [address] [place] [address]., [address] Blood 12/17/2024 5:19 PM DURABLE MEDICAL EQUIPMENT REPAIRER 12/17/2024 5:23 PM DURABLE MEDICAL EQUIPMENT REPAIRER Sandra Lawrence MD LAB BLOOD ORDERABLES F inal Result ADARSH [facility] Department [place] [address] * eGFR (12/17/2024 5:19 PM DURABLE MEDICAL EQUIPMENT REPAIRER) eGFR 82 >=60 mL/min/1. 73 m2 Comment: [...] was last reviewed 2021. Testing performed by: [address] [address] Blood 12/17/2024 5:19 PM DURABLE MEDICAL EQUIPMENT REPAIRER 12/17/2024 5:23 PM DURABLE MEDICAL EQUIPMENT REPAIRER Sandra Lawrence MD LAB BLOOD ORDERABLES F inal Result Performing Organization Address City/[facility] Co de Phone Number ADARSH [facility] [place] [address] * (ABNORMAL) Comprehensive metabolic panel (12/17/2024 5:19 PM DURABLE MEDICAL EQUIPMENT REPAIRER) Pathologist [facility] Sodium 139 135 - 145 mmol/L Comment:Testing performed by : [address] [address] Potassium, pl 3.6 3.3 - 4.9 mmol/L ADARSH Comment:Testing performed by : [address] [address] Chloride 98 97 - 110 mmol/L ADARSH Comment:Testing performed by : [address] [address] CO2 31 22 - 32 mmol/L [facility]SH Comment:Testing performed by : [address] [address] Anion gap 10 2 - 15 mmol/L [facility]ARSH Comment:Testing performed by : [address] [address] BUN 9 6 - 25 mg/dL [facility] Comment:Testing performed by : [address], [place]., [address] Creatinine 0.81 0.60 - 1.10 mg/dL ADARSH Comment:Testing performed by : [address] [address] Glucose 91 70 - 199 mg/dL ADARSH [...] was last revised 2022. Testing performed by: [address] [address] Calcium 8.6 8.5 - 10.3 mg/dL [facility] Comment:Testing performed by : [address] [address] Bilirubin, total 0.5 0.1 - 1.2 mg/dL [facility] Comment:Testing performed by : [address] [address] Protein, pl 6.8 6.5 - 8.5 g/dL [facility] Comment:Testing performed by : [address] [address] Albumin 3.8 3.5 - 5.0 g/dL [facility] Comment:Testing performed by : [address] [address] Alk phos 133(H) 40 - 130 Units/L [facility] Comment:Testing performed by : [address] [address] ALT 14 7 - 45 Units/L ADARSH Comment:Testing performed by : [address] [address] AST 22 10 - 45 Units/L [facility] Comment:Testing performed by : [address] [address] Blood 12/17/2024 5:19 PM DURABLE MEDICAL EQUIPMENT REPAIRER 12/17/2024 5:23 PM DURABLE MEDICAL EQUIPMENT REPAIRER Sandra Lawrence MD LAB BLOOD ORDERABLES F inal Result ADARSH [facility] Department [place] [address] * XR Chest 1 Vw Portable (if patient condition/safety warrant portable) (12/17/2024 4:54 PM DURABLE MEDICAL EQUIPMENT REPAIRER) Anatomical Region Laterality Modality Body, Chest N/A Computed Radiogr aphy 12/17/2024 5:28 PM DURABLE MEDICAL EQUIPMENT REPAIRER Narrative 12/17/2024 5:29 PM DURABLE MEDICAL EQUIPMENT REPAIRER EXAM DESCRIPTION: XR CHEST 1 VIEW REASON [...] Todd Crooks M.D. KT: KT Report ID: [id number] Reading Location: [id number] Procedure Note Todd Crooks MD - 12/17/2024 [...] Todd Crooks M.D. KT: KT Report ID: [id number] Reading Location: [id number] Sandra Lawrence MD IMG XR PROCEDURES Shanice l Result * eGFR (12/14/2024 2:18 PM DURABLE MEDICAL EQUIPMENT REPAIRER) eGFR >90 >=60 mL/min/1. 73 m2 Comment: [...] was last reviewed 2021. Testing performed by: [address] [address] Blood 12/14/2024 2:18 PM DURABLE MEDICAL EQUIPMENT REPAIRER 12/14/2024 2:19 PM DURABLE MEDICAL EQUIPMENT REPAIRER Rinku Chow DO LAB BLOOD ORDERABLES Final R esult [facility] [address] [facility] Department [place] [address] * Differential, auto (12/14/2024 2:18 PM DURABLE MEDICAL EQUIPMENT REPAIRER) Neutrophil abs 3.4 1.5 - 6.5 K/cumm Comment:Testing performed by : [address] [address] Imm gran abs 0.0 0.0 - 0.1 K/cumm ADARSH Comment:Testing performed by : [address] [address] Lymphocyte abs 1.9 0.8 - 3.3 K/cumm ADARSH Comment:Testing performed by : [address] [address] Monocyte abs 0.6 0.2 - 0.8 K/cumm ADARSH Comment:Testing performed by : [address] [address] Eosinophil abs 0.2 0.0 - 0.5 K/cumm ADARSH Comment:Testing performed by : [address] [address] Basophil abs 0.0 0.0 - 0.1 K/cumm ADARSH Comment:Testing performed by : [address] [address] Neutrophil pct 55.6 % [facility] Comment: Interpretive Data Percent cell count reference ranges are not reported, since discordance with absolute values may lead to misinterpretation of CBC data. Current Interpretive Data was last revised on 2018. Testing performed by: [address] [address] Imm gran pct 0.5 % [facility] Comment: Interpretive Data Percent cell count reference ranges are not reported, since discordance with absolute values may lead to misinterpretation of CBC data. Current Interpretive Data was last revised on 2018. Testing performed by: [address] [address] Lymphocyte pct 31.1 % [facility] Comment: Interpretive Data Percent cell count reference ranges are not reported, since discordance with absolute values may lead to misinterpretation of CBC data. Current Interpretive Data was last revised on 2018. Testing performed by: [address] [address] Monocyte pct 9.9 % [facility] Comment: Interpretive Data Percent cell count reference ranges are not reported, since discordance with absolute values may lead to misinterpretation of CBC data. Current Interpretive Data was last revised on 2018. Testing performed by: [address] [address] Eosinophil pct 2.4 % [facility] Comment: Interpretive Data Percent cell count reference ranges are not reported, since discordance with absolute values may lead to misinterpretation of CBC data. Current Interpretive Data was last revised on 2018. Testing performed by: [address] [address] Basophil pct 0.5 % [facility] Comment: Interpretive Data Percent cell count reference ranges are not reported, since discordance with absolute values may lead to misinterpretation of CBC data. Current Interpretive Data was last revised on 2018. Testing performed by: [address] [address] Blood 12/14/2024 2:18 PM DURABLE MEDICAL EQUIPMENT REPAIRER 12/14/2024 2:19 PM DURABLE MEDICAL EQUIPMENT REPAIRER us Rinku Chow DO LAB BLOOD ORDERABLES Final R esult ADARSH [address] [facility] Department [place] [address] * (ABNORMAL) CBC with auto differential (12/14/2024 2:18 PM DURABLE MEDICAL EQUIPMENT REPAIRER) [facility] WBC 6.2 3.8 - 9.9 K/cumm Comment:Testing performed by : [address] [address] Hgb 8.5(L) 11.9 - 15.5 g/dL ADARSH Comment:Testing performed by : [address] [address] Hct 27.8(L) 35.6 - 45.5 % ADARSH Comment:Testing performed by : [address], [address] Plt 174 150 - 400 K/cumm ADARSH Comment:Testing performed by : [address] [address] MPV 10.0 9.1 - 12.3 fL ADARSH Comment:Testing performed by : [address], [address] RBC 3.12(L) 3.90 - 5.20 M/cumm ADARSH Comment:Testing performed by : [address] [address] MCV 89.1 81.3 - 96.4 fL ADARSH Comment:Testing performed by : [address] [address] MCH 27.2 27.1 - 33.3 pg ADARSH Comment:Testing performed by : [address], [address] MCHC 30.6(L) 32.3 - 35.7 g/dL ADARSH Comment:Testing performed by : [address], [address] RDW CV 22.8(H) 11.1 - 14.9 % ADARSH Comment:Testing performed by : [address] [address] RDW SD 72.8(H) 35.7 - 48.1 fL ADARSH Comment:Testing performed by : [address], [address] NRBC abs 0.00 0.00 - 0.01 K/cumm ADARSH Comment:Testing performed by : [address] [address] Blood 12/14/2024 2:18 PM DURABLE MEDICAL EQUIPMENT REPAIRER 12/14/2024 2:19 PM DURABLE MEDICAL EQUIPMENT REPAIRER Rinku MengBailee [facility] BLOOD ORDERABLES Final R esult Performing Organization Address [facility] de Phone Number [address] [address] * Manual Differential (12/14/2024 2:18 PM DURABLE MEDICAL EQUIPMENT REPAIRER) [facility] Differential Auto Comment:Testing performed by : [address] [address] RBC morphology Consistent with RBC Indicies ADARSH Comment:Testing performed by : [address] [address] Blood 12/14/2024 2:18 PM DURABLE MEDICAL EQUIPMENT REPAIRER 12/14/2024 2:19 PM DURABLE MEDICAL EQUIPMENT REPAIRER Rinku Chow [facility] BLOOD ORDERABLES Final R esult Performing Organization Address [facility] de Phone Number [address] [address] * (ABNORMAL) Comprehensive metabolic panel (12/14/2024 2:18 PM DURABLE MEDICAL EQUIPMENT REPAIRER) [facility] Sodium 140 135 - 145 mmol/L Comment:Testing performed by : [address] [address] Potassium, pl 4.3 3.3 - 4.9 mmol/L ADARSH GARCIA Comment:Testing performed by : [address] [address] Chloride 105 97 - 110 mmol/L ADARSH GARCIA Comment:Testing performed by : [address] [address] CO2 25 22 - 32 mmol/L ADARSH GARCIA Comment:Testing performed by : [address] [address] Anion gap 10 2 - 15 mmol/L ADARSH Comment:Testing performed by : [address] [address] BUN 6 6 - 25 mg/dL ADARSH Comment:Testing performed by : [address], [place]., [address] Creatinine 0.60 0.60 - 1.10 mg/dL ADARSH Comment:Testing performed by : [address] [address] Glucose 86 70 - 199 mg/dL ADARSH [...] was last revised 2022. Testing performed by: [address] [address] Calcium 8.5 8.5 - 10.3 mg/dL ADARSH Comment:Testing performed by : [address] [address] Bilirubin, total 0.4 0.1 - 1.2 mg/dL ADARSH Comment:Testing performed by : [address] [address] Protein, pl 6.1(L) 6.5 - 8.5 g/dL ADARSH Comment:Testing performed by : [address] [address] Albumin 3.7 3.5 - 5.0 g/dL ADARSH Comment:Testing performed by : [address] [address] Alk phos 160(H) 40 - 130 Units/L ADARSH Comment:Testing performed by : [address] [address] ALT 14 7 - 45 Units/L ADARSH GARCIA Comment:Testing performed by : [facility], [address] [place] [address]., [address] AST 20 10 - 45 Units/L ADARSH GARCIA Comment:Testing performed by : [facility], [address] [place] [address]., [address] Blood 12/14/2024 2:18 PM DURABLE MEDICAL EQUIPMENT REPAIRER 12/14/2024 2:19 PM DURABLE MEDICAL EQUIPMENT REPAIRER us Rinku Chow DO LAB BLOOD ORDERABLES Final R esult ADARSH [address] [facility] [place] [address] * EGD (12/12/2024 2:39 PM DURABLE MEDICAL EQUIPMENT REPAIRER) Anatomical Region Laterality Modality Other Narrative Procedure Note Vincent Hamilton MD - 12/12/2024 2:39 PM CST [facility] Patient Name: Lana Benjamin Procedure Date: 12/12/2024 2:39 PM Date of : 1960 Admit Type: Inpatient Age: 64 Gender: Female Attending MD: Vincent Lugo M.D. Room: [facility] ENDOSCOPY ROOM 01 Note Status: Finalized Procedure: [...] On: 12/12/2024 2:39 PM Recognized by the [place] [employer] for promoting quality in endoscopy us Vincent Hamilton MD ENDOSCOPY P ROCEDURES Final Result * Colonoscopy (12/12/2024 2:39 PM DURABLE MEDICAL EQUIPMENT REPAIRER) Anatomical Region Laterality Modality Other Narrative Procedure Note Vincent Hamilton MD - 12/12/2024 2:39 PM CST [facility] Patient Name: Lana Benjamin Procedure Date: 12/12/2024 2:39 PM Date of : 1960 Admit Type: Inpatient Age: 64 Gender: Female Attending MD: Vincent Lugo M.D. Room: [facility] ENDOSCOPY ROOM 01 Note Status: Finalized Procedure: [...] On: 12/12/2024 2:39 PM Recognized by the [place] [employer] for promoting quality in endoscopy Vincent Hamilton MD ENDOSCOPY P ROCEDURES Final Result * Differential, auto (12/12/2024 5:32 AM DURABLE MEDICAL EQUIPMENT REPAIRER) Neutrophil abs 3.3 1.5 - 6.5 K/cumm Comment:Testing performed by : [address] [address] Imm gran abs 0.0 0.0 - 0.1 K/cumm ADARSH Comment:Testing performed by : [address] [address] Lymphocyte abs 1.6 0.8 - 3.3 K/cumm ADARSH Comment:Testing performed by : [address] [address] Monocyte abs 0.6 0.2 - 0.8 K/cumm [facility] Comment:Testing performed by : [address] [address] Eosinophil abs 0.3 0.0 - 0.5 K/cumm ADARSH Comment:Testing performed by : [address] [address] Basophil abs 0.0 0.0 - 0.1 K/cumm [facility] Comment:Testing performed by : [address] [address] Neutrophil pct 57.1 % [facility] Comment: Interpretive Data Percent cell count reference ranges are not reported, since discordance with absolute values may lead to misinterpretation of CBC data. Current Interpretive Data was last revised on 2018. Testing performed by: [address] [address] Imm gran pct 0.2 % [facility] Comment: Interpretive Data Percent cell count reference ranges are not reported, since discordance with absolute values may lead to misinterpretation of CBC data. Current Interpretive Data was last revised on 2018. Testing performed by: [address] [address] Lymphocyte pct 27.3 % [facility] Comment: Interpretive Data Percent cell count reference ranges are not reported, since discordance with absolute values may lead to misinterpretation of CBC data. Current Interpretive Data was last revised on 2018. Testing performed by: [address] [address] Monocyte pct 10.5 % [facility] Comment: Interpretive Data Percent cell count reference ranges are not reported, since discordance with absolute values may lead to misinterpretation of CBC data. Current Interpretive Data was last revised on 2018. Testing performed by: [address] [address] Eosinophil pct 4.4 % [facility] Comment: Interpretive Data Percent cell count reference ranges are not reported, since discordance with absolute values may lead to misinterpretation of CBC data. Current Interpretive Data was last revised on 2018. Testing performed by: [address] [address] Basophil pct 0.5 % [facility] Comment: Interpretive Data Percent cell count reference ranges are not reported, since discordance with absolute values may lead to misinterpretation of CBC data. Current Interpretive Data was last revised on 2018. Testing performed by: [address] [address] Blood 12/12/2024 5:32 AM DURABLE MEDICAL EQUIPMENT REPAIRER 12/12/2024 6:31 AM DURABLE MEDICAL EQUIPMENT REPAIRER us Carolann Frey NP LAB BLOOD ORDERABLES Final Re sult [facility] [address] [facility] [place] [address] * (ABNORMAL) CBC with auto differential (12/12/2024 5:32 AM DURABLE MEDICAL EQUIPMENT REPAIRER) WBC 5.7 3.8 - 9.9 K/cumm Comment:Testing performed by : [address] [address] Hgb 8.3(L) 11.9 - 15.5 g/dL ADARSH Comment:Testing performed by : [address] [address] Hct 27.4(L) 35.6 - 45.5 % [facility]SH Comment:Testing performed by : [address] [address] Plt 201 150 - 400 K/cumm ADARSH Comment:Testing performed by : [address] [address] MPV 10.5 9.1 - 12.3 fL ADARSH Comment:Testing performed by : [address] [address] RBC 3.03(L) 3.90 - 5.20 M/cumm ADARSH Comment:Testing performed by : [address] [address] MCV 90.4 81.3 - 96.4 fL ADARSH Comment:Testing performed by : [address] [address] MCH 27.4 27.1 - 33.3 pg ADARSH GARCIA Comment:Testing performed by : [address] [address] MCHC 30.3(L) 32.3 - 35.7 g/dL ADARSH GARCIA Comment:Testing performed by : [address] [address] RDW CV 21.8(H) 11.1 - 14.9 % ADARSH GARCIA Comment:Testing performed by : [address] [address] RDW SD 68.0(H) 35.7 - 48.1 fL ADARSH GARCIA Comment:Testing performed by : [address] [address] NRBC abs 0.00 0.00 - 0.01 K/cumm ADARSH GARCIA Comment:Testing performed by : [address] [address] Blood 12/12/2024 5:32 AM DURABLE MEDICAL EQUIPMENT REPAIRER 12/12/2024 6:31 AM DURABLE MEDICAL EQUIPMENT REPAIRER us Carolann Frey NP LAB BLOOD ORDERABLES Final Re sult [facility] [address] [facility] Department of Laboratories [place], [place] [id number] * (ABNORMAL) Differential, auto (12/11/2024 7:21 AM DURABLE MEDICAL EQUIPMENT REPAIRER) Pathologist [facility] [place] Neutrophil abs 3.1 1.5 - 6.5 K/cumm Comment:Testing performed by : [address] [address] Imm gran abs 0.0 0.0 - 0.1 K/cumm ADARSH GARCIA Comment:Testing performed by : [address] [address] Lymphocyte abs 1.7 0.8 - 3.3 K/cumm ADARSH GARCIA Comment:Testing performed by : [address] [address] Monocyte abs 0.9(H) 0.2 - 0.8 K/cumm ADARSH GARCIA Comment:Testing performed by : [address] [address] Eosinophil abs 0.4 0.0 - 0.5 K/cumm ADARSH Comment:Testing performed by : [address] [address] Basophil abs 0.0 0.0 - 0.1 K/cumm ADARSH Comment:Testing performed by : [address] [address] Neutrophil pct 50.8 % [facility] Comment: Interpretive Data Percent cell count reference ranges are not reported, since discordance with absolute values may lead to misinterpretation of CBC data. Current Interpretive Data was last revised on 2018. Testing performed by: [address] [address] Imm gran pct 0.3 % [facility] Comment: Interpretive Data Percent cell count reference ranges are not reported, since discordance with absolute values may lead to misinterpretation of CBC data. Current Interpretive Data was last revised on 2018. Testing performed by: [address] [address] Lymphocyte pct 27.8 % [facility] Comment: Interpretive Data Percent cell count reference ranges are not reported, since discordance with absolute values may lead to misinterpretation of CBC data. Current Interpretive Data was last revised on 2018. Testing performed by: [address] [address] Monocyte pct 14.1 % [facility] Comment: Interpretive Data Percent cell count reference ranges are not reported, since discordance with absolute values may lead to misinterpretation of CBC data. Current Interpretive Data was last revised on 2018. Testing performed by: [address] [address] Eosinophil pct 6.3 % [facility] Comment: Interpretive Data Percent cell count reference ranges are not reported, since discordance with absolute values may lead to misinterpretation of CBC data. Current Interpretive Data was last revised on 2018. Testing performed by: [address] [address] Basophil pct 0.7 % [facility] Comment: Interpretive Data Percent cell count reference ranges are not reported, since discordance with absolute values may lead to misinterpretation of CBC data. Current Interpretive Data was last revised on 2018. Testing performed by: [address] [address] Blood 12/11/2024 7:21 AM DURABLE MEDICAL EQUIPMENT REPAIRER 12/11/2024 7:34 AM DURABLE MEDICAL EQUIPMENT REPAIRER Carolann Frey PRODUCT MARKETING ENGINEER LAB BLOOD ORDERABLES Final Re [facility] [address] [facility] Department of Laboratories [place], [place] [id number] * (ABNORMAL) CBC with auto differential (12/11/2024 7:21 AM DURABLE MEDICAL EQUIPMENT REPAIRER) WBC 6.2 3.8 - 9.9 K/cumm Comment:Testing performed by : [address] [address] Hgb 8.1(L) 11.9 - 15.5 g/dL [facility] Comment:Testing performed by : [address] [address] Hct 26.4(L) 35.6 - 45.5 % [facility] Comment:Testing performed by : [address] [address] Plt 206 150 - 400 K/cumm [facility] Comment:Testing performed by : [address] [address] MPV 11.1 9.1 - 12.3 fL [facility] Comment:Testing performed by : [address] [address] RBC 2.93(L) 3.90 - 5.20 M/cumm [facility] Comment:Testing performed by : [address] [address] MCV 90.1 81.3 - 96.4 fL [facility] Comment:Testing performed by : [address] [address] MCH 27.6 27.1 - 33.3 pg [facility] GARCIA Comment:Testing performed by : [address] [address] MCHC 30.7(L) 32.3 - 35.7 g/dL [facility] GARCIA Comment:Testing performed by : [address] [address] RDW CV 21.2(H) 11.1 - 14.9 % [facility] GARCIA Comment:Testing performed by : [address] [address] RDW SD 67.7(H) 35.7 - 48.1 fL [facility] GARCIA Comment:Testing performed by : [address] [address] NRBC abs 0.00 0.00 - 0.01 K/cumm [facility] GARCIA Comment:Testing performed by : [address] [address] Blood 12/11/2024 7:21 AM DURABLE MEDICAL EQUIPMENT REPAIRER 12/11/2024 7:34 AM DURABLE MEDICAL EQUIPMENT REPAIRER us Carolann Frey NP LAB BLOOD ORDERABLES Final Re sult [facility] [address] [facility] Department [place] [address] * (ABNORMAL) Differential, auto (12/10/2024 9:28 AM DURABLE MEDICAL EQUIPMENT REPAIRER) Pathologist [facility] Neutrophil abs 3.8 1.5 - 6.5 K/cumm Comment:Testing performed by : [address] [address] Imm gran abs 0.0 0.0 - 0.1 K/cumm ADARSH GARCIA Comment:Testing performed by : [address] [address] Lymphocyte abs 1.8 0.8 - 3.3 K/cumm [facility] GARCIA Comment:Testing performed by : [address] [address] Monocyte abs 0.9(H) 0.2 - 0.8 K/cumm ADARSH GARCIA Comment:Testing performed by : [address] [address] Eosinophil abs 0.3 0.0 - 0.5 K/cumm ADARSH Comment:Testing performed by : [address] [address] Basophil abs 0.0 0.0 - 0.1 K/cumm [facility] Comment:Testing performed by : [address] [address] Neutrophil pct 55.5 % [facility] Comment: Interpretive Data Percent cell count reference ranges are not reported, since discordance with absolute values may lead to misinterpretation of CBC data. Current Interpretive Data was last revised on 2018. Testing performed by: [address] [address] Imm gran pct 0.4 % [facility] Comment: Interpretive Data Percent cell count reference ranges are not reported, since discordance with absolute values may lead to misinterpretation of CBC data. Current Interpretive Data was last revised on 2018. Testing performed by: [address] [address] Lymphocyte pct 26.6 % [facility] Comment: Interpretive Data Percent cell count reference ranges are not reported, since discordance with absolute values may lead to misinterpretation of CBC data. Current Interpretive Data was last revised on 2018. Testing performed by: [address] [address] Monocyte pct 13.0 % [facility] Comment: Interpretive Data Percent cell count reference ranges are not reported, since discordance with absolute values may lead to misinterpretation of CBC data. Current Interpretive Data was last revised on 2018. Testing performed by: [address] [address] Eosinophil pct 4.2 % [facility] Comment: Interpretive Data Percent cell count reference ranges are not reported, since discordance with absolute values may lead to misinterpretation of CBC data. Current Interpretive Data was last revised on 2018. Testing performed by: [address] [address] Basophil pct 0.3 % [facility] Comment: Interpretive Data Percent cell count reference ranges are not reported, since discordance with absolute values may lead to misinterpretation of CBC data. Current Interpretive Data was last revised on 2018. Testing performed by: [address] [address] Blood 12/10/2024 9:28 AM DURABLE MEDICAL EQUIPMENT REPAIRER 12/10/2024 9:37 AM DURABLE MEDICAL EQUIPMENT REPAIRER Teo Cole MD LAB BLOOD ORDERABL ES Final Result [facility] [address] [facility] Department [place] [address] * (ABNORMAL) CBC with auto differential (12/10/2024 9:28 AM DURABLE MEDICAL EQUIPMENT REPAIRER) WBC 6.9 3.8 - 9.9 K/cumm Comment:Testing performed by : [address] [address] Hgb 8.4(L) 11.9 - 15.5 g/dL [facility] Comment:Testing performed by : [address] [address] Hct 26.9(L) 35.6 - 45.5 % [facility] Comment:Testing performed by : [address] [address]346 Plt 192 150 - 400 K/cumm AD[facility] Comment:Testing performed by : [address] [address] MPV 9.6 9.1 - 12.3 fL [facility] Comment:Testing performed by : [address] [address] RBC 3.03(L) 3.90 - 5.20 M/cumm [facility] Comment:Testing performed by : [address] [address] MCV 88.8 81.3 - 96.4 fL [facility] Comment:Testing performed by : [address] [address] MCH 27.7 27.1 - 33.3 pg [facility] GARCIA Comment:Testing performed by : [facility], [address] [place] [address]., [address] MCHC 31.2(L) 32.3 - 35.7 g/dL [facility] GARCIA Comment:Testing performed by : [address] [address] RDW CV 21.2(H) 11.1 - 14.9 % [facility] GARCIA Comment:Testing performed by : [address] [address] RDW SD 67.2(H) 35.7 - 48.1 fL [facility] GARCIA Comment:Testing performed by : [address] [address] NRBC abs 0.00 0.00 - 0.01 K/cumm ADAR[facility] GARCIA Comment:Testing performed by : [address] [address] Blood 12/10/2024 9:28 AM DURABLE MEDICAL EQUIPMENT REPAIRER 12/10/2024 9:37 AM DURABLE MEDICAL EQUIPMENT REPAIRER us Teo Cole MD LAB BLOOD ORDERABL ES Final Result [facility] [address] [facility] Department [place] [address] * eGFR (12/09/2024 6:44 AM DURABLE MEDICAL EQUIPMENT REPAIRER) eGFR >90 >=60 mL/min/1. 73 m2 Comment: [...] was last reviewed 2021. Testing performed by: [address] [address] Blood 12/09/2024 6:44 AM DURABLE MEDICAL EQUIPMENT REPAIRER 12/09/2024 6:50 AM DURABLE MEDICAL EQUIPMENT REPAIRER Carolann Frey PRODUCT MARKETING ENGINEER LAB BLOOD ORDERABLES Final Re sult [facility] [address] [facility] Department [place] [address] * Differential, auto (12/09/2024 6:44 AM DURABLE MEDICAL EQUIPMENT REPAIRER) Neutrophil abs 3.5 1.5 - 6.5 K/cumm Comment:Testing performed by : [address] [address] Imm gran abs 0.1 0.0 - 0.1 K/cumm ADARSH Comment:Testing performed by : [address] [address] Lymphocyte abs 2.0 0.8 - 3.3 K/cumm [facility] Comment:Testing performed by : [address] [address] Monocyte abs 0.8 0.2 - 0.8 K/cumm [facility] Comment:Testing performed by : [address] [address] Eosinophil abs 0.3 0.0 - 0.5 K/cumm [facility] Comment:Testing performed by : [address] [address] Basophil abs 0.0 0.0 - 0.1 K/cumm [facility] Comment:Testing performed by : [address] [address] Neutrophil pct 52.9 % [facility] Comment: Interpretive Data Percent cell count reference ranges are not reported, since discordance with absolute values may lead to misinterpretation of CBC data. Current Interpretive Data was last revised on 2018. Testing performed by: [address] [address] Imm gran pct 0.9 % [facility] Comment: Interpretive Data Percent cell count reference ranges are not reported, since discordance with absolute values may lead to misinterpretation of CBC data. Current Interpretive Data was last revised on 2018. Testing performed by: [address] [address] Lymphocyte pct 29.2 % [facility] Comment: Interpretive Data Percent cell count reference ranges are not reported, since discordance with absolute values may lead to misinterpretation of CBC data. Current Interpretive Data was last revised on 2018. Testing performed by: [address] [address] Monocyte pct 11.8 % [facility] Comment: Interpretive Data Percent cell count reference ranges are not reported, since discordance with absolute values may lead to misinterpretation of CBC data. Current Interpretive Data was last revised on 2018. Testing performed by: [address] [address] Eosinophil pct 4.8 % [facility] Comment: Interpretive Data Percent cell count reference ranges are not reported, since discordance with absolute values may lead to misinterpretation of CBC data. Current Interpretive Data was last revised on 2018. Testing performed by: [address] [address] Basophil pct 0.4 % [facility] Comment: Interpretive Data Percent cell count reference ranges are not reported, since discordance with absolute values may lead to misinterpretation of CBC data. Current Interpretive Data was last revised on 2018. Testing performed by: [address] [address] Blood 12/09/2024 6:44 AM DURABLE MEDICAL EQUIPMENT REPAIRER 12/09/2024 6:50 AM DURABLE MEDICAL EQUIPMENT REPAIRER us Carolann Frey NP LAB BLOOD ORDERABLES Final Re sult [facility] [address] [facility] Department [place] [address] * (ABNORMAL) CBC with auto differential (12/09/2024 6:44 AM DURABLE MEDICAL EQUIPMENT REPAIRER) [facility] Signature WBC 6.7 3.8 - 9.9 K/cumm Comment:Testing performed by : [address] [address] Hgb 8.4(L) 11.9 - 15.5 g/dL [facility] Comment:Testing performed by : [address] [address] Hct 27.4(L) 35.6 - 45.5 % [facility] Comment:Testing performed by : [address] [address] Plt 146(L) 150 - 400 K/cumm [facility] Comment:Testing performed by : [address] [address] MPV 10.1 9.1 - 12.3 fL [facility] Comment:Testing performed by : [address] [address] RBC 3.11(L) 3.90 - 5.20 M/cumm [facility] Comment:Testing performed by : [address] [address]274 MCV 88.1 81.3 - 96.4 fL [facility] Comment:Testing performed by : [address] [address] MCH 27.0(L) 27.1 - 33.3 pg [facility] Comment:Testing performed by : [address] [address] MCHC 30.7(L) 32.3 - 35.7 g/dL [facility] Comment:Testing performed by : [address], [address] RDW CV 21.3(H) 11.1 - 14.9 % [facility] Comment:Testing performed by : [address], [address] RDW SD 67.0(H) 35.7 - 48.1 fL [facility] Comment:Testing performed by : [address] [address] NRBC abs 0.00 0.00 - 0.01 K/cumm [facility] Comment:Testing performed by : [address] [address] Blood 12/09/2024 6:44 AM DURABLE MEDICAL EQUIPMENT REPAIRER 12/09/2024 6:50 AM DURABLE MEDICAL EQUIPMENT REPAIRER Carolann Frey NP LAB BLOOD ORDERABLES Edited R esult - Final [facility] [address] [facility] Department [place] [address] * (ABNORMAL) Manual Differential (12/09/2024 6:44 AM DURABLE MEDICAL EQUIPMENT REPAIRER) Differential Auto Comment:Testing performed by : [address] [address] Neutrophil abs 3.5 1.5 - 6.5 K/cumm [facility] Comment:Testing performed by : [address] [address] Imm gran abs 0.1 0.0 - 0.1 K/cumm [facility] Comment:Testing performed by : [address] [address] Lymphocyte abs 2.0 0.8 - 3.3 K/cumm [facility] Comment:Testing performed by : [address] [address] Monocyte abs 0.8 0.2 - 0.8 K/cumm [facility] Comment:Testing performed by : [address] [address] Eosinophil abs 0.3 0.0 - 0.5 K/cumm [facility] Comment:Testing performed by : [address] [address] Basophil abs 0.0 0.0 - 0.1 K/cumm [facility] Comment:Testing performed by : [address] [address] Neutrophil pct 52.9 % [facility] Comment: Interpretive Data Percent cell count reference ranges are not reported, since discordance with absolute values may lead to misinterpretation of CBC data. Current Interpretive Data was last revised on 2018. Testing performed by: [address] [address] Imm gran pct 0.9 % [facility] Comment: Interpretive Data Percent cell count reference ranges are not reported, since discordance with absolute values may lead to misinterpretation of CBC data. Current Interpretive Data was last revised on 2018. Testing performed by: [address] [address] Lymphocyte pct 29.2 % [facility] Comment: Interpretive Data Percent cell count reference ranges are not reported, since discordance with absolute values may lead to misinterpretation of CBC data. Current Interpretive Data was last revised on 2018. Testing performed by: [address] [address] Monocyte pct 11.8 % [facility] Comment: Interpretive Data Percent cell count reference ranges are not reported, since discordance with absolute values may lead to misinterpretation of CBC data. Current Interpretive Data was last revised on 2018. Testing performed by: [address] [address] Eosinophil pct 4.8 % [facility] Comment: Interpretive Data Percent cell count reference ranges are not reported, since discordance with absolute values may lead to misinterpretation of CBC data. Current Interpretive Data was last revised on 2018. Testing performed by: [address] [address] Basophil pct 0.4 % [facility] Comment: Interpretive Data Percent cell count reference ranges are not reported, since discordance with absolute values may lead to misinterpretation of CBC data. Current Interpretive Data was last revised on 2018. Testing performed by: [address] [address] RBC morphology Consistent with RBC Indicies [facility] Comment:Testing performed by : [address] [address] Platelet estimate Adequate [facility] Comment:Testing performed by : [address] [address] Giant platelets Present(A) [facility] Comment:Testing performed by : [address] [address] Platelet clumping RARE [facility] Comment:Testing performed by : [address] [address] Blood 12/09/2024 6:44 AM DURABLE MEDICAL EQUIPMENT REPAIRER 12/09/2024 6:50 AM DURABLE MEDICAL EQUIPMENT REPAIRER Carolann Frey NP LAB BLOOD ORDERABLES Edited R esult - Final [facility] [address] [facility] Department [place] [address] * Basic metabolic panel (12/09/2024 6:44 AM DURABLE MEDICAL EQUIPMENT REPAIRER) Sodium 141 135 - 145 mmol/L Comment:Testing performed by : [address] [address] Potassium, pl 4.6 3.3 - 4.9 mmol/L [facility] Comment:Testing performed by : [address] [address] Chloride 102 97 - 110 mmol/L [facility] Comment:Testing performed by : [address] [address] CO2 25 22 - 32 mmol/L [facility] Comment:Testing performed by : [address] [address] Anion gap 14 2 - 15 mmol/L [facility] Comment:Testing performed by : [address] [address] BUN 11 6 - 25 mg/dL [facility] Comment:Testing performed by : [address] [address] Creatinine 0.70 0.60 - 1.10 mg/dL [facility] Comment:Testing performed by : [address] [address] Glucose 92 70 - 199 mg/dL ADARSH [...] was last revised 2022. Testing performed by: [address] [address] Calcium 9.2 8.5 - 10.3 mg/dL [facility] Comment:Testing performed by : [address] [address] Blood 12/09/2024 6:44 AM DURABLE MEDICAL EQUIPMENT REPAIRER 12/09/2024 6:50 AM DURABLE MEDICAL EQUIPMENT REPAIRER us Carolann Frey NP LAB BLOOD ORDERABLES Final Re sult Performing Organization Address [facility]/ZIP Co de Phone Number [address] Department [place] [address] * Transfuse RBC (12/08/2024 4:51 PM DURABLE MEDICAL EQUIPMENT REPAIRER) Blood us Teo Cole MD BLOOD TRANSFUSION ORDERABLES Final Result Performing Organization Address [facility] Co de Phone Number [address] [place] [address] * Prepare RBC (12/08/2024 1:45 PM DURABLE MEDICAL EQUIPMENT REPAIRER) Unit Number [id number] [facility] Product code [id number] [facility] Blood Expiration Date [id number] [facility] Product Blood Type (for scanning) 6200 [facility] Product Blood Type APOS [facility] Dispense Status DISPENSED [facility] us Tony Rendon MD BLOOD BANK PRODUCT ORDERABLES Final Result Performing Organization Address City/[facility] Co de Phone Number [address] [address] * ABO/Rh (12/08/2024 12:31 PM DURABLE MEDICAL EQUIPMENT REPAIRER) Pathologist [facility] ABO/Rh A Positive Comment:Testing performed by : [address] [address] Blood 12/08/2024 12:3 1 PM DURABLE MEDICAL EQUIPMENT REPAIRER 12/08/2024 12:46 PM DURABLE MEDICAL EQUIPMENT REPAIRER Narrative [facility] - 12/08/2024 1:23 PM DURABLE MEDICAL EQUIPMENT REPAIRER Has the patient had Daratumumab or Isatuximab in the past 6 months?->Unknown Teo Cole MD LAB BLOOD BANK RODERICK T ORDERABLES Final Result Performing Organization Address City/[facility]/ZIP Co de Phone Number [address] [address] * Crossmatch (12/08/2024 12:31 PM DURABLE MEDICAL EQUIPMENT REPAIRER) Pathologist [facility] Crossmatch Compatible [facility] Unit number for crossmatch [id number] [facility] Blood 12/08/2024 12:3 1 PM DURABLE MEDICAL EQUIPMENT REPAIRER 12/08/2024 12:46 PM DURABLE MEDICAL EQUIPMENT REPAIRER Teo Cole MD LAB BLOOD BANK RODERICK T ORDERABLES Final Result [address] [address] * Antibody screen (12/08/2024 12:31 PM DURABLE MEDICAL EQUIPMENT REPAIRER) Pathologist [facility] Wm, indirect, Gel Interpretation Negative [facility]SC Comment:Testing performed by : [address] [address] Blood 12/08/2024 12:3 1 PM DURABLE MEDICAL EQUIPMENT REPAIRER 12/08/2024 12:46 PM DURABLE MEDICAL EQUIPMENT REPAIRER Narrative [facility] - 12/08/2024 1:27 PM DURABLE MEDICAL EQUIPMENT REPAIRER Has the patient had Daratumumab or Isatuximab in the past 6 months?->Unknown Teo Cole MD LAB BLOOD BANK RODERICK T ORDERABLES Final Result Performing Organization Address City/[facility] Co de Phone Number [facility] [address] [place] [address] * Prepare RBC: 1 Units (12/08/2024 7:35 AM DURABLE MEDICAL EQUIPMENT REPAIRER) Units requested 1 Comment:Testing performed by : [facility], [address] [place] [address]., [address] Units requested Ready [facility] Comment:Testing performed by : [address] [address] Blood 12/08/2024 7:35 AM DURABLE MEDICAL EQUIPMENT REPAIRER 12/08/2024 7:35 AM DURABLE MEDICAL EQUIPMENT REPAIRER Narrative [facility] - 12/08/2024 1:46 PM DURABLE MEDICAL EQUIPMENT REPAIRER Are special requirements needed? (All products are leukoreduced and CMV- safe)- >No Specimen not yet received 12/08/2024 12:20:36 DURABLE MEDICAL EQUIPMENT REPAIRER Teo Cole MD BLOOD BANK PRODUCT ORDERABLES Final Result Performing Organization Address City/[facility] Co de Phone Number [facility] [address] [place] [address] * eGFR (12/08/2024 5:07 AM DURABLE MEDICAL EQUIPMENT REPAIRER) eGFR 83 >=60 mL/min/1. 73 m2 Comment: [...] was last reviewed 2021. Testing performed by: [address] [address] Blood 12/08/2024 5:07 AM DURABLE MEDICAL EQUIPMENT REPAIRER 12/08/2024 5:29 AM DURABLE MEDICAL EQUIPMENT REPAIRER us Carolann Frey NP LAB BLOOD ORDERABLES Final Re sult [facility] [address] [facility] Department [place] [address] * Differential, auto (12/08/2024 5:07 AM DURABLE MEDICAL EQUIPMENT REPAIRER) Neutrophil abs 1.6 1.5 - 6.5 K/cumm Comment:Testing performed by : [address] [address] Imm gran abs 0.0 0.0 - 0.1 K/cumm [facility] Comment:Testing performed by : [address] [address] Lymphocyte abs 2.0 0.8 - 3.3 K/cumm [facility] Comment:Testing performed by : [address] [address] Monocyte abs 0.6 0.2 - 0.8 K/cumm [facility] Comment:Testing performed by : [address] [address] Eosinophil abs 0.4 0.0 - 0.5 K/cumm [facility] Comment:Testing performed by : [address] [address] Basophil abs 0.0 0.0 - 0.1 K/cumm [facility] Comment:Testing performed by : [address] [address] Neutrophil pct 34.1 % [facility] Comment: Interpretive Data Percent cell count reference ranges are not reported, since discordance with absolute values may lead to misinterpretation of CBC data. Current Interpretive Data was last revised on 2018. Testing performed by: [address] [address] Imm gran pct 0.2 % [facility] Comment: Interpretive Data Percent cell count reference ranges are not reported, since discordance with absolute values may lead to misinterpretation of CBC data. Current Interpretive Data was last revised on 2018. Testing performed by: [address] [address] Lymphocyte pct 43.2 % [facility] Comment: Interpretive Data Percent cell count reference ranges are not reported, since discordance with absolute values may lead to misinterpretation of CBC data. Current Interpretive Data was last revised on 2018. Testing performed by: [address] [address] Monocyte pct 13.1 % [facility] Comment: Interpretive Data Percent cell count reference ranges are not reported, since discordance with absolute values may lead to misinterpretation of CBC data. Current Interpretive Data was last revised on 2018. Testing performed by: [address] [address] Eosinophil pct 9.0 % [facility] Comment: Interpretive Data Percent cell count reference ranges are not reported, since discordance with absolute values may lead to misinterpretation of CBC data. Current Interpretive Data was last revised on 2018. Testing performed by: [address] [address] Basophil pct 0.4 % [facility] Comment: Interpretive Data Percent cell count reference ranges are not reported, since discordance with absolute values may lead to misinterpretation of CBC data. Current Interpretive Data was last revised on 2018. Testing performed by: [address] [address] Blood 12/08/2024 5:07 AM DURABLE MEDICAL EQUIPMENT REPAIRER 12/08/2024 5:29 AM DURABLE MEDICAL EQUIPMENT REPAIRER us Carolann Frey NP LAB BLOOD ORDERABLES Final Re sult [facility] [address] Department [place] [address] * (ABNORMAL) CBC with auto differential (12/08/2024 5:07 AM DURABLE MEDICAL EQUIPMENT REPAIRER) [facility] WBC 4.7 3.8 - 9.9 K/cumm Comment:Testing performed by : [address] [address] Hgb 6.7(L) 11.9 - 15.5 g/dL [facility] Comment:Testing performed by : [address], [address] Hct 21.9(L) 35.6 - 45.5 % ADARSH Comment:Testing performed by : [address], [address] Plt 200 150 - 400 K/cumm ADARSH Comment:Testing performed by : [address], [address] MPV 10.3 9.1 - 12.3 fL ADARSH Comment:Testing performed by : [address], [address] RBC 2.46(L) 3.90 - 5.20 M/cumm ADARSH Comment:Testing performed by : [address] [address] MCV 89.0 81.3 - 96.4 fL ADARSH Comment:Testing performed by : [address] [address] MCH 27.2 27.1 - 33.3 pg ADARSH Comment:Testing performed by : [address], [address] MCHC 30.6(L) 32.3 - 35.7 g/dL ADARSH Comment:Testing performed by : [address], [address] RDW CV 21.9(H) 11.1 - 14.9 % ADARSH Comment:Testing performed by : [address], [address] RDW SD 71.2(H) 35.7 - 48.1 fL ADARSH Comment:Testing performed by : [address] [address] NRBC abs 0.00 0.00 - 0.01 K/cumm ADARSH Comment:Testing performed by : [address] [address] Blood 12/08/2024 5:07 AM DURABLE MEDICAL EQUIPMENT REPAIRER 12/08/2024 5:29 AM DURABLE MEDICAL EQUIPMENT REPAIRER Carolann Frey PRODUCT MARKETING ENGINEER LAB BLOOD ORDERABLES Final Re sult Performing Organization Address City/[facility] Co de Phone Number ADARSH [address] [place] [address] * (ABNORMAL) Protime-INR (12/08/2024 5:07 AM DURABLE MEDICAL EQUIPMENT REPAIRER) PT 14.8(H) 12.0 - 14.6 sec Comment: Ref Range High Testing performed by: [address] [address] INR 1.2 0.9 - 1.2 ADARSH Comment: Ref Range High Interpretive data Oral anticoagulant therapeutic ranges: Venous thromboembolism prophylaxis or treatment: 2.0-3.0 CARDIOLOGY Standard range: 2.0-3.0 High-intensity range: 2.5-3.5 Refer to indication-specific guidelines for appropriate target ranges for prosthetic heart valve replacement. Current interpretive data was last revised on 2019. Testing performed by: [address] [address] Blood 12/08/2024 5:07 AM DURABLE MEDICAL EQUIPMENT REPAIRER 12/08/2024 5:29 AM DURABLE MEDICAL EQUIPMENT REPAIRER Emy Amezquita PRODUCT MARKETING ENGINEER LAB BLOOD ORDERABLES Final Resu lt Performing Organization Address [facility]/ZIP Co de Phone Number ADARSH [address] [place] [address] * Basic metabolic panel (12/08/2024 5:07 AM DURABLE MEDICAL EQUIPMENT REPAIRER) Sodium 139 135 - 145 mmol/L Comment:Testing performed by : [address] [place]., [address] Potassium, pl 4.3 3.3 - 4.9 mmol/L ADARSH Comment:Testing performed by : [address] [address] Chloride 104 97 - 110 mmol/L ADARSH Comment:Testing performed by : [address], [place]., [address] CO2 29 22 - 32 mmol/L ADARSH Comment:Testing performed by : [address] [address] Anion gap 6 2 - 15 mmol/L ADARSH Comment:Testing performed by : [address] [address] BUN 13 6 - 25 mg/dL ADARSH Comment:Testing performed by : [address] [address] Creatinine 0.80 0.60 - 1.10 mg/dL ADARSH Comment:Testing performed by : [address] [address] Glucose 97 70 - 199 mg/dL [facility] Comment: Interpretive Data Fasting glucose >/= 126 [...] was last revised 2022. Testing performed by: [address] [address] Calcium 8.6 8.5 - 10.3 mg/dL ADARSH Comment:Testing performed by : [address] [address] Blood 12/08/2024 5:07 AM DURABLE MEDICAL EQUIPMENT REPAIRER 12/08/2024 5:29 AM DURABLE MEDICAL EQUIPMENT REPAIRER Carolann Frey NP LAB BLOOD ORDERABLES Final Re sult ADARSH [address] [facility] [place] [address] * CT Chest PE (CTA) W Contrast (12/07/2024 12:14 PM DURABLE MEDICAL EQUIPMENT REPAIRER) Anatomical Region Laterality Modality Body N/A Computed Tomogra phy 12/07/2024 2:31 PM DURABLE MEDICAL EQUIPMENT REPAIRER Narrative 12/07/2024 2:43 PM DURABLE MEDICAL EQUIPMENT REPAIRER EXAM DESCRIPTION: CT CHEST PE (CTA) W [...] Electronically signed by Leopoldo Wells M.D. MZ: MZ Report ID: [id number] Reading Location: [place] [address] Procedure Note Leopoldo Wells MD - 12/07/2024 [...] Electronically signed by Leopoldo Wells M.D. MZ: MZ Report ID: [id number] Reading Location: [place] [address] Teo Cole MD IMG CT PROCEDURES Final Result * eGFR (12/07/2024 5:58 AM DURABLE MEDICAL EQUIPMENT REPAIRER) eGFR >90 >=60 mL/min/1. 73 m2 Comment: [...] was last reviewed 2021. Testing performed by: [facility], [address] [place] [address]., [address] Blood 12/07/2024 5:58 AM DURABLE MEDICAL EQUIPMENT REPAIRER 12/07/2024 6:16 AM DURABLE MEDICAL EQUIPMENT REPAIRER us Carolann Frey NP LAB BLOOD ORDERABLES Final Re sult [id number] [facility] Department [place] [address] * Differential, auto (12/07/2024 5:58 AM DURABLE MEDICAL EQUIPMENT REPAIRER) Neutrophil abs 2.1 1.5 - 6.5 K/cumm Comment:Testing performed by : [address] [address] Imm gran abs 0.0 0.0 - 0.1 K/cumm [facility] Comment:Testing performed by : [address] [address] Lymphocyte abs 2.3 0.8 - 3.3 K/cumm [facility] Comment:Testing performed by : [address] [address] Monocyte abs 0.8 0.2 - 0.8 K/cumm [facility] Comment:Testing performed by : [address] [address] Eosinophil abs 0.4 0.0 - 0.5 K/cumm CERD[facility]NA Comment:Testing performed by : [address] [address] Basophil abs 0.0 0.0 - 0.1 K/cumm [facility] Comment:Testing performed by : [address] [address] Neutrophil pct 37.0 % [facility] Comment: Interpretive Data Percent cell count reference ranges are not reported, since discordance with absolute values may lead to misinterpretation of CBC data. Current Interpretive Data was last revised on 2018. Testing performed by: [address] [address] Imm gran pct 0.2 % [facility] Comment: Interpretive Data Percent cell count reference ranges are not reported, since discordance with absolute values may lead to misinterpretation of CBC data. Current Interpretive Data was last revised on 2018. Testing performed by: [address] [address] Lymphocyte pct 40.8 % [facility] Comment: Interpretive Data Percent cell count reference ranges are not reported, since discordance with absolute values may lead to misinterpretation of CBC data. Current Interpretive Data was last revised on 2018. Testing performed by: [address] [address] Monocyte pct 14.6 % ADARSH Comment: Interpretive Data Percent cell count reference ranges are not reported, since discordance with absolute values may lead to misinterpretation of CBC data. Current Interpretive Data was last revised on 2018. Testing performed by: [address] [address] Eosinophil pct 7.0 % ADARSH GARCIA Comment: Interpretive Data Percent cell count reference ranges are not reported, since discordance with absolute values may lead to misinterpretation of CBC data. Current Interpretive Data was last revised on 2018. Testing performed by: [address] [address] Basophil pct 0.4 % ADARSH Comment: Interpretive Data Percent cell count reference ranges are not reported, since discordance with absolute values may lead to misinterpretation of CBC data. Current Interpretive Data was last revised on 2018. Testing performed by: [address] [address] Blood 12/07/2024 5:58 AM DURABLE MEDICAL EQUIPMENT REPAIRER 12/07/2024 6:16 AM DURABLE MEDICAL EQUIPMENT REPAIRER us Carolann Frey NP LAB BLOOD ORDERABLES Final Re sult ADARSH [address] [facility] Department [place] [address] * (ABNORMAL) CBC with auto differential (12/07/2024 5:58 AM DURABLE MEDICAL EQUIPMENT REPAIRER) WBC 5.7 3.8 - 9.9 K/cumm Comment:Testing performed by : [address] [address] Hgb 7.3(L) 11.9 - 15.5 g/dL ADARSH GARCIA Comment:Testing performed by : [address] [address] Hct 23.2(L) 35.6 - 45.5 % ADARSH Comment:Testing performed by : [address] [address] Plt 227 150 - 400 K/cumm ADARSH GARCIA Comment:Testing performed by : [address] [address] MPV 10.2 9.1 - 12.3 fL ADARSH GARCIA Comment:Testing performed by : [address] [address] RBC 2.68(L) 3.90 - 5.20 M/cumm ADARSH GARCIA Comment:Testing performed by : [address] [address] MCV 86.6 81.3 - 96.4 fL ADARSH Comment:Testing performed by : [address] [address] MCH 27.2 27.1 - 33.3 pg ADARSH GARCIA Comment:Testing performed by : [address] [address] MCHC 31.5(L) 32.3 - 35.7 g/dL ADARSH Comment:Testing performed by : [address] [address] RDW CV 21.9(H) 11.1 - 14.9 % ADARSH Comment:Testing performed by : [address], [address] RDW SD 68.3(H) 35.7 - 48.1 fL ADARSH Comment:Testing performed by : [address] [address] NRBC abs 0.00 0.00 - 0.01 K/cumm ADARSH Comment:Testing performed by : [address] [address] Blood 12/07/2024 5:58 AM DURABLE MEDICAL EQUIPMENT REPAIRER 12/07/2024 6:16 AM DURABLE MEDICAL EQUIPMENT REPAIRER us Carolann Frey NP LAB BLOOD ORDERABLES Final Re sult ADARSH [address] [facility] Department [place] [address] * Hemoglobin A1c (12/07/2024 5:58 AM DURABLE MEDICAL EQUIPMENT REPAIRER) [facility] Hgb A1C 5.5 4.0 - 5.6 % Comment:Testing performed by : [address] [address] Estimated Average Glucose 111 mg/dL ADARSH Comment: The ADA recommends reporting an estimated Average Glucose (eAG) with all Hemoglobin A1c results using the equation derived from a study of 507 normal and diabetic adults. Minority populations were underrepresented and children were not included. (Diabetes Care 31:7216-5356, 2008). The eAG is not equivalent to a fasting glucose. Testing performed by: [address] [address] Blood 12/07/2024 5:58 AM DURABLE MEDICAL EQUIPMENT REPAIRER 12/07/2024 6:16 AM DURABLE MEDICAL EQUIPMENT REPAIRER Porfirio Barnett MD LAB BLOOD ORDERABLES Fi nal Result [place] [id number] [facility] Department [place] [address] * Basic metabolic panel (12/07/2024 5:58 AM DURABLE MEDICAL EQUIPMENT REPAIRER) [facility] Sodium 139 135 - 145 mmol/L Comment:Testing performed by : [address] [address] Potassium, pl 4.3 3.3 - 4.9 mmol/L ADARSH Comment:Testing performed by : [address] [address] Chloride 103 97 - 110 mmol/L ADARSH Comment:Testing performed by : [address] [address] CO2 28 22 - 32 mmol/L ADARSH Comment:Testing performed by : [address] [address] Anion gap 8 2 - 15 mmol/L ADARSH Comment:Testing performed by : [address] [address] BUN 11 6 - 25 mg/dL ADARSH Comment:Testing performed by : [address] [address] Creatinine 0.70 0.60 - 1.10 mg/dL ADARSH GARCIA Comment:Testing performed by : [address] [address] Glucose 106 70 - 199 mg/dL ADARSH Comment: Interpretive [...] was last revised 2022. Testing performed by: [address] [address] Calcium 8.6 8.5 - 10.3 mg/dL ADARSH Comment:Testing performed by : [address] [address] Blood 12/07/2024 5:58 AM DURABLE MEDICAL EQUIPMENT REPAIRER 12/07/2024 6:16 AM DURABLE MEDICAL EQUIPMENT REPAIRER us Carolann Frey NP LAB BLOOD ORDERABLES Final Re sult Performing Organization Address City/[facility]/ZIP Co de Phone Number [address] [place] [address] * Vitamin B12 (12/07/2024 5:57 AM DURABLE MEDICAL EQUIPMENT REPAIRER) Pathologist [facility] Vitamin B12 614 230 - 1,250 pg/mL Comment:Testing performed by : [address] [address] Blood 12/07/2024 5:57 AM DURABLE MEDICAL EQUIPMENT REPAIRER 12/07/2024 6:16 AM DURABLE MEDICAL EQUIPMENT REPAIRER us Porfirio Barnett MD LAB BLOOD ORDERABLES Fi nal Result [address] [employer] [address] * US Vein Duplex Lower Extremity Bilateral Complete (12/06/2024 4:15 PM DURABLE MEDICAL EQUIPMENT REPAIRER) Anatomical Region Laterality Modality Vascular Bilateral Ultrasound 12/06/2024 Narrative 12/08/2024 11:20 AM DURABLE MEDICAL EQUIPMENT REPAIRER [employer] Job ID: [id number] [employer] Document ID: [id number] Dictated date/time: [id number] LOWER EXTREMITY VENOUS DUPLEX REASON FOR EXAM [...] bilateral lower extremities. Job ID/Internal Job ID: [id number] Teo Cole MD [facility] PROCEDURES Final Result * eGFR (12/06/2024 10:43 AM DURABLE MEDICAL EQUIPMENT REPAIRER) eGFR 84 >=60 mL/min/1. 73 m2 Comment: [...] was last reviewed 2021. Testing performed by: [facility], [address] [place] [address]., [address] Blood 12/06/2024 10:4 3 AM DURABLE MEDICAL EQUIPMENT REPAIRER 12/06/2024 10:56 AM DURABLE MEDICAL EQUIPMENT REPAIRER us Carolann Frey NP LAB BLOOD ORDERABLES Final Re sult ADARSH [address] [facility] Department [place] [address] * Differential, auto (12/06/2024 10:43 AM DURABLE MEDICAL EQUIPMENT REPAIRER) Neutrophil abs 2.1 1.5 - 6.5 K/cumm Comment:Testing performed by : [address] [address] Imm gran abs 0.0 0.0 - 0.1 K/cumm ADARSH Comment:Testing performed by : [address] [address] Lymphocyte abs 1.5 0.8 - 3.3 K/cumm ADARSH Comment:Testing performed by : [address] [address] Monocyte abs 0.8 0.2 - 0.8 K/cumm ADARSH Comment:Testing performed by : [address] [address] Eosinophil abs 0.4 0.0 - 0.5 K/cumm ADARSH Comment:Testing performed by : [address] [address] Basophil abs 0.0 0.0 - 0.1 K/cumm ADARSH Comment:Testing performed by : [address] [address] Neutrophil pct 42.9 % ADARSH Comment: Interpretive Data Percent cell count reference ranges are not reported, since discordance with absolute values may lead to misinterpretation of CBC data. Current Interpretive Data was last revised on 2018. Testing performed by: [address] [address] Imm gran pct 0.2 % ADARSH Comment: Interpretive Data Percent cell count reference ranges are not reported, since discordance with absolute values may lead to misinterpretation of CBC data. Current Interpretive Data was last revised on 2018. Testing performed by: [address] [address] Lymphocyte pct 32.0 % [facility] Comment: Interpretive Data Percent cell count reference ranges are not reported, since discordance with absolute values may lead to misinterpretation of CBC data. Current Interpretive Data was last revised on 2018. Testing performed by: [address] [address] Monocyte pct 16.2 % [facility] Comment: Interpretive Data Percent cell count reference ranges are not reported, since discordance with absolute values may lead to misinterpretation of CBC data. Current Interpretive Data was last revised on 2018. Testing performed by: [address] [address] Eosinophil pct 8.1 % [facility] Comment: Interpretive Data Percent cell count reference ranges are not reported, since discordance with absolute values may lead to misinterpretation of CBC data. Current Interpretive Data was last revised on 2018. Testing performed by: [address] [address] Basophil pct 0.6 % [facility] Comment: Interpretive Data Percent cell count reference ranges are not reported, since discordance with absolute values may lead to misinterpretation of CBC data. Current Interpretive Data was last revised on 2018. Testing performed by: [address] [address] Blood 12/06/2024 10:4 3 AM DURABLE MEDICAL EQUIPMENT REPAIRER 12/06/2024 10:55 AM DURABLE MEDICAL EQUIPMENT REPAIRER us Carolann Frey NP LAB BLOOD ORDERABLES Final Re sult [facility] [address] [facility] Department [place] [address] * (ABNORMAL) Iron profile w/ IBC (12/06/2024 10:43 AM DURABLE MEDICAL EQUIPMENT REPAIRER) Iron 17(L) 35 - 145 mcg/dL Comment:Testing performed by : [address] [address] TIBC 290 250 - 400 mcg/dL ADARSH Comment:Testing performed by : [address] [address] Transferrin saturation 6(L) 20 - 50 % ADARSH Comment:Testing performed by : [address] [address] Blood 12/06/2024 10:4 3 AM DURABLE MEDICAL EQUIPMENT REPAIRER 12/06/2024 10:56 AM DURABLE MEDICAL EQUIPMENT REPAIRER Teo Coel MD LAB BLOOD ORDERABL ES Final Result [facility] [address] [facility] Department [place] [address] * (ABNORMAL) CBC with auto differential (12/06/2024 10:43 AM DURABLE MEDICAL EQUIPMENT REPAIRER) WBC 4.8 3.8 - 9.9 K/cumm Comment:Testing performed by : [address] [address] Hgb 7.2(L) 11.9 - 15.5 g/dL ADARSH Comment:Testing performed by : [address] [address] Hct 22.9(L) 35.6 - 45.5 % ADARSH Comment:Testing performed by : [address] [address] Plt 229 150 - 400 K/cumm ADARSH Comment:Testing performed by : [address] [address] MPV 10.0 9.1 - 12.3 fL ADARSH Comment:Testing performed by : [address] [address] RBC 2.65(L) 3.90 - 5.20 M/cumm ADARSH GARCIA Comment:Testing performed by : [address] [address] MCV 86.4 81.3 - 96.4 fL ADARSH Comment:Testing performed by : [address] [address] MCH 27.2 27.1 - 33.3 pg ADARSH GARCIA Comment:Testing performed by : [address] [address] MCHC 31.4(L) 32.3 - 35.7 g/dL ADARSH GARCIA Comment:Testing performed by : [address] [address] RDW CV 22.2(H) 11.1 - 14.9 % ADARSH GARCIA Comment:Testing performed by : [address] [address] RDW SD 69.0(H) 35.7 - 48.1 fL ADARSH GARCIA Comment:Testing performed by : [address] [address] NRBC abs 0.00 0.00 - 0.01 K/cumm ADARSH GARCIA Comment:Testing performed by : [address] [address] Blood 12/06/2024 10:4 3 AM DURABLE MEDICAL EQUIPMENT REPAIRER 12/06/2024 10:55 AM DURABLE MEDICAL EQUIPMENT REPAIRER us Carolann Frey NP LAB BLOOD ORDERABLES Final Re sult ADARSH [address] [facility] Department of Laboratories [place], [place] [id number] * (ABNORMAL) Lipid panel (12/06/2024 10:43 AM DURABLE MEDICAL EQUIPMENT REPAIRER) Cholesterol 146 30 - 199 mg/dL Comment: [...] last revised on 2018. Testing performed by: [address] [address] Triglycerides 91 <=149 mg/dL ADARSH Comment: Interpretive [...] last revised on 2018. Testing performed by: [address] [address] HDL 34(L) >=40 mg/dL ADARSH Comment: Interpretive [...] last revised on 2018. Testing performed by: [address] [address] LDL, calculated 95 <=129 mg/dL ADARSH Comment: Interpretive Data Ages < or = 19 years Acceptable: <110 mg/dL Borderline high: 110-129 mg/dL High: >or= 130 mg/dL Ages > or = 20 years Optimal: <100 mg/dL Near optimal: 100-129 mg/dL Borderline high: 130-159 mg/dL High: >160 mg/dL Calculated using the Shah LDL-C estimating equation. This equation was implemented on 2024. Prior to this date LDL-C was estimated using the Friedewald equation. Literature References: 1. Expert Panel on Integrated Guidelines for Cardiovascular Health and Risk Reduction in Children and Adolescents. Pediatrics 2011;128:S213 2. NCEP Expert Panel. Circulation 2004;110:227 3. Pablo M et al. BRYON Cardiol. 2020 March 09;5(5):540-548. doi: 10.1001/jamacardio.2020.0013 Current Interpretive Data was last revised on 2024. Testing performed by: [address] [address] Non-HDL Cholesterol 112 mg/dL ADARSH GARCIA Comment: Interpretive Data Ages < or = [...] last revised on 2018. Testing performed by: [address] [address] Chol/HDL ratio 4 ADARSH GARCIA Comment:Testing performed by : [address] [address] Blood 12/06/2024 10:4 3 AM DURABLE MEDICAL EQUIPMENT REPAIRER 12/06/2024 10:56 AM DURABLE MEDICAL EQUIPMENT REPAIRER Teo Cole MD LAB BLOOD ORDERABL ES Final Result ADARSH [address] [facility] Department [place] [address] * Basic metabolic panel (12/06/2024 10:43 AM DURABLE MEDICAL EQUIPMENT REPAIRER) Sodium 142 135 - 145 mmol/L Comment:Testing performed by : [address] [address] Potassium, pl 4.6 3.3 - 4.9 mmol/L ADARSH GARCIA Comment:Testing performed by : [address] [address] Chloride 108 97 - 110 mmol/L ADARSH Comment:Testing performed by : [address] [address] CO2 27 22 - 32 mmol/L ADARSH Comment:Testing performed by : [address] [address] Anion gap 7 2 - 15 mmol/L ADARSH Comment:Testing performed by : [address] [address] BUN 15 6 - 25 mg/dL ADARSH Comment:Testing performed by : [address] [address] Creatinine 0.79 0.60 - 1.10 mg/dL ADARSH Comment:Testing performed by : [address] [address] Glucose 110 70 - 199 mg/dL ADARSH [...] was last revised 2022. Testing performed by: [address] [address] Calcium 8.6 8.5 - 10.3 mg/dL ADARSH Comment:Testing performed by : [address] [address] Blood 12/06/2024 10:4 3 AM DURABLE MEDICAL EQUIPMENT REPAIRER 12/06/2024 10:56 AM DURABLE MEDICAL EQUIPMENT REPAIRER us Carolann Frey NP LAB BLOOD ORDERABLES Final Re sult ADARSH [address] [facility] [place] [address] * TRANSTHORACIC ECHO (TTE) COMPLETE W DOPPLER/CF WO CONTRAST (12/06/2024 9:59 AM DURABLE MEDICAL EQUIPMENT REPAIRER) Anatomical Region Laterality Modality Ultrasound 12/06/2024 9:13 AM DURABLE MEDICAL EQUIPMENT REPAIRER Narrative 12/06/2024 11:32 AM DURABLE MEDICAL EQUIPMENT REPAIRER Adult Echocardiogram + ----- + :Name: LANA BENJAMIN Study Date: 12/06/2024 Status: E : : Patient Location: [address]^[id number]^eight: 65 in : : Weight: 210 lbBP: 105/63 mmHg: :: 1960 Gender: Female BSA: 2.0 m2 : :Reason For Study: leg swelling and chest pain : :Ordering Physician: : :JOIE^CAROLANN : : : :Performed By: Rosy : :CECELIA Dumont : + ----- + Procedure A [...] + :Name: LANA BENJAMIN Study Date: 12/06/2024Status: E : : Patient Location: [address]^[id number]^MHeight: 65 in : : : 210 lbBP: 105/63 mmHg: :: 1960 Gender: FemaleBSA: 2.0 m2 : :Reason For Study: leg swelling and chest pain: :Ordering Physician:: :TATO: :: :Performed By: Rosy: :CECELIA Dumont: + [...] by: Porfirio Barnett MD 12/06/2024 11:32 AM Carolann Frey NP CV ECHO PROCEDURES Final Resu lt * Troponin T high-sensitivity 4-hour (12/05/2024 9:35 PM DURABLE MEDICAL EQUIPMENT REPAIRER) Trop T hs 10 <=14 ng/L Comment: Interpretive Data For further hscTnT resources including the diagnostic algorithm and an aid in interpretation, copy and paste this link: https://nrl.testcatalog.org/show/[email or web address] Current Interpretive Data last revised 2020. Testing performed by: [facility], [address] [place] [address], [place]., [address] Trop T hs delta See Comment ng/L ADARSH GARCIA Comment: Inappropriate collection time to report a delta. Testing performed by: [address] [address] Trop T hs pct delta See Comment % ADARSH GARCIA Comment: Inappropriate collection time to report a delta. Testing performed by: [facility], [address] [place] [address]., [address] Trop T hs interp See Comment ADARSH GARCIA Comment: Inappropriate collection time to report a delta. Testing performed by: [address] [address] Blood 12/05/2024 9:35 PM DURABLE MEDICAL EQUIPMENT REPAIRER 12/05/2024 9:41 PM DURABLE MEDICAL EQUIPMENT REPAIRER us Kaur [facility] LAB BLOOD ORDERABLES Final Resu lt ADARSH GARCIA [address] [facility] [place] [address] * (ABNORMAL) D-dimer, quantitative (12/05/2024 9:35 PM DURABLE MEDICAL EQUIPMENT REPAIRER) D-Dimer 1,780(H) <=499 ng/mL FEU Comment: Interpretive [...] last revised on 2019. Testing performed by: [address] [address] Blood 12/05/2024 9:35 PM DURABLE MEDICAL EQUIPMENT REPAIRER 12/05/2024 9:41 PM DURABLE MEDICAL EQUIPMENT REPAIRER us Porfirio Barnett MD LAB BLOOD ORDERABLES Fi nal Result Performing Organization Address [facility]/ZIP Co de Phone Number ADARSH [address] [place] [address] * (ABNORMAL) Troponin T high-sensitivity 6-hour (12/05/2024 4:33 PM DURABLE MEDICAL EQUIPMENT REPAIRER) Trop T hs 16(H) <=14 ng/L Comment: Interpretive Data For further hscTnT resources including the diagnostic algorithm and an aid in interpretation, copy and paste this link: https://nrl.[email or web address]/show/hsTrop Current Interpretive Data last revised 2020. Testing performed by: [address] [address] Trop T hs delta 8 ng/L ADARSH GARCIA Comment:Testing performed by : [address] [address] Trop T hs interp Equivocal ADARSH GARCIA Comment:Testing performed by : [address] [address] Blood 12/05/2024 4:33 PM DURABLE MEDICAL EQUIPMENT REPAIRER 12/05/2024 4:41 PM DURABLE MEDICAL EQUIPMENT REPAIRER Kaur [facility] LAB BLOOD ORDERABLES Final Resu lt Performing Organization Address [facility] Co de Phone Number [facility] [place] [address] * Troponin T high-sensitivity 2-hour (12/05/2024 12:21 PM DURABLE MEDICAL EQUIPMENT REPAIRER) Trop T hs <6 <=14 ng/L Comment: Interpretive Data For further hscTnT resources including the diagnostic algorithm and an aid in interpretation, copy and paste this link: https://nrl.[email or web address]/show/hsTrop Current Interpretive Data last revised 2020. Testing performed by: [address] [address] Trop T hs delta -2 ng/L ADARSH GARCIA Comment:Testing performed by : [address] [address] Trop T hs interp Insignificant ADARSH GARCIA Comment:Testing performed by : [address] [address] Blood 12/05/2024 12:2 1 PM DURABLE MEDICAL EQUIPMENT REPAIRER 12/05/2024 12:28 PM DURABLE MEDICAL EQUIPMENT REPAIRER Kaur [facility] LAB BLOOD ORDERABLES Final Resu lt ADARSH GARCIA [address] [facility] Department [place] [address] * (ABNORMAL) Urinalysis reflex to microscopic and culture Urine (12/05/2024 11:43 AM DURABLE MEDICAL EQUIPMENT REPAIRER) Color, ur Yellow Yellow Comment:Testing performed by : [address] [address] Clarity, ur Clear Clear ADARSH GARCIA Comment:Testing performed by : [address] [address] Specific gravity, ur 1.015 1.003 - 1.030 ADARSH Comment:Testing performed by : [address] [address] pH, urine 7.0 ADARSH GARCIA Comment: Interpretive Data U rine pH is affected by diet, medications, systemic acid-base disturbances, and renal tubular function. pH may affect urinary stone formation. For example, urine pH below 6.0 may help reduce the tendency for calcium phosphate stones and pH greater than 6.0 may reduce the tendency for uric acid stone formation. Source: [facility] MyoKardia Current Interpretive Data was last revised on 2017 Testing performed by: [address] [address] Protein, ur ql Negative Negative ADARSH GARCIA Comment:Testing performed by : [address] [address] Glucose, ur ql Negative Negative ADARSH GARCIA Comment:Testing performed by : [address] [address] Ketones, ur Negative Negative ADARSH GARCIA Comment:Testing performed by : [address] [address] Bilirubin, ur Negative Negative ADARSH GARCIA Comment:Testing performed by : [facility], [address] [place] [address]., [address] Blood, ur Negative Negative ADARSH Comment:Testing performed by : [address] [address] Urobilinogen, ur 4.0(A) <2.0 mg/dL ADARSH GARCIA Comment:Testing performed by : [address] [address] Nitrite, ur Negative Negative ADARSH Comment:Testing performed by : [address], [place]., [address] Leukocyte esterase, ur Negative Negative ADARSH Comment:Testing performed by : [address] [address] UA reflex comment Reflex conditions for microscopic UA and culture not met. ADARSH Comment:Testing performed by : [address] [address] Urine 12/05/2024 11:4 3 AM DURABLE MEDICAL EQUIPMENT REPAIRER 12/05/2024 11:53 AM DURABLE MEDICAL EQUIPMENT REPAIRER Kaur [facility] LAB MICROBIOLOGY - GENERAL ORDSebastian VALENCIA Final Result ADARSH GARCIA [address] [facility] [place] [address] * ECG 12 lead (12/05/2024 11:40 AM DURABLE MEDICAL EQUIPMENT REPAIRER) Ventricular Rate EKG/Min [address] [facility] Atrial Rate [address] [facility] FL-Interval (MSEC) [address] [facility] QRS-Interval (MSEC) [address] [facility] QT-Interval (MSEC) [address] [facility] QTc [address] [facility] P [place] [address] [facility] R [place] [address] [facility] T [place] [address] [facility] Diagnosis Normal sinus rhythm Septal infarct (cited on or before 21-NOV-2024) Abnormal ECG When compared with ECG of 21-NOV-2024 15:21, No significant change was found Confirmed by JUAN RAY M.D. ([id number]) on 12/05/2024 9:24:35 PM [facility] 12/05/2024 11:4 0 AM DURABLE MEDICAL EQUIPMENT REPAIRER 12/05/2024 9:24 PM DURABLE MEDICAL EQUIPMENT REPAIRER Kaur Padmini SILVER ECG ORDERABLES Final Result [facility] * XR Chest 1 Vw Portable (12/05/2024 10:40 AM DURABLE MEDICAL EQUIPMENT REPAIRER) Anatomical Region Laterality Modality Body, Chest N/A Computed Radiogr aphy 12/05/2024 10:5 2 AM DURABLE MEDICAL EQUIPMENT REPAIRER Narrative 12/05/2024 10:54 AM DURABLE MEDICAL EQUIPMENT REPAIRER EXAM DESCRIPTION: XR CHEST 1 VIEW REASON [...] Aleena Hansen D.O. PS: PS Report ID: [id number] Reading Location: [id number] Procedure Note Aleena Hansen, DO - 12/05/2024 [...] Aleena Hansen D.O. PS: PS Report ID: [id number] Reading Location: [place] [address] us Kaur SILVER IMG XR PROCEDURES Final Result * Troponin T high-sensitivity series (baseline, 2hr, 4hr, 6hr) (12/05/2024 10:16 AM DURABLE MEDICAL EQUIPMENT REPAIRER) Trop T hs 8 <=14 ng/L Comment: Interpretive Data For further hscTnT resources including the diagnostic algorithm and an aid in interpretation, copy and paste this link: https://nrl.testcatalog.org/show/hsTrop Current Interpretive Data last revised 2020. Testing performed by: [facility], [address] [place] [address]., [address] Blood 12/05/2024 10:1 6 AM DURABLE MEDICAL EQUIPMENT REPAIRER 12/05/2024 10:26 AM DURABLE MEDICAL EQUIPMENT REPAIRER us Kaur SILVER LAB BLOOD ORDERABLES Final Resu lt [facility]ARSH [address] [facility] Department [place] [address] * eGFR (12/05/2024 10:16 AM DURABLE MEDICAL EQUIPMENT REPAIRER) eGFR >90 >=60 mL/min/1. 73 m2 Comment: [...] was last reviewed 2021. Testing performed by: [address] [address] Blood 12/05/2024 10:1 6 AM DURABLE MEDICAL EQUIPMENT REPAIRER 12/05/2024 10:26 AM DURABLE MEDICAL EQUIPMENT REPAIRER us Kaur [facility] LAB BLOOD ORDERABLES Final Resu lt [facility]SH GARCIA [address] [facility] Department of Laboratories [place], [place] [id number] * Differential, auto (12/05/2024 10:16 AM DURABLE MEDICAL EQUIPMENT REPAIRER) Pathologist [facility] Neutrophil abs 1.9 1.5 - 6.5 K/cumm Comment:Testing performed by : [address] [address] Imm gran abs 0.0 0.0 - 0.1 K/cumm ADARSH GARCIA Comment:Testing performed by : [address] [address] Lymphocyte abs 1.3 0.8 - 3.3 K/cumm ADARSH GARCIA Comment:Testing performed by : [address] [address] Monocyte abs 0.5 0.2 - 0.8 K/cumm [facility] Comment:Testing performed by : [address] [address] Eosinophil abs 0.2 0.0 - 0.5 K/cumm [facility] Comment:Testing performed by : [address] [address] Basophil abs 0.0 0.0 - 0.1 K/cumm [facility] Comment:Testing performed by : [address] [address] Neutrophil pct 48.9 % [facility] Comment: Interpretive Data Percent cell count reference ranges are not reported, since discordance with absolute values may lead to misinterpretation of CBC data. Current Interpretive Data was last revised on 2018. Testing performed by: [address] [address] Imm gran pct 0.3 % [facility] Comment: Interpretive Data Percent cell count reference ranges are not reported, since discordance with absolute values may lead to misinterpretation of CBC data. Current Interpretive Data was last revised on 2018. Testing performed by: [address] [address] Lymphocyte pct 31.5 % [facility] Comment: Interpretive Data Percent cell count reference ranges are not reported, since discordance with absolute values may lead to misinterpretation of CBC data. Current Interpretive Data was last revised on 2018. Testing performed by: [address] [address] Monocyte pct 12.8 % [facility] Comment: Interpretive Data Percent cell count reference ranges are not reported, since discordance with absolute values may lead to misinterpretation of CBC data. Current Interpretive Data was last revised on 2018. Testing performed by: [address] [address] Eosinophil pct 6.0 % [facility] Comment: Interpretive Data Percent cell count reference ranges are not reported, since discordance with absolute values may lead to misinterpretation of CBC data. Current Interpretive Data was last revised on 2018. Testing performed by: [address] [address] Basophil pct 0.5 % ADARSH GARCIA Comment: Interpretive Data Percent cell count reference ranges are not reported, since discordance with absolute values may lead to misinterpretation of CBC data. Current Interpretive Data was last revised on 2018. Testing performed by: [facility], [address] [place]., [address] Blood 12/05/2024 10:1 6 AM DURABLE MEDICAL EQUIPMENT REPAIRER 12/05/2024 10:26 AM DURABLE MEDICAL EQUIPMENT REPAIRER us Kaur SILVER LAB BLOOD ORDERABLES Final Resu lt [facility]ARSH GARCIA [address] [facility] Department [place] [address] * (ABNORMAL) Pro B-type natriuretic peptide (12/05/2024 10:16 AM DURABLE MEDICAL EQUIPMENT REPAIRER) NT-proBNP 904(H) <=300 pg/mL Comment: Interpretive Comments: [...] et.al. Eur Heart J. 2006:27:330-337. 2. Alex CHRISTIAN, Teri GARCÍA. J. AM Shreya Cardiol: Cardiovasc Imag. 2009;2: 216- 225. Interpretive Data Last Revised Date: 2018. Testing performed by: [address] [address] Blood 12/05/2024 10:1 6 AM DURABLE MEDICAL EQUIPMENT REPAIRER 12/05/2024 10:26 AM DURABLE MEDICAL EQUIPMENT REPAIRER Kaur SILVER LAB BLOOD ORDERABLES Final Resu lt [facility] [address] [facility] Department [place] [address] * (ABNORMAL) CBC with auto differential (12/05/2024 10:16 AM DURABLE MEDICAL EQUIPMENT REPAIRER) WBC 4.0 3.8 - 9.9 K/cumm Comment:Testing performed by : [address] [address] Hgb 7.7(L) 11.9 - 15.5 g/dL ADARSH Comment:Testing performed by : [address] [address] Hct 24.1(L) 35.6 - 45.5 % ADARSH Comment:Testing performed by : [address] [address] Plt 244 150 - 400 K/cumm ADARSH Comment:Testing performed by : [address] [address] MPV 10.1 9.1 - 12.3 fL ADARSH Comment:Testing performed by : [address] [address] RBC 2.82(L) 3.90 - 5.20 M/cumm ADARSH Comment:Testing performed by : [address] [address] MCV 85.5 81.3 - 96.4 fL ADARSH Comment:Testing performed by : [address] [address] MCH 27.3 27.1 - 33.3 pg ADARSH GARCIA Comment:Testing performed by : [address] [address] MCHC 32.0(L) 32.3 - 35.7 g/dL ADARSH GARCIA Comment:Testing performed by : [address] [address] RDW CV 22.0(H) 11.1 - 14.9 % ADARSH GARCIA Comment:Testing performed by : [address] [address] RDW SD 69.0(H) 35.7 - 48.1 fL ADARSH GARCIA Comment:Testing performed by : [address] [address] NRBC abs 0.00 0.00 - 0.01 K/cumm ADARSH GARCIA Comment:Testing performed by : [address] [address] Blood 12/05/2024 10:1 6 AM DURABLE MEDICAL EQUIPMENT REPAIRER 12/05/2024 10:26 AM DURABLE MEDICAL EQUIPMENT REPAIRER us Kaur SILVER LAB BLOOD ORDERABLES Final Resu lt ADARSH GARCIA [address] [facility] Department of Laboratories [place], [place] [id number] * (ABNORMAL) Comprehensive metabolic panel (12/05/2024 10:16 AM DURABLE MEDICAL EQUIPMENT REPAIRER) Sodium 140 135 - 145 mmol/L Comment:Testing performed by : [address] [address] Potassium, pl 4.1 3.3 - 4.9 mmol/L ADARSH GARCIA Comment:Testing performed by : [address] [address] Chloride 107 97 - 110 mmol/L ADARSH GARCIA Comment:Testing performed by : [address] [address] CO2 26 22 - 32 mmol/L ADARSH GARCIA Comment:Testing performed by : [address] [address] Anion gap 7 2 - 15 mmol/L ADARSH Comment:Testing performed by : [address] [address] BUN 10 6 - 25 mg/dL ADARSH Comment:Testing performed by : [address] [address] Creatinine 0.61 0.60 - 1.10 mg/dL ADARSH Comment:Testing performed by : [address] [address] Glucose 99 70 - 199 mg/dL [facility] Comment: Interpretive Data Fasting glucose >/= 126 [...] was last revised 2022. Testing performed by: [address] [address] Calcium 8.7 8.5 - 10.3 mg/dL ADARSH Comment:Testing performed by : [address] [address] Bilirubin, total 0.3 0.1 - 1.2 mg/dL ADARSH Comment:Testing performed by : [address] [address] Protein, pl 6.2(L) 6.5 - 8.5 g/dL ADARSH Comment:Testing performed by : [address] [address] Albumin 3.6 3.5 - 5.0 g/dL ADARSH Comment:Testing performed by : [address] [address] Alk phos 108 40 - 130 Units/L ADARSH Comment:Testing performed by : [address] [address] ALT 9 7 - 45 Units/L ADARSH GARCIA Comment:Testing performed by : [facility], [address] [place] [address]., [address] AST 15 10 - 45 Units/L ADARSH GARCIA Comment:Testing performed by : [facility], [address] [place] [address]., [address] Blood 12/05/2024 10:1 6 AM DURABLE MEDICAL EQUIPMENT REPAIRER 12/05/2024 10:26 AM DURABLE MEDICAL EQUIPMENT REPAIRER Kaur SILVER LAB BLOOD ORDERABLES Final Resu lt ADARSH GARCIA [address] [facility] Department [place] [address] * Serum Hepatitis C ab (05/03/2013 4:35 AM CDT) HCV ab Negative NEG HISTORICAL RESULTS Serum 05/03/2013 4:35 AM CDT Narrative HISTORICAL RESULTS - 05/04/2013 3:32 AM CDT Interpretive Data If confirmation is required, call Laboratory Customer Service to request sample to be sent to [facility] for Hepatitis C Virus (HCV) RNA Detection and Quantitation by Real-Time Reverse [employer]-PCR (RT-PCR). Current interpretive data was last revised on 2012 Historical Provider LAB BLOOD ORDERABLES Shanice l Result Performing Organization Address City/[facility] Co de Phone Number HISTORICAL RESULTS from Last 3 Months or Most Recently Relevant to Health Maintenance Additional Health Concerns Infection Onset Date Last Indicated COVID: Recovered Comment:Added based on recent COVID infection. 12/31/[address] [place] [address] Advance Directives For more information, please contact: [phone] * Full Code (Latest Code Status on [...] Health Care Agent Jodee Catalan Daughter [facility] re Agent Care Teams Byproducts Supervisor Relationship Specialty Start Date End Date Pratima Hinds NP [address] [facility] [address] [place] [address] PCP - General Nurse Practitioner 02/04/24 Rinku Chow DO [address] [facility] [address] [place] [address] Medical Oncologist/Hematologis t Hematology and Oncology 02/04/24 Bry Mead MD [address] [facility] [address] [place], [place] [address] Radiation Oncologist Radiation Oncology 01/04/25 Bernarda Luong MD [address] [facility] [address] [place] [address] Referring Physician Internal Medicine 01/04/25
== END 2025-03-02 15:54 | disposition home or self-care (01) ==
PROVIDERS: Emergency Provider Student in an Organized Health Care Education/Training Program
DX: R22.43 Localized swelling, mass and lump, lower limb, bilateral (principal); Z85.3 Personal history of malignant neoplasm of breast
CPT/HCPCS: 93970; 99284